=== PATIENT | female | born 1995 | race Caucasian/White ===

== ENCOUNTER 2018-05-22 19:12 | Emergency (ER) | payer BC, SELFPAY ==
--- OUTSIDE RECORDS SUMMARY | 2018-05-22 19:14 | XMS REPORT | Summary of Care ---
:1995 Author Name Helene Sherman Address [facility] Unavailable , Care Team Providers Name Role Phone JEREMIAH N.P., RASHAD Unavailable Unavailable SAMMY LEBLANC M.D. Unavailable Unavailable DEANA YOUNGER [place], SAMMY VEE Unavailable Unavailable Unavailable Unavailable Unavailable Functional Status Name Dates Details Functional status health issues are not documented Status: Name Dates Details Cognitive status health issues are not documented Status: Problems Name Dates Details Displaced supracondylar fracture with intracondylar extension of lower end of left femur, initial encounter for open fracture type IIIA, IIIB, or IIIC (821.33 , S72.462C) Status: Active Foot pain (729.5, M79.673) Status: Active Medications Name Dates Details Acetaminophen-Codeine #3 300-30 MG Oral Tablet TAKE 1 TO 2 TABLETS EVERY 6 HOURS NEEDED FOR PAIN. Quantity: 40 Refills: 0 JEREMIAH N.P., RASHAD Start : 13-Aug-2017 Active Gabapentin 300 MG Oral Capsule TAKE 1 CAPSULE 3 TIMES DAILY. Quantity: 90 Refills: 0 JEREMIAH N.P., RASHAD Start : 13-Aug-2017 Active Ibuprofen 800 MG Oral Tablet TAKE 1 TABLET 3 TIMES DAILY WITH FOOD NEEDED. Quantity: 60 Refills: 0 SAMMY LEBLANC M.D. Start : 15-Oct-2017 Active Allergies and Adverse Reactions Name Dates Details Allergy history not documented Status: Procedures Procedure Dates Details [U] XRAY FEMUR 2 VWS LEFT [id number] Date: 19-Mar-2018 [U] XRAY KNEE 1 OR 2 VWS LEFT [id number] Date: 19-Mar-2018 Immunization Name Dates Details Immunizations not documented Social History Name Dates Details Unknown if ever smoked Vital Signs Date Test Result Details No Known Vitals to report Results Date Description Value Details Results not documented Plan of Care Name Dates Details Planned Observations Planned Goals not documented Planned Encounters Appointment; SAMMY LEBLANC M.D. On: 25-Mar-2018 12:45 Interventions Provided Labs/Procedures/Imaging[U] XRAY FEMUR 2 VWS LEFT [id number]; To Be Done: 25 Mar 2018[ U] XRAY KNEE 1 OR 2 VWS LEFT [id number]; To Be Done: 25 Mar 2018 Instructions Name Dates Details Instructions not documented Encounters Appointment; SAMMY LEBLANC M.D. On: 13-Aug-2017 13:15 Encounter Diagnosis: Problem not documented Appointment; SAMMY LEBLANC M.D. On: 27-Aug-2017 8:00 Encounter Diagnosis: Problem not documented Appointment; SAMMY LEBLANC M.D. On: 17-Sep-2017 8:00 Encounter Diagnosis: Problem not documented Appointment; RASHAD DANIELS NP On: 17-Sep-2017 8:00 Encounter Diagnosis: Problem not documented Appointment; SAMMY LEBLANC M.D. On: 15-Oct-2017 8:00 Encounter Diagnosis: Problem not documented Appointment; SAMMY LEBLANC M.D. On: 27-Oct-2017 7:30 Encounter Diagnosis: Problem not documented Appointment; SAMMY LEBLANC M.D. On: 19-Nov-2017 11:00 Encounter Diagnosis: Problem not documented Appointment; SAMMY LEBLANC M.D. On: 17-Dec-2017 13:15 Encounter Diagnosis: Problem not documented Appointment; SAMMY LEBLANC M.D. On: 25-Mar-2018 12:45 Encounter Diagnosis: Problem not documented
[2018-05-22 20:05] LABS: Urine Blood 1+ (NEG); Urine Glucose NEGATIVE (NEG); Urine Protein NEGATIVE (NEG); Urine Specific Gravity 1.015 (1.005-1.030); Urine pH 6.5 (5.0-7.0)
[2018-05-22 20:25] LABS: Urine RBC <5 /HPF (NONE SEEN)
[2018-05-22 20:25] LABS: Absolute Monocytes 0.6 K/uL (0.1-1.3); Absolute Neutrophil 4.3 K/uL (1.8-8.0); Basophils % 0.5 % (0-1.3); Eosinophils % 2.1 % (0-4.4); Hematocrit 38.7 % (36.0-45.0); Lymphocytes % 28.3 % (15.3-44.8); MPV 8.6 fL (7.6-11.3); Monocytes % 9.1 % (3.3-12.3); RBC Red Blood Cell Count 4.85 M/uL (3.86-4.86)
[2018-05-22 20:26] LABS: Urine Bacteria 20-50 /HPF (<20); Urine Culture Reflex Order REFLEXED
[2018-05-22] MEDS ORDERED: NA CHLORIDE 0.9% 1,000 ML ONE (20:46)
[2018-05-22 20:59] LABS: ALT/SGPT 25 U/L (12-78); AST/SGOT 11 U/L (15-37); Albumin 3.6 g/dL (3.4-5.0); Alkaline Phosphatase 83 U/L (45-117); BUN Blood Urea Nitrogen 11 mg/dL (7-18); Bicarbonate 28 mmol/L (21-32); Bilirubin Direct < 0.1 mg/dL (0-0.2); Bilirubin Total 0.2 mg/dL (0.2-1.0); Glucose Level 86 mg/dL (74-106); Lipase 139 U/L (73-393); Potassium 3.8 mmol/L (3.5-5.1); Protein, Total 8.3 g/dL (6.4-8.2); Sodium Level 141 mmol/L (136-145)
[2018-05-22] MEDS ORDERED: KETOROLAC 30 MG/ML INJ ONE (21:24)
--- NOTE | 2018-05-22 22:07 | RAD REPORT ---
EXAM DESCRIPTION: CT - Abdomen Pelvis W Contrast - 05/22/2018 9:50 pm CLINICAL HISTORY: Abdominal pain/left lower quadrant pain. COMPARISON: none. TECHNIQUE: Computed axial tomography of the abdomen pelvis was obtained. 100 cc Isovue-300 was admin istered intravenously. Oral contrast was not requested which limits evaluation of bowel. All CT scans are performed using dose optimization technique as appropriate and may include automated exposure control or mA/KV adjustment according to patient size. FINDINGS: Fatty liver 1Spleen, pancreas, adrenal and kidneys appear unremarkable. There is no evidence of diverticulitis. The appendix is normal. An adnexal mass is not seen IMPRESSION: No acute abnormality is displayed.
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
== END 2018-05-22 22:31 | disposition home or self-care (01) ==
LOC: ER 19:12
DX: R10.32 Left lower quadrant pain (principal); G40.909 Epilepsy, unspecified, not intractable, without status epilepticus; Z91.040 Latex allergy status; Z91.048 Other nonmedicinal substance allergy status
CPT/HCPCS: 36415; 74177; 80048; 80076; 81003; 81015; 81025; 83690; 85025; 87086; 87088; 96361; 96374; 99284; J7030; Q9967

== ENCOUNTER 2018-08-04 05:50 | Emergency (ER) | payer BC, SELFPAY ==
--- OUTSIDE RECORDS SUMMARY | 2018-08-04 05:56 | XMS REPORT | Continuity of Care Document ---
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 (Same As: Ultram) pregabalin 100 mg, 1 cap, No Longer [place] Route: PO, Drug Active 2017 Medical form: CAP, Q8H, Center Dosing Weight 88.182, kg, Priority: NOW, Start date: 07/28/17 23:48:00 [employer], Duration: 48 hr, Stop date: 07/30/17 16:00:00 CSTNotes: (Same as: Lyrica) celecoxib 200 mg, 1 cap, No Longer [facility] Route: PO, Drug Active 2017 Medical form: CAP, Q12H, Center Dosing Weight 88.182, kg, Priority: NOW, Start date: 07/28/17 23:48:00 [employer], Duration: 48 hr, Stop date: 07/30/17 21:00:00 CSTNotes: NSAID. Please check indication. Not for seizure. (Same As: CeleBREX) Acetaminophen 1,000 mg, 2 tab, No Longer [place] Route: PO, Drug Active 2017 Medical form: TAB, Q6H, Center Dosing Weight 88.182, kg, Priority: NOW, Start date: 07/28/17 23:48:00 [employer], Stop date: 08/27/17 17:00:00 CDTNotes: Max acetaminophen 4000 mg/day (4 gm/day). (Same as: Tylenol Extra Strength) Ancef + sterile 2 gm, Route: No Longer [facility] water 20 mL IVP, Q8H, Dosing Active 2018 Medical Weight 88.182, Center kg, Priority: STAT, Start date: 07/28/17 23:34:00 [employer], Duration: 30 day, Stop date: 08/27/17 16:00:00 CDT, ABX Indication: Bone/Joint Infection Ondansetron 4 mg, Route: Inactive [facility] IVP, Drug form: 2018 Medical INJ, ONCE, Center Dosing Weight 88.182, kg, Priority: STAT, Start date: 07/28/17 23:32:00 [employer], Stop date: 07/28/17 23:32:00 [employer] Morphine 4 mg, Route: Inactive [facility] IVP, ONCE, 2018 Medical Dosing Weight Center 88.182, kg, Priority: STAT, Start date: 07/28/17 23:30:00 [employer], Stop date: 07/28/17 23:30:00 [employer] Dilaudid 1 mg, Route: IV, Inactive [facility] ONCE, Dosing 2018 Medical Weight 88.182, Center kg, Start date: 07/28/17 21:44:00 [employer], Stop date: 07/28/17 21:44:00 [employer] Ketamine 25 mg, Route: Inactive [facility] IV, ONCE, Dosing 2018 Medical Weight 88.182, Center kg, Start date: 07/28/17 21:23:00 [employer], Stop date: 07/28/17 21:23:00 [employer] iodixanol 130 mL, Route: Inactive [facility] IVP, Drug Form: 2018 Medical SOLN, Dosing Center Weight 88.182, kg, ONCALL, STAT, Start date: 07/28/17 21:22:00 [employer], Duration: 1 doses or times, Dose=2.2ml/kg, Max ocis=[id number] -- "To be infused by Radiology Staff ONLY" Isolyte S PH 7.4 1,000 mL, Rate: Inactive [facility] 1,000 mL 125 ml/hr, 2018 Medical Infuse over: 8 Center hr, Route: IV, Dosing Weight 88.182 kg, Total Volume: 1,000, Priority: STAT, Start date: 07/28/17 20:45:00 [employer], Duration: 1 doses or times, Stop date: 07/29/17 4:44:00 [employer], 1.84, [id number]: (Same as: Isolyte S PH 7.4) Cefazolin 2 gm, Route: IV, Inactive 07/29[facility] ONCE, Dosing 2018 Medical Weight 88.182, Center kg, (for patients 50 -120 kg), Priority: STAT, Start date: 07/28/17 20:45:00 [employer], Stop date: 07/28/17 20:45:00 [employer], ABX Indication: Open Wound Prophylaxis Hydromorphone 1 mg, Route: Inactive 07/29[facility] IVP, ONCE, 2018 Medical Dosing Weight Center 88.182, kg, Priority: STAT, Start date: 07/28/17 20:45:00 [employer], Stop date: 07/28/17 20:45:00 [employer] Gentamicin 500 mg, Route: Inactive 07/29[facility] IVPB, ONCE, 2018 Medical Dosing Weight Center 88.182, kg, Time Critical Medication, Priority: STAT, Start date: 07/28/17 20:45:00 [employer], Stop date: 07/28/17 20:45:00 [employer] Saline Flush 0.9% 10 mL, Route: No Longer 07/29/ [facility] MISC, Drug Form: Active 2018 Medical INJ, Dosing Center Weight 88.182, kg, PRN, PRN Line Flush, Start date: 07/28/17 20:45:00 [employer], Duration: 30 day, Stop date: 08/27/17 21:44:00 CDTNotes: (Same as: BD Posiflush) Allergies, Adverse Reactions, Alerts Substance Category Reaction Severity Reaction Status Date Comments Source type Reported Latex Assertion Drug Active [facility] allergy [facility] Center Immunizations Immunization Date Given Site Status Last Comments Source Updated pneumococcal 07/29/2017 Not Given [facility] 23-valent vaccine [facility] diphtheria/pertus 07/29/2017 Left completed [facility] sis, acel/tetanus Deltoid [facility] adult Center Results Order Name Results Value Reference Date Interpretation Comments Source Range Femur Femur series Right femur 2 views: There is no fracture or dislocation. Vague linear lucency over the greater trochanter is consistent with an overlying fat pad. There are no other significant osseous, articular or soft tissue abnormalities. 08/01 - [facility] series DX DX /2019 - [facility] IMPRESSION: Read by: Bean Parmar MD Dictated Date/time: 08/02/18 07:50 Electronically Signed by: Bean Parmar MD 08/02/18 07:51 FINAL REPORT No acute radiographic abnormalities of the right femur. [id number] Hip 2/3 Hip 2/3 Right hip and pelvis 3 views: There is no fracture or dislocation. There are no other significant osseous, articular or soft tissue abnormalities. 08/01 - [facility] views uni w views uni w /2018 - [facility] pelvis DX pelvis DX IMPRESSION: Read by: Bean Parmar MD Dictated Date/time: 08/02/18 07:49 Electronically Signed by: Bean Parmar MD 08/02/18 07:50 FINAL REPORT No acute radiographic abnormality of the right hip. [id number] Brain wo Brain wo Clinical Indication: Seizures - Epilepsy Protocol; - [facility] contrast contrast MRI /2018 - [facility] MRI Comparison: CT head 07/28/2017 Read by: Dillon Garza MD Dictated Date/time: 08/01/18 11:49 TECHNIQUE: Multiplanar pre- and post-gadolinium contrast-enhanced MRI of the brain is performed on a 1.5 Iman magnet. Contrast: None. Electronically Signed by: Dillon Garza MD 08/01/18 11 :55 FINAL REPORT FINDINGS: BRAIN PARENCHYMA: No restricted diffusion demonstrated. Mild motion artifact limits sensitivity of this study. Gradient echo sequence is unremarkable. Global volume is commensurate with age. Midline str uctures are within normal limits. The craniocervical junction is unremarkable. Both medial temporal lobes are symmetric in appearance. CEREBELLOPONTINE REGIONS AND SKULL BASE: The cerebellopontine angles appear unremarkable. The sellar and pineal regions are unremarkable. VENTRICLES: The ventricles are normal in size and configuration. The basilar cisterns are normal. VESSELS: The venous sinuses are grossly unremarkable. The expected intracranial flow voids are present. ORBITS, VISUALIZED PARANASAL SINUSES AND MASTOIDS: Polyp or mucosal retention cyst in the right maxillary sinus. Remaining imaged paranasal sinuses are clear. Mastoid air cells are clear. Orbits appear unremarkable. IMPRESSION: No acute ischemia, midline shift or mass effect. SL: CELEM Ext Lower Ext Lower EXAM: ULTRASOUND LEFT KNEE NONVASCULAR 10/29 - [facility] limited non limited non - Medical vascular US vascular US Center DATE: 10/29/2017 7:21 AM CDT Read by: Dewye Jacobs MD Dictated Date/time: 10/29/17 09:50 Electronically Signed by: Dewey Jacobs MD 10/29/17 09:55 FINAL REPORT INDICATION: Limitation of movement - R/O quad/ patella tend rupture COMPARISON: Left knee radiographs 10/29/2017 TECHNIQUE: Ultrasound exam of the left knee extensor mechanism with multiple images submitted to PACS. DISCUSSION: There is diffuse increased signal and volume loss of the left quadriceps musculature. There is partial tearing of the distal vastus lateralis muscle. The left quadriceps tendon is normal in echogenicity and morphology. There is a 1.3 cm in length displaced bone fragment within the fat deep to the quadriceps tendon. There is mild thinning with irregul arity along the deep surface of the proximal patellar tendon without patellar tendon tear identified. IMPRESSION: 1. Mild thinning of the proximal left patellar tendon without tear identified. The left quadriceps tendon is intact. 2. Atrophy of the distal left quadriceps musculature with partial tearing of the vastus lateralis. Femur Femur series EXAM: XR LEFT FEMUR 2 VIEWS 10/29 - [facility] series DX DX - Medical EXAM: XR LEFT KNEE 3 VIEWS Center Read by: Kenneth Johnson Dictated Date/time: 10/29/17 03:37 DATE: 10/29/2017 2:40 AM CDT Electronically Signed by: Kenneth Johnson 10/29/17 03:42 FINAL REPORT INDICATION: - pain COMPARISON: August 03, 2017 TECHNIQUE: AP and lateral views of the left femur, AP, lateral and oblique views of the left knee. FINDINGS: Unchanged left femur ORIF hardware. No hardware fracture or perihardware lucencies seen. Fracture lines in the distal femur are still visualized with no significant bony bridging. Mild soft tissue swell ing seen in the distal thigh and knee. Heterotopic ossification seen on the superior aspect of the patella. IMPRESSION: Unchanged left femoral ORIF hardware. Comminuted distal left femur fracture without significant bony bridging. Mild soft tissue swelling about the knee and in the distal thigh. Knee series Knee series EXAM: XR LEFT FEMUR 2 VIEWS 10/29 [facility] 3 views DX 3 views DX /2018 - Medical EXAM: XR LEFT KNEE 3 VIEWS Center Read by: Kenneth Johnson Dictated Date/time: 10/29/17 03:37 DATE: 10/29/2017 2:40 AM CDT Electronically Signed by: Kenneth Johnson 10/29/17 03:42 FINAL REPORT INDICATION: - pain COMPARISON: August 03, 2017 TECHNIQUE: AP and lateral views of the left femur, AP, lateral and oblique views of the left knee. FINDINGS: Unchanged left femur ORIF hardware. No hardware fracture or perihardware lucencies seen. Fracture lines in the distal femur are still visualized with no significant bony bridging. Mild soft tissue swell ing seen in the distal thigh and knee. Heterotopic ossification seen on the superior aspect of the patella. IMPRESSION: Unchanged left femoral ORIF hardware. Comminuted distal left femur fracture without significant bony bridging. Mild soft tissue swelling about the knee and in the distal thigh. HEMATOLOGY RDW 16.5 % 11.5 - 06 [place] 14.[address] [facility] HEMATOLOGY Platelet 373 K/CMM 133 - [address] [facility] HEMATOLOGY RBC 4.94 M/CMM 4.20 - 0605 [place] 5.40 /[address] [facility] HEMATOLOGY WBC 9.5 K/CMM 3.7 - 10.4 10/[address] [facility] HEMATOLOGY MCH 24.1 pg 27.0 - 06 [place] 31.0 /[address] [facility] HEMATOLOGY Hgb 11.9 g/dL 12.0 - 06 [place] 16.[address] [facility] HEMATOLOGY MCV 75.0 fL 80.0 - 10/27 [place] 98.[address] [facility] HEMATOLOGY MCHC 32.2 g/dL 32.0 - 06/05 [place] 36.[address] [facility] HEMATOLOGY Hct 37.0 % 36.0 - 06/ [place] 48.[address] [facility] HEMATOLOGY MPV 8.4 fL 7.4 - 10.4 06 /[address] [facility] HEMATOLOGY Segs 57.1 % 45.0 - 06/05 [place] 75.0 /[address] [facility] HEMATOLOGY Lymphocytes 33.5 % 20.0 - 06/05 [place] 40.[address] [facility] HEMATOLOGY Lymphocytes 3.2 K/CMM 1.0 - 5.5 06 [facility] [place] # /[address] [facility] HEMATOLOGY Segs-Bands # 5.4 K/CMM 1.5 - 8.1 10/[address] HEMATOLOGY Monocytes 6.4 % 2.0 - 12.0 10/[address] HEMATOLOGY Basophils 0.7 % 0.0 - 1.0 10/[address] HEMATOLOGY Eosinophils 2.3 % 0.0 - 4.0 10/[address] HEMATOLOGY Eosinophils 0.2 K/CMM 0.0 - 0.5 10/[address] [facility] [facility] HEMATOLOGY Microcyte 1+ None Seen 10/27 [facility] [address] [place] [address] *ABN* Center (10/27/17 6:51 AM) HEMATOLOGY Monocytes # 0.6 K/CMM 0.0 - 0.8 10/[address] HEMATOLOGY Basophils # 0.1 K/CMM 0.0 - 0.2 10/[address] ELECTROLYTE AGAP 15.1 meq/L 10.0 - 08/07 [facility] 20.[address] [facility] ELECTROLYTE eGFR 137 08/07 Result Comment: The eGFR is calculated using the CKD-EPI formula. In most young, healthy individuals the eGFR will be > 90 mL/min/1.73m2. The eGFR declines with age. An eGFR of 60-89 may be normal in [facility] mL/min/1. some populations, particularly the elderly, for whom the CKD-EPI formula has not been extensively validated. Use of the eGFR is not recommended in the following populations: [address] Individuals with unstable creatinine concentrations, including patients and those with serious co-morbid conditions. Patients with extremes in muscle mass or diet. The data above are obtained from the National Kidney Disease Education Program (NKDEP) which additionally recommends that when the eGFR is used in patients with extremes of body mass index for purposes of drug dosing, the eGFR should be multiplied by the estimated BMI. ELECTROLYTE Creatinine 0.53 mg/dL 0.50 - 08/07 [facility] Lvl 1.[address] [facility] ELECTROLYTE CO2 24 meq/L 24 - 32 08/[address] ELECTROLYTE BUN 14 mg/dL 7 - 22 08/[address] ELECTROLYTE Glucose Lvl 97 mg/dL 70 - 99 08/[address] ELECTROLYTE Sodium Lvl 137 meq/L 135 - 145 08/07 [facility] S [facility] ELECTROLYTE Calcium Lvl 8.7 mg/dL 8.5 - 10.5 08/07 [facility] ELECTROLYTE Chloride Lvl 102 meq/L 95 - 109 08/07 [facility] ELECTROLYTE Potassium 4.1 meq/L 3.5 - 5.1 08/07 [facility] Lvl [facility] HEMATOLOGY Eosinophils 3.2 % 0.0 - 4.0 08/07 [facility] HEMATOLOGY Monocytes # 0.9 K/CMM 0.0 - 0.8 08/07 [facility] HEMATOLOGY Lymphocytes 2.8 K/CMM 1.0 - 5.5 08/07 [facility] HEMATOLOGY Eosinophils 0.3 K/CMM 0.0 - 0.5 08/07 [facility] HEMATOLOGY Segs 60.6 % 45.0 - 08/07 [facility] 75.[address] [facility] HEMATOLOGY Lymphocytes 27.2 % 20.0 - 08/07 [facility] 40.[address] [facility] HEMATOLOGY Monocytes 8.7 % 2.0 - 12.0 08/07 [facility] [address] [place] [address] HEMATOLOGY Segs-Bands # 6.2 K/CMM 1.5 - 8.1 08/07 [facility] HEMATOLOGY Basophils 0.3 % 0.0 - 1.0 08/07 [facility] [address] [place] [address] HEMATOLOGY Hct 27.7 % 36.0 - 08/[address] [facility] HEMATOLOGY MCV 82.9 fL 80.0 - 08/[address] [facility] HEMATOLOGY MCH 27.5 pg 27.0 - 08/[address] [facility] HEMATOLOGY MCHC 33.1 g/dL 32.0 - 08/[address] [facility] HEMATOLOGY RDW 15.7 % 11.5 - 08/[address] [facility] HEMATOLOGY Platelet 409 K/CMM 133 - 450 08/07 [facility] HEMATOLOGY RBC 3.34 M/CMM 4.20 - 08/07 [place] 5.40 /[address] [facility] HEMATOLOGY Hgb 9.2 g/dL 12.0 - 08/07 [place] 16.[address] [facility] HEMATOLOGY WBC 9.7 K/CMM 3.7 - 10.4 08/[address] [facility] HEMATOLOGY MPV 8.0 fL 7.4 - 10.4 08/[address] [facility] HEMATOLOGY Segs 61.1 % 45.0 - 08/07 [place] [address] [facility] HEMATOLOGY Lymphocytes 2.7 K/CMM 1.0 - 5.5 08/07 [facility] # /[address] [facility] HEMATOLOGY Monocytes # 0.7 K/CMM 0.0 - 0.8 08/[address] [facility] HEMATOLOGY Eosinophils 0.3 K/CMM 0.0 - 0.5 08/07 [facility] HEMATOLOGY Eosinophils 3.6 % 0.0 - 4.0 08/[address] [facility] HEMATOLOGY Basophils 0.4 % 0.0 - 1.0 08/[address] [facility] HEMATOLOGY Segs-Bands # 6.0 K/CMM 1.5 - 8.1 08/[address] [facility] HEMATOLOGY Lymphocytes 27.3 % 20.0 - 08/07 [place] [address] [facility] HEMATOLOGY Monocytes 7.6 % 2.0 - 12.0 08/[address] [place] [address] HEMATOLOGY RDW 15.9 % 11.5 - 08/[address] [facility] HEMATOLOGY Platelet 406 K/CMM 133 - 450 08/[address] [facility] HEMATOLOGY MPV 8.0 fL 7.4 - 10.4 08/[address] [place] [address] HEMATOLOGY MCV 84.8 fL 80.0 - 08/[address] [facility] HEMATOLOGY MCH 27.8 pg 27.0 - 08/07 [place] 31.[address] [facility] HEMATOLOGY MCHC 32.8 g/dL 32.0 - 16 [place] [address] [facility] HEMATOLOGY Hgb 9.0 g/dL 12.0 - 16 [place] 16.[address] [facility] HEMATOLOGY Hct 27.3 % 36.0 - 16 [place] [address] [facility] HEMATOLOGY RBC 3.22 M/CMM 4.20 - 0316 [place] 5.40 /[address] [facility] HEMATOLOGY WBC 10.1 K/CMM 3.7 - 10.4 08/[address] [facility] BLOOD BANK ABO/Rh A POS 08/06 [facility] RESULTS [facility] BLOOD BANK Antibody Negative 08/06 [facility] RESULTS [facility] (08/06/17 2:43 PM) [place] BLOOD BANK RBC product Product available 08/06 [facility] RESULTS [facility] (08/06/17 12:46 PM) [place] CHEM PANEL eGFR 134 08/06 Result Comment: The eGFR is calculated using the CKD-EPI formula. In most young, healthy individuals the eGFR will be >90 mL/ min/1.73m2. The eGFR declines with age. An eGFR of 60-89 may be normal in [facility] mL/min/1.7 some populations, particularly the elderly, for whom the CKD-EPI formula has not been extensively validated. Use of the eGFR is not recommended in the following populations: [address] Individuals with unstable creatinine concentrations, including patients and those with serious co-morbid conditions. Patients with extremes in muscle mass or diet. The data above are obtained from the National Kidney Disease Education Program (NKDEP) which additionally recommends that when the eGFR is used in patients with extremes of body mass index for purposes of drug dosing, the eGFR should be multiplied by the estimated BMI. CHEM PANEL Creatinine 0.56 mg/dL 0.50 - 08/06 [facility] Lvl 1.[address] [facility] CHEM PANEL BUN 11 mg/dL 7 - 22 08/[address] CHEM PANEL Potassium 3.9 meq/L 3.5 - 5.1 08/06 [facility] Lvl [facility] CHEM PANEL CO2 25 meq/L 24 - 32 08/[address] CHEM PANEL Calcium Lvl 8.3 mg/dL 8.5 - 10.5 08/[address] CHEM PANEL Chloride Lvl 103 meq/L 95 - 109 08/[address] [place] [address] CHEM PANEL Sodium Lvl 138 meq/L 135 - 145 08/[address] CHEM PANEL AGAP 13.9 meq/L 10.0 - 08/06 [facility] 20.[address] [facility] CHEM PANEL Glucose Lvl 128 mg/dL 70 - 99 08/[address] HEMATOLOGY Platelet 373 K/CMM 133 - 450 08/[address] HEMATOLOGY MPV 7.8 fL 7.4 - 10.4 08/[address] HEMATOLOGY WBC 9.0 K/CMM 3.7 - 10.4 08/[address] [facility] HEMATOLOGY RBC 2.64 M/CMM 4.20 - 08/[address] [facility] HEMATOLOGY MCH 27.1 pg 27.0 - 08/[address] [facility] HEMATOLOGY RDW 16.3 % 11.5 - 08/[address] [facility] HEMATOLOGY MCHC 32.2 g/dL 32.0 - 08/[address] [facility] HEMATOLOGY Hgb 7.2 g/dL 12.0 - 08/06 [place] 16.[address] [facility] HEMATOLOGY Hct 22.2 % 36.0 - 08/[address] [facility] HEMATOLOGY MCV 84.0 fL 80.0 - 08/06 [facility] 98.[address] [facility] HEMATOLOGY Monocytes # 0.7 K/CMM 0.0 - 0.8 08/[address] [facility] HEMATOLOGY Eosinophils 0.3 K/CMM 0.0 - 0.5 08/06 [facility] HEMATOLOGY Monocytes 8.1 % 2.0 - 12.0 08/[address] [facility] HEMATOLOGY Eosinophils 3.5 % 0.0 - 4.0 08/[address] [facility] HEMATOLOGY Lymphocytes 2.3 K/CMM 1.0 - 5.5 08/06 [facility] HEMATOLOGY Basophils 0.5 % 0.0 - 1.0 08/[address] [facility] HEMATOLOGY Segs-Bands # 5.6 K/CMM 1.5 - 8.1 08/[address] [facility] HEMATOLOGY Segs 62.6 % 45.0 - 08/06 [facility] [address] [facility] HEMATOLOGY Lymphocytes 25.3 % 20.0 - 08/06 [facility] 40.[address] [facility] CHEM PANEL eGFR 107 08/04 Result Comment: The eGFR is calculated using the CKD-EPI formula. In most young, healthy individuals the eGFR will be >90 mL/ min/1.73m2. The eGFR declines with age. An eGFR of 60-89 may be normal in [facility] mL/min/1. some populations, particularly the elderly, for whom the CKD-EPI formula has not been extensively validated. Use of the eGFR is not recommended in the following populations: [address] Individuals with unstable creatinine concentrations, including patients and those with serious co-morbid conditions. Patients with extremes in muscle mass or diet. The data above are obtained from the National Kidney Disease Education Program (NKDEP) which additionally recommends that when the eGFR is used in patients with extremes of body mass index for purposes of drug dosing, the eGFR should be multiplied by the estimated BMI. CHEM PANEL Potassium 4.0 meq/L 3.5 - 5.1 08/04 [facility] [address] [place] [address] CHEM PANEL Calcium Lvl 8.1 mg/dL 8.5 - 10.5 08/[address] CHEM PANEL CO2 27 meq/L 24 - 32 08/[address] CHEM PANEL AGAP 13.0 meq/L 10.0 - 08/04 [facility] 20.[address] [place] [address] CHEM PANEL Chloride Lvl 102 meq/L 95 - 109 08/[address] CHEM PANEL Sodium Lvl 138 meq/L 135 - 145 08/[address] CHEM PANEL Creatinine 0.80 mg/dL 0.50 - 08/04 [facility] Lvl 1.[address] [facility] CHEM PANEL BUN 14 mg/dL 7 - 22 08/[address] CHEM PANEL Glucose Lvl 125 mg/dL 70 - 99 08/[address] Femur Femur series EXAM: XR LEFT FEMUR 2 VIEWS 08/03 - [facility] series DX DX /2017 [facility] DATE: 08/03/2017 3:53 PM CDT Read by: Alena Will MD Dictated Date/time: 08/04/17 11:40 Electronically Signed by: Alena Will MD 08/04/17 11:41 FINAL REPORT INDICATION: - OR 28 COMPARISON: Radiograph dated July 29, 2017 TECHNIQUE: AP and lateral radiographs of the femur FINDINGS: Status post open reduction internal fixation of the comminuted distal femoral supracondylar and condylar fractures by means of medial and lateral plate and screws. Hardware in good alignment. No convocations. Post surgical soft tissue changes visualized. IMPRESSION: Good alignment of the distal femur and femoral condyles status post ORIF. CHEM PANEL Magnesium 2.4 mg/dL 1.8 - 2.4 08/03 [facility] /[address] [facility] CHEM PANEL Phosphorus 4.6 mg/dL 2.5 - 4.5 08/03 [facility] /[address] [facility] Center HEMATOLOGY PTT 28.0 s 22.9 - 08/03 [place] 35.8 /[address] [facility] HEMATOLOGY PT 13.0 s 12.0 - 08/03 [facility] 14.[address] [facility] HEMATOLOGY INR 0.98 0.85 - 08/03 [place] 1.[address] [facility] HEMATOLOGY Basophils # 0.1 K/CMM 0.0 - 0.2 08/03 [facility] /[address] [facility] PARATHYROID Ca Norm WB 1.12 1.05 - 08/03 [facility] PROFILE mMol/L 1. [facility] PARATHYROID Ca Ion WB 1.15 1.05 - 08/03 [facility] PROFILE mMol/L 1. [facility] BLOOD BANK ABO/Rh A POS 08/02 [facility] RESULTS [facility] BLOOD BANK Antibody Negative 08/02 [facility] RESULTS Scrn [facility] (08/02/17 11:52 AM) [place] BLOOD BANK RBC product Product available 08/02 [facility] RESULTS Medical (08/02/17 10:03 AM) [place] BLOOD BANK RBC product Product available 08/02 [facility] RESULTS [facility] (08/02/17 9:07 AM) [place] CHEM PANEL Magnesium 1.8 mg/dL 1.8 - 2.4 08/02 [facility] Chest 1view Chest 1view EXAM: XR CHEST 1 VIEW 07/30 - [facility] DX DX - [facility] DATE: 07/30/2017 Read by: Maria Esther Dickinson MD Dictated Date/time: 07/30/17 08:59 Electronically Signed by: Maria Esther Dickinson MD 07/30/17 09:02 FINAL REPORT INDICATION: R and L rib fractures - R and L rib fractures . Comparison is made with yesterday Lung volumes are low. This produces spurious widening of the transverse diameter of the heart and mediastinum and crowding of the basal lung markings. This produces platelike atelectasis at both lung ba ses. Underlying consolidation is not excluded. The upper lungs are clear. Costophrenic sulci are sharp. There are fractures of two right lateral ribs which are not well visualized to estimate their age. IMPRESSION: Low lung volumes. Right rib fractures. Knee wo Knee wo EXAM: CT LEFT KNEE WITHOUT CONTRAST 07/29 - [facility] contrast contrast - Medical w/3D CT w/3D CT This report was dictated by a Adjudication Specialist/ Fellow. I have personally reviewed the images as Center well as the Resident's interpretation and agree with the findings. DATE: 07/29/2017 at 7:20 PM [employer] Read by: Jose J Bonilla MD Resident: Jose J Bonilla MD Dictated Date/time: 07/30/17 08:18 Electronically Signed by: Dewey Jacobs MD 07/30/17 17:45 FINAL REPORT INDICATION: - Please include full extent of distal femur fracture COMPARISON: Lower extremity CTA on 07/28/2017. TECHNIQUE: Volumetric acquisition of the knee without contrast. Axial, sagittal and coronal reconstructions. 3-D reconstructions were performed at the workstation. IV contrast: None. DLP: 1298 mGy-cm FINDINGS: Distal femur: Complete distal femur intra-articular fracture with comminution of the metaphysis and, medial, lateral condyles. A fracture line extends approximately 13 cm proximally from the joint line up the diaphys is. The anterior half of the medial femoral condyles is comminuted and mildly displaced with 4 mm of maximum displacement of fracture fragments. The lateral femoral condyle is impacted into the medullar y cavity with a 2 cm depression. The metaphysis is comminuted and there is impaction of a 3 cm segment of the posterior metaphyseal cortex into the medial femoral condyle. Patella: The patella is intact. Proximal tibia: Intact. External fixation hardware courses through the tibia and is intact. Proximal fibula: Intact. Soft tissues: Soft tissue inflammatory changes are present around the distal femur and knee joint. Pneumarthrosis and subcutaneous emphysema are present. No knee joint effusion is present. IMPRESSION: 1. Complete articular distal femur fracture with comminution of the metaphysis and femoral condyles. 2. There is no abnormality of the patella. 3. Persistent soft tissue edema with pneumarthrosis and subcutaneous edema. DRUG SCREEN U Phencyc Negative Negative 07/29 [facility] Scr Medical *NA* Center (07/29/17 6:00 AM) DRUG SCREEN UDS Note See Note 07/29

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
--- OUTSIDE RECORDS SUMMARY | 2018-08-04 05:57 | XMS REPORT | Summary of Care ---
:1995 Author Organization [facility] Address [address], [place] [address]- Encounter HQ [email or web address](FIN) [phone] Date(s): 10/27/17 - 10/27/[address] [address]- [place] Discharge Disposition: Home or Self Care Attending Physician: Robbin Arrieta MD Referring Physician: Robbin Arrieta MD Vital Signs Most recent to oldest 1 2 3 [Reference Range]: Height 162.56 cm 160.02 cm (10/27/17 6:31 AM) (10/23/17 11:12 AM) Blood Pressure [90-140/60-90 117/69 mmHg 136/67 mmHg 137/68 mmHg mmHg] (10/27/17 11:35 AM) (10/27/17 11:15 AM) (10/27/17 11:00 AM) Respiratory Rate [14-20 BRMIN] 16 BRMIN 17 BRMIN 16 BRMIN (10/27/17 11:35 AM) (10/27/17 11:15 AM) (10/27/17 11:00 AM) Peripheral Pulse Rate [60-100 87 bpm bpm] (10/27/17 6:31 AM) Weight 82.273 kg 86.364 kg (10/27/17 6:31 AM) (10/23/17 11:12 AM) Body Mass Index 31.13 m2 33.73 m2 (10/27/17 6:31 AM) (10/23/17 11:12 AM) Problem List Condition Effective Dates Status Health Status Informant Epilepsy(Confirmed) Active Narcolepsy(Confirmed) Active Allergies, Adverse Reactions, Alerts Substance Reaction Severity Status Latex Active Medications ANES acetaminophen 1,000 mg, 100 mL, Route: IVPB, Drug form: INJ, ONCE, Dosing Weight 82.273, kg, Priority: NOW, Start date: 10/27/17 8:48:00 CDT, Stop date: 10/27/17 8:48:00 CDT Notes: Infuse over 15 minutesDo not exceed 4gm/day of acetaminophen MEDICATION WASTE ProductSize: 1000 mgProduct Wasted: ___ mg Start Date: 10/27/17 Stop Date: 10/27/17 Status: OrderedANES flumazenil 0.2 mg, 2 mL, Route: IVP, Drug form: INJ, PRN, Dosing Weight 82.273, kg, PRN Benzodiazepine Reversal, Initial dose, Start date: 10/27/17 8:48:00 CDT, Duration: 30 day, Stop date: 11/26/17 8:47:00 CDT Notes: (Same as: Romazicon) Start Date: 10/27/17 Stop Date: 10/28/17 Status: DiscontinuedANES HYDROmorphone 0.5 mg, Route: IVP, Q5Min, Dosing Weight 82.273, kg, PRN Pain Score 7-10, Start date: 10/27/17 8:48:00 CDT, Duration: 4 doses or times, Stop date: Limited # of times Start Date: 10/27/17 Stop Date: 10/27/17 Status: CompletedANES naloxone 0.4 mg, 1 mL, Route: IVP, Drug form: INJ, Q2MIN, Dosing Weight 82.273, kg, PRN Narcotic Reversal, Start date: 10/27/17 8:48:00 CDT, Duration: 8 doses or times , Stop date: Limited # of times Notes: Same as Narcan Start Date: 10/27/17 Stop Date: 10/28/17 Status: DiscontinuedANES ondansetron 4 mg, 2 mL, Route: IVP, Drug form: INJ, ONCE, Dosing Weight 82.273, kg, PRN Nausea & Vomiting, Start date: 10/27/17 8:48:00 CDT Notes: (Same as: Zofran) MEDICATION WASTE Product Size: 4 mgProduct Wasted: ___ mg Start Date: 10/27/17 Stop Date: 10/28/17 Status: DiscontinuedfentaNYL (ANES) Route: IV, Drug form: INJ, ONCE, Stop date: 10/27/17 8:38:00 CDT Start Date: 10/27/17 Stop Date: 10/27/17 Status: Completedgabapentin 300 mg oral capsule 300 mg=1 cap, PO, TID, 0 Refill(s) Start Date: 10/23/17 Status: OrderedLactated Ringers Injection IV (ANES) 1000 mL Route: IV, Total Volume: 1,000, Start date: 10/27/17 7:01:00 CDT, Stop date: 10/09 8:01:00 CDT Start Date: 10/27/17 Stop Date: 10/27/17 Status: Completedlidocaine (ANES) Route: IV, Drug form: INJ, ONCE, Stop date: 10/27/17 8:38:00 CDT Start Date: 10/27/17 Stop Date: 10/27/17 Status: Completedmidazolam (ANES) Route: IV, Drug form: SOLN, ONCE, Stop date: 10/27/17 8:38:00 CDT Start Date: 10/27/17 Stop Date: 10/27/17 Status: CompletedMotrin 800 mg oral tablet 800 mg=1 tab, PO, 0 Refill(s) Start Date: 10/23/17 Status: Orderedondansetron (ANES) Route: IV, Drug form: INJ, ONCE, Stop date: 10/27/17 8:38:00 CDT Start Date: 10/27/17 Stop Date: 10/27/17 Status: Completedpropofol (ANES) Route: IV, Drug form: INJ, ONCE, Stop date: 10/27/17 8:38:00 CDT Start Date: 10/27/17 Stop Date: 10/27/17 Status: Completedrocuronium (ANES) Route: IV, Drug form: INJ, ONCE, Stop date: 10/27/17 8:38:00 CDT Start Date: 10/27/17 Stop Date: 10/27/17 Status: Completedsugammadex 500 mg, 5 mL, Route: IV, Drug form: SOLN, ONCALL, Start date: 10/27/17 8:30:00 CDT, Duration: 1 doses or times, Stop date: 10/27/17 8:35:00 CDT Notes: (Same as: Bridion) Start Date: 10/27/17 Stop Date: 10/28/17 Status: Discontinuedsugammadex (ANES) Route: IV, Drug form: SOLN, ONCE, Stop date: 10/27/17 8:38:00 CDT Start Date: 10/27/17 Stop Date: 10/27/17 Status: CompletedTylenol with Codeine #3 oral tablet 1 tab, PO, Q6H, PRN Pain Score 1-5, 0 Refill(s) Start Date: 10/23/17 Status: Ordered Results HEMATOLOGY Most recent to oldest [Reference Range]: 1 WBC [3.7-10.4 K/CMM] 9.5 K/CMM (10/27/17 6:51 AM) RBC [4.20-5.40 M/CMM] 4.94 M/CMM (10/27/17 6:51 AM) Hgb [12.0-16.0 g/dL] 11.9 g/dL *LOW* (10/27/17 6:51 AM) Hct [36.0-48.0 %] 37.0 % (10/27/17 6:51 AM) MCV [80.0-98.0 fL] 75.0 fL *LOW* (10/27/17 6:51 AM) MCH [27.0-31.0 pg] 24.1 pg *LOW* (10/27/17 6:51 AM) MCHC [32.0-36.0 g/dL] 32.2 g/dL (10/27/17 6:51 AM) RDW [11.5-14.5 %] 16.5 % *HI* (10/27/17 6:51 AM) MPV [7.4-10.4 fL] 8.4 fL (10/27/17 6:51 AM) Platelet [133-450 K/CMM] 373 K/CMM (10/27/17 6:51 AM) Segs [45.0-75.0 %] 57.1 % (10/27/17 6:51 AM) Lymphocytes [20.0-40.0 %] 33.5 % (10/27/17 6:51 AM) Monocytes [2.0-12.0 %] 6.4 % (10/27/17 6:51 AM) Eosinophils [0.0-4.0 %] 2.3 % (10/27/17 6:51 AM) Basophils [0.0-1.0 %] 0.7 % (10/27/17 6:51 AM) Segs-Bands # [1.5-8.1 K/CMM] 5.4 K/CMM (10/27/17 6:51 AM) Lymphocytes # [1.0-5.5 K/CMM] 3.2 K/CMM (10/27/17 6:51 AM) Monocytes # [0.0-0.8 K/CMM] 0.6 K/CMM (10/27/17 6:51 AM) Eosinophils # [0.0-0.5 K/CMM] 0.2 K/CMM (10/27/17 6:51 AM) Basophils # [0.0-0.2 K/CMM] 0.1 K/CMM (10/27/17 6:51 AM) Microcyte [None Seen] 1+ *ABN* (10/27/17 6:51 AM) Immunizations Given and Recorded Vaccine Date Status Refusal Reason diphtheria/pertussis, acel/tetanus adult 07/28/17 Given Not Given Vaccine Date Status Refusal Reason pneumococcal 23-valent vaccine 07/29/17 Not Given Patient Refuses Procedures Procedure Date Related Diagnosis Body Site Status Procedure1 Completed Procedure2 Completed 1RODS AND SCREWS PLACED TO THE FEMUR AND PATELLA AREA LEFT [id number] LEG MOBILIZER PLACED Social History Social History Type Response Substance Abuse Use: None. Alcohol Current, Frequency: 1-2 times per month. Smoking Status Current some day smoker; Type: Cigarettes; Exposure to Tobacco Smoke None; Cigarette Smoking Last 365 Days Yes; Reg Smoking Cessation Counseling No entered on: 10/29/17 Assessment and Plan No data available for this section
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
--- OUTSIDE RECORDS SUMMARY | 2018-08-04 05:58 | XMS REPORT | Summary of Care ---
:1995 Author Name Maria Luz Rosario Address Unavailable Unavailable , Care Team Providers Name Role Phone JEREMIAH N.P., RASHAD Unavailable Unavailable DEANA Hoffman, SAMMY Unavailable Unavailable Maria Luz Rosario Unavailable Unavailable DEANA YOUNGER [place], SAMMY VEE Unavailable Unavailable Unavailable Unavailable Unavailable [...] not documented Status: Procedures Procedure Dates Details Procedures not documented Immunization Name Dates Details Immunizations not documented Social History Name Dates Details Unknown if ever smoked Vital Signs Date Test Result Details No Known Vitals to report Results Date Description Value Details Results not documented Plan of Care Name Dates Details Planned Observations Planned Goals not documented Planned Encounters Appointment; SAMMY LEBLANC M.D. On: 12-Aug-2018 9:30 Instructions Name Dates Details Instructions not documented Encounters Appointment; SAMMY LEBLANC M.D. On: 13-Aug-2017 13:15 Encounter Diagnosis: Problem not documented Appointment; SAMMY LEBLANC M.D. On: 27-Aug-2017 8:00 Encounter Diagnosis: Problem not documented Appointment; SAMMY LEBLACN M.D. On: 17-Sep-2017 8:00 Encounter Diagnosis: Problem [...]
[2018-08-04] MEDS ORDERED: NA CHLORIDE 0.9% 1,000 ML ONE (07:25)
[2018-08-04] MEDS ORDERED: ONDANSETRON 4 MG/2 ML VIAL ONE (07:25)
[2018-08-04] MEDS ORDERED: ACETAMINOPHEN 325 MG TABLET ONE (07:25)
[2018-08-04 07:26] LABS: Absolute Lymphocytes (CBC) 2.4 K/uL (0.7-4.9); Absolute Monocytes 0.6 K/uL (0.1-1.3); Absolute Neutrophil 5.2 K/uL (1.8-8.0); Basophils % 0.6 % (0-1.3); Eosinophils % 1.9 % (0-4.4); Hematocrit 42.5 % (36.0-45.0); Lymphocytes % 28.3 % (15.3-44.8); MPV 8.7 fL (7.6-11.3); Monocytes % 7.6 % (3.3-12.3); RBC Red Blood Cell Count 5.33 M/uL (3.86-4.86)
[2018-08-04 07:34] LABS: Protime INR 1.03
[2018-08-04 07:45] LABS: ALT/SGPT 26 U/L (12-78); AST/SGOT 11 U/L (15-37); Albumin 3.8 g/dL (3.4-5.0); Alkaline Phosphatase 80 U/L (45-117); BUN Blood Urea Nitrogen 17 mg/dL (7-18); Bicarbonate 29 mmol/L (21-32); Bilirubin Direct < 0.1 mg/dL (0-0.2); Bilirubin Total 0.2 mg/dL (0.2-1.0); Glucose Level 104 mg/dL (74-106); Magnesium 2.4 mg/dL (1.8-2.4); Potassium 3.9 mmol/L (3.5-5.1); Protein, Total 8.5 g/dL (6.4-8.2); Sodium Level 140 mmol/L (136-145)
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
[2018-08-04] MEDS ORDERED: KETOROLAC 30 MG/ML INJ ONE (08:31)
[2018-08-04] MEDS ORDERED: DEXAMETHASONE 4 MG TAB ONE (08:31)
[2018-08-04] MEDS ORDERED: DEXAMETHASONE 4 MG/ML VIAL ONE (08:32)
[2018-08-04] MEDS ORDERED: levETIRAcetam 500 MG TAB ONE (10:03)
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
--- NOTE | 2018-08-05 10:29 | EKG ---
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
== END 2018-08-04 13:11 | disposition home or self-care (01) ==
LOC: ER 05:50
DX: R51 Headache (principal); R53.1 Weakness; G40.909 Epilepsy, unspecified, not intractable, without status epilepticus; W18.30XA Fall on same level, unspecified, initial encounter; Y93.9 Activity, unspecified; Z91.040 Latex allergy status
CPT/HCPCS: 36415; 70450; 80048; 80076; 80320; 80329; 83735; 85025; 85610; 85730; 93005; 96361; 96374; 96375; 99285; J2405; J7030

== ENCOUNTER 2018-10-27 01:26 | Emergency (ER) | payer SELFPAY ==
--- OUTSIDE RECORDS SUMMARY | 2018-10-27 01:35 | XMS REPORT | Continuity of Care Document ---
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 Medical form: TAB, Q4H, Center Dosing Weight 88.182, kg, PRN Pain Score 4-6, Start date: 07/29/17 8:52:00 MANAGER APPLIED, Duration: 1 day, Stop date: 07/30/17 8:51:00 CSTNotes: (Same as: Roxicodone) Flumazenil 0.2 mg, 2 mL, Inactive [facility] Route: IVP, Drug 2018 Medical form: INJ, PRN, Center Dosing Weight 88.182, kg, PRN Benzodiazepine Reversal, Initial dose, Start date: 07/29/17 8:52:00 MANAGER APPLIED, Duration: 1 day, Stop date: 07/30/17 8:51:00 CSTNotes: (Same as: Romazicon) Naloxone 0.4 mg, 1 mL, Inactive [facility] Route: IVP, Drug 2018 Medical form: INJ, Center Q2MIN, Dosing Weight 88.182, kg, PRN Narcotic Reversal, Start date: 07/29/17 8:52:00 MANAGER APPLIED, Duration: 8 doses or times, Stop date: Limited # of timesNotes: (Same as: Narcan) midazolam (ANES) Route: IV, Drug Inactive [facility] form: SOLN, 2018 Medical ONCE, Stop date: [place] 07/29/17 8:48:00 MANAGER APPLIED propofol (ANES) Route: IV, Drug Inactive [facility] form: INJ, ONCE, 2017 Medical Stop date: [place] 07/29/17 8:48:00 MANAGER APPLIED rocuronium (ANES) Route: IV, Drug Inactive 07/29[facility] form: INJ, ONCE, 2017 Medical Stop date: [place] 07/29/17 8:48:00 MANAGER APPLIED phenylephrine Route: IV, Drug Inactive [place] (ANES) form: INJ, ONCE, 2018 Medical Stop date: [place] 07/29/17 8:48:00 MANAGER APPLIED lidocaine (ANES) Route: IV, Drug Inactive [facility] form: INJ, ONCE, 2018 Medical Stop date: [place] 07/29/17 8:48:00 MANAGER APPLIED fentaNYL (ANES) Route: IV, Drug Inactive [facility] form: INJ, ONCE, 2018 Medical Stop date: [place] 07/29/17 8:43:00 MANAGER APPLIED ceFAZolin (ANES) Route: IV, Drug Inactive [facility] form: INJ, ONCE, 2018 Medical Stop date: [place] 07/29/17 8:38:00 MANAGER APPLIED Lactated Ringers Route: IV, Total Inactive [facility] Injection IV Volume: 1,000, 2018 Medical (ANES) 1000 mL Start date: [place] 07/29/17 7:44:00 MANAGER APPLIED, Stop date: 07/29/17 8:44:00 MANAGER APPLIED Isolyte S PH 7.4 1,000 mL, Rate: Inactive [facility] 1,000 mL 100 ml/hr, 2018 Medical Infuse over: 10 Center hr, Route: IV, Dosing Weight 88.182 kg, Total Volume: 1,000, Start date: 07/29/17 6:39:00 MANAGER APPLIED, Duration: 1 doses or times, Stop date: 07/29/17 16:38:00 MANAGER APPLIED, 2.02, [id number]: (Same as: Isolyte S PH 7.4) Propofol 45 mg, 4.5 mL, Inactive [facility] Route: IVP, Drug 2018 Medical form: Emulsion, Center ONCE, Dosing Weight 88.182, kg, Priority: STAT, Start date: 07/29/17 0:19:00 MANAGER APPLIED, Stop date: 07/29/17 0:19:00 CSTNotes: If Diprivan - change bottle & tubing every 12 hr Per state nursing law propofol can only be given by a nurse if patient is intubated or being intubated (unless the nurse is a HYDROELECTRIC STATION CHIEF). Same as: Diprivan Ketamine 90 mg, Route: Inactive [facility] IVP, Drug form: 2018 Medical INJ, ONCE, Center Dosing Weight 88.182, kg, Start date: 07/29/17 0:19:00 MANAGER APPLIED, Stop date: 07/29/17 0:19:00 MANAGER APPLIED Enoxaparin 30 mg, 0.3 mL, Inactive [facility] Route: SUB-Q, 2018 Medical Drug form: INJ, Center [id number], Dosing Weight 88.182, kg, For CrCl >=30 mL/min, Start date: 07/29/17 0:00:00 MANAGER APPLIED, Duration: 30 day, Stop date: 08/27/17 12:00:00 CDTNotes: (Same as: Lovenox) Lidocaine 1 patch, Route: No Longer [place] Hydrochloride TOP, Q24H, Drug Active 2017 Medical 0.05 MG/MG form: FILM, Center Transdermal Patch Start date: [Lidoderm] 07/29/17 0:00:00 MANAGER APPLIED, Duration: 30 day, Stop date: 08/27/17 0:00:00 CDTNotes: Apply only once for up to 12 hours in a 24-hour period (12 hours on and 12 hours off). (Same as: Lidoderm) "Remove old patch before application of new patch" Ondansetron 4 mg, 2 mL, No Longer [place] Route: IVP, Drug Active 2017 Medical form: INJ, Q8H, Center Dosing Weight 88.182, kg, PRN Nausea & Vomiting, Start date: 07/28/17 23:49:00 MANAGER APPLIED, Duration: 30 day, Stop date: 08/27/17 23:48:00 CDTNotes: (Same as: Chance) MEDICATION WASTE Product Size: 4 mg Product Wasted: ___ mg Tramadol 50 mg, 1 tab, No Longer [place] Route: PO, Drug Active 2017 Medical form: TAB, Q6H, Center Dosing Weight 88.182, kg, Priority: NOW, Start date: 07/28/17 23:48:00 MANAGER APPLIED, Duration: 30 day, Stop date: 08/27/17 18:00:00 CDTNotes: Not to exceed 400mg/day. (Same As: Ultram) pregabalin 100 mg, 1 cap, No Longer [place] Route: PO, Drug Active 2017 Medical form: CAP, Q8H, Center Dosing Weight 88.182, kg, Priority: NOW, Start date: 07/28/17 23:48:00 MANAGER APPLIED, Duration: 48 hr, Stop date: 07/30/17 16:00:00 CSTNotes: (Same as: Lyrica) celecoxib 200 mg, 1 cap, No Longer [facility] Route: PO, Drug Active 2018 Medical form: CAP, Q12H, Center Dosing Weight 88.182, kg, Priority: NOW, Start date: 07/28/17 23:48:00 MANAGER APPLIED, Duration: 48 hr, Stop date: 07/30/17 21:00:00 CSTNotes: NSAID. Please check indication. Not for seizure. (Same As: CeleBREX) Acetaminophen 1,000 mg, 2 tab, No Longer [facility] Route: PO, Drug Active 2018 Medical form: TAB, Q6H, Center Dosing Weight 88.182, kg, Priority: NOW, Start date: 07/28/17 23:48:00 MANAGER APPLIED, Stop date: 08/27/17 17:00:00 CDTNotes: Max acetaminophen 4000 mg/day (4 gm/day). (Same as: Tylenol Extra Strength) Ancef + sterile 2 gm, Route: No Longer [facility] water 20 mL IVP, Q8H, Dosing Active 2018 Medical Weight 88.182, Center kg, Priority: STAT, Start date: 07/28/17 23:34:00 MANAGER APPLIED, Duration: 30 day, Stop date: 08/27/17 16:00:00 CDT, ABX Indication: Bone/Joint Infection Ondansetron 4 mg, Route: Inactive [facility] IVP, Drug form: 2018 Medical INJ, ONCE, Center Dosing Weight 88.182, kg, Priority: STAT, Start date: 07/28/17 23:32:00 MANAGER APPLIED, Stop date: 07/28/17 23:32:00 MANAGER APPLIED Morphine 4 mg, Route: Inactive [facility] IVP, ONCE, 2018 Medical Dosing Weight Center 88.182, kg, Priority: STAT, Start date: 07/28/17 23:30:00 MANAGER APPLIED, Stop date: 07/28/17 23:30:00 MANAGER APPLIED Dilaudid 1 mg, Route: IV, Inactive [facility] ONCE, Dosing 2018 Medical Weight 88.182, Center kg, Start date: 07/28/17 21:44:00 MANAGER APPLIED, Stop date: 07/28/17 21:44:00 MANAGER APPLIED Ketamine 25 mg, Route: Inactive [facility] IV, ONCE, Dosing 2018 Medical Weight 88.182, Center kg, Start date: 07/28/17 21:23:00 MANAGER APPLIED, Stop date: 07/28/17 21:23:00 MANAGER APPLIED iodixanol 130 mL, Route: Inactive [facility] IVP, Drug Form: 2018 Medical SOLN, Dosing Center Weight 88.182, kg, ONCALL, STAT, Start date: 07/28/17 21:22:00 MANAGER APPLIED, Duration: 1 doses or times, Dose=2.2ml/kg, Max [id number] -- "To be infused by Radiology Staff ONLY" Isolyte S PH 7.4 1,000 mL, Rate: Inactive [facility] 1,000 mL 125 ml/hr, 2018 Medical Infuse over: 8 Center hr, Route: IV, Dosing Weight 88.182 kg, Total Volume: 1,000, Priority: STAT, Start date: 07/28/17 20:45:00 MANAGER APPLIED, Duration: 1 doses or times, Stop date: 07/29/17 4:44:00 MANAGER APPLIED, 1.84, [id number]: (Same as: Isolyte S PH 7.4) Cefazolin 2 gm, Route: IV, Inactive [facility] ONCE, Dosing 2018 Medical Weight 88.182, Center kg, (for patients 50 -120 kg), Priority: STAT, Start date: 07/28/17 20:45:00 MANAGER APPLIED, Stop date: 07/28/17 20:45:00 MANAGER APPLIED, ABX Indication: Open Wound Prophylaxis Hydromorphone 1 mg, Route: Inactive [facility] IVP, ONCE, 2018 Medical Dosing Weight Center 88.182, kg, Priority: STAT, Start date: 07/28/17 20:45:00 MANAGER APPLIED, Stop date: 07/28/17 20:45:00 MANAGER APPLIED Gentamicin 500 mg, Route: Inactive [facility] IVPB, ONCE, 2018 Medical Dosing Weight Center 88.182, kg, Time Critical Medication, Priority: STAT, Start date: 07/28/17 20:45:00 MANAGER APPLIED, Stop date: 07/28/17 20:45:00 MANAGER APPLIED Saline Flush 0.9% 10 mL, Route: No Longer [facility] MISC, Drug Form: Active 2018 Medical INJ, Dosing Center Weight 88.182, kg, PRN, PRN Line Flush, Start date: 07/28/17 20:45:00 MANAGER APPLIED, Duration: 30 day, Stop date: 08/27/17 21:44:00 CDTNotes: (Same as: BD Posiflush) Allergies, Adverse Reactions, Alerts Substance Category Reaction Severity Reaction Status Date Comments Source type Reported Latex Assertion Drug Active allergy [place] OxyCONTIN Assertion Drug Active allergy [place] Immunizations Immunization Date Site Status Last Comments Source Given Updated pneumococcal Not Given [facility] 23-valent vaccine [address] [place] [address],[facility] diphtheria/pertus Left completed [place] [facility] sis, acel/tetanus [address] [place] [address],[facility] Results Order Name Results Value Reference Date Interpretation Comments Source Range Femur Femur series Right femur 2 views: There is no fracture or dislocation. Vague linear lucency over the greater trochanter is consistent with an overlying fat pad. There are no other significant osseous, articular or soft tissue abnormalities. 08/01 - [facility] series DX DX /2018 - [place] IMPRESSION: Read by: Bean Parmar MD Dictated Date/time: 08/02/18 07:50 Electronically Signed by: Bean Parmar MD 08/02/18 07:51 FINAL REPORT No acute radiographic abnormalities of the right femur. [id number] Hip 2/3 Hip 2/3 Right hip and pelvis 3 views: There is no fracture or dislocation. There are no other significant osseous, articular or soft tissue abnormalities. 08/01 - [facility] views uni w views uni w /2018 - [place] pelvis DX pelvis DX IMPRESSION: Read by: Bean Parmar MD Dictated Date/time: 08/02/18 07:49 Electronically Signed by: Bean Parmar MD 08/02/18 07:50 FINAL REPORT No acute radiographic abnormality of the right hip. [id number] CHEM PANEL eGFR 134 08/01 Result Comment: The eGFR is calculated using the CKD-EPI formula. In most young, healthy individuals the eGFR will be >90 mL/ min/1.73m2. The eGFR declines with age. An eGFR of 60-89 may be normal in mL/min/1. some populations, particularly the elderly, for whom the CKD-EPI formula has not been extensively validated. Use of the eGFR is not recommended in the following populations: [address] Individuals with unstable creatinine concentrations, including patients [...] multiplied by the estimated BMI. CHEM PANEL Bili Total 0.2 mg/dL 0.2 - 1.3 08/01 [place] CHEM PANEL Alk Phos 64 unit/L 39 - 136 08/01 [place] CHEM PANEL A/G Ratio 0.8 0.7 - 1.6 08/01 [place] CHEM PANEL ALT 23 unit/L 0 - 65 08/01 [place] CHEM PANEL Glucose Lvl 106 mg/dL 70 - 99 08/01 [place] CHEM PANEL Potassium 4.1 meq/L 3.5 - 5.1 08/01 [place] CHEM PANEL Sodium Lvl 143 meq/L 135 - 145 08/01 [place] CHEM PANEL AGAP 11.1 meq/L 10.0 - 08/01 MH 20.0 [place] CHEM PANEL Creatinine 0.56 mg/dL 0.50 - 08/01 MH Lvl 1.40 [place] CHEM PANEL BUN 13 mg/dL 7 - 22 08/01 [place] CHEM PANEL Globulin 3.8 g/dL 2.7 - 4.2 08/01 [place] CHEM PANEL CO2 26 meq/L 24 - 32 08/01 [place] CHEM PANEL Chloride Lvl 110 meq/L 95 - 109 08/01 [place] CHEM PANEL Calcium Lvl 8.2 mg/dL 8.5 - 10.5 08/01 [place] CHEM PANEL AST 10 unit/L 0 - 37 08/01 [place] CHEM PANEL Albumin Lvl 3.1 g/dL 3.5 - 5.0 08/01 [place] CHEM PANEL Total 6.9 g/dL 6.4 - 8.4 08/01 [place] CHEM PANEL B/C Ratio 23 6 - 25 08/01 [place] CHEM PANEL Magnesium 2.2 mg/dL 1.8 - 2.4 08/01 [place] HEMATOLOGY MPV 8.2 fL 7.4 - 10.4 08/01 /2018 [place] HEMATOLOGY Platelet 275 K/CMM 133 - 450 08/01 [place] HEMATOLOGY RDW 14.5 % 11.5 - 08/01 MH 14.5 [place] HEMATOLOGY MCHC 33.6 g/dL 32.0 - 08/01 MH 36.0 [place] HEMATOLOGY MCH 26.6 pg 27.0 - 08/01 MH 31.0 [place] HEMATOLOGY Hgb 11.9 g/dL 12.0 - 08/01 MH 16.0 [place] HEMATOLOGY MCV 79.1 fL 80.0 - 08/01 MH 98.0 [place] HEMATOLOGY Hct 35.3 % 36.0 - 08/01 MH 48.0 [place] HEMATOLOGY RBC 4.46 M/CMM 4.20 - 08/01 MH 5.40 [place] HEMATOLOGY WBC 8.0 K/CMM 3.7 - 10.4 08/01 [place] HEMATOLOGY PTT 30.7 s 22.9 - 08/01 MH 35.8 [place] HEMATOLOGY PT 13.7 s 12.0 - 08/01 MH 14.7 [place] HEMATOLOGY INR 1.07 0.85 - 08/01 MH 1.17 [place] HEMATOLOGY Monocytes 7.9 % 2.0 - 12.0 08/01 [place] HEMATOLOGY Eosinophils 0.2 K/CMM 0.0 - 0.5 08/01 MH # /2018 [place] HEMATOLOGY Basophils 0.7 % 0.0 - 1.0 08/01 [place] HEMATOLOGY Neutrophils 5.0 K/CMM 1.5 - 8.1 08/01 MH # [place] HEMATOLOGY Eosinophils 2.0 % 0.0 - 4.0 08/01 [place] HEMATOLOGY Lymphocytes 2.2 K/CMM 1.0 - 5.5 08/01 # [place] HEMATOLOGY Segs 62.1 % 45.0 - 08/01 MH 75.0 2019 [place] HEMATOLOGY Lymphocytes 27.3 % 20.0 - 08/01 MH 40.0 [place] HEMATOLOGY Basophils # 0.1 K/CMM 0.0 - 0.2 08/01 [place] HEMATOLOGY Monocytes # 0.6 K/CMM 0.0 - 0.8 0310 MH /2019 [place] ENDOCRINOLO S Preg Negative Negative 08/01 [place] *NA* (08/01/18 1:30 AM) CHEM PANEL Bili Total 0.2 mg/dL 0.2 - 1.3 08/01 [place] CHEM PANEL eGFR 123 08/01 Result Comment: The eGFR is calculated using the CKD-EPI formula. In most young, healthy individuals the eGFR will be >90 mL/ min/1.73m2. The eGFR declines with age. An eGFR of 60-89 may be normal in mL/min/1. some populations, particularly the elderly, for whom the CKD-EPI formula has not been extensively validated. Use of the eGFR is not recommended in the following populations: [place] [address] Individuals with unstable creatinine concentrations, including patients [...] multiplied by the estimated BMI. CHEM PANEL Albumin Lvl 3.6 g/dL 3.5 - 5.0 08/01 [place] CHEM PANEL Alk Phos 76 unit/L 39 - 136 08/01 [place] CHEM PANEL ALT 37 unit/L 0 - 65 08/01 [place] CHEM PANEL CO2 28 meq/L 24 - 32 08/01 [place] CHEM PANEL Calcium Lvl 8.5 mg/dL 8.5 - 10.5 08/01 [place] CHEM PANEL AST 12 unit/L 0 - 37 08/01 [place] CHEM PANEL Total 8.9 g/dL 6.4 - 8.4 08/01 Protein [place] CHEM PANEL Sodium Lvl 142 meq/L 135 - 145 08/01 [place] CHEM PANEL Potassium 3.5 meq/L 3.5 - 5.1 08/01 Lvl [place] CHEM PANEL Chloride Lvl 107 meq/L 95 - 109 08/01 [place] CHEM PANEL BUN 13 mg/dL 7 - 22 08/01 [place] CHEM PANEL Creatinine 0.71 mg/dL 0.50 - 08/01 Lvl 1.40 /2019 [place] CHEM PANEL Glucose Lvl 106 mg/dL 70 - 99 08/01 [place] CHEM PANEL Globulin 5.3 g/dL 2.7 - 4.2 08/01 [place] CHEM PANEL A/G Ratio 0.7 0.7 - 1.6 08/01 [place] CHEM PANEL AGAP 10.5 meq/L 10.0 - 08/01 20.0 [place] CHEM PANEL B/C Ratio 18 6 - 25 08/01 [place] DRUG SCREEN U Maame Scr Negative Negative 08/01 [place] *NA* (08/01/18 12:28 AM) DRUG SCREEN U Amph Scr Negative Negative 08/01 [place] *NA* (08/01/18 12:28 AM) DRUG SCREEN U Negative Negative 08/01 Phencycl [place] e Scr *NA* (08/01/18 12:28 AM) DRUG SCREEN UDS Note See Note 08/01 [place] *NA* (08/01/18 12:28 AM) DRUG SCREEN U Cocaine Negative Negative 08/01 [place] *NA* (08/01/18 12:28 AM) DRUG SCREEN U Opiate Scr Negative Negative 08/01 [place] *NA* (08/01/18 12:28 AM) DRUG SCREEN U Benzodiaz Negative Negative 08/01 [place] *NA* (08/01/18 12:28 AM) DRUG SCREEN U Cannab Scr Negative Negative 08/01 [place] *NA* (08/01/18 12:28 AM) HEMATOLOGY MCV 79.0 fL 80.0 - 08/01 MH 98.0 [place] HEMATOLOGY Hct 38.8 % 36.0 - 08/01 MH 48.0 [place] HEMATOLOGY MPV 8.6 fL 7.4 - 10.4 08/01 [place] HEMATOLOGY Platelet 321 K/CMM 133 - 450 08/01 [place] HEMATOLOGY Hgb 12.9 g/dL 12.0 - 08/01 MH 16.0 [place] HEMATOLOGY RBC 4.91 M/CMM 4.20 - 03 MH 5.40 [place] HEMATOLOGY WBC 10.0 K/CMM 3.7 - 10.4 08/01 [place] HEMATOLOGY MCHC 33.2 g/dL 32.0 - 08/01 MH 36.0 [place] HEMATOLOGY RDW 15.1 % 11.5 - 08/01 MH 14.5 [place] HEMATOLOGY MCH 26.2 pg 27.0 - 08/01 MH 31.0 [place] HEMATOLOGY Neutrophils 5.8 K/CMM 1.5 - 8.1 08/01 MH # /2018 [place] HEMATOLOGY Lymphocytes 3.0 K/CMM 1.0 - 5.5 08/01 # [place] HEMATOLOGY Eosinophils 0.2 K/CMM 0.0 - 0.5 08/01 [place] HEMATOLOGY Monocytes # 0.9 K/CMM 0.0 - 0.8 08/01 [place] HEMATOLOGY Basophils # 0.1 K/CMM 0.0 - 0.2 08/01 [place] HEMATOLOGY Basophils 0.8 % 0.0 - 1.0 08/01 [place] HEMATOLOGY Eosinophils 2.0 % 0.0 - 4.0 08/01 [place] HEMATOLOGY Segs 58.2 % 45.0 - 08/01 MH 75.0 [place] HEMATOLOGY Lymphocytes 30.3 % 20.0 - 08/01 MH 40.0 [place] HEMATOLOGY Monocytes 8.7 % 2.0 - 12.0 08/01 [place] TOXICOLOGY Phenytoin 0.09 ug/ml 1.00 - 08/01 Free 2. [place] TOXICOLOGY Phenytoin 1.4 ug/ml 10.0 - 08/01 Total 20.0 [place] URINE AND UA RBC 5 /HPF 0 - 2 08/01 [place] URINE AND UA Sq Epi Few /LPF Few /LPF 08/01 STOOL [place] URINE AND UA WBC 1 /HPF 0 - 5 08/01 [place] URINE AND UA Mucus Many /LPF None Seen 08/01 MH STOOL /LPF [place] URINE AND UA Bacteria Occasional None Seen 08/01 STOOL /HPF /HPF /2018 [place] URINE AND UA Turbidity Marked Clear 08/01 [place] *ABN* (08/01/18 12:28 AM) URINE AND UA Color Yellow Yellow 08/01 [place] *NA* (08/01/18 12:28 AM) URINE AND UA Leuk Est Negative Negative 08/01 [place] (08/01/18 12:28 AM) URINE AND UA Nitrite Negative Negative 08/01 [place] (08/01/18 12:28 AM) URINE AND UA Bili Negative Negative 08/01 [place] *NA* (08/01/18 12:28 AM) URINE AND UA Blood Small Negative 08/01 [place] *ABN* (08/01/18 12:28 AM) URINE AND UA <=1.0 0.1 - 1.0 08/01 [facility] Urobilinogen mg/dL [place] URINE AND UA Protein Negative Negative 08/01 [place] (08/01/18 12:28 AM) URINE AND UA Glucose Negative Negative 08/01 [place] *NA* (08/01/18 12:28 AM) URINE AND UA Ketones Negative Negative 08/01 [place] *NA* (08/01/18 12:28 AM) URINE AND UA pH 5.0 5.0 - 8.0 08/01 [place] URINE AND UA Spec Grav 1.029 <=1.030 08/01 [place] Brain wo Brain wo Clinical Indication: Seizures - Epilepsy Protocol; - [facility] contrast contrast MRI - [facility] Comparison: CT head 07/28/2017 Read by: Dillon [...] ischemia, midline shift or mass effect. SL: VKUDITHIPUDI-M Ext Lower Ext Lower EXAM: ULTRASOUND LEFT KNEE NONVASCULAR 10/29 - [facility] limited non limited non /2018 - Medical vascular US vascular US Center DATE: 10/29/2017 7:21 AM CDT Read by: Dewey Jacobs MD Dictated Date/time: 10/29/17 09:50 Electronically [...] EXAM: XR LEFT FEMUR 2 VIEWS 10/29 [facility] [place] series DX DX /2017 - Medical [...] XR LEFT FEMUR 2 VIEWS 10/29 - [facility] 3 views DX 3 views DX - Medical EXAM: XR LEFT KNEE [...] thigh. HEMATOLOGY RDW 16.5 % 11.5 - 10/27 [place] 14.5 /2017 [facility] HEMATOLOGY Platelet 373 K/CMM 133 - 450 10/27 [facility] HEMATOLOGY RBC 4.94 M/CMM 4.20 - 10/27 [place] 5.40 /2017 [facility] HEMATOLOGY WBC 9.5 K/CMM 3.7 - 10.4 10/27 [facility] HEMATOLOGY MCH 24.1 pg 27.0 - 10/27 [place] 31.0 [facility] HEMATOLOGY Hgb 11.9 g/dL 12.0 - 10/27 [place] 16.0 [facility] HEMATOLOGY MCV 75.0 fL 80.0 - 10/27 [place] 98.0 [facility] HEMATOLOGY MCHC 32.2 g/dL 32.0 - 10/27 [place] 36.0 [facility] HEMATOLOGY Hct 37.0 % 36.0 - 06 [place] 48.0 [facility] HEMATOLOGY MPV 8.4 fL 7.4 - 10.4 10/[address] HEMATOLOGY Segs 57.1 % 45.0 - 06 [place] 75.0 [facility] HEMATOLOGY Lymphocytes 33.5 % 20.0 - 06 [place] 40.0 [facility] HEMATOLOGY Lymphocytes 3.2 K/CMM 1.0 - 5.5 10/27 [facility] # /2017 [facility] HEMATOLOGY Segs-Bands # 5.4 K/CMM 1.5 - 8.1 10/27 /[address] [place] [address] HEMATOLOGY Monocytes 6.4 % 2.0 - 12.0 10/[address] HEMATOLOGY Basophils 0.7 % 0.0 - 1.0 10/[address] HEMATOLOGY Eosinophils 2.3 % 0.0 - 4.0 10/[address] HEMATOLOGY Eosinophils 0.2 K/CMM 0.0 - 0.5 10/27 [facility] # /2017 [facility] HEMATOLOGY Microcyte 1+ None [facility] 6[facility]51 AM[facility] HEMATOLOGY Monocytes # 0.6 K/CMM 0.0 - 0.8 10/[address] HEMATOLOGY Basophils # 0.1 K/CMM 0.0 - 0.2 10/[address] ELECTROLYTE AGAP 15.1 meq/L 10.0 - 08/07 [facility] S 20.0 [facility] ELECTROLYTE eGFR 137 08/07 Result Comment: The eGFR is calculated using the CKD-EPI formula. In most young, healthy individuals the eGFR will be > 90 mL/min/1.73m2. The eGFR declines with age. An eGFR of 60-89 may be normal in [facility] mL/min/1. some populations, particularly the elderly, for whom the CKD-EPI formula has not been extensively validated. Use of the eGFR is not recommended in the following populations: [address] Individuals with unstable creatinine concentrations, including [...] ELECTROLYTE Creatinine 0.53 mg/dL 0.50 - 08/07 [facility] Lvl 1.40 [facility] ELECTROLYTE CO2 24 meq/L 24 - 32 08/[address] ELECTROLYTE BUN 14 mg/dL 7 - 22 08/[address] ELECTROLYTE Glucose Lvl 97 mg/dL 70 - 99 08/[address] ELECTROLYTE Sodium Lvl 137 meq/L 135 - 145 08/[address] ELECTROLYTE Calcium Lvl 8.7 mg/dL 8.5 - 10.5 08/[address] ELECTROLYTE Chloride Lvl 102 meq/L 95 - 109 08/[address] ELECTROLYTE Potassium 4.1 meq/L 3.5 - 5.1 08/07 [facility] [address] [place] [address] HEMATOLOGY Eosinophils 3.2 % 0.0 - 4.0 08/[address] HEMATOLOGY Monocytes # 0.9 K/CMM 0.0 - 0.8 08/[address] HEMATOLOGY Lymphocytes 2.8 K/CMM 1.0 - 5.5 08/[address] HEMATOLOGY Eosinophils 0.3 K/CMM 0.0 - 0.5 08/[address] HEMATOLOGY Segs 60.6 % 45.0 - 08/07 [facility] 75.0 [facility] HEMATOLOGY Lymphocytes 27.2 % 20.0 - 08/07 [facility] 40.0 [facility] HEMATOLOGY Monocytes 8.7 % 2.0 - 12.0 08/[address] HEMATOLOGY Segs-Bands # 6.2 K/CMM 1.5 - 8.1 08/[address] HEMATOLOGY Basophils 0.3 % 0.0 - 1.0 08/[address] HEMATOLOGY Hct 27.7 % 36.0 - 08/07 [facility] 48.0 [facility] HEMATOLOGY MCV 82.9 fL 80.0 - 08/07 [facility] 98.0 [facility] HEMATOLOGY MCH 27.5 pg 27.0 - 08/07 [facility] 31.0 [facility] HEMATOLOGY MCHC 33.1 g/dL 32.0 - 0316 [place] 36.0 [facility] HEMATOLOGY RDW 15.7 % 11.5 - 08/07 [facility] HEMATOLOGY Platelet 409 K/CMM 133 - 450 08/07 [facility] HEMATOLOGY RBC 3.34 M/CMM 4.20 - 08/07 5.40 /2017 [facility] HEMATOLOGY Hgb 9.2 g/dL 12.0 - 08/07 [place] 16.0 [facility] HEMATOLOGY WBC 9.7 K/CMM 3.7 - 10.4 08/07 [facility] HEMATOLOGY MPV 8.0 fL 7.4 - 10.4 08/07 [facility] HEMATOLOGY Segs 61.1 % 45.0 - 08/07 [place] 75.0 [facility] HEMATOLOGY Lymphocytes 2.7 K/CMM 1.0 - 5.5 08/07 /2017 [facility] HEMATOLOGY Monocytes # 0.7 K/CMM 0.0 - 0.8 08/07 [facility] HEMATOLOGY Eosinophils 0.3 K/CMM 0.0 - 0.5 08/07 [facility] HEMATOLOGY Eosinophils 3.6 % 0.0 - 4.0 08/07 [facility] HEMATOLOGY Basophils 0.4 % 0.0 - 1.0 08/07 [facility] HEMATOLOGY Segs-Bands # 6.0 K/CMM 1.5 - 8.1 08/07 [facility] HEMATOLOGY Lymphocytes 27.3 % 20.0 - 08/07 40.0 2018 [facility] HEMATOLOGY Monocytes 7.6 % 2.0 - 12.0 08/07 [facility] HEMATOLOGY RDW 15.9 % 11.5 - 16 14.5 2018 [facility] HEMATOLOGY Platelet 406 K/CMM 133 - 450 08/07 [facility] HEMATOLOGY MPV 8.0 fL 7.4 - 10.4 08/07 [facility] HEMATOLOGY MCV 84.8 fL 80.0 - 08/07 [place] 98.0 2018 [facility] HEMATOLOGY MCH 27.8 pg 27.0 - 08/07 [place] 31.0 [facility] HEMATOLOGY MCHC 32.8 g/dL 32.0 - 08/07 [place] 36.0 /2018 [facility] HEMATOLOGY Hgb 9.0 g/dL 12.0 - 08/07 [place] 16.0 [facility] HEMATOLOGY Hct 27.3 % 36.0 - 08/07 [place] 48.0 [facility] HEMATOLOGY RBC 3.22 M/CMM 4.20 - 08/07 [place] 5.40 [facility] HEMATOLOGY WBC 10.1 K/CMM 3.7 - 10.4 08/07 [facility] BLOOD BANK ABO/Rh A POS 08/06 [place] RESULTS [facility] BLOOD BANK Antibody Negative 08/06 [facility] RESULTS Scrn [facility] (08/06/17 2:43 PM) [place] BLOOD BANK RBC product Product available 08/06 [facility] (08/06/17 12:46 PM) [place] CHEM PANEL eGFR 134 08/06 Result Comment: The eGFR is calculated using the CKD-EPI formula. In most young, healthy individuals the eGFR will be >90 mL/ min/1.73m2. The eGFR declines with age. An eGFR of 60-89 may be normal in [facility] mL/min/1. some populations, particularly the elderly, for whom the CKD-EPI formula has not been extensively validated. Use of the eGFR is not recommended in the following populations: [address] Individuals with unstable creatinine concentrations, including [...] PANEL Creatinine 0.56 mg/dL 0.50 - 08/06 [facility] Lvl 1.40 [facility] CHEM PANEL BUN 11 mg/dL 7 - 22 08/06 [facility] CHEM PANEL Potassium 3.9 meq/L 3.5 - 5.1 08/06 [facility] Lvl [facility] CHEM PANEL CO2 25 meq/L 24 - 32 08/06 [facility] CHEM PANEL Calcium Lvl 8.3 mg/dL 8.5 - 10.5 08/06 [facility] CHEM PANEL Chloride Lvl 103 meq/L 95 - 109 08/06 [facility] CHEM PANEL Sodium Lvl 138 meq/L 135 - 145 08/06 [facility] CHEM PANEL AGAP 13.9 meq/L 10.0 - 08/06 20.0 [facility] CHEM PANEL Glucose Lvl 128 mg/dL 70 - 99 08/06 [facility] HEMATOLOGY Platelet 373 K/CMM 133 - 450 08/06 [facility] HEMATOLOGY MPV 7.8 fL 7.4 - 10.4 08/06 [facility] HEMATOLOGY WBC 9.0 K/CMM 3.7 - 10.4 08/06 [facility] HEMATOLOGY RBC 2.64 M/CMM 4.20 - 08/06 [facility] 5.40 [facility] HEMATOLOGY MCH 27.1 pg 27.0 - 08/06 [facility] 31.0 [facility] HEMATOLOGY RDW 16.3 % 11.5 - 08/06 [facility] 14.5 [facility] HEMATOLOGY MCHC 32.2 g/dL 32.0 - 08/06 [facility] 36.0 [facility] HEMATOLOGY Hgb 7.2 g/dL 12.0 - 08/06 [facility] 16.0 [facility] HEMATOLOGY Hct 22.2 % 36.0 - 08/06 [facility] 48.0 [facility] HEMATOLOGY MCV 84.0 fL 80.0 - 08/06 [facility] 98.0 [facility] HEMATOLOGY Monocytes # 0.7 K/CMM 0.0 - 0.8 08/[address] [place] [address] HEMATOLOGY Eosinophils 0.3 K/CMM 0.0 - 0.5 08/06 [facility] HEMATOLOGY Monocytes 8.1 % 2.0 - 12.0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
--- OUTSIDE RECORDS SUMMARY | 2018-10-27 01:38 | XMS REPORT | Summary of Care ---
:1995 Author Organization [facility] Address [address] [place] [address]- Encounter HQ Encntr_alicarmen(FIN) [phone] Date(s): 07/31/18 - 08/02/18 [facility] [id number] [place] [address] [phone] Discharge Disposition: Home or Self Care Attending Physician: Igor Dubon MD Admitting Physician: Igor Dubon MD Vital Signs Most recent to oldest 1 2 3 [Reference Range]: Height 160.02 cm 160.02 cm 157.48 cm (08/01/18 6:37 PM) (08/01/18 1:01 PM) (07/31/18 10:57 PM) Temperature Oral [96.4-99.1 97.7 DegF 98.0 DegF 98.2 DegF DegF] (08/02/18 7:28 AM) (08/02/18 4:19 AM) (08/02/18 12:23 AM) Blood Pressure [90-140/60-90 95/64 mmHg 99/66 mmHg 98/69 mmHg mmHg] (08/02/18 7:28 AM) (08/02/18 4:19 AM) (08/02/18 12:23 AM) Respiratory Rate [14-20 BRMIN] 16 BRMIN 18 BRMIN 16 BRMIN (08/02/18 7:28 AM) (08/02/18 4:19 AM) (08/02/18 12:23 AM) Peripheral Pulse Rate [60-100 93 bpm 77 bpm 73 bpm bpm] (08/02/18 7:28 AM) (08/02/18 4:19 AM) (08/02/18 12:23 AM) Weight 97 kg 97.003 kg 90.03 kg (08/01/18 6:37 PM) (08/01/18 1:01 PM) (07/31/18 10:57 PM) Body Mass Index 37.88 m2 37.88 m2 36.3 m2 (08/01/18 6:37 PM) (08/01/18 1:01 PM) (07/31/18 10:57 PM) Problem List Condition Effective Dates Status Health Status Informant Epilepsy(Confirmed) Active Narcolepsy(Confirmed) Active Allergies, Adverse Reactions, Alerts Substance Reaction Severity Status Latex Active OxyCONTIN Active Medications acetaminophen 650 mg, 2 tab, Route: PO, Drug form: TAB, Q4H, Dosing Weight 90.03, kg, PRN For Temp > 100.4 F, Start date: 08/01/18 3:09:00 CDT, Duration: 30 day, Stop date : 08/31/18 3:08:00 CDT Notes: Do not exceed 4 gm/day. (Same as: Tylenol) Start Date: 08/01/18 Stop Date: 08/02/18 Status: Discontinuedcalcium gluconate + Sodium Chloride 0.9% IV 100 mL 2 gm, 20 mL, Route: IVPB, PRN, Dosing Weight 90.03, kg, PRN Abnormal Lab Result , For NON-ICU Patients Only., Start date: 08/01/18 3:09:00 CDT, Duration: 30 day , Stop date: 08/31/18 3:08:00 CDT Notes: WASTE: F/P - Sink; E - Municipal Trash Bin Start Date: 08/01/18 Stop Date: 08/02/18 Status: Discontinuedcalcium gluconate + Sodium Chloride 0.9% IV 100 mL 3 gm, 30 mL, Route: IVPB, PRN, Dosing Weight 90.03, kg, PRN Abnormal Lab Result , For NON-ICU Patients Only., Start date: 08/01/18 3:09:00 CDT, Duration: 30 day , Stop date: 08/31/18 3:08:00 CDT Notes: WASTE: F/P - Sink; E - Municipal Trash Bin Start Date: 08/01/18 Stop Date: 08/02/18 Status: DiscontinuedDextrose 50% Syringe 25 gm, 50 mL, Route: IVP, Drug Form: INJ, Dosing Weight 90.03, kg, PRN, PRN Blood Glucose Results, Start date: 08/01/18 3:09:00 CDT, Duration: 30 day, Stop date: 08/31/18 3:08:00 CDT Start Date: 08/01/18 Stop Date: 08/02/18 Status: DiscontinuedDextrose 50% Syringe 12.5 gm, 25 mL, Route: IVP, Drug Form: INJ, Dosing Weight 90.03, kg, PRN, PRN Blood Glucose Results,Start date: 08/01/18 3:09:00 CDT, Duration: 30 day, Stop date: 08/31/18 3:08:00 CDT Start Date: 08/01/18 Stop Date: 08/02/18 Status: Discontinuedenoxaparin 40 mg, 0.4 mL, Route: SUB-Q, Drug form: INJ, [id number], Dosing Weight 90.03, kg, Start date: :00:00 CDT, Duration: 30 day, Stop date: 08/30/18 4:00:00 CDT Notes: (Same as: Lovenox) Start Date: 08/01/18 Stop Date: 08/02/18 Status: Discontinuedglucagon 1 mg, Route: IM, Drug form: PDR/INJ, PRN, Dosing Weight 90.03, kg, PRN Blood Glucose Results, Start date: 08/01/18 3:09:00 CDT, Duration: 30 day, Stop date: 08/31/18 3:08:00 CDT Start Date: 08/01/18 Stop Date: 08/02/18 Status: Discontinuedhydromorphone 0.3 mg, 0.3 mL, Route: IVP, Drug form: INJ, Q4H, Dosing Weight 90.03, kg, PRN Pain Score 7-10, Startdate: 08/01/18 3:10:00 CDT, Duration: 30 day, Stop date: 08/31/18 3:09:00 CDT Notes: Same as: Dilaudid Start Date: 08/01/18 Stop Date: 08/02/18 Status: DiscontinuedKeppra + Sodium Chloride 0.9% IV 100 mL 1,500 mg, Route: IV, ONCE, Dosing Weight 90.03, kg, Start date: 08/01/18 1:47: 00 DOOR ASSEMBLER, Stop date: 08/01/18 1:47:00 DOOR ASSEMBLER Notes: Same as KeppraMix with 100 mL NS, LR or D5W MEDICATION WASTE Product Size: 500 mgProduct Wasted: ___ mg Start Date: 08/01/18 Stop Date: 08/01/18 Status: CompletedKeppra 1000 mg oral tablet 1,000 mg=1 tab, PO, Q12H, # 60 tab, 5 Refill(s), Pharmacy: [facility] [id number] Start Date: 08/02/18 Stop Date: 01/29/19 Status: OrderedKeppra 1000 mg oral tablet 1,000 mg, 2 tab, Route: PO, Drug form: TAB, Q12H, Dosing Weight 90.03, kg, Start date: 08/01/18 15:00:00 CDT, Duration: 30 day, Stop date: 08/31/18 11:00: 00 CDT Notes: (Same as:Keppra) Start Date: 08/01/18 Stop Date: 08/02/18 Status: DiscontinuedLORazepam 1 mg, 0.5 mL, Route: IVP, Drug form: INJ, Q15Min, Dosing Weight 90.03, kg, PRN Seizure, Start date: 08/01/18 3:08:00 CDT, Duration: 30 day, Stop date: 3:07:00 CDT Notes: (Same as: Ativan) Start Date: 08/01/18 Stop Date: 08/02/18 Status: DiscontinuedLR IV 1,000 mL 1,000 mL, Rate: 100 ml/hr, Infuse over: 10 hr, Route: IV, Dosing Weight 90.03 kg , Total Volume: 1,000, Start date: 08/01/18 3:11:00 CDT, Duration: 30 day, Stop date: 08/31/18 3:10:00 CDT, 2.02, m2 Start Date: 08/01/18 Stop Date: 08/02/18 Status: Discontinuedmagnesium oxide 800 mg, 2 tab, Route: PO, Drug form: TAB, PRN, Dosing Weight 90.03, kg, PRN Abnormal Lab Result, ForNON-ICU Patients Only., Start date: 08/01/18 3:09:00 CDT , Duration: 30 day, Stop date: 08/31/18 3:08:00 CDT Notes: (Same as: Mag-Ox 400)Magnesium oxide 244qe=425mh elemental magnesiumDose= ____mg magnesium oxide (___mg elemental magnesium) Start Date: 08/01/18 Stop Date: 08/02/18 Status: Discontinuedmagnesium sulfate 2 gm, 50 mL, Route: IVPB, Drug form: INJ, PRN, Dosing Weight 90.03, kg, PRN Abnormal Lab Result, ForNON-ICU Patients Only., Start date: 08/01/18 3:09:00 CDT , Duration: 30 day, Stop date: 08/31/18 3:08:00 CDT Notes: WASTE: F/P - Sink; E - Municipal Trash Bin Start Date: 08/01/18 Stop Date: 08/02/18 Status: Discontinuedmagnesium sulfate 1 gm, 100 mL, Route: IVPB, Drug form: INJ, PRN, Dosing Weight 90.03, kg, PRN Abnormal Lab Result, For NON-ICU Patients Only., Start date: 08/01/18 3:09:00 CDT, Duration: 30 day, Stop date: 08/31/18 3:08:00 CDT Notes: WASTE: F/P - Sink; E - Municipal Trash Bin Start Date: 08/01/18 Stop Date: 08/02/18 Status: Discontinuedmelatonin 3 mg, 1 tab, Route: PO, Drug form: TAB, Bedtime, Dosing Weight 90.03, kg, PRN Insomnia, Start date: 08/01/18 3:09:00 CDT, Duration: 30 day, Stop date: 3:08:00 CDT Notes: (Same as: Melatonin) Start Date: 08/01/18 Stop Date: 08/02/18 Status: Discontinuedondansetron 4 mg, 2 mL, Route: IVP, Drug form: INJ, Q8H, Dosing Weight 90.03, kg, PRN Nausea & Vomiting, Start date: 08/01/18 3:09:00 CDT, Duration: 30 day, Stop date: 08/31/18 3:08:00 CDT Notes: (Same as: Zofran) MEDICATION WASTE Product Size: 4 mgProduct Wasted: ___ mg Start Date: 08/01/18 Stop Date: 08/02/18 Status: Discontinuedpotassium chloride 10 mEq, 100 mL, Route: IVPB, Drug form: INJ, PRN, Dosing Weight 90.03, kg, PRN Abnormal Lab Result, For NON-ICU Patients Only, Start date: 08/01/18 3:09:00 CDT , Duration: 30 day, Stop date: 08/31/18 3:08:00 CDT Notes: Infuse at a rate of 10 mEq/hr.(Same as: KCL) Start Date: 08/01/18 Stop Date: 08/02/18 Status: Discontinuedpotassium chloride 20 mEq, 1 tab, Route: PO, Drug form: ERTAB, PRN, Dosing Weight 90.03, kg, PRN Abnormal Lab Result, For NON-ICU Patients Only, Start date: 08/01/18 3:09:00 CDT , Duration: 30 day, Stop date: 08/31/18 3:08:00 CDT Notes: (Same as: K-Dur 20)"Do Not Crush" Give with food and full glass of waterFor patients unable to swallow tablet, dissolve in one half glass of water. Allow about 2 minutes for the tablets to disintegrate. Stir before giving to prepare slurry and administer.Please exclude Patients with feedingtube less than 14 Yi (Dobhoff, J-tube etc) and pediatric and patients. Start Date: 08/01/18 Stop Date: 08/02/18 Status: Discontinuedpotassium chloride 20 mEq, 15 mL, Route: NJ, Drug form: LIQ, PRN, Dosing Weight 90.03, kg, PRN Abnormal Lab Result, ForNON-ICU Patients Only, Start date: 08/01/18 3:09:00 CDT , Duration: 30 day, Stop date: 08/31/18 3:08:00 CDT Notes: (Same as: Potassium Chloride) Start Date: 08/01/18 Stop Date: 08/02/18 Status: Discontinuedpotassium phosphate + Sodium Chloride 0.9% IV 250 mL 30 mmol, 10 mL, Route: IVPB, PRN, Dosing Weight 90.03, kg, PRN Abnormal Lab Result, For NON-ICU Patients Only., Start date: 08/01/18 3:09:00 CDT, Duration: 30 day, Stop date: 08/31/18 3:08:00 CDT Notes: (Same as: K Phosphate.)Do not infuse phosphorous concurrently in the same line as TPN or IVF that contains calcium. For double lumen central lines, phosphorous may be infused in a separate lumenfrom TPN. 1 mMol phoshate has 1.47 mEq potassium Infuse over 4 hours Start Date: 08/01/18 Stop Date: 08/02/18 Status: Discontinuedpotassium phosphate + Sodium Chloride 0.9% IV 250 mL 15 mmol, 5 mL, Route: IVPB, PRN, Dosing Weight 90.03, kg, PRN Abnormal Lab Result, For NON-ICU Patients Only., Start date: 08/01/18 3:09:00 CDT, Duration: 30 day, Stop date: 08/31/18 3:08:00 CDT Notes: (Same as: K Phosphate.)Do not infuse phosphorous concurrently in the same line as TPN or IVF that contains calcium. For double lumen central lines, phosphorous may be infused in a separate lumenfrom TPN. 1 mMol phoshate has 1.47 mEq potassium Infuse over 4 hours Start Date: 08/01/18 Stop Date: 08/02/18 Status: Discontinuedpotassium phosphate-sodium phosphate 250 mg-280 mg-160 mg oral powder for reconstitution 2 pkt, Route: PO, Drug Form: PDR/REC, Dosing Weight 90.03, kg, PRN, PRN Abnormal Lab Result, For NON-ICU Patients Only, Start date: 08/01/18 3:09:00 CDT , Duration: 30 day, Stop date: 08/31/18 3:08:00 CDT Notes: (Same as: Phos-NaK) Each 1.5 gm pkt has 250mg phosphorous. Mix w/2.5oz water and stir. Start Date: 08/01/18 Stop Date: 08/02/18 Status: DiscontinuedSodium Chloride 0.9% (Bolus) IV 1,000 mL, 1000 ml/hr, Infuse Over: 1 hr, Route: IV, 1,000, Drug form: INJ, ONCE , Priority: STAT, Dosing Weight 82.273 kg, Start date: 07/31/18 22:59:00 DOOR ASSEMBLER, Stop date: 07/31/18 22:59:00 DOOR ASSEMBLER Start Date: 07/31/18 Stop Date: 08/01/18 Status: Completedsodium phosphate + Dextrose 5% in Water IV 250 mL 15 mmol, 5 mL, Route: IVPB, PRN, Dosing Weight 90.03, kg, PRN Abnormal Lab Result, For NON-ICU Patients Only., Start date: 08/01/18 3:09:00 CDT, Duration: 30 day, Stop date: 08/31/18 3:08:00 CDT Notes: Infuse over 4 hour. Do not infuse phosphorous concurrently in the same line as TPN or IVF that contains calcium. For double lumen central lines, phosphorous may be infused in a separate lumen from TPN. Start Date: 08/01/18 Stop Date: 08/02/18 Status: Discontinuedsodium phosphate + Dextrose 5% in Water IV 250 mL 30 mmol, 10 mL, Route: IVPB, PRN, Dosing Weight 90.03, kg, PRN Abnormal Lab Result, For NON-ICU Patients Only., Start date: 08/01/18 3:09:00 CDT, Duration: 30 day, Stop date: 08/31/18 3:08:00 CDT Notes: Infuse over 4 hour. Do not infuse phosphorous concurrently in the same line as TPN or IVF that contains calcium. For double lumen central lines, phosphorous may be infused in a separate lumen from TPN. Start Date: 08/01/18 Stop Date: 08/02/18 Status: Discontinuedtramadol 50 mg, 1 tab, Route: PO, Drug form: TAB, Q6H, Dosing Weight 90.03, kg, PRN Pain Score 4-6, Start date: 08/01/18 3:10:00 CDT, Duration: 30 day, Stop date: 3:09:00 CDT Notes: Not to exceed 400mg/day. (Same As: Ultram) Start Date: 08/01/18 Stop Date: 08/02/18 Status: Discontinued Results ELECTROLYTES Most recent to oldest [Reference Range]: 1 2 Sodium Lvl [135-145 mEq/L] 143 mEq/L 142 mEq/L (08/01/18 7:51 AM) (08/01/18 12:28 AM) Potassium Lvl [3.5-5.1 mEq/L] 4.1 mEq/L 3.5 mEq/L (08/01/18 7:51 AM) (08/01/18 12:28 AM) Chloride Lvl [95-109 mEq/L] 110 mEq/L 107 mEq/L *HI* (08/01/18 12:28 AM) (08/01/18 7:51 AM) CO2 [24-32 mEq/L] 26 mEq/L 28 mEq/L (08/01/18 7:51 AM) (08/01/18 12:28 AM) AGAP [10.0-20.0 mEq/L] 11.1 mEq/L 10.5 mEq/L (08/01/18 7:51 AM) (08/01/18 12:28 AM) CHEM PANEL Most recent to oldest [Reference Range]: 1 2 Creatinine Lvl [0.50-1.40 mg/dL] 0.56 mg/dL 0.71 mg/dL (08/01/18 7:51 AM) (08/01/18 12:28 AM) eGFR 134 mL/min/1.73m2 1 123 mL/min/1.73m2 2 *NA* *NA* (08/01/18 7:51 AM) (08/01/18 12:28 AM) BUN [7-22 mg/dL] 13 mg/dL 13 mg/dL (08/01/18 7:51 AM) (08/01/18 12:28 AM) B/C Ratio [6-25] 23 18 (08/01/18 7:51 AM) (08/01/18 12:28 AM) Glucose Lvl [70-99 mg/dL] 106 mg/dL 106 mg/dL *HI* *HI* (08/01/18 7:51 AM) (08/01/18 12:28 AM) Total Protein [6.4-8.4 g/dL] 6.9 g/dL 8.9 g/dL (08/01/18 7:51 AM) *HI* (08/01/18 12:28 AM) Albumin Lvl [3.5-5.0 g/dL] 3.1 g/dL 3.6 g/dL *LOW* (08/01/18 12:28 AM) (08/01/18 7:51 AM) Globulin [2.7-4.2 g/dL] 3.8 g/dL 5.3 g/dL (08/01/18 7:51 AM) *HI* (08/01/18 12:28 AM) A/G Ratio [0.7-1.6] 0.8 0.7 (08/01/18 7:51 AM) (08/01/18 12:28 AM) Calcium Lvl [8.5-10.5 mg/dL] 8.2 mg/dL 8.5 mg/dL *LOW* (08/01/18 12:28 AM) (08/01/18 7:51 AM) Magnesium Lvl [1.8-2.4 mg/dL] 2.2 mg/dL (08/01/18 7:51 AM) ALT [0-65 unit/L] 23 unit/L 37 unit/L (08/01/18 7:51 AM) (08/01/18 12:28 AM) AST [0-37 unit/L] 10 unit/L 12 unit/L (08/01/18 7:51 AM) (08/01/18 12:28 AM) Alk Phos [39-136 unit/L] 64 unit/L 76 unit/L (08/01/18 7:51 AM) (08/01/18 12:28 AM) Bili Total [0.2-1.3 mg/dL] 0.2 mg/dL 0.2 mg/dL (08/01/18 7:51 AM) (08/01/18 12:28 AM) 1Result Comment: The eGFR is calculated using [...] eGFR should be multiplied by the estimated BMI.DRUG SCREEN Most recent to oldest [Reference Range]: 1 2 U Amph Scr [Negative] Negative *NA* (08/01/18 12:28 AM) U Maame Scr [Negative] Negative *NA* (08/01/18 12:28 AM) U Benzodiaz Scr [Negative] Negative *NA* (08/01/18 12:28 AM) U Cannab Scr [Negative] Negative *NA* (08/01/18 12:28 AM) U Cocaine Scr [Negative] Negative *NA* (08/01/18 12:28 AM) U Opiate Scr [Negative] Negative *NA* (08/01/18 12:28 AM) U Phencyclidine Scr [Negative] Negative *NA* (08/01/18 12:28 AM) UDS Note See Note *NA* (08/01/18 12:28 AM) TOXICOLOGY Most recent to oldest [Reference Range]: 1 2 Phenytoin Total [10.0-20.0 ug/ml] 1.4 ug/ml *LOW* (08/01/18 12:28 AM) Phenytoin Free [1.00-2.00 ug/ml] 0.09 ug/ml *LOW* (08/01/18 12:28 AM) ENDOCRINOLOGY Most recent to oldest [Reference Range]: 1 2 S Preg [Negative] Negative *NA* (08/01/18 1:30 AM) URINE AND STOOL Most recent to oldest [Reference Range]: 1 2 UA Turbidity [Clear] Marked *ABN* (08/01/18 12:28 AM) UA Color [Yellow] Yellow *NA* (08/01/18 12:28 AM) UA pH [5.0-8.0] 5.0 (08/01/18 12:28 AM) UA Spec Grav [<=1.030] 1.029 (08/01/18 12:28 AM) UA Glucose [Negative] Negative *NA* (08/01/18 12:28 AM) UA Blood [Negative] Small *ABN* (08/01/18 12:28 AM) UA Ketones [Negative] Negative *NA* (08/01/18 12:28 AM) UA Protein [Negative] Negative (08/01/18 12: AM) UA Urobilinogen [0.1-1.0 mg/dL] <=1.0 mg/dL *NA* (08/01/18 12:28 AM) UA Bili [Negative] Negative *NA* (08/01/18 12:28 AM) UA Leuk Est [Negative] Negative (08/01/18 12:28 AM) UA Nitrite [Negative] Negative (08/01/18 12:28 AM) UA WBC [0-5 /HPF] 1 /HPF (08/01/18 12:28 AM) UA RBC [0-2 /HPF] 5 /HPF *HI* (08/01/18 12:28 AM) UA Bacteria [None Seen /HPF] Occasional /HPF *NA* (08/01/18 12:28 AM) UA Sq Epi [Few /LPF] Few /LPF *NA* (08/01/18 12:28 AM) UA Mucus [None Seen /LPF] Many /LPF *ABN* (08/01/18 12:28 AM) HEMATOLOGY Most recent to oldest [Reference Range]: 1 2 WBC [3.7-10.4 K/CMM] 8.0 K/CMM 10.0 K/CMM (08/01/18 7:51 AM) (08/01/18 12:28 AM) RBC [4.20-5.40 M/CMM] 4.46 M/CMM 4.91 M/CMM (08/01/18 7:51 AM) (08/01/18 12:28 AM) Hgb [12.0-16.0 g/dL] 11.9 g/dL 12.9 g/dL *LOW* (08/01/18 12:28 AM) (08/01/18 7:51 AM) Hct [36.0-48.0 %] 35.3 % 38.8 % *LOW* (08/01/18 12:28 AM) (08/01/18 7:51 AM) MCV [80.0-98.0 fL] 79.1 fL 79.0 fL *LOW* *LOW* (08/01/18 7:51 AM) (08/01/18 12:28 AM) MCH [27.0-31.0 pg] 26.6 pg 26.2 pg *LOW* *LOW* (08/01/18 7:51 AM) (08/01/18 12:28 AM) MCHC [32.0-36.0 g/dL] 33.6 g/dL 33.2 g/dL (08/01/18 7:51 AM) (08/01/18 12:28 AM) RDW [11.5-14.5 %] 14.5 % 15.1 % (08/01/18 7:51 AM) *HI* (08/01/18 12:28 AM) MPV [7.4-10.4 fL] 8.2 fL 8.6 fL (08/01/18 7:51 AM) (08/01/18 12:28 AM) Platelet [133-450 K/CMM] 275 K/CMM 321 K/CMM (08/01/18 7:51 AM) (08/01/18 12:28 AM) Segs [45.0-75.0 %] 62.1 % 58.2 % (08/01/18 7:51 AM) (08/01/18 12:28 AM) Lymphocytes [20.0-40.0 %] 27.3 % 30.3 % (08/01/18 7:51 AM) (08/01/18 12:28 AM) Monocytes [2.0-12.0 %] 7.9 % 8.7 % (08/01/18 7:51 AM) (08/01/18 12:28 AM) Eosinophils [0.0-4.0 %] 2.0 % 2.0 % (08/01/18 7:51 AM) (08/01/18 12:28 AM) Basophils [0.0-1.0 %] 0.7 % 0.8 % (08/01/18 7:51 AM) (08/01/18 12:28 AM) Neutrophils # [1.5-8.1 K/CMM] 5.0 K/CMM 5.8 K/CMM (08/01/18 7:51 AM) (08/01/18 12:28 AM) Lymphocytes # [1.0-5.5 K/CMM] 2.2 K/CMM 3.0 K/CMM (08/01/18 7:51 AM) (08/01/18 12:28 AM) Monocytes # [0.0-0.8 K/CMM] 0.6 K/CMM 0.9 K/CMM (08/01/18 7:51 AM) *HI* (08/01/18 12:28 AM) Eosinophils # [0.0-0.5 K/CMM] 0.2 K/CMM 0.2 K/CMM (08/01/18 7:51 AM) (08/01/18 12:28 AM) Basophils # [0.0-0.2 K/CMM] 0.1 K/CMM 0.1 K/CMM (08/01/18 7:51 AM) (08/01/18 12:28 AM) PT [12.0-14.7 seconds] 13.7 seconds (08/01/18 7:51 AM) INR [0.85-1.17] 1.07 (08/01/18 7:51 AM) PTT [22.9-35.8 seconds] 30.7 seconds (08/01/18 7:51 AM) Immunizations Given and Recorded Vaccine Date Status Refusal Reason diphtheria/pertussis, acel/tetanus adult 07/28/17 Given Not Given Vaccine Date Status Refusal Reason pneumococcal 23-valent vaccine 07/29/17 Not Given Patient Refuses Procedures Procedure Date Related Diagnosis Body Site Status Procedure1 Completed Procedure2 Completed 1RODS AND SCREWS PLACED TO THE FEMUR AND PATELLA AREA LEFT [id number] LEG MOBILIZER PLACED Social History Social History Type Response Substance Abuse Use: None. Alcohol Current, Frequency: 1-2 times per month. Smoking Status Current some day smoker; Type: Cigarettes; Exposure to Tobacco Smoke None; Cigarette Smoking Last 365 Days Yes; Reg Smoking Cessation Counseling No entered on: 08/01/18 Assessment and Plan Extracted from: Title: TELENEUROLOGY CONSULTATION NOTE Author: Mary Montgomery Date : 08/02/18 MD TELENEUROLOGY CONSULTATION NOTE: CC: seizures HPI: 22 yo with h/o reported seizure disorder since childhood, on antiepileptic medication as a child, medication noncompliance over the past one year ( periodically takes Dilantin), and narcolepsy, presents with the above complaint. She reports having multiple seizures before arrival. She describes abnormal movements of the hands, as well as staring off. She reports a recent sore throat, as well as stress and inconsistent sleep. She says she refuses to follow with a Neurologist because "they tell me what I already know." She also says that she feels like "giving up." She denies suicidal and homicidal ideation. PMH: per HPI MEDS: inconsistent Dilantin EXAM: Vitals Tmp(F) Pulse BP RR SpO2 FIO2 08/02 07:28 97.7 93 95/64 16 98 --- 08/02 04:19 98.0 77 99/66 18 100 --- 08/02 00:23 98.2 73 98/69 16 100 --- 08/01 21:32 98.0 74 102/60 16 100 --- 08/01 18:19 97.6 79 110/79 16 100 --- 24 Hr Tmax: 98.4F (36.89c) at 08/01 16:55 Vital Signs are the last 5 in the past 48 hours. Alert and fully oriented, follows commands, answers questions appropriately, flat affect Language is fluent Speech clear No gaze preference Gait steady with baseline limp DIAGNOSTIC TESTING: Brain wo contrast MRI 08/01/2018 11:49 Impression: No acute ischemia, midline shift or mass effect. UDS: negative phenytoin level: 1.4 IMPRESSION: 22 yo with h/o reported seizure disorder since childhood, on antiepileptic medication as a child, medication noncompliance over the past one year ( periodically takes Dilantin), and narcolepsy, presents with the above complaint. She reports having multiple seizures before arrival. She describes abnormal movements of the hands, as well as staring off. She reports a recent sore throat, as well as stress and inconsistent sleep. She says she refuses to follow with a Neurologist because "they tell me what I already know." She also says that she feels like "giving up." She denies suicidal and homicidal ideation. Breakthrough seizure, cannot rule out diagnosis of non-epileptic events RECOMMENDATIONS: -Agree with Keppra 1g BID - I explained the potential risks and benefits of the medication to the patient and mother by speakerphone. She expressed concern that she already has a bad temper and does not want the Keppra to make it worse. I explained that the risk of irritability is low and resolves with discontinuation of the medication. She agrees to proceed with the plan, but says that she does not p reyna to take the medication consistently, because "I don't take any medicines consistently." -Ok to discharge from Neuro perspective - patient has been seizure-free for > 24 hrs and is back to baseline -Follow up with Dr. Alessandro Humphreys if she changes her mind - initially, the patient says she does not want to see a Neurologist [facility] Neu[facility] [address] [place] [address] [place] [id number] -Evaluate for metabolic derangement, infection, other Will sign off. All questions answered. Mary Montgomery MD (TC) Vascular Neurology Medical Clerk of Neurology Call Center: [phone] Extracted from: Title: Addendum to H&P Author: Steve Sandy DO Date: 08/01/18 Pt s/e. Please refer to H&P for further details. Patient has staring episodes , denies tonic-clonic jerking. Unfortunately patient went up to the floor and went to the bathroom and had a fall onto her right side. X-rays done Extracted from: Title: General Admission H&P * Author: Igor Dubon Date: 08/01/18 Jared YOUNGER Impression and Plan 22-year-old female with history of seizures, presented to emergency room after seizure episodes. 1. Seizures episode. Patient taking Dilantin at home. Low Dilantin level. Neurology was contacted by emergency room, who advised brain MRI, low in Keppra. Seizure precaution. Telemetry. 2. DVT prophylaxis. Lovenox.
--- OUTSIDE RECORDS SUMMARY | 2018-10-27 01:38 | XMS REPORT | Summary of Care ---
:1995 Author Name Maria Luz Rosario Address Unavailable Unavailable , Care Team Providers Name Role Phone JEREMIAH N.P., RASHAD Unavailable Unavailable SAMMY LEBLANC M.D. Unavailable Unavailable DEANA YOUNGER [place], SAMMY VEE Unavailable Unavailable Unavailable Unavailable Unavailable [...] Details [U] XRAY FEMUR 2 VWS LEFT [id number] Date: 01-Oct-2018 [U] XRAY KNEE 1 OR 2 VWS LEFT [id number] Date: 01-Oct-2018 Immunization Name Dates Details Immunizations not documented Social History Name Dates Details Unknown if ever smoked Vital Signs Date Test Result Details No Known Vitals to report Results Date Description Value Details Results not documented Plan of Care Name Dates Details Planned Observations Planned Goals not documented Planned Encounters Appointment; SAMMY LEBLANC M.D. On: 07-Oct-2018 12:15 Interventions Provided Labs/Procedures/Imaging[U] XRAY FEMUR 2 VWS LEFT [id number]; To Be Done: 07 Oct 2018[ U] XRAY KNEE 1 OR 2 VWS LEFT [id number]; To Be Done: 07 Oct 2018 Instructions Name Dates Details Instructions not [...] 25-Mar-2018 12:45 Encounter Diagnosis: Problem not documented Appointment; SAMMY LEBLANC M.D. On: 07-Oct-2018 12:15 Encounter Diagnosis: Problem not documented
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
[2018-10-27] MEDS ORDERED: CEPHALEXIN 250 MG CAP ONE (02:48)
[2018-10-27 02:50] LABS: Urine Bacteria 20-50 /HPF (<20); Urine Culture Reflex Order REFLEXED; Urine Mucus HEAVY /HPF (NONE SEEN); Urine RBC 20-50 /HPF (NONE SEEN)
== END 2018-10-27 02:41 | disposition home or self-care (01) ==
LOC: ER 01:26
DX: N30.90 Cystitis, unspecified without hematuria (principal); G40.909 Epilepsy, unspecified, not intractable, without status epilepticus; Z91.040 Latex allergy status; Z91.048 Other nonmedicinal substance allergy status
CPT/HCPCS: 81015; 87077; 87086; 87088; 87186; 99283

== ENCOUNTER 2018-11-07 23:39 | Emergency (ER) | payer BC, SELFPAY ==
--- OUTSIDE RECORDS SUMMARY | 2018-11-07 23:47 | XMS REPORT | Continuity of Care Document ---
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 [place] 07/29/17 7:44:00 CORPORATE COMPLIANCE DIRECTOR, Stop date: 07/29/17 8:44:00 CORPORATE COMPLIANCE DIRECTOR Isolyte S PH 7.4 1,000 mL, Rate: Inactive [facility] 1,000 mL 100 ml/hr, 2018 Medical Infuse over: 10 Center hr, Route: IV, Dosing Weight 88.182 kg, Total Volume: 1,000, Start date: 07/29/17 6:39:00 CORPORATE COMPLIANCE DIRECTOR, Duration: 1 doses or times, Stop date: 07/29/17 16:38:00 CORPORATE COMPLIANCE DIRECTOR, 2.02, u2Dcalq: (Same as: Isolyte S PH 7.4) Propofol 45 mg, 4.5 mL, Inactive [facility] Route: IVP, Drug 2018 Medical form: Emulsion, Center ONCE, Dosing Weight 88.182, kg, Priority: STAT, Start date: 07/29/17 0:19:00 CORPORATE COMPLIANCE DIRECTOR, Stop date: 07/29/17 0:19:00 CSTNotes: If Diprivan - change bottle & tubing every 12 hr Per state nursing law propofol can only be given by a nurse if patient is intubated or being intubated (unless the nurse is a ELECTROPHYSIOLOGY NURSE PRACTITIONER). Same as: Diprivan Ketamine 90 mg, Route: Inactive [facility] IVP, Drug form: 2018 Medical INJ, ONCE, Center Dosing Weight 88.182, kg, Start date: 07/29/17 0:19:00 CORPORATE COMPLIANCE DIRECTOR, Stop date: 07/29/17 0:19:00 CORPORATE COMPLIANCE DIRECTOR Enoxaparin 30 mg, 0.3 mL, Inactive [facility] Route: SUB-Q, 2018 Medical Drug form: INJ, Center [id number], Dosing Weight 88.182, kg, For CrCl >=30 mL/min, Start date: 07/29/17 0:00:00 CORPORATE COMPLIANCE DIRECTOR, Duration: 30 day, Stop date: 08/27/17 12:00:00 CDTNotes: (Same as: Lovenox) Lidocaine 1 patch, Route: No Longer [place] Hydrochloride TOP, Q24H, Drug Active 2017 Medical 0.05 MG/MG form: FILM, Center Transdermal Patch Start date: [Lidoderm] 07/29/17 0:00:00 CORPORATE COMPLIANCE DIRECTOR, Duration: 30 day, Stop date: 08/27/17 0:00:00 CDTNotes: Apply only once for up to 12 hours in a 24-hour period (12 hours on and 12 hours off). (Same as: Lidoderm) "Remove old patch before application of new patch" Ondansetron 4 mg, 2 mL, No Longer [place] Route: IVP, Drug Active 2017 Medical form: INJ, Q8H, Center Dosing Weight 88.182, kg, PRN Nausea & Vomiting, Start date: 07/28/17 23:49:00 CORPORATE COMPLIANCE DIRECTOR, Duration: 30 day, Stop date: 08/27/17 23:48:00 CDTNotes: (Same as: Chance) MEDICATION WASTE Product Size: 4 mg Product Wasted: ___ mg Tramadol 50 mg, 1 tab, No Longer [place] Route: PO, Drug Active 2017 Medical form: TAB, Q6H, Center Dosing Weight 88.182, kg, Priority: NOW, Start date: 07/28/17 23:48:00 CORPORATE COMPLIANCE DIRECTOR, Duration: 30 day, Stop date: 08/27/17 18:00:00 CDTNotes: Not to exceed 400mg/day. (Same As: Ultram) pregabalin 100 mg, 1 cap, No Longer [place] Route: PO, Drug Active 2017 Medical form: CAP, Q8H, Center Dosing Weight 88.182, kg, Priority: NOW, Start date: 07/28/17 23:48:00 CORPORATE COMPLIANCE DIRECTOR, Duration: 48 hr, Stop date: 07/30/17 16:00:00 CSTNotes: (Same as: Lyrica) celecoxib 200 mg, 1 cap, No Longer [facility] Route: PO, Drug Active 2018 Medical form: CAP, Q12H, Center Dosing Weight 88.182, kg, Priority: NOW, Start date: 07/28/17 23:48:00 CORPORATE COMPLIANCE DIRECTOR, Duration: 48 hr, Stop date: 07/30/17 21:00:00 CSTNotes: NSAID. Please check indication. Not for seizure. (Same As: CeleBREX) Acetaminophen 1,000 mg, 2 tab, No Longer [facility] Route: PO, Drug Active 2018 Medical form: TAB, Q6H, Center Dosing Weight 88.182, kg, Priority: NOW, Start date: 07/28/17 23:48:00 CORPORATE COMPLIANCE DIRECTOR, Stop date: 08/27/17 17:00:00 CDTNotes: Max acetaminophen 4000 mg/day (4 gm/day). (Same as: Tylenol Extra Strength) Ancef + sterile 2 gm, Route: No Longer [facility] water 20 mL IVP, Q8H, Dosing Active 2018 Medical Weight 88.182, Center kg, Priority: STAT, Start date: 07/28/17 23:34:00 CORPORATE COMPLIANCE DIRECTOR, Duration: 30 day, Stop date: 08/27/17 16:00:00 CDT, ABX Indication: Bone/Joint Infection Ondansetron 4 mg, Route: Inactive [facility] IVP, Drug form: 2018 Medical INJ, ONCE, Center Dosing Weight 88.182, kg, Priority: STAT, Start date: 07/28/17 23:32:00 CORPORATE COMPLIANCE DIRECTOR, Stop date: 07/28/17 23:32:00 CORPORATE COMPLIANCE DIRECTOR Morphine 4 mg, Route: Inactive [facility] IVP, ONCE, 2018 Medical Dosing Weight Center 88.182, kg, Priority: STAT, Start date: 07/28/17 23:30:00 CORPORATE COMPLIANCE DIRECTOR, Stop date: 07/28/17 23:30:00 CORPORATE COMPLIANCE DIRECTOR Dilaudid 1 mg, Route: IV, Inactive [facility] ONCE, Dosing 2018 Medical Weight 88.182, Center kg, Start date: 07/28/17 21:44:00 CORPORATE COMPLIANCE DIRECTOR, Stop date: 07/28/17 21:44:00 CORPORATE COMPLIANCE DIRECTOR Ketamine 25 mg, Route: Inactive [facility] IV, ONCE, Dosing 2018 Medical Weight 88.182, Center kg, Start date: 07/28/17 21:23:00 CORPORATE COMPLIANCE DIRECTOR, Stop date: 07/28/17 21:23:00 CORPORATE COMPLIANCE DIRECTOR iodixanol 130 mL, Route: Inactive [facility] IVP, Drug Form: 2018 Medical SOLN, Dosing Center Weight 88.182, kg, ONCALL, STAT, Start date: 07/28/17 21:22:00 CORPORATE COMPLIANCE DIRECTOR, Duration: 1 doses or times, Dose=2.2ml/kg, Max [id number] -- "To be infused by Radiology Staff ONLY" Isolyte S PH 7.4 1,000 mL, Rate: Inactive [facility] 1,000 mL 125 ml/hr, 2018 Medical Infuse over: 8 Center hr, Route: IV, Dosing Weight 88.182 kg, Total Volume: 1,000, Priority: STAT, Start date: 07/28/17 20:45:00 CORPORATE COMPLIANCE DIRECTOR, Duration: 1 doses or times, Stop date: 07/29/17 4:44:00 CORPORATE COMPLIANCE DIRECTOR, 1.84, [id number]: (Same as: Isolyte S PH 7.4) Cefazolin 2 gm, Route: IV, Inactive [facility] ONCE, Dosing 2018 Medical Weight 88.182, Center kg, (for patients 50 -120 kg), Priority: STAT, Start date: 07/28/17 20:45:00 CORPORATE COMPLIANCE DIRECTOR, Stop date: 07/28/17 20:45:00 CORPORATE COMPLIANCE DIRECTOR, ABX Indication: Open Wound Prophylaxis Hydromorphone 1 mg, Route: Inactive [facility] IVP, ONCE, 2018 Medical Dosing Weight Center 88.182, kg, Priority: STAT, Start date: 07/28/17 20:45:00 CORPORATE COMPLIANCE DIRECTOR, Stop date: 07/28/17 20:45:00 CORPORATE COMPLIANCE DIRECTOR Gentamicin 500 mg, Route: Inactive [facility] IVPB, ONCE, 2018 Medical Dosing Weight Center 88.182, kg, Time Critical Medication, Priority: STAT, Start date: 07/28/17 20:45:00 CORPORATE COMPLIANCE DIRECTOR, Stop date: 07/28/17 20:45:00 CORPORATE COMPLIANCE DIRECTOR Saline Flush 0.9% 10 mL, Route: No Longer [facility] MISC, Drug Form: Active 2018 Medical INJ, Dosing Center Weight 88.182, kg, PRN, PRN Line Flush, Start date: 07/28/17 20:45:00 CORPORATE COMPLIANCE DIRECTOR, Duration: 30 day, Stop date: 08/27/17 21:44:00 CDTNotes: (Same as: BD Posiflush) Allergies, Adverse Reactions, Alerts Substance Category Reaction Severity Reaction Status Date Comments Source type Reported Latex Assertion Drug Active allergy [place] OxyCONTIN Assertion Drug Active allergy [place] Immunizations Immunization Date Site Status Last Comments Source Given Updated pneumococcal Not Given [facility] 23-valent vaccine [address] [place] [address],[facility] diphtheria/pertus Left completed [place] [facility] sis, acel/tetanus [address] [place] [address],[facility] Results Order Name Results Value Reference Date Interpretation Comments Source Range Femur Femur series Right femur 2 views: There is no fracture or dislocation. Vague linear lucency over the greater trochanter is consistent with an overlying fat pad. There are no other significant osseous, articular or soft tissue abnormalities. 08/01 - [facility] series DX DX /2018 - [place] IMPRESSION: Read by: Bean Parmar MD Dictated Date/time: 08/02/18 07:50 Electronically Signed by: Bean Parmar MD 08/02/18 07:51 FINAL REPORT No acute radiographic abnormalities of the right femur. [id number] Hip 2/3 Hip 2/3 Right hip and pelvis 3 views: There is no fracture or dislocation. There are no other significant osseous, articular or soft tissue abnormalities. 08/01 - [facility] views uni w views uni w /2018 - [place] pelvis DX pelvis DX IMPRESSION: Read by: Bean Parmar MD Dictated Date/time: 08/02/18 07:49 Electronically Signed by: Bean Parmar MD 08/02/18 07:50 FINAL REPORT No acute radiographic abnormality of the right hip. [id number] CHEM PANEL eGFR 134 08/01 Result Comment: [...] is not recommended in the following populations: [address] Individuals with unstable creatinine concentrations, including [...] Total 0.2 mg/dL 0.2 - 1.3 08/01 [place] CHEM PANEL Alk Phos 64 unit/L 39 - 136 08/01 [place] CHEM PANEL A/G Ratio 0.8 0.7 - 1.6 08/01 [place] CHEM PANEL ALT 23 unit/L 0 - 65 08/01 [place] CHEM PANEL Glucose Lvl 106 mg/dL 70 - 99 08/01 [place] CHEM PANEL Potassium 4.1 meq/L 3.5 - 5.1 08/01 [place] CHEM PANEL Sodium Lvl 143 meq/L 135 - 145 08/01 [place] CHEM PANEL AGAP 11.1 meq/L 10.0 - 08/01 MH 20.0 [place] CHEM PANEL Creatinine 0.56 mg/dL 0.50 - 08/01 MH Lvl 1.40 [place] CHEM PANEL BUN 13 mg/dL 7 - 22 08/01 [place] CHEM PANEL Globulin 3.8 g/dL 2.7 - 4.2 08/01 [place] CHEM PANEL CO2 26 meq/L 24 - 32 08/01 [place] CHEM PANEL Chloride Lvl 110 meq/L 95 - 109 08/01 [place] CHEM PANEL Calcium Lvl 8.2 mg/dL 8.5 - 10.5 08/01 [place] CHEM PANEL AST 10 unit/L 0 - 37 08/01 [place] CHEM PANEL Albumin Lvl 3.1 g/dL 3.5 - 5.0 08/01 [place] CHEM PANEL Total 6.9 g/dL 6.4 - 8.4 08/01 [place] CHEM PANEL B/C Ratio 23 6 - 25 08/01 [place] CHEM PANEL Magnesium 2.2 mg/dL 1.8 - 2.4 08/01 [place] HEMATOLOGY MPV 8.2 fL 7.4 - 10.4 08/01 /2018 [place] HEMATOLOGY Platelet 275 K/CMM 133 - 450 08/01 [place] HEMATOLOGY RDW 14.5 % 11.5 - 08/01 MH 14.5 [place] HEMATOLOGY MCHC 33.6 g/dL 32.0 - 08/01 MH 36.0 [place] HEMATOLOGY MCH 26.6 pg 27.0 - 08/01 MH 31.0 [place] HEMATOLOGY Hgb 11.9 g/dL 12.0 - 08/01 MH 16.0 [place] HEMATOLOGY MCV 79.1 fL 80.0 - 08/01 MH 98.0 [place] HEMATOLOGY Hct 35.3 % 36.0 - 08/01 MH 48.0 [place] HEMATOLOGY RBC 4.46 M/CMM 4.20 - 08/01 MH 5.40 [place] HEMATOLOGY WBC 8.0 K/CMM 3.7 - 10.4 08/01 [place] HEMATOLOGY PTT 30.7 s 22.9 - 08/01 MH 35.8 [place] HEMATOLOGY PT 13.7 s 12.0 - 08/01 MH 14.7 [place] HEMATOLOGY INR 1.07 0.85 - 08/01 MH 1.17 [place] HEMATOLOGY Monocytes 7.9 % 2.0 - 12.0 08/01 [place] HEMATOLOGY Eosinophils 0.2 K/CMM 0.0 - 0.5 08/01 MH # /2018 [place] HEMATOLOGY Basophils 0.7 % 0.0 - 1.0 08/01 [place] HEMATOLOGY Neutrophils 5.0 K/CMM 1.5 - 8.1 08/01 MH # [place] HEMATOLOGY Eosinophils 2.0 % 0.0 - 4.0 08/01 [place] HEMATOLOGY Lymphocytes 2.2 K/CMM 1.0 - 5.5 08/01 # [place] HEMATOLOGY Segs 62.1 % 45.0 - 08/01 MH 75.0 2019 [place] HEMATOLOGY Lymphocytes 27.3 % 20.0 - 08/01 MH 40.0 [place] HEMATOLOGY Basophils # 0.1 K/CMM 0.0 - 0.2 08/01 [place] HEMATOLOGY Monocytes # 0.6 K/CMM 0.0 - 0.8 0310 MH /2019 [place] ENDOCRINOLO S Preg Negative Negative 08/01 [place] *NA* (08/01/18 1:30 AM) CHEM PANEL Bili Total 0.2 mg/dL 0.2 - 1.3 08/01 [place] CHEM PANEL eGFR 123 08/01 Result Comment: [...] is not recommended in the following populations: [place] [address] Individuals with unstable creatinine concentrations, including patients [...] Lvl 3.6 g/dL 3.5 - 5.0 08/01 [place] CHEM PANEL Alk Phos 76 unit/L 39 - 136 08/01 [place] CHEM PANEL ALT 37 unit/L 0 - 65 08/01 [place] CHEM PANEL CO2 28 meq/L 24 - 32 08/01 [place] CHEM PANEL Calcium Lvl 8.5 mg/dL 8.5 - 10.5 08/01 [place] CHEM PANEL AST 12 unit/L 0 - 37 08/01 [place] CHEM PANEL Total 8.9 g/dL 6.4 - 8.4 08/01 Protein [place] CHEM PANEL Sodium Lvl 142 meq/L 135 - 145 08/01 [place] CHEM PANEL Potassium 3.5 meq/L 3.5 - 5.1 08/01 Lvl [place] CHEM PANEL Chloride Lvl 107 meq/L 95 - 109 08/01 [place] CHEM PANEL BUN 13 mg/dL 7 - 22 08/01 [place] CHEM PANEL Creatinine 0.71 mg/dL 0.50 - 08/01 Lvl 1.40 /2019 [place] CHEM PANEL Glucose Lvl 106 mg/dL 70 - 99 08/01 [place] CHEM PANEL Globulin 5.3 g/dL 2.7 - 4.2 08/01 [place] CHEM PANEL A/G Ratio 0.7 0.7 - 1.6 08/01 [place] CHEM PANEL AGAP 10.5 meq/L 10.0 - 08/01 20.0 [place] CHEM PANEL B/C Ratio 18 6 - 25 08/01 [place] DRUG SCREEN U Maame Scr Negative Negative 08/01 [place] *NA* (08/01/18 12:28 AM) DRUG SCREEN U Amph Scr Negative Negative 08/01 [place] *NA* (08/01/18 12:28 AM) DRUG SCREEN U Negative Negative 08/01 Phencycl [place] e Scr *NA* (08/01/18 12:28 AM) DRUG SCREEN UDS Note See Note 08/01 [place] *NA* (08/01/18 12:28 AM) DRUG SCREEN U Cocaine Negative Negative 08/01 [place] *NA* (08/01/18 12:28 AM) DRUG SCREEN U Opiate Scr Negative Negative 08/01 [place] *NA* (08/01/18 12:28 AM) DRUG SCREEN U Benzodiaz Negative Negative 08/01 [place] *NA* (08/01/18 12:28 AM) DRUG SCREEN U Cannab Scr Negative Negative 08/01 [place] *NA* (08/01/18 12:28 AM) HEMATOLOGY MCV 79.0 fL 80.0 - 08/01 MH 98.0 [place] HEMATOLOGY Hct 38.8 % 36.0 - 08/01 MH 48.0 [place] HEMATOLOGY MPV 8.6 fL 7.4 - 10.4 08/01 [place] HEMATOLOGY Platelet 321 K/CMM 133 - 450 08/01 [place] HEMATOLOGY Hgb 12.9 g/dL 12.0 - 08/01 MH 16.0 [place] HEMATOLOGY RBC 4.91 M/CMM 4.20 - 03 MH 5.40 [place] HEMATOLOGY WBC 10.0 K/CMM 3.7 - 10.4 08/01 [place] HEMATOLOGY MCHC 33.2 g/dL 32.0 - 08/01 MH 36.0 [place] HEMATOLOGY RDW 15.1 % 11.5 - 08/01 MH 14.5 [place] HEMATOLOGY MCH 26.2 pg 27.0 - 08/01 MH 31.0 [place] HEMATOLOGY Neutrophils 5.8 K/CMM 1.5 - 8.1 08/01 MH # /2018 [place] HEMATOLOGY Lymphocytes 3.0 K/CMM 1.0 - 5.5 08/01 # [place] HEMATOLOGY Eosinophils 0.2 K/CMM 0.0 - 0.5 08/01 [place] HEMATOLOGY Monocytes # 0.9 K/CMM 0.0 - 0.8 08/01 [place] HEMATOLOGY Basophils # 0.1 K/CMM 0.0 - 0.2 08/01 [place] HEMATOLOGY Basophils 0.8 % 0.0 - 1.0 08/01 [place] HEMATOLOGY Eosinophils 2.0 % 0.0 - 4.0 08/01 [place] HEMATOLOGY Segs 58.2 % 45.0 - 08/01 MH 75.0 [place] HEMATOLOGY Lymphocytes 30.3 % 20.0 - 08/01 MH 40.0 [place] HEMATOLOGY Monocytes 8.7 % 2.0 - 12.0 08/01 [place] TOXICOLOGY Phenytoin 0.09 ug/ml 1.00 - 08/01 Free 2. [place] TOXICOLOGY Phenytoin 1.4 ug/ml 10.0 - 08/01 Total 20.0 [place] URINE AND UA RBC 5 /HPF 0 - 2 08/01 [place] URINE AND UA Sq Epi Few /LPF Few /LPF 08/01 STOOL [place] URINE AND UA WBC 1 /HPF 0 - 5 08/01 [place] URINE AND UA Mucus Many /LPF None Seen 08/01 MH STOOL /LPF [place] URINE AND UA Bacteria Occasional None Seen 08/01 STOOL /HPF /HPF /2018 [place] URINE AND UA Turbidity Marked Clear 08/01 [place] *ABN* (08/01/18 12:28 AM) URINE AND UA Color Yellow Yellow 08/01 [place] *NA* (08/01/18 12:28 AM) URINE AND UA Leuk Est Negative Negative 08/01 [place] (08/01/18 12:28 AM) URINE AND UA Nitrite Negative Negative 08/01 [place] (08/01/18 12:28 AM) URINE AND UA Bili Negative Negative 08/01 [place] *NA* (08/01/18 12:28 AM) URINE AND UA Blood Small Negative 08/01 [place] *ABN* (08/01/18 12:28 AM) URINE AND UA <=1.0 0.1 - 1.0 08/01 [facility] Urobilinogen mg/dL [place] URINE AND UA Protein Negative Negative 08/01 [place] (08/01/18 12:28 AM) URINE AND UA Glucose Negative Negative 08/01 [place] *NA* (08/01/18 12:28 AM) URINE AND UA Ketones Negative Negative 08/01 [place] *NA* (08/01/18 12:28 AM) URINE AND UA pH 5.0 5.0 - 8.0 08/01 [place] URINE AND UA Spec Grav 1.029 <=1.030 08/01 [place] Brain wo Brain wo Clinical Indication: Seizures - Epilepsy Protocol; - [facility] contrast contrast MRI - [facility] Comparison: CT head 07/28/2017 Read by: Dillon [...] EXAM: ULTRASOUND LEFT KNEE NONVASCULAR 10/29 - [facility] limited non limited non /2018 - Medical [...] EXAM: XR LEFT FEMUR 2 VIEWS 10/29 [facility] [place] series DX DX /2017 - Medical [...] XR LEFT FEMUR 2 VIEWS 10/29 - [facility] 3 views DX 3 views DX - [...] % 11.5 - 10/27 [place] 14.5 /2017 [facility] HEMATOLOGY Platelet 373 K/CMM 133 - 450 10/27 [facility] HEMATOLOGY RBC 4.94 M/CMM 4.20 - 10/27 [place] 5.40 /2017 [facility] HEMATOLOGY WBC 9.5 K/CMM 3.7 - 10.4 10/27 [facility] HEMATOLOGY MCH 24.1 pg 27.0 - 10/27 [place] 31.0 [facility] HEMATOLOGY Hgb 11.9 g/dL 12.0 - 10/27 [place] 16.0 [facility] HEMATOLOGY MCV 75.0 fL 80.0 - 10/27 [place] 98.0 [facility] HEMATOLOGY MCHC 32.2 g/dL 32.0 - 10/27 [place] 36.0 [facility] HEMATOLOGY Hct 37.0 % 36.0 - 06 [place] 48.0 [facility] HEMATOLOGY MPV 8.4 fL 7.4 - 10.4 10/[address] HEMATOLOGY Segs 57.1 % 45.0 - 06 [place] 75.0 [facility] HEMATOLOGY Lymphocytes 33.5 % 20.0 - 06 [place] 40.0 [facility] HEMATOLOGY Lymphocytes 3.2 K/CMM 1.0 - 5.5 10/27 [facility] # /2017 [facility] HEMATOLOGY Segs-Bands # 5.4 K/CMM 1.5 - 8.1 10/27 /[address] [place] [address] HEMATOLOGY Monocytes 6.4 % 2.0 - 12.0 10/[address] HEMATOLOGY Basophils 0.7 % 0.0 - 1.0 10/[address] HEMATOLOGY Eosinophils 2.3 % 0.0 - 4.0 10/[address] HEMATOLOGY Eosinophils 0.2 K/CMM 0.0 - 0.5 10/27 [facility] # /2017 [facility] HEMATOLOGY Microcyte 1+ None [facility]en [facility]10[facility]/17 6:51 AM) HEMATOLOGY Monocytes # 0.6 K/CMM 0.0 - 0.8 10/[address] HEMATOLOGY Basophils # 0.1 K/CMM 0.0 - 0.2 10/[address] ELECTROLYTE AGAP 15.1 meq/L 10.0 - 08/07 [facility] S 20.0 [facility] ELECTROLYTE eGFR 137 08/07 Result Comment: The eGFR is calculated using the CKD-EPI formula. In most young, healthy individuals the eGFR will be > 90 mL/min/1.73m2. The eGFR declines with age. An eGFR of 60-89 may be normal in [facility] mL/min/1. some populations, particularly the elderly, for whom the CKD-EPI formula has not been extensively validated. Use of the eGFR is not recommended in the following populations: [address] Individuals with unstable creatinine concentrations, including [...] ELECTROLYTE Creatinine 0.53 mg/dL 0.50 - 08/07 [facility] Lvl 1.40 [facility] ELECTROLYTE CO2 24 meq/L 24 - 32 08/[address] ELECTROLYTE BUN 14 mg/dL 7 - 22 08/[address] ELECTROLYTE Glucose Lvl 97 mg/dL 70 - 99 08/[address] ELECTROLYTE Sodium Lvl 137 meq/L 135 - 145 08/[address] ELECTROLYTE Calcium Lvl 8.7 mg/dL 8.5 - 10.5 08/[address] ELECTROLYTE Chloride Lvl 102 meq/L 95 - 109 08/[address] ELECTROLYTE Potassium 4.1 meq/L 3.5 - 5.1 08/07 [facility] [address] [place] [address] HEMATOLOGY Eosinophils 3.2 % 0.0 - 4.0 08/[address] HEMATOLOGY Monocytes # 0.9 K/CMM 0.0 - 0.8 08/[address] HEMATOLOGY Lymphocytes 2.8 K/CMM 1.0 - 5.5 08/[address] HEMATOLOGY Eosinophils 0.3 K/CMM 0.0 - 0.5 08/[address] HEMATOLOGY Segs 60.6 % 45.0 - 08/07 [facility] 75.0 [facility] HEMATOLOGY Lymphocytes 27.2 % 20.0 - 08/07 [facility] 40.0 [facility] HEMATOLOGY Monocytes 8.7 % 2.0 - 12.0 08/[address] HEMATOLOGY Segs-Bands # 6.2 K/CMM 1.5 - 8.1 08/[address] HEMATOLOGY Basophils 0.3 % 0.0 - 1.0 08/[address] HEMATOLOGY Hct 27.7 % 36.0 - 08/07 [facility] 48.0 [facility] HEMATOLOGY MCV 82.9 fL 80.0 - 08/07 [facility] 98.0 [facility] HEMATOLOGY MCH 27.5 pg 27.0 - 08/07 [facility] 31.0 [facility] HEMATOLOGY MCHC 33.1 g/dL 32.0 - 0316 [place] 36.0 [facility] HEMATOLOGY RDW 15.7 % 11.5 - 08/07 [facility] HEMATOLOGY Platelet 409 K/CMM 133 - 450 08/07 [facility] HEMATOLOGY RBC 3.34 M/CMM 4.20 - 08/07 5.40 /2017 [facility] HEMATOLOGY Hgb 9.2 g/dL 12.0 - 08/07 [place] 16.0 [facility] HEMATOLOGY WBC 9.7 K/CMM 3.7 - 10.4 08/07 [facility] HEMATOLOGY MPV 8.0 fL 7.4 - 10.4 08/07 [facility] HEMATOLOGY Segs 61.1 % 45.0 - 08/07 [place] 75.0 [facility] HEMATOLOGY Lymphocytes 2.7 K/CMM 1.0 - 5.5 08/07 /2017 [facility] HEMATOLOGY Monocytes # 0.7 K/CMM 0.0 - 0.8 08/07 [facility] HEMATOLOGY Eosinophils 0.3 K/CMM 0.0 - 0.5 08/07 [facility] HEMATOLOGY Eosinophils 3.6 % 0.0 - 4.0 08/07 [facility] HEMATOLOGY Basophils 0.4 % 0.0 - 1.0 08/07 [facility] HEMATOLOGY Segs-Bands # 6.0 K/CMM 1.5 - 8.1 08/07 [facility] HEMATOLOGY Lymphocytes 27.3 % 20.0 - 08/07 40.0 2018 [facility] HEMATOLOGY Monocytes 7.6 % 2.0 - 12.0 08/07 [facility] HEMATOLOGY RDW 15.9 % 11.5 - 16 14.5 2018 [facility] HEMATOLOGY Platelet 406 K/CMM 133 - 450 08/07 [facility] HEMATOLOGY MPV 8.0 fL 7.4 - 10.4 08/07 [facility] HEMATOLOGY MCV 84.8 fL 80.0 - 08/07 [place] 98.0 2018 [facility] HEMATOLOGY MCH 27.8 pg 27.0 - 08/07 [place] 31.0 [facility] MCHC 32.8 g/dL 32.0 - 08/07 [place] 36.0 /2018 [facility] HEMATOLOGY Hgb 9.0 g/dL 12.0 - 08/07 [place] 16.0 [facility] HEMATOLOGY Hct 27.3 % 36.0 - 08/07 [place] 48.0 [facility] HEMATOLOGY RBC 3.22 M/CMM 4.20 - 08/07 [place] 5.40 [facility] HEMATOLOGY WBC 10.1 K/CMM 3.7 - 10.4 08/07 [facility] BLOOD BANK ABO/Rh A POS 08/06 [place] RESULTS [facility] BLOOD BANK Antibody Negative 08/06 [facility] RESULTS Scrn [facility] (08/06/17 2:43 PM) [place] BLOOD BANK RBC product Product available 08/06 [facility] (08/06/17 12:46 PM) [place] CHEM PANEL eGFR 134 08/06 Result Comment: The eGFR is calculated using the CKD-EPI formula. In most young, healthy individuals the eGFR will be >90 mL/ min/1.73m2. The eGFR declines with age. An eGFR of 60-89 may be normal in [facility] mL/min/1. some populations, particularly the elderly, for whom the CKD-EPI formula has not been extensively validated. Use of the eGFR is not recommended in the following populations: [address] Individuals with unstable creatinine concentrations, including [...] PANEL Creatinine 0.56 mg/dL 0.50 - 08/06 [facility] Lvl 1.40 [facility] CHEM PANEL BUN 11 mg/dL 7 - 22 08/06 [facility] CHEM PANEL Potassium 3.9 meq/L 3.5 - 5.1 08/06 [facility] Lvl [facility] CHEM PANEL CO2 25 meq/L 24 - 32 08/06 [facility] CHEM PANEL Calcium Lvl 8.3 mg/dL 8.5 - 10.5 08/06 [facility] CHEM PANEL Chloride Lvl 103 meq/L 95 - 109 08/06 [facility] CHEM PANEL Sodium Lvl 138 meq/L 135 - 145 08/06 [facility] CHEM PANEL AGAP 13.9 meq/L 10.0 - 08/06 20.0 [facility] CHEM PANEL Glucose Lvl 128 mg/dL 70 - 99 08/06 [facility] HEMATOLOGY Platelet 373 K/CMM 133 - 450 08/06 [facility] HEMATOLOGY MPV 7.8 fL 7.4 - 10.4 08/06 [facility] HEMATOLOGY WBC 9.0 K/CMM 3.7 - 10.4 08/06 [facility] HEMATOLOGY RBC 2.64 M/CMM 4.20 - 08/06 [facility] 5.40 [facility] HEMATOLOGY MCH 27.1 pg 27.0 - 08/06 [facility] 31.0 [facility] HEMATOLOGY RDW 16.3 % 11.5 - 08/06 [facility] 14.5 [facility] HEMATOLOGY MCHC 32.2 g/dL 32.0 - 08/06 [facility] 36.0 [facility] HEMATOLOGY Hgb 7.2 g/dL 12.0 - 08/06 [facility] 16.0 [facility] HEMATOLOGY Hct 22.2 % 36.0 - 08/06 [facility] 48.0 [facility] HEMATOLOGY MCV 84.0 fL 80.0 - 08/06 [facility] 98.0 [facility] HEMATOLOGY Monocytes # 0.7 K/CMM 0.0 - 0.8 08/[address] [place] [address] HEMATOLOGY Eosinophils 0.3 K/CMM 0.0 - 0.5 08/06 [facility] HEMATOLOGY Monocytes 8.1 % 2.0 - 12.0 08/[address] [place] [address] HEMATOLOGY Eosinophils 3.5 % 0.0 - 4.0 08/06 [facility] HEMATOLOGY Lymphocytes 2.3 K/CMM 1.0 - 5.5 08/06 [facility] HEMATOLOGY Basophils 0.5 % 0.0 - 1.0 08/[address] [place] [address] HEMATOLOGY Segs-Bands # 5.6 K/CMM 1.5 - 8.1 08/[address] HEMATOLOGY Segs 62.6 % 45.0 - 08/06 [place] 75.0 2018 [facility] HEMATOLOGY Lymphocytes 25.3 % 20.0 - 08/06 [facility] 40.0 /2017 [facility] CHEM PANEL eGFR 107 08/04 Result Comment: The eGFR is calculated using the CKD-EPI formula. In most young, healthy individuals the eGFR will be >90 mL/ min/1.73m2. The eGFR declines with age. An eGFR of 60-89 may be normal in [facility] mL/min/1.7 /2017 some populations, particularly the elderly, for whom the CKD-EPI formula has not been extensively validated. Use of the eGFR is not recommended in the following populations: [address] Individuals with unstable creatinine concentrations, including [...] Potassium 4.0 meq/L 3.5 - 5.1 08/04 [facility] [address] [place] [address] CHEM PANEL Calcium Lvl 8.1 mg/dL 8.5 - 10.5 08/[address] CHEM PANEL CO2 27 meq/L 24 - 32 08/[address] CHEM PANEL AGAP 13.0 meq/L 10.0 - 08/04 [facility] 20.0 [facility] CHEM PANEL Chloride Lvl 102 meq/L 95 - 109 08/[address] CHEM PANEL Sodium Lvl 138 meq/L 135 - 145 08/[address] CHEM PANEL Creatinine 0.80 mg/dL 0.50 - 08/04 [facility] Lvl 1.40 [facility] CHEM PANEL BUN 14 mg/dL 7 - 22 08/[address] CHEM PANEL Glucose Lvl 125 mg/dL 70 - 99 08/[address] Femur Femur series EXAM: XR LEFT FEMUR 2 VIEWS 08/03 - [facility] series DX [facility] DATE: 08/03/2017 3:53 PM CDT Read by: [...] Magnesium 2.4 mg/dL 1.8 - 2.4 08/03 [facility] CHEM PANEL Phosphorus 4.6 mg/dL 2.5 - 4.5 08/03 [facility]2017 [facility] HEMATOLOGY PTT 28.0 s 22.9 - 08/03 [facility] 35.8 /2017 [facility] HEMATOLOGY PT 13.0 s 12.0 - 08/03 [facility] 14.7 [facility] HEMATOLOGY INR 0.98 0.85 - 08/03 [facility] 1.17 [facility] HEMATOLOGY Basophils # 0.1 K/CMM 0.0 - 0.2 08/[address] PARATHYROID Ca Norm WB 1.12 1.05 - 08/03 [facility] PROFILE mMol/L 1. [facility] PARATHYROID Ca Ion WB 1.15 1.05 - 08/03 [facility] PROFILE mMol/L 1. [facility] BLOOD BANK ABO/Rh A POS 08/02 [facility] RESULTS /2017 [facility] BLOOD BANK Antibody Negative 08/02 [facility] RESULTS Scrn [facility] (08/02/17 11:52 AM) [place] BLOOD BANK RBC product Product available 08/02 [facility] RESULTS [facility] (08/02/17 10:03 AM) [place]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
[2018-11-08] MEDS ORDERED: HYDROCODONE/APAP 5/325 MG TAB ONE (00:55)
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
--- NOTE | 2018-11-08 08:15 | RAD REPORT ---
EXAM DESCRIPTION: RAD - Knee Right 3 View - 11/08/2018 12:55 am CLINICAL HISTORY: Right knee pain status post injury FINDINGS: No fracture or dislocation is seen.
== END 2018-11-08 02:48 | disposition home or self-care (01) ==
LOC: ER 23:39
DX: S80.01XA Contusion of right knee, initial encounter (principal); S70.311A Abrasion, right thigh, initial encounter; V80.010A Animal-rider injured by fall from or being thrown from horse in noncollision accident, initial encounter; Y93.52 Activity, horseback riding; Z91.040 Latex allergy status
CPT/HCPCS: 99284

== ENCOUNTER 2018-11-17 22:51 | Emergency (ER) | payer BC ==
--- OUTSIDE RECORDS SUMMARY | 2018-11-17 23:01 | XMS REPORT | Continuity of Care Document ---
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 Drug Inactive [facility] form: INJ, ONCE, 2018 Medical Stop date: [place] 07/29/17 8:48:00 COMPENSATION CONSULTANT fentaNYL (ANES) Route: IV, Drug Inactive [facility] form: INJ, ONCE, 2018 Medical Stop date: [place] 07/29/17 8:43:00 COMPENSATION CONSULTANT ceFAZolin (ANES) Route: IV, Drug Inactive 07/29[employer] form: INJ, ONCE, 2018 Medical Stop date: [place] 07/29/17 8:38:00 COMPENSATION CONSULTANT Lactated Ringers Route: IV, Total Inactive [facility] Injection IV Volume: 1,000, 2018 Medical (ANES) 1000 mL Start date: [place] 07/29/17 7:44:00 COMPENSATION CONSULTANT, Stop date: 07/29/17 8:44:00 COMPENSATION CONSULTANT Isolyte S PH 7.4 1,000 mL, Rate: Inactive [facility] 1,000 mL 100 ml/hr, 2018 Medical Infuse over: 10 Center hr, Route: IV, Dosing Weight 88.182 kg, Total Volume: 1,000, Start date: 07/29/17 6:39:00 COMPENSATION CONSULTANT, Duration: 1 doses or times, Stop date: 07/29/17 16:38:00 COMPENSATION CONSULTANT, 2.02, [id number]: (Same as: Isolyte S PH 7.4) Propofol 45 mg, 4.5 mL, Inactive [facility] Route: IVP, Drug 2018 Medical form: Emulsion, Center ONCE, Dosing Weight 88.182, kg, Priority: STAT, Start date: 07/29/17 0:19:00 COMPENSATION CONSULTANT, Stop date: 07/29/17 0:19:00 CSTNotes: If Diprivan - change bottle & tubing every 12 hr Per state nursing law propofol can only be given by a nurse if patient is intubated or being intubated (unless the nurse is a BARREL BUILDER). Same as: Diprivan Ketamine 90 mg, Route: Inactive [facility] IVP, Drug form: 2018 Medical INJ, ONCE, Center Dosing Weight 88.182, kg, Start date: 07/29/17 0:19:00 COMPENSATION CONSULTANT, Stop date: 07/29/17 0:19:00 COMPENSATION CONSULTANT Enoxaparin 30 mg, 0.3 mL, Inactive [facility] Route: SUB-Q, 2018 Medical Drug form: INJ, Center [id number], Dosing Weight 88.182, kg, For CrCl >=30 mL/min, Start date: 07/29/17 0:00:00 COMPENSATION CONSULTANT, Duration: 30 day, Stop date: 08/27/17 12:00:00 CDTNotes: (Same as: Lovenox) Lidocaine 1 patch, Route: No Longer [place] Hydrochloride TOP, Q24H, Drug Active 2017 Medical 0.05 MG/MG form: FILM, Center Transdermal Patch Start date: [Lidoderm] 07/29/17 0:00:00 COMPENSATION CONSULTANT, Duration: 30 day, Stop date: 08/27/17 0:00:00 CDTNotes: Apply only once for up to 12 hours in a 24-hour period (12 hours on and 12 hours off). (Same as: Lidoderm) "Remove old patch before application of new patch" Ondansetron 4 mg, 2 mL, No Longer [place] Route: IVP, Drug Active 2017 Medical form: INJ, Q8H, Center Dosing Weight 88.182, kg, PRN Nausea & Vomiting, Start date: 07/28/17 23:49:00 COMPENSATION CONSULTANT, Duration: 30 day, Stop date: 08/27/17 23:48:00 CDTNotes: (Same as: Darlenefrprimo) MEDICATION WASTE Product Size: 4 mg Product Wasted: ___ mg Tramadol 50 mg, 1 tab, No Longer [place] Route: PO, Drug Active 2017 Medical form: TAB, Q6H, Center Dosing Weight 88.182, kg, Priority: NOW, Start date: 07/28/17 23:48:00 COMPENSATION CONSULTANT, Duration: 30 day, Stop date: 08/27/17 18:00:00 CDTNotes: Not to exceed 400mg/day. (Same As: Ultram) pregabalin 100 mg, 1 cap, No Longer [facility] Route: PO, Drug Active 2017 Medical form: CAP, Q8H, Center Dosing Weight 88.182, kg, Priority: NOW, Start date: 07/28/17 23:48:00 COMPENSATION CONSULTANT, Duration: 48 hr, Stop date: 07/30/17 16:00:00 CSTNotes: (Same as: Lyrica) celecoxib 200 mg, 1 cap, No Longer [facility] Route: PO, Drug Active 2018 Medical form: CAP, Q12H, Center Dosing Weight 88.182, kg, Priority: NOW, Start date: 07/28/17 23:48:00 COMPENSATION CONSULTANT, Duration: 48 hr, Stop date: 07/30/17 21:00:00 CSTNotes: NSAID. Please check indication. Not for seizure. (Same As: CeleBREX) Acetaminophen 1,000 mg, 2 tab, No Longer [facility] Route: PO, Drug Active 2018 Medical form: TAB, Q6H, Center Dosing Weight 88.182, kg, Priority: NOW, Start date: 07/28/17 23:48:00 COMPENSATION CONSULTANT, Stop date: 08/27/17 17:00:00 CDTNotes: Max acetaminophen 4000 mg/day (4 gm/day). (Same as: Tylenol Extra Strength) Ancef + sterile 2 gm, Route: No Longer [facility] water 20 mL IVP, Q8H, Dosing Active 2018 Medical Weight 88.182, Center kg, Priority: STAT, Start date: 07/28/17 23:34:00 COMPENSATION CONSULTANT, Duration: 30 day, Stop date: 08/27/17 16:00:00 CDT, ABX Indication: Bone/Joint Infection Ondansetron 4 mg, Route: Inactive [facility] IVP, Drug form: 2018 Medical INJ, ONCE, Center Dosing Weight 88.182, kg, Priority: STAT, Start date: 07/28/17 23:32:00 COMPENSATION CONSULTANT, Stop date: 07/28/17 23:32:00 COMPENSATION CONSULTANT Morphine 4 mg, Route: Inactive [facility] IVP, ONCE, 2018 Medical Dosing Weight Center 88.182, kg, Priority: STAT, Start date: 07/28/17 23:30:00 COMPENSATION CONSULTANT, Stop date: 07/28/17 23:30:00 COMPENSATION CONSULTANT Dilaudid 1 mg, Route: IV, Inactive 07/29[employer] ONCE, Dosing 2018 Medical Weight 88.182, Center kg, Start date: 07/28/17 21:44:00 COMPENSATION CONSULTANT, Stop date: 07/28/17 21:44:00 COMPENSATION CONSULTANT Ketamine 25 mg, Route: Inactive 03/07[employer] IV, ONCE, Dosing 2018 Medical Weight 88.182, Center kg, Start date: 07/28/17 21:23:00 COMPENSATION CONSULTANT, Stop date: 07/28/17 21:23:00 COMPENSATION CONSULTANT iodixanol 130 mL, Route: Inactive [place] IVP, Drug Form: 2018 Medical SOLN, Dosing Center Weight 88.182, kg, ONCALL, STAT, Start date: 07/28/17 21:22:00 COMPENSATION CONSULTANT, Duration: 1 doses or times, Dose=2.2ml/kg, Max fude=[id number] -- "To be infused by Radiology Staff ONLY" Isolyte S PH 7.4 1,000 mL, Rate: Inactive [place] 1,000 mL 125 ml/hr, 2018 Medical Infuse over: 8 Center hr, Route: IV, Dosing Weight 88.182 kg, Total Volume: 1,000, Priority: STAT, Start date: 07/28/17 20:45:00 COMPENSATION CONSULTANT, Duration: 1 doses or times, Stop date: 07/29/17 4:44:00 COMPENSATION CONSULTANT, 1.84, d4Fomic: (Same as: Isolyte S PH 7.4) Cefazolin 2 gm, Route: IV, Inactive [place] ONCE, Dosing 2018 Medical Weight 88.182, Center kg, (for patients 50 -120 kg), Priority: STAT, Start date: 07/28/17 20:45:00 COMPENSATION CONSULTANT, Stop date: 07/28/17 20:45:00 COMPENSATION CONSULTANT, ABX Indication: Open Wound Prophylaxis Hydromorphone 1 mg, Route: Inactive [place] IVP, ONCE, 2018 Medical Dosing Weight Center 88.182, kg, Priority: STAT, Start date: 07/28/17 20:45:00 COMPENSATION CONSULTANT, Stop date: 07/28/17 20:45:00 COMPENSATION CONSULTANT Gentamicin 500 mg, Route: Inactive [facility] IVPB, ONCE, 2018 Medical Dosing Weight [facility] 88.182, kg, Time Critical Medication, Priority: STAT, Start date: 07/28/17 20:45:00 COMPENSATION CONSULTANT, Stop date: 07/28/17 20:45:00 COMPENSATION CONSULTANT Saline Flush 0.9% 10 mL, Route: No Longer [place] MISC, Drug Form: Active 2018 Medical INJ, Dosing Center Weight 88.182, kg, PRN, PRN Line Flush, Start date: 07/28/17 20:45:00 COMPENSATION CONSULTANT, Duration: 30 day, Stop date: 08/27/17 21:44:00 CDTNotes: (Same as: BD Posiflush) Allergies, Adverse Reactions, Alerts Substance Category Reaction Severity Reaction Status Date Comments Source type Reported Latex Assertion Drug Active allergy [place] OxyCONTIN Assertion Drug Active allergy [facility] Immunizations Immunization Date Site Status Last Comments Source Given Updated pneumococcal Not Given [facility] 23-valent vaccine [address] [place] [address], [facility] diphtheria/pertus Left completed [place] [facility] sis, acel/tetanus [address] [place] [address], [facility] Results Order Name Results Value Reference Date Interpretation Comments Source Range CHEM PANEL eGFR 134 08/01 Result mL/min/1 Comment: The [facility] 3m2 eGFR is calculated using the CKD-EPI formula. In most young, healthy individuals the eGFR will be >90 mL/min/1.73m2 . The eGFR declines with age. An eGFR of 60-89 may be normal in some populations, particularly the elderly, for whom the CKD-EPI formula has not been extensively validated. Use of the eGFR is not recommended in the following populations:I ndividuals with unstable creatinine concentration s, including patients and those with serious co-morbid conditions.Pa tients with extremes in muscle mass or diet. The data above are obtained from the National Kidney Disease Education Program (NKDEP) which additionally recommends that when the eGFR is used in patients with extremes of body mass index for purposes of drug dosing, the eGFR should be multiplied by the estimated BMI. CHEM PANEL Bili Total 0.2 mg/dL 0.2 - 1.3 08/01 [place] CHEM PANEL Alk Phos 64 unit/L 39 - 136 08/01 [facility] CHEM PANEL A/G Ratio 0.8 0.7 - 1.6 08/01 [facility] CHEM PANEL ALT 23 unit/L 0 - 65 08/01 [facility] CHEM PANEL Glucose Lvl 106 mg/dL 70 - 99 08/01 [facility] CHEM PANEL Potassium 4.1 meq/L 3.5 - 5.1 08/01 Lvl [facility] CHEM PANEL Sodium Lvl 143 meq/L 135 - 145 03 [facility] CHEM PANEL AGAP 11.1 meq/L 10.0 - 03 MH 20.0 [place] CHEM PANEL Creatinine 0.56 mg/dL 0.50 - 0310 MH Lvl 1.40 [place] CHEM PANEL BUN 13 mg/dL 7 - 22 03 [facility] CHEM PANEL Globulin 3.8 g/dL 2.7 - 4.2 08/01 [place] CHEM PANEL CO2 26 meq/L 24 - 32 03 [facility] CHEM PANEL Chloride Lvl 110 meq/L 95 - 109 08/01 [facility] CHEM PANEL Calcium Lvl 8.2 mg/dL 8.5 - 10.5 08/01 [place] CHEM PANEL AST 10 unit/L 0 - 37 08/01 [facility] CHEM PANEL Albumin Lvl 3.1 g/dL 3.5 - 5.0 08/01 [place] CHEM PANEL Total 6.9 g/dL 6.4 - 8.4 08/01 [place] CHEM PANEL B/C Ratio 23 6 - 25 08/01 [place] CHEM PANEL Magnesium 2.2 mg/dL 1.8 - 2.4 08/01 Lv [facility] HEMATOLOGY MPV 8.2 fL 7.4 - 10.4 08/01 [facility] HEMATOLOGY Platelet 275 K/CMM 133 - 450 08/01 [facility] HEMATOLOGY RDW 14.5 % 11.5 - 08/01 MH 14.5 [facility] HEMATOLOGY MCHC 33.6 g/dL 32.0 - 08/01 MH 36.0 [place] HEMATOLOGY MCH 26.6 pg 27.0 - 08/01 MH 31.0 [place] HEMATOLOGY Hgb 11.9 g/dL 12.0 - 03 MH 16.0 [place] HEMATOLOGY MCV 79.1 fL 80.0 - 08/01 MH 98.0 [place] HEMATOLOGY Hct 35.3 % 36.0 - 08/01 MH 48.0 [place] HEMATOLOGY RBC 4.46 M/CMM 4.20 - 0310 MH 5.40 [place] HEMATOLOGY WBC 8.0 K/CMM 3.7 - 10.4 [id number] [facility] HEMATOLOGY PTT 30.7 s 22.9 - 08/01 MH 35.8 /2018 [facility] HEMATOLOGY PT 13.7 s 12.0 - 08/01 MH 14.7 [facility] HEMATOLOGY INR 1.07 0.85 - 08/01 MH 1.17 [place] HEMATOLOGY Monocytes 7.9 % 2.0 - 12.0 08/01 [place] HEMATOLOGY Eosinophils 0.2 K/CMM 0.0 - 0.5 08/01 [place] HEMATOLOGY Basophils 0.7 % 0.0 - 1.0 08/01 [facility] HEMATOLOGY Neutrophils 5.0 K/CMM 1.5 - 8.1 08/01 [place] HEMATOLOGY Eosinophils 2.0 % 0.0 - 4.0 08/01 [facility] HEMATOLOGY Lymphocytes 2.2 K/CMM 1.0 - 5.5 08/01 [place] HEMATOLOGY Segs 62.1 % 45.0 - 08/01 75.0 [facility] HEMATOLOGY Lymphocytes 27.3 % 20.0 - 08/01 MH 40.0 [place] HEMATOLOGY Basophils # 0.1 K/CMM 0.0 - 0.2 08/01 [facility] HEMATOLOGY Monocytes # 0.6 K/CMM 0.0 - 0.8 08/01 [facility] ENDOCRINOLO S Preg Negative Negative 08/01 [facility] *NA* (08/01/18 1:30 AM) CHEM PANEL Bili Total 0.2 mg/dL 0.2 - 1.3 08/01 [place] CHEM PANEL eGFR 123 08/01 Result MH mL/min/1.7 Comment: The [facility] 3m2 eGFR is calculated using the CKD-EPI formula. In most young, healthy individuals the eGFR will be >90 mL/min/1.73m2 . The eGFR declines with age. An eGFR of 60-89 may be normal in some populations, particularly the elderly, for whom the CKD-EPI formula has not been extensively validated. Use of the eGFR is not recommended in the following populations:I ndividuals with unstable creatinine concentration s, including patients and those with serious co-morbid conditions.Pa tients with extremes in muscle mass or diet. The data above are obtained from the National Kidney Disease Education Program (NKDEP) which additionally recommends that when the eGFR is used in patients with extremes of body mass index for purposes of drug dosing, the eGFR should be multiplied by the estimated BMI. CHEM PANEL Albumin Lvl 3.6 g/dL 3.5 - 5.0 08/01 [place] CHEM PANEL Alk Phos 76 unit/L 39 - 136 08/01 [facility] CHEM PANEL ALT 37 unit/L 0 - 65 08/01 [facility] CHEM PANEL CO2 28 meq/L 24 - 32 08/01 [facility] CHEM PANEL Calcium Lvl 8.5 mg/dL 8.5 - 10.5 08/01 [place] CHEM PANEL AST 12 unit/L 0 - 37 08/01 [facility] CHEM PANEL Total 8.9 g/dL 6.4 - 8.4 08/01 [facility] CHEM PANEL Sodium Lvl 142 meq/L 135 - 145 08/01 [facility] CHEM PANEL Potassium 3.5 meq/L 3.5 - 5.1 08/01 MH Lvl [place] CHEM PANEL Chloride Lvl 107 meq/L 95 - 109 08/01 [facility] CHEM PANEL BUN 13 mg/dL 7 - 22 08/01 [facility] CHEM PANEL Creatinine 0.71 mg/dL 0.50 - 08/01 MH Lvl 1.40 [place] CHEM PANEL Glucose Lvl 106 mg/dL 70 - 99 08/01 [place] CHEM PANEL Globulin 5.3 g/dL 2.7 - 4.2 08/01 [place] CHEM PANEL A/G Ratio 0.7 0.7 - 1.6 08/01 [facility] CHEM PANEL AGAP 10.5 meq/L 10.0 - 08/01 MH 20.0 [facility] CHEM PANEL B/C Ratio 18 6 - 25 08/01 [facility] DRUG SCREEN U Maame Scr Negative Negative 08/01 [facility] *NA* (08/01/18 12:28 AM) DRUG SCREEN U Amph Scr Negative Negative 08/01 [place] *NA* (08/01/18 12:28 AM) DRUG SCREEN U Negative Negative 08/01 Phencycl [facility] e Scr *NA* (08/01/18 12:28 AM) DRUG SCREEN UDS Note See Note 08/01 [facility] *NA* (08/01/18 12:28 AM) DRUG SCREEN U Cocaine Negative Negative 08/01 [place] *NA* (08/01/18 12:28 AM) DRUG SCREEN U Opiate Scr Negative Negative 08/01 [place] *NA* (08/01/18 12:28 AM) DRUG SCREEN U Benzodiaz Negative Negative 08/01 [facility] *NA* (08/01/18 12:28 AM) DRUG SCREEN U Cannab Scr Negative Negative 08/01 [facility] *NA* (08/01/18 12:28 AM) HEMATOLOGY MCV 79.0 fL 80.0 - 08/01 MH 98.0 [facility] HEMATOLOGY Hct 38.8 % 36.0 - 08/01 MH 48.0 [facility] HEMATOLOGY MPV 8.6 fL 7.4 - 10.4 08/01 [facility] HEMATOLOGY Platelet 321 K/CMM 133 - 450 08/01 [facility] HEMATOLOGY Hgb 12.9 g/dL 12.0 - 08/01 MH 16.0 [facility] HEMATOLOGY RBC 4.91 M/CMM 4.20 - 08/01 MH 5.40 /2018 [facility] HEMATOLOGY WBC 10.0 K/CMM 3.7 - 10.4 08/01 [facility] HEMATOLOGY MCHC 33.2 g/dL 32.0 - 08/01 MH 36.0 [facility] HEMATOLOGY RDW 15.1 % 11.5 - 08/01 MH 14. [facility] HEMATOLOGY MCH 26.2 pg 27.0 - 08/01 MH 31.0 [place] HEMATOLOGY Neutrophils 5.8 K/CMM 1.5 - 8.1 08/01 # [facility] HEMATOLOGY Lymphocytes 3.0 K/CMM 1.0 - 5.5 08/01 [place] HEMATOLOGY Eosinophils 0.2 K/CMM 0.0 - 0.5 08/01 # [facility] HEMATOLOGY Monocytes # 0.9 K/CMM 0.0 - 0.8 08/01 [facility] HEMATOLOGY Basophils # 0.1 K/CMM 0.0 - 0.2 08/01 [place] HEMATOLOGY Basophils 0.8 % 0.0 - 1.0 08/01 [place] HEMATOLOGY Eosinophils 2.0 % 0.0 - 4.0 08/01 [place] HEMATOLOGY Segs 58.2 % 45.0 - 08/01 MH 75.0 /2018 [place] HEMATOLOGY Lymphocytes 30.3 % 20.0 - 08/01 MH 40.0 /2018 [facility] HEMATOLOGY Monocytes 8.7 % 2.0 - 12.0 08/01 [facility] TOXICOLOGY Phenytoin 0.09 ug/ml 1.00 - 08/01 MH Free 2.00 [facility] TOXICOLOGY Phenytoin 1.4 ug/ml 10.0 - 08/01 MH Total 20.0 [facility] URINE AND UA RBC 5 /HPF 0 - 2 08/01 [place] URINE AND UA Sq Epi Few /LPF Few /LPF 08/01 [facility] URINE AND UA WBC 1 /HPF 0 - 5 08/01 [facility] URINE AND UA Mucus Many /LPF None Seen 08/01 STOOL /LPF [facility] URINE AND UA Bacteria Occasional None Seen 08/01 STOOL /HPF /HPF [facility] URINE AND UA Turbidity Marked Clear 08/01 [facility] *ABN* (08/01/18 12:28 AM) URINE AND UA Color Yellow Yellow 08/01 [place] *NA* (08/01/18 12:28 AM) URINE AND UA Leuk Est Negative Negative 08/01 [facility] (08/01/18 12:28 AM) URINE AND UA Nitrite Negative Negative 08/01 [place] (08/01/18 12:28 AM) URINE AND UA Bili Negative Negative 08/01 [place] *NA* (08/01/18 12:28 AM) URINE AND UA Blood Small Negative 08/01 [facility] *ABN* (08/01/18 12:28 AM) URINE AND UA <=1.0 0.1 - 1.0 08/01 STOOL Urobilinogen mg/dL [facility] URINE AND UA Protein Negative Negative 08/01 [facility] (08/01/18 12:28 AM) URINE AND UA Glucose Negative Negative 08/01 [facility] *NA* (08/01/18 12:28 AM) URINE AND UA Ketones Negative Negative 08/01 STOOL [place] *NA* (08/01/18 12:28 AM) URINE AND UA pH 5.0 5.0 - 8.0 08/01 [facility] URINE AND UA Spec Grav 1.029 <=1.030 08/01 STOOL [facility] HEMATOLOGY RDW 16.5 % 11.5 - 0605 [place] 14.5 [facility] HEMATOLOGY Platelet 373 K/CMM 133 - 450 06 [facility] HEMATOLOGY RBC 4.94 M/CMM 4.20 - 06/05 [place] 5.40 /2017 [facility] HEMATOLOGY WBC 9.5 K/CMM 3.7 - 10.4 10/27 [facility] HEMATOLOGY MCH 24.1 pg 27.0 - 05 31.0 /2017 [facility] HEMATOLOGY Hgb 11.9 g/dL 12.0 - 06/05 [place] 16.0 [facility] HEMATOLOGY MCV 75.0 fL 80.0 - 06/05 [place] 98.0 /2018 [facility] HEMATOLOGY MCHC 32.2 g/dL 32.0 - 06/05 [place] 36.0 2018 [facility] HEMATOLOGY Hct 37.0 % 36.0 - 06/05 [place] 48.0 /2018 [facility] HEMATOLOGY MPV 8.4 fL 7.4 - 10.4 10/27 [facility] HEMATOLOGY Segs 57.1 % 45.0 - 06/05 75.0 /2018 [facility] HEMATOLOGY Lymphocytes 33.5 % 20.0 - 06/05 [place] 40.0 2018 [facility] HEMATOLOGY Lymphocytes 3.2 K/CMM 1.0 - 5.5 06/05 [place] # /2018 [facility] HEMATOLOGY Segs-Bands # 5.4 K/CMM 1.5 - 8.1 06 [facility] HEMATOLOGY Monocytes 6.4 % 2.0 - 12.0 06/ [place] 2018 [facility] HEMATOLOGY Basophils 0.7 % 0.0 - 1.0 10/27 [place] [facility] HEMATOLOGY Eosinophils 2.3 % 0.0 - 4.0 06/ [place] [facility] HEMATOLOGY Eosinophils 0.2 K/CMM 0.0 - 0.5 06/ [facility] /2017 [facility] HEMATOLOGY Microcyte 1+ None Seen 10/27 [facility] *ABN* Center (10/27/17 6:51 AM) HEMATOLOGY Monocytes # 0.6 K/CMM 0.0 - 0.8 10/27 [facility] /[address] [place] [address] HEMATOLOGY Basophils # 0.1 K/CMM 0.0 - 0.2 10/[address] ELECTROLYTE AGAP 15.1 meq/L 10.0 - 08/07 [facility] S 20.0 [facility] ELECTROLYTE eGFR 137 08/07 Result [facility] mL/min/1.7 Comment: The [address] eGFR is Center calculated using the CKD-EPI formula. In most young, healthy individuals the eGFR will be >90 mL/min/1.73m2 . The eGFR declines with age. An eGFR of 60-89 may be normal in some populations, particularly the elderly, for whom the CKD-EPI formula has not been extensively validated. Use of the eGFR is not recommended in the following populations:I ndividuals with unstable creatinine concentration s, including patients and those with serious co-morbid conditions.Pa tients with extremes in muscle mass or diet. The data above are obtained from the National Kidney Disease Education Program (NKDEP) which additionally recommends that when the eGFR is used in patients with extremes of body mass index for purposes of drug dosing, the eGFR should be multiplied by the estimated BMI. ELECTROLYTE Creatinine 0.53 mg/dL 0.50 - 08/07 [facility] Lvl 1.40 [facility] ELECTROLYTE CO2 24 meq/L 24 - 32 08/07 [facility] [address] [place] [address] ELECTROLYTE BUN 14 mg/dL 7 - 22 08/07 [facility] [address] [place] [address] ELECTROLYTE Glucose Lvl 97 mg/dL 70 - 99 08/07 [facility] [address] [place] [address] ELECTROLYTE Sodium Lvl 137 meq/L 135 - 145 08/[address] ELECTROLYTE Calcium Lvl 8.7 mg/dL 8.5 - 10.5 08/[address] ELECTROLYTE Chloride Lvl 102 meq/L 95 - 109 08/[address] ELECTROLYTE Potassium 4.1 meq/L 3.5 - 5.1 08/07 [facility] /2017 [facility] HEMATOLOGY Eosinophils 3.2 % 0.0 - 4.0 08/07 [facility] HEMATOLOGY Monocytes # 0.9 K/CMM 0.0 - 0.8 08/07 [facility] Center HEMATOLOGY Lymphocytes 2.8 K/CMM 1.0 - 5.5 03 [place] # /2017 [facility] Center HEMATOLOGY Eosinophils 0.3 K/CMM 0.0 - 0.5 08/07 [place] # /2017 [facility] HEMATOLOGY Segs 60.6 % 45.0 - 0316 [place] 75.0 2018 [facility] Center HEMATOLOGY Lymphocytes 27.2 % 20.0 - 0316 [place] 40.0 /2018 [facility] Center HEMATOLOGY Monocytes 8.7 % 2.0 - 12.0 08/07 [facility] HEMATOLOGY Segs-Bands # 6.2 K/CMM 1.5 - 8.1 08/07 [facility] HEMATOLOGY Basophils 0.3 % 0.0 - 1.0 08/07 [facility] HEMATOLOGY Hct 27.7 % 36.0 - 16 48.0 [facility] HEMATOLOGY MCV 82.9 fL 80.0 - 08/07 [place] 98.0 2018 [facility] HEMATOLOGY MCH 27.5 pg 27.0 - 16 [place] 31.0 2018 [facility] HEMATOLOGY MCHC 33.1 g/dL 32.0 - 16 [place] 36.0 2018 [facility] HEMATOLOGY RDW 15.7 % 11.5 - 16 [place] 14.5 2018 [facility] HEMATOLOGY Platelet 409 K/CMM 133 - 450 08/07 [facility] HEMATOLOGY RBC 3.34 M/CMM 4.20 - 16 [place] 5.40 2018 [facility] HEMATOLOGY Hgb 9.2 g/dL 12.0 - 0316 [place] 16.0 /2018 [facility] HEMATOLOGY WBC 9.7 K/CMM 3.7 - 10.4 08/07 [facility] HEMATOLOGY MPV 8.0 fL 7.4 - 10.4 08/07 /2018 [facility] HEMATOLOGY Segs 61.1 % 45.0 - 0316 [place] 75.0 /2018 [facility] HEMATOLOGY Lymphocytes 2.7 K/CMM 1.0 - 5.5 0316 [place] # /2018 [facility] HEMATOLOGY Monocytes # 0.7 K/CMM 0.0 - 0.8 08/07 /2017 [facility] HEMATOLOGY Eosinophils 0.3 K/CMM 0.0 - 0.5 08/07 [place] # /2017 [facility] HEMATOLOGY Eosinophils 3.6 % 0.0 - 4.0 08/07 /2017 [facility] HEMATOLOGY Basophils 0.4 % 0.0 - 1.0 08/07 /2017 [facility] HEMATOLOGY Segs-Bands # 6.0 K/CMM 1.5 - 8.1 08/07 /2017 [facility] HEMATOLOGY Lymphocytes 27.3 % 20.0 - 08/07 [place] 40.0 /2017 [facility] HEMATOLOGY Monocytes 7.6 % 2.0 - 12.0 08/07 /2017 [facility] HEMATOLOGY RDW 15.9 % 11.5 - 08/07 [place] 14.5 [facility] HEMATOLOGY Platelet 406 K/CMM 133 - 450 08/07 /2017 [facility] HEMATOLOGY MPV 8.0 fL 7.4 - 10.4 08/07 /2017 [facility] HEMATOLOGY MCV 84.8 fL 80.0 - 08/07 [place] 98.0 [facility] HEMATOLOGY MCH 27.8 pg 27.0 - 08/07 [place] 31.0 [facility] HEMATOLOGY MCHC 32.8 g/dL 32.0 - 08/07 [place] 36.0 /2017 [facility] HEMATOLOGY Hgb 9.0 g/dL 12.0 - 08/07 [place] 16.0 /2017 [facility] HEMATOLOGY Hct 27.3 % 36.0 - 08/07 [place] 48.0 2018 [facility] HEMATOLOGY RBC 3.22 M/CMM 4.20 - 08/07 [place] 5.40 [facility] HEMATOLOGY WBC 10.1 K/CMM 3.7 - 10.4 08/07 /2017 [facility] BLOOD BANK ABO/Rh A POS 08/06 [facility] RESULTS /2017 [facility] BLOOD BANK Antibody Negative 08/06 [facility] RESULTS Scrn [facility] (08/06/17 2:43 PM) Center BLOOD BANK RBC product Product available 08/06 [facility] RESULTS [facility] (08/06/17 12:46 PM) Center CHEM PANEL eGFR 134 08/06 Result [facility] mL/min/1.7 /2018 Comment: The [facility] 3m2 eGFR is Center calculated using the CKD-EPI formula. In most young, healthy individuals the eGFR will be >90 mL/min/1.73m2 . The eGFR declines with age. An eGFR of 60-89 may be normal in some populations, particularly the elderly, for whom the CKD-EPI formula has not been extensively validated. Use of the eGFR is not recommended in the following populations:I ndividuals with unstable creatinine concentration s, including patients and those with serious co-morbid conditions.Pa tients with extremes in muscle mass or diet. The data above are obtained from the National Kidney Disease Education Program (NKDEP) which additionally recommends that when the eGFR is used in patients with extremes of body mass index for purposes of drug dosing, the eGFR should be multiplied by the estimated BMI. CHEM PANEL Creatinine 0.56 mg/dL 0.50 - 08/06 [facility] 1.40 [facility] CHEM PANEL BUN 11 mg/dL 7 - 22 08/[address] CHEM PANEL Potassium 3.9 meq/L 3.5 - 5.1 08/06 [facility] CHEM PANEL CO2 25 meq/L 24 - 32 08/[address] CHEM PANEL Calcium Lvl 8.3 mg/dL 8.5 - 10.5 08/[address] CHEM PANEL Chloride Lvl 103 meq/L 95 - 109 08/[address] CHEM PANEL Sodium Lvl 138 meq/L 135 - 145 08/[address] CHEM PANEL AGAP 13.9 meq/L 10.0 - 08/06 [facility] 20.0 [facility] CHEM PANEL Glucose Lvl 128 mg/dL 70 - 99 08/[address] HEMATOLOGY Platelet 373 K/CMM 133 - 450 08/[address] HEMATOLOGY MPV 7.8 fL 7.4 - 10.4 08/[address] HEMATOLOGY WBC 9.0 K/CMM 3.7 - 10.4 08/[address] HEMATOLOGY RBC 2.64 M/CMM 4.20 - 08/06 [facility] 5.40 [facility] HEMATOLOGY MCH 27.1 pg 27.0 - 08/06 [place] 31.0 [facility] HEMATOLOGY RDW 16.3 % 11.5 - 08/06 [place] 14.5 [facility] HEMATOLOGY MCHC 32.2 g/dL 32.0 - 08/06 [place] 36.0 [facility] HEMATOLOGY Hgb 7.2 g/dL 12.0 - 08/06 [facility] 16.0 [facility] HEMATOLOGY Hct 22.2 % 36.0 - 08/06 [place] 48.0 [facility] HEMATOLOGY MCV 84.0 fL 80.0 - 08/06 [place] 98.0 [facility] HEMATOLOGY Monocytes # 0.7 K/CMM 0.0 - 0.8 08/06 [facility] HEMATOLOGY Eosinophils 0.3 K/CMM 0.0 - 0.5 08/06 [facility] HEMATOLOGY Monocytes 8.1 % 2.0 - 12.0 08/06 [facility] HEMATOLOGY Eosinophils 3.5 % 0.0 - 4.0 08/06 [facility]2017 [facility] HEMATOLOGY Lymphocytes 2.3 K/CMM 1.0 - 5.5 08/06 [facility] HEMATOLOGY Basophils 0.5 % 0.0 - 1.0 08/06 [facility] HEMATOLOGY Segs-Bands # 5.6 K/CMM 1.5 - 8.1 08/06 [facility] HEMATOLOGY Segs 62.6 % 45.0 - 08/06 [facility] 75.0 [facility] HEMATOLOGY Lymphocytes 25.3 % 20.0 - 08/06 [facility] 40.0 [facility] CHEM PANEL eGFR 107 08/04 [facility] mL/min/1.7 Comment: The [address] eGFR is Center calculated using the CKD-EPI formula. In most young, healthy individuals the eGFR will be >90 mL/min/1.73m2 . The eGFR declines with age. An eGFR of 60-89 may be normal in some populations, particularly the elderly, for whom the CKD-EPI formula has not been extensively validated. Use of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
[2018-11-18] MEDS ORDERED: NA CHLORIDE 0.9% 1,000 ML ONE ×2 (00:20→01:47)
[2018-11-18 00:29] LABS: Absolute Lymphocytes (CBC) 2.6 K/uL (0.7-4.9); Basophils % 0.8 % (0-1.3); Eosinophils % 1.8 % (0-4.4); Hematocrit 39.1 % (36.0-45.0); Lymphocytes % 30.5 % (15.3-44.8); MPV 9.3 fL (7.6-11.3); Monocytes % 7.8 % (3.3-12.3)
[2018-11-18 00:30] LABS: Urine Blood TRACE (NEG); Urine Glucose NEGATIVE (NEG); Urine Protein NEGATIVE (NEG); Urine Specific Gravity >1.030 (1.005-1.030)
[2018-11-18 00:41] LABS: Urine Bacteria <20 /HPF (<20); Urine Culture Reflex Order NOT NEEDED; Urine RBC NONE SEEN /HPF (NONE SEEN)
[2018-11-18 00:44] LABS: Potassium 4.5 mmol/L (3.5-5.1)
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
== END 2018-11-18 03:19 | disposition home or self-care (01) ==
LOC: ER 22:51
DX: E86.9 Volume depletion, unspecified (principal); R51 Headache; Z91.040 Latex allergy status
CPT/HCPCS: 36415; 80048; 81003; 81015; 81025; 85025; 87086; 87088; 96360; 96361; 99284; J7030

== ENCOUNTER 2018-12-28 22:19 | Emergency (ER) | payer BC ==
--- OUTSIDE RECORDS SUMMARY | 2018-12-28 22:24 | XMS REPORT | Continuity of Care Document ---
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 Drug Inactive 07/29[facility] Garima (ANES) form: INJ, ONCE, 2018 Medical Stop date: [place] 07/29/17 8:48:00 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 lidocaine (ANES) Route: IV, Drug Inactive [facility] form: INJ, ONCE, 2018 Medical Stop date: [place] 07/29/17 8:48:00 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 fentaNYL (ANES) Route: IV, Drug Inactive [facility] form: INJ, ONCE, 2018 Medical Stop date: [place] 07/29/17 8:43:00 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 ceFAZolin (ANES) Route: IV, Drug Inactive 07/29[facility] form: INJ, ONCE, 2018 Medical Stop date: [place] 07/29/17 8:38:00 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 Lactated Ringers Route: IV, Total Inactive [facility] Injection IV Volume: 1,000, 2018 Medical (ANES) 1000 mL Start date: [place] 07/29/17 7:44:00 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, Stop date: 07/29/17 8:44:00 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 Isolyte S PH 7.4 1,000 mL, Rate: Inactive [facility] 1,000 mL 100 ml/hr, 2018 Medical Infuse over: 10 Center hr, Route: IV, Dosing Weight 88.182 kg, Total Volume: 1,000, Start date: 07/29/17 6:39:00 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, Duration: 1 doses or times, Stop date: 07/29/17 16:38:00 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, 2.02, [id number]: (Same as: Isolyte S PH 7.4) Propofol 45 mg, 4.5 mL, Inactive [facility] Route: IVP, Drug 2018 Medical form: Emulsion, Center ONCE, Dosing Weight 88.182, kg, Priority: STAT, Start date: 07/29/17 0:19:00 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, Stop date: 07/29/17 0:19:00 CSTNotes: If Diprivan - change bottle & tubing every 12 hr Per state nursing law propofol can only be given by a nurse if patient is intubated or being intubated (unless the nurse is a RETAIL MANAGER). Same as: Diprivan Ketamine 90 mg, Route: Inactive [facility] IVP, Drug form: 2018 Medical INJ, ONCE, Center Dosing Weight 88.182, kg, Start date: 07/29/17 0:19:00 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, Stop date: 07/29/17 0:19:00 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 Enoxaparin 30 mg, 0.3 mL, Inactive [place] Route: SUB-Q, 2017 Medical Drug form: INJ, Center [id number], Dosing Weight 88.182, kg, For CrCl >=30 mL/min, Start date: 07/29/17 0:00:00 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, Duration: 30 day, Stop date: 08/27/17 12:00:00 CDTNotes: (Same as: Lovenox) Lidocaine 1 patch, Route: No Longer [place] Hydrochloride TOP, Q24H, Drug Active 2017 Medical 0.05 MG/MG form: FILM, Center Transdermal Patch Start date: [Lidoderm] 07/29/17 0:00:00 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, Duration: 30 day, Stop date: 08/27/17 0:00:00 CDTNotes: Apply only once for up to 12 hours in a 24-hour period (12 hours on and 12 hours off). (Same as: Lidoderm) "Remove old patch before application of new patch" Ondansetron 4 mg, 2 mL, No Longer [place] Route: IVP, Drug Active 2017 Medical form: INJ, Q8H, Center Dosing Weight 88.182, kg, PRN Nausea & Vomiting, Start date: 07/28/17 23:49:00 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, Duration: 30 day, Stop date: 08/27/17 23:48:00 CDTNotes: (Same as: Chance) MEDICATION WASTE Product Size: 4 mg Product Wasted: ___ mg Tramadol 50 mg, 1 tab, No Longer [place] Route: PO, Drug Active 2017 Medical form: TAB, Q6H, Center Dosing Weight 88.182, kg, Priority: NOW, Start date: 07/28/17 23:48:00 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, Duration: 30 day, Stop date: 08/27/17 18:00:00 CDTNotes: Not to exceed 400mg/day. (Same As: Ultram) pregabalin 100 mg, 1 cap, No Longer [place] Route: PO, Drug Active 2017 Medical form: CAP, Q8H, Center Dosing Weight 88.182, kg, Priority: NOW, Start date: 07/28/17 23:48:00 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, Duration: 48 hr, Stop date: 07/30/17 16:00:00 CSTNotes: (Same as: Lyrica) celecoxib 200 mg, 1 cap, No Longer [facility] Route: PO, Drug Active 2018 Medical form: CAP, Q12H, Center Dosing Weight 88.182, kg, Priority: NOW, Start date: 07/28/17 23:48:00 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, Duration: 48 hr, Stop date: 07/30/17 21:00:00 CSTNotes: NSAID. Please check indication. Not for seizure. (Same As: CeleBREX) Acetaminophen 1,000 mg, 2 tab, No Longer [facility] Route: PO, Drug Active 2018 Medical form: TAB, Q6H, Center Dosing Weight 88.182, kg, Priority: NOW, Start date: 07/28/17 23:48:00 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, Stop date: 08/27/17 17:00:00 CDTNotes: Max acetaminophen 4000 mg/day (4 gm/day). (Same as: Tylenol Extra Strength) Ancef + sterile 2 gm, Route: No Longer [facility] water 20 mL IVP, Q8H, Dosing Active 2018 Medical Weight 88.182, Center kg, Priority: STAT, Start date: 07/28/17 23:34:00 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, Duration: 30 day, Stop date: 08/27/17 16:00:00 CDT, ABX Indication: Bone/Joint Infection Ondansetron 4 mg, Route: Inactive [facility] IVP, Drug form: 2018 Medical INJ, ONCE, Center Dosing Weight 88.182, kg, Priority: STAT, Start date: 07/28/17 23:32:00 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, Stop date: 07/28/17 23:32:00 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 Morphine 4 mg, Route: Inactive [facility] IVP, ONCE, 2018 Medical Dosing Weight Center 88.182, kg, Priority: STAT, Start date: 07/28/17 23:30:00 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, Stop date: 07/28/17 23:30:00 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 Dilaudid 1 mg, Route: IV, Inactive [facility] ONCE, Dosing 2018 Medical Weight 88.182, Center kg, Start date: 07/28/17 21:44:00 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, Stop date: 07/28/17 21:44:00 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 Ketamine 25 mg, Route: Inactive [facility] IV, ONCE, Dosing 2018 Medical Weight 88.182, Center kg, Start date: 07/28/17 21:23:00 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, Stop date: 07/28/17 21:23:00 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 iodixanol 130 mL, Route: Inactive [facility] IVP, Drug Form: 2018 Medical SOLN, Dosing Center Weight 88.182, kg, ONCALL, STAT, Start date: 07/28/17 21:22:00 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, Duration: 1 doses or times, Dose=2.2ml/kg, Max [id number]=[id number] -- "To be infused by Radiology Staff ONLY" Isolyte S PH 7.4 1,000 mL, Rate: Inactive [place] 1,000 mL 125 ml/hr, 2018 Medical Infuse over: 8 Center hr, Route: IV, Dosing Weight 88.182 kg, Total Volume: 1,000, Priority: STAT, Start date: 07/28/17 20:45:00 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, Duration: 1 doses or times, Stop date: 07/29/17 4:44:00 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, 1.84, k1Mefut: (Same as: Isolyte S PH 7.4) Cefazolin 2 gm, Route: IV, Inactive [place] ONCE, Dosing 2018 Medical Weight 88.182, Center kg, (for patients 50 -120 kg), Priority: STAT, Start date: 07/28/17 20:45:00 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, Stop date: 07/28/17 20:45:00 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, ABX Indication: Open Wound Prophylaxis Hydromorphone 1 mg, Route: Inactive [facility] IVP, ONCE, 2018 Medical Dosing Weight Center 88.182, kg, Priority: STAT, Start date: 07/28/17 20:45:00 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, Stop date: 07/28/17 20:45:00 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 Gentamicin 500 mg, Route: Inactive [facility] IVPB, ONCE, 2018 Medical Dosing Weight Center 88.182, kg, Time Critical Medication, Priority: STAT, Start date: 07/28/17 20:45:00 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, Stop date: 07/28/17 20:45:00 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 Saline Flush 0.9% 10 mL, Route: No Longer [facility] MISC, Drug Form: Active 2018 Medical INJ, Dosing Center Weight 88.182, kg, PRN, PRN Line Flush, Start date: 07/28/17 20:45:00 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, Duration: 30 day, Stop date: 08/27/17 21:44:00 CDTNotes: (Same as: BD Posiflush) Allergies, Adverse Reactions, Alerts Substance Category Reaction Severity Reaction Status Date Comments Source type Reported Latex Assertion Drug Active allergy [place] OxyCONTIN Assertion Drug Active allergy [place] Immunizations Immunization Date Site Status Last Comments Source Given Updated pneumococcal Not Given [facility] 23-valent vaccine [address] [place] [address],[facility] diphtheria/pertus Left completed [place] [facility] sis, acel/tetanus [address] [place] [address],[facility] Results Order Name Results Value Reference Date Interpretation Comments Source Range CHEM PANEL eGFR 134 08/01 Result Comment: The [place] eGFR is calculated using the CKD-EPI formula. In most young, healthy individuals the eGFR will be >90 mL/min/1.73m2 . The eGFR declines with age. An eGFR of 60-89 may be normal in some populations, particularly the elderly, for whom the CKD-EPI formula has not been extensively validated. Use of the eGFR is not recommended in the following populations:< br/>
Stephanie viduals with unstable creatinine concentration s, including patients and those with serious co-morbid conditions.<b r/>
Patie nts with extremes in muscle mass or diet.

The data above are obtained from the National Kidney Disease Education Program (NKDEP) which additionally recommends that when the eGFR is used in patients with extremes of body mass index for purposes of drug dosing, the eGFR should be multiplied by the estimated BMI. CHEM PANEL Bili Total 0.2 0.2 - 1.3 08/01 [place] CHEM PANEL Alk Phos 64 39 - 136 08/01 [facility] CHEM PANEL A/G Ratio 0.8 0.7 - 1.6 08/01 [facility] CHEM PANEL ALT 23 0 - 65 08/01 [facility] CHEM PANEL Glucose Lvl 106 70 - 99 08/01 [facility] CHEM PANEL Potassium 4.1 3.5 - 5.1 08/01 Lv [facility] CHEM PANEL Sodium Lvl 143 135 - 145 03/10 [place] CHEM PANEL AGAP 11.1 10.0 - 03/10 MH 20.0 /2018 [place] CHEM PANEL Creatinine 0.56 0.50 - 03/10 MH Lvl 1.40 /2018 [place] CHEM PANEL BUN 13 7 - 22 03/10 [place] CHEM PANEL Globulin 3.8 2.7 - 4.2 03/ [place] CHEM PANEL CO2 26 24 - 32 03/10 [facility] CHEM PANEL Chloride Lvl 110 95 - 109 03/10 [place] CHEM PANEL Calcium Lvl 8.2 8.5 - 10.5 03/ [place] CHEM PANEL AST 10 0 - 37 03/10 [facility] CHEM PANEL Albumin Lvl 3.1 3.5 - 5.0 03/10 [facility] CHEM PANEL Total 6.9 6.4 - 8.4 /10 MH [place] CHEM PANEL B/C Ratio 23 6 - 25 /10 [facility] CHEM PANEL Magnesium 2.2 1.8 - 2.4 03/10 MH Lvl /2018 [facility] HEMATOLOGY MPV 8.2 7.4 - 10.4 03/ [facility] HEMATOLOGY Platelet 275 133 - 450 08/01 [facility] HEMATOLOGY RDW 14.5 11.5 - 03 MH 14.5 [facility] HEMATOLOGY MCHC 33.6 32.0 - 0310 MH 36.0 [place] HEMATOLOGY MCH 26.6 27.0 - 0310 MH 31.0 [place] HEMATOLOGY Hgb 11.9 12.0 - 0310 MH 16.0 [place] HEMATOLOGY MCV 79.1 80.0 - 0310 MH 98.0 /2019 [facility] HEMATOLOGY Hct 35.3 36.0 - 0310 MH 48.0 2019 [place] HEMATOLOGY RBC 4.46 4.20 - 03/10 MH 5.40 [place] HEMATOLOGY WBC 8.0 3.7 - 10.4 03/ [place] HEMATOLOGY PTT 30.7 22.9 - 03/10 MH 35.8 [place] HEMATOLOGY PT 13.7 12.0 - 0310 MH 14.7 [place] HEMATOLOGY INR 1.07 0.85 - 0310 MH 1. [place] HEMATOLOGY Monocytes 7.9 2.0 - 12.0 08/01 [place] HEMATOLOGY Eosinophils 0.2 0.0 - 0.5 08/01 [place] HEMATOLOGY Basophils 0.7 0.0 - 1.0 08/01 [place] HEMATOLOGY Neutrophils 5.0 1.5 - 8.1 08/01 MH # [place] HEMATOLOGY Eosinophils 2.0 0.0 - 4.0 08/01 [place] HEMATOLOGY Lymphocytes 2.2 1.0 - 5.5 08/01 [place] HEMATOLOGY Segs 62.1 45.0 - 08/01 MH 75.0 [place] HEMATOLOGY Lymphocytes 27.3 20.0 - 08/01 MH 40.0 [place] HEMATOLOGY Basophils # 0.1 0.0 - 0.2 08/01 [facility] HEMATOLOGY Monocytes # 0.6 0.0 - 0.8 08/01 [place] ENDOCRINOLO S Preg Negative Negative 08/01 GY *NA* /2018 [facility] (08/01/18 1:30 AM) CHEM PANEL Bili Total 0.2 0.2 - 1.3 08/01 [place] CHEM PANEL eGFR 123 08/01 Comment: The [facility] eGFR is calculated using the CKD-EPI formula. In most young, healthy individuals the eGFR will be >90 mL/min/1.73m2 . The eGFR declines with age. An eGFR of 60-89 may be normal in some populations, particularly the elderly, for whom the CKD-EPI formula has not been extensively validated. Use of the eGFR is not recommended in the following populations:< br/>
Stephanie viduals with unstable creatinine concentration s, including patients and those with serious co-morbid conditions.<b r/>
Patie nts with extremes in muscle mass or diet.

The data above are obtained from the National Kidney Disease Education Program (NKDEP) which additionally recommends that when the eGFR is used in patients with extremes of body mass index for purposes of drug dosing, the eGFR should be multiplied by the estimated BMI. CHEM PANEL Albumin Lvl 3.6 3.5 - 5.0 08/01 [place] CHEM PANEL Alk Phos 76 39 - 136 08/01 [facility] CHEM PANEL ALT 37 0 - 65 08/01 [facility] CHEM PANEL CO2 28 24 - 32 08/01 [facility] CHEM PANEL Calcium Lvl 8.5 8.5 - 10.5 08/01 [place] CHEM PANEL AST 12 0 - 37 08/01 [place] CHEM PANEL Total 8.9 6.4 - 8.4 08/01 MH [place] CHEM PANEL Sodium Lvl 142 135 - 145 08/01 [place] CHEM PANEL Potassium 3.5 3.5 - 5.1 08/01 MH Lvl /2018 [place] CHEM PANEL Chloride Lvl 107 95 - 109 08/01 [facility] CHEM PANEL BUN 13 7 - 22 08/01 [facility] CHEM PANEL Creatinine 0.71 0.50 - 08/01 MH Lvl 1.40 [place] CHEM PANEL Glucose Lvl 106 70 - 99 08/01 [place] CHEM PANEL Globulin 5.3 2.7 - 4.2 08/01 [facility] CHEM PANEL A/G Ratio 0.7 0.7 - 1.6 08/01 [place] CHEM PANEL AGAP 10.5 10.0 - 08/01 MH 20.0 [place] CHEM PANEL B/C Ratio 18 6 - 25 08/01 [facility] DRUG SCREEN U Maame Scr Negative Negative 08/01 MH *NA* [facility] (08/01/18 12:28 AM) DRUG SCREEN U Amph Scr Negative Negative 08/01 MH *NA* [facility] (08/01/18 12:28 AM) DRUG SCREEN U Negative Negative 08/01 MH Phencyclidin * [facility] e Scr (08/01/18 12:28 AM) DRUG SCREEN UDS Note See Note 08/01 MH *NA* [facility] (08/01/18 12:28 AM) DRUG SCREEN U Cocaine Negative Negative 08/01 MH Scr *NA* [place] (08/01/18 12:28 AM) DRUG SCREEN U Opiate Scr Negative Negative 08/01 MH *NA* [facility] (08/01/18 12:28 AM) DRUG SCREEN U Benzodiaz Negative Negative 08/01 MH Scr *NA* [facility] (08/01/18 12:28 AM) DRUG SCREEN U Cannab Scr Negative Negative 08/01 [facility] *NA* /2018 [facility] (08/01/18 12:28 AM) HEMATOLOGY MCV 79.0 80.0 - 08/01 MH 98.0 /2018 [facility] HEMATOLOGY Hct 38.8 36.0 - 03 MH 48.0 [facility] HEMATOLOGY MPV 8.6 7.4 - 10.4 03 [facility] HEMATOLOGY Platelet 321 133 - 450 03 [facility] HEMATOLOGY Hgb 12.9 12.0 - 03 MH 16.0 [place] HEMATOLOGY RBC 4.91 4.20 - 03 MH 5.40 /2018 [facility] HEMATOLOGY WBC 10.0 3.7 - 10.4 08/01 [facility] HEMATOLOGY MCHC 33.2 32.0 - 03 MH 36.0 [place] HEMATOLOGY RDW 15.1 11.5 - 08/01 MH 14.5 [place] HEMATOLOGY MCH 26.2 27.0 - 08/01 MH 31.0 [place] HEMATOLOGY Neutrophils 5.8 1.5 - 8.1 / MH # /2018 [facility] HEMATOLOGY Lymphocytes 3.0 1.0 - 5.5 03/10 MH # /2018 [facility] HEMATOLOGY Eosinophils 0.2 0.0 - 0.5 /10 MH # /2018 [facility] HEMATOLOGY Monocytes # 0.9 0.0 - 0.8 08/01 [place] HEMATOLOGY Basophils # 0.1 0.0 - 0.2 08/01 [place] HEMATOLOGY Basophils 0.8 0.0 - 1.0 08/01 [place] HEMATOLOGY Eosinophils 2.0 0.0 - 4.0 08/01 [place] HEMATOLOGY Segs 58.2 45.0 - 0310 MH 75.0 2019 [place] HEMATOLOGY Lymphocytes 30.3 20.0 - 0310 MH 40.0 [place] HEMATOLOGY Monocytes 8.7 2.0 - 12.0 08/01 [facility] TOXICOLOGY Phenytoin 0.09 1.00 - 08/01 MH Free 2.00 [facility] TOXICOLOGY Phenytoin 1.4 10.0 - 08/01 MH Total 20.0 [place] URINE AND UA RBC 5 0 - 2 03/10 MH STOOL /2018 [place] URINE AND UA Sq Epi Few /LPF Few /LPF 08/01 STOOL [place] URINE AND UA WBC 1 0 - 5 08/01 STOOL [place] URINE AND UA Mucus Many /LPF None Seen 08/01 STOOL /LPF [place] URINE AND UA Bacteria Occasional None Seen 08/01 STOOL /HPF /HPF [facility] URINE AND UA Turbidity Marked Clear 08/01 STOOL *ABN* [facility] (08/01/18 12:28 AM) URINE AND UA Color Yellow Yellow 08/01 STOOL *NA* [place] (08/01/18 12:28 AM) URINE AND UA Leuk Est Negative Negative 08/01 [facility] (08/01/18 12:28 AM) [facility] URINE AND UA Nitrite Negative Negative 08/01 [facility] (08/01/18 12:28 AM) [facility] URINE AND UA Bili Negative Negative 08/01 STOOL *NA [place] (08/01/18 12:28 AM) URINE AND UA Blood Small Negative 08/01 STOOL *ABN* [place] (08/01/18 12:28 AM) URINE AND UA <=1.0 0.1 - 1.0 08/01 STOOL Urobilinogen mg/dL [facility] URINE AND UA Protein Negative Negative 08/01 [facility] (08/01/18 12:28 AM) [facility] URINE AND UA Glucose Negative Negative 08/01 STOOL *NA [facility] (08/01/18 12:28 AM) URINE AND UA Ketones Negative Negative 08/01 STOOL *NA* [place] (08/01/18 12:28 AM) URINE AND UA pH 5.0 5.0 - 8.0 08/01 STOOL [facility] URINE AND UA Spec Grav 1.029 <=1.030 08/01 STOOL [facility] HEMATOLOGY RDW 16.5 11.5 - 0605 [place] 14.5 /2018 [facility] HEMATOLOGY Platelet 373 133 - 450 06 [facility] [address] [place] [address] HEMATOLOGY RBC 4.94 4.20 - 06/05 [place] 5.40 /2018 [facility] HEMATOLOGY WBC 9.5 3.7 - 10.4 06 [facility] [address] [place] [address] HEMATOLOGY MCH 24.1 27.0 - 06/05 [place] 31.0 /2017 [facility] HEMATOLOGY Hgb 11.9 12.0 - 06/05 [place] 16.0 [facility] HEMATOLOGY MCV 75.0 80.0 - 06/05 [place] 98.0 /2017 [facility] HEMATOLOGY MCHC 32.2 32.0 - 06/05 [place] 36.0 /2017 [facility] HEMATOLOGY Hct 37.0 36.0 - 06/05 [place] 48.0 [facility] HEMATOLOGY MPV 8.4 7.4 - 10.4 0605 /2017 [facility] HEMATOLOGY Segs 57.1 45.0 - 06/05 [place] 75.0 /2018 [facility] HEMATOLOGY Lymphocytes 33.5 20.0 - 06/05 [place] 40.0 /2017 [facility] HEMATOLOGY Lymphocytes 3.2 1.0 - 5.5 06 [place] # /2017 [facility] HEMATOLOGY Segs-Bands # 5.4 1.5 - 8.1 10/27 2017 [facility] HEMATOLOGY Monocytes 6.4 2.0 - 12.0 10/27 [facility] HEMATOLOGY Basophils 0.7 0.0 - 1.0 / [facility] HEMATOLOGY Eosinophils 2.3 0.0 - 4.0 10/27 [facility] HEMATOLOGY Eosinophils 0.2 0.0 - 0.5 10/27 [place] # [facility] HEMATOLOGY Microcyte 1+ None Seen 10/27 [place] *ABN* /2017 [facility] (10/27/17 6:51 AM) [place] HEMATOLOGY Monocytes # 0.6 0.0 - 0.8 10/27 [facility] HEMATOLOGY Basophils # 0.1 0.0 - 0.2 10/27 [facility] ELECTROLYTE AGAP 15.1 10.0 - 08/07 [place] S 20.0 2018 [facility] ELECTROLYTE eGFR 137 08/07 [facility] S 2018 Comment: The Medical eGFR is Center calculated using the CKD-EPI formula. In most young, healthy individuals the eGFR will be >90 mL/min/1.73m2 . The eGFR declines with age. An eGFR of 60-89 may be normal in some populations, particularly the elderly, for whom the CKD-EPI formula has not been extensively validated. Use of the eGFR is not recommended in the following populations:< br/>
Stephanie viduals with unstable creatinine concentration s, including patients and those with serious co-morbid conditions.<b r/>
Patie nts with extremes in muscle mass or diet.

The data above are obtained from the National Kidney Disease Education Program (NKDEP) which additionally recommends that when the eGFR is used in patients with extremes of body mass index for purposes of drug dosing, the eGFR should be multiplied by the estimated BMI. ELECTROLYTE Creatinine 0.53 0.50 - 08/07 [facility] S Lvl 1.40 [facility] ELECTROLYTE CO2 24 24 - 32 08/[address] ELECTROLYTE BUN 14 7 - 22 08/[address] ELECTROLYTE Glucose Lvl 97 70 - 99 08/[address] ELECTROLYTE Sodium Lvl 137 135 - 145 08/[address] ELECTROLYTE Calcium Lvl 8.7 8.5 - 10.5 08/[address] ELECTROLYTE Chloride Lvl 102 95 - 109 08/[address] ELECTROLYTE Potassium 4.1 3.5 - 5.1 08/07 [facility] [place] [facility] [address] [place] [address] HEMATOLOGY Eosinophils 3.2 0.0 - 4.0 08/[address] HEMATOLOGY Monocytes # 0.9 0.0 - 0.8 08/[address] HEMATOLOGY Lymphocytes 2.8 1.0 - 5.5 08/07 [facility] # /2017 [facility] HEMATOLOGY Eosinophils 0.3 0.0 - 0.5 08/07 [facility] # /2017 [facility] HEMATOLOGY Segs 60.6 45.0 - 08/07 [place] 75.0 [facility] HEMATOLOGY Lymphocytes 27.2 20.0 - 08/07 [place] 40.0 [facility] HEMATOLOGY Monocytes 8.7 2.0 - 12.0 08/[address] HEMATOLOGY Segs-Bands # 6.2 1.5 - 8.1 08/[address] HEMATOLOGY Basophils 0.3 0.0 - 1.0 08/[address] HEMATOLOGY Hct 27.7 36.0 - 08/07 [place] 48.0 [facility] HEMATOLOGY MCV 82.9 80.0 - 08/07 [place] 98.0 [facility] HEMATOLOGY MCH 27.5 27.0 - 08/07 [place] 31.0 [facility] HEMATOLOGY MCHC 33.1 32.0 - 08/07 [place] 36.0 [facility] HEMATOLOGY RDW 15.7 11.5 - 16 [place] 14.5 2018 [facility] HEMATOLOGY Platelet 409 133 - 450 08/07 [facility] HEMATOLOGY RBC 3.34 4.20 - 08/07 [place] 5.40 /2017 [facility] HEMATOLOGY Hgb 9.2 12.0 - 08/07 [place] 16.0 2018 [facility] HEMATOLOGY WBC 9.7 3.7 - 10.4 08/07 /2017 [facility] HEMATOLOGY MPV 8.0 7.4 - 10.4 08/07 [facility] HEMATOLOGY Segs 61.1 45.0 - 08/07 [place] 75.0 [facility] HEMATOLOGY Lymphocytes 2.7 1.0 - 5.5 08/07 # /2017 [facility] HEMATOLOGY Monocytes # 0.7 0.0 - 0.8 08/07 [facility] HEMATOLOGY Eosinophils 0.3 0.0 - 0.5 08/07 [place] # /2017 [facility] HEMATOLOGY Eosinophils 3.6 0.0 - 4.0 08/07 /2017 [facility] HEMATOLOGY Basophils 0.4 0.0 - 1.0 08/07 [facility] HEMATOLOGY Segs-Bands # 6.0 1.5 - 8.1 08/07 [facility] HEMATOLOGY Lymphocytes 27.3 20.0 - 16 [place] 40.0 /2018 [facility] HEMATOLOGY Monocytes 7.6 2.0 - 12.0 08/07 [facility] HEMATOLOGY RDW 15.9 11.5 - 16 [place] 14.5 2018 [facility] HEMATOLOGY Platelet 406 133 - 450 08/07 /2017 [facility] HEMATOLOGY MPV 8.0 7.4 - 10.4 08/07 /2017 [facility] HEMATOLOGY MCV 84.8 80.0 - 08/07 [place] 98.0 /2018 [facility] HEMATOLOGY MCH 27.8 27.0 - 16 [place] 31.0 /2018 [facility] HEMATOLOGY MCHC 32.8 32.0 - 16 [place] 36.0 /2018 [facility] HEMATOLOGY Hgb 9.0 12.0 - 03 MH [place] 16.0 /2018 [facility] HEMATOLOGY Hct 27.3 36.0 - 08/07 [place] 48.0 /2017 [facility] HEMATOLOGY RBC 3.22 4.20 - 08/07 [place] 5.40 /2017 [facility] HEMATOLOGY WBC 10.1 3.7 - 10.4 08/07 [facility] BLOOD BANK ABO/Rh A POS 08/06 [facility] RESULTS [facility] BLOOD BANK Antibody Negative 08/06 [facility] RESULTS Scrn (08/06/17 2:43 PM) [facility] BLOOD BANK RBC product Product available 08/06 [facility] RESULTS (08/06/17 12:46 PM) [facility] CHEM PANEL eGFR 134 08/06 Result Comment: The [facility] eGFR is Center calculated using the CKD-EPI formula. In most young, healthy individuals the eGFR will be >90 mL/min/1.73m2 . The eGFR declines with age. An eGFR of 60-89 may be normal in some populations, particularly the elderly, for whom the CKD-EPI formula has not been extensively validated. Use of the eGFR is not recommended in the following populations:< br/>
Stephanie viduals with unstable creatinine concentration s, including patients and those with serious co-morbid conditions.<b r/>
Patie nts with extremes in muscle mass or diet.

The data above are obtained from the National Kid[employer] Education Program (NKDEP) which additionally recommends that when the eGFR is used in patients with extremes of body mass index for purposes of drug dosing, the eGFR should be multiplied by the estimated BMI. CHEM PANEL Creatinine 0.56 0.50 - 08/06 [facility] Lvl 1.40 [facility] CHEM PANEL BUN 11 7 - 22 08/06 [facility] CHEM PANEL Potassium 3.9 3.5 - 5.1 08/06 [facility] CHEM PANEL CO2 25 24 - 32 08/06 [facility] CHEM PANEL Calcium Lvl 8.3 8.5 - 10.5 08/06 [facility] CHEM PANEL Chloride Lvl 103 95 - 109 08/06 [facility] CHEM PANEL Sodium Lvl 138 135 - 145 08/06 [facility] CHEM PANEL AGAP 13.9 10.0 - 08/06 [facility] [place] 20.0 [facility] CHEM PANEL Glucose Lvl 128 70 - 99 08/06 2017 [facility] HEMATOLOGY Platelet 373 133 - 450 08/06 [facility] HEMATOLOGY MPV 7.8 7.4 - 10.4 08/06 [facility] HEMATOLOGY WBC 9.0 3.7 - 10.4 08/06 2017 [facility] HEMATOLOGY RBC 2.64 4.20 - 08/06 [place] 5.40 [facility] HEMATOLOGY MCH 27.1 27.0 - 08/06 [place] 31.0 [facility] HEMATOLOGY RDW 16.3 11.5 - 08/06 [place] 14.5 [facility] HEMATOLOGY MCHC 32.2 32.0 - 08/06 [place] 36.0 [facility] HEMATOLOGY Hgb 7.2 12.0 - 08/06 [place] 16.0 [facility] HEMATOLOGY Hct 22.2 36.0 - 08/06 [place] 48.0 [facility] HEMATOLOGY MCV 84.0 80.0 - 08/06 [place] 98.0 [facility] HEMATOLOGY Monocytes # 0.7 0.0 - 0.8 08/06 [facility] HEMATOLOGY Eosinophils 0.3 0.0 - 0.5 08/06 [facility] HEMATOLOGY Monocytes 8.1 2.0 - 12.0 08/06 [facility] HEMATOLOGY Eosinophils 3.5 0.0 - 4.0 08/06 [facility] HEMATOLOGY Lymphocytes 2.3 1.0 - 5.5 08/06 [facility] HEMATOLOGY Basophils 0.5 0.0 - 1.0 08/06 2017 [facility] HEMATOLOGY Segs-Bands # 5.6 1.5 - 8.1 08/06 [facility] HEMATOLOGY Segs 62.6 45.0 - 08/06 [place] 75.0 [facility] HEMATOLOGY Lymphocytes 25.3 20.0 - 08/06 [place] 40.0 [facility] CHEM PANEL eGFR 107 08/04 [facility] Comment: The Medical eGFR is Center calculated using the CKD-EPI formula. In most young, healthy individuals the eGFR will be >90 mL/min/1.73m2 . The eGFR declines with age. An eGFR of 60-89 may be normal in some populations, particularly the elderly, for whom the CKD-EPI formula has not been extensively validated. Use of the eGFR is not recommended in the following populations:< br/>
Stephanie viduals with unstable creatinine concentration s, including patients and those with serious co-morbid conditions.<b r/>
Patie nts with extremes in muscle mass or diet.

The data above are obtained from the National Kidney Disease Education Program (NKDEP) which additionally recommends that when the eGFR is used in patients with extremes of body mass index for purposes of drug dosing, the eGFR should be multiplied by the estimated BMI. CHEM PANEL Potassium 4.0 3.5 - 5.1 08/04 [facility] /2017 [facility] CHEM PANEL Calcium Lvl 8.1 8.5 - 10.5 08/[address] CHEM PANEL CO2 27 24 - 32 08/[address] CHEM PANEL AGAP 13.0 10.0 - 08/04 [facility] 20.0 [facility] CHEM PANEL Chloride Lvl 102 95 - 109

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
--- NOTE | 2018-12-29 11:09 | RAD REPORT ---
EXAM DESCRIPTION: CT - Head Brain Wo Cont - 12/29/2018 1:49 am CLINICAL HISTORY: 23 years Female TRAUMA COMPARISON: None TECHNIQUE: Contiguous axial images of the brain were obtained without the administration of intraven ous contrast.This exam was performed according to our departmental dose-optimization program which in cludes use of Automated Exposure Control, adjustment of the mA and/or kV according to patient size an d/or use of iterative reconstruction technique. FINDINGS: Brain: No acute intracranial hemorrhage. No acute territorial infarct. No extra-axial dillan ection. No mass effect or herniation. Ventricles: Within normal limits in size. Globes and orbits: No acute abnormality. Bones: No acute osseous finding. Paranasal sinuses: Paranasal sinuses are clear. Mastoid air cells: Well pneumatized.. Soft tissues: Within normal limits IMPRESSION: No acute intracranial abnormality. Electronically signed by: Stas Pina DO 12/29/2018 12:27 AM CDT Due to temporary technical issues with the PACS/Fluency reporting system, reports are being signed by the in house radiologist as a courtesy to ensure prompt reporting. The interpreting radiologist is f ully responsible for the content of the report.
== END 2018-12-29 01:08 | disposition home or self-care (01) ==
LOC: ER 22:19
DX: S00.90XA Unspecified superficial injury of unspecified part of head, initial encounter (principal); G40.802 Other epilepsy, not intractable, without status epilepticus; W22.03XA Walked into furniture, initial encounter; Y93.89 Activity, other specified; Y92.009 Unspecified place in unspecified non-institutional (private) residence as the place of occurrence of the external cause; Z88.5 Allergy status to narcotic agent; Z91.040 Latex allergy status; Z91.048 Other nonmedicinal substance allergy status
CPT/HCPCS: 70450; 99283

== ENCOUNTER 2019-01-30 00:04 | Emergency (ER) | payer BC, OTHER ==
--- OUTSIDE RECORDS SUMMARY | 2019-01-30 00:11 | XMS REPORT | Continuity of Care Document ---
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 INJ, ONCE, 2018 Medical Stop date: [place] 07/29/17 8:48:00 ACCOUNT REVIEW SPECIALIST fentaNYL (ANES) Route: IV, Drug Inactive [facility] form: INJ, ONCE, 2018 Medical Stop date: [place] 07/29/17 8:43:00 ACCOUNT REVIEW SPECIALIST ceFAZolin (ANES) Route: IV, Drug Inactive 07/29[facility] form: INJ, ONCE, 2018 Medical Stop date: [place] 07/29/17 8:38:00 ACCOUNT REVIEW SPECIALIST Lactated Ringers Route: IV, Total Inactive [facility] Injection IV Volume: 1,000, 2018 Medical (ANES) 1000 mL Start date: [place] 07/29/17 7:44:00 ACCOUNT REVIEW SPECIALIST, Stop date: 07/29/17 8:44:00 ACCOUNT REVIEW SPECIALIST Isolyte S PH 7.4 1,000 mL, Rate: Inactive [facility] 1,000 mL 100 ml/hr, 2018 Medical Infuse over: 10 Center hr, Route: IV, Dosing Weight 88.182 kg, Total Volume: 1,000, Start date: 07/29/17 6:39:00 ACCOUNT REVIEW SPECIALIST, Duration: 1 doses or times, Stop date: 07/29/17 16:38:00 ACCOUNT REVIEW SPECIALIST, 2.02, [id number]: (Same as: Isolyte S PH 7.4) Propofol 45 mg, 4.5 mL, Inactive [facility] Route: IVP, Drug 2018 Medical form: Emulsion, Center ONCE, Dosing Weight 88.182, kg, Priority: STAT, Start date: 07/29/17 0:19:00 ACCOUNT REVIEW SPECIALIST, Stop date: 07/29/17 0:19:00 CSTNotes: If Diprivan - change bottle & tubing every 12 hr Per state nursing law propofol can only be given by a nurse if patient is intubated or being intubated (unless the nurse is a BEAD STRINGER). Same as: Diprivan Ketamine 90 mg, Route: Inactive [facility] IVP, Drug form: 2018 Medical INJ, ONCE, Center Dosing Weight 88.182, kg, Start date: 07/29/17 0:19:00 ACCOUNT REVIEW SPECIALIST, Stop date: 07/29/17 0:19:00 ACCOUNT REVIEW SPECIALIST Enoxaparin 30 mg, 0.3 mL, Inactive [place] Route: SUB-Q, 2017 Medical Drug form: INJ, Center [id number], Dosing Weight 88.182, kg, For CrCl >=30 mL/min, Start date: 07/29/17 0:00:00 ACCOUNT REVIEW SPECIALIST, Duration: 30 day, Stop date: 08/27/17 12:00:00 CDTNotes: (Same as: Lovenox) Lidocaine 1 patch, Route: No Longer [place] Hydrochloride TOP, Q24H, Drug Active 2017 Medical 0.05 MG/MG form: FILM, Center Transdermal Patch Start date: [Lidoderm] 07/29/17 0:00:00 ACCOUNT REVIEW SPECIALIST, Duration: 30 day, Stop date: 08/27/17 0:00:00 CDTNotes: Apply only once for up to 12 hours in a 24-hour period (12 hours on and 12 hours off). (Same as: Lidoderm) "Remove old patch before application of new patch" Ondansetron 4 mg, 2 mL, No Longer [place] Route: IVP, Drug Active 2017 Medical form: INJ, Q8H, Center Dosing Weight 88.182, kg, PRN Nausea & Vomiting, Start date: 07/28/17 23:49:00 ACCOUNT REVIEW SPECIALIST, Duration: 30 day, Stop date: 08/27/17 23:48:00 CDTNotes: (Same as: Chance) MEDICATION WASTE Product Size: 4 mg Product Wasted: ___ mg Tramadol 50 mg, 1 tab, No Longer [place] Route: PO, Drug Active 2017 Medical form: TAB, Q6H, Center Dosing Weight 88.182, kg, Priority: NOW, Start date: 07/28/17 23:48:00 ACCOUNT REVIEW SPECIALIST, Duration: 30 day, Stop date: 08/27/17 18:00:00 CDTNotes: Not to exceed 400mg/day. (Same As: Ultram) pregabalin 100 mg, 1 cap, No Longer [place] Route: PO, Drug Active 2017 Medical form: CAP, Q8H, Center Dosing Weight 88.182, kg, Priority: NOW, Start date: 07/28/17 23:48:00 ACCOUNT REVIEW SPECIALIST, Duration: 48 hr, Stop date: 07/30/17 16:00:00 CSTNotes: (Same as: Lyrica) celecoxib 200 mg, 1 cap, No Longer [facility] Route: PO, Drug Active 2018 Medical form: CAP, Q12H, Center Dosing Weight 88.182, kg, Priority: NOW, Start date: 07/28/17 23:48:00 ACCOUNT REVIEW SPECIALIST, Duration: 48 hr, Stop date: 07/30/17 21:00:00 CSTNotes: NSAID. Please check indication. Not for seizure. (Same As: CeleBREX) Acetaminophen 1,000 mg, 2 tab, No Longer [facility] Route: PO, Drug Active 2018 Medical form: TAB, Q6H, Center Dosing Weight 88.182, kg, Priority: NOW, Start date: 07/28/17 23:48:00 ACCOUNT REVIEW SPECIALIST, Stop date: 08/27/17 17:00:00 CDTNotes: Max acetaminophen 4000 mg/day (4 gm/day). (Same as: Tylenol Extra Strength) Ancef + sterile 2 gm, Route: No Longer [facility] water 20 mL IVP, Q8H, Dosing Active 2018 Medical Weight 88.182, Center kg, Priority: STAT, Start date: 07/28/17 23:34:00 ACCOUNT REVIEW SPECIALIST, Duration: 30 day, Stop date: 08/27/17 16:00:00 CDT, ABX Indication: Bone/Joint Infection Ondansetron 4 mg, Route: Inactive [facility] IVP, Drug form: 2018 Medical INJ, ONCE, Center Dosing Weight 88.182, kg, Priority: STAT, Start date: 07/28/17 23:32:00 ACCOUNT REVIEW SPECIALIST, Stop date: 07/28/17 23:32:00 ACCOUNT REVIEW SPECIALIST Morphine 4 mg, Route: Inactive [facility] IVP, ONCE, 2018 Medical Dosing Weight Center 88.182, kg, Priority: STAT, Start date: 07/28/17 23:30:00 ACCOUNT REVIEW SPECIALIST, Stop date: 07/28/17 23:30:00 ACCOUNT REVIEW SPECIALIST Dilaudid 1 mg, Route: IV, Inactive [facility] ONCE, Dosing 2018 Medical Weight 88.182, Center kg, Start date: 07/28/17 21:44:00 ACCOUNT REVIEW SPECIALIST, Stop date: 07/28/17 21:44:00 ACCOUNT REVIEW SPECIALIST Ketamine 25 mg, Route: Inactive [facility] IV, ONCE, Dosing 2018 Medical Weight 88.182, Center kg, Start date: 07/28/17 21:23:00 ACCOUNT REVIEW SPECIALIST, Stop date: 07/28/17 21:23:00 ACCOUNT REVIEW SPECIALIST iodixanol 130 mL, Route: Inactive [facility] IVP, Drug Form: 2018 Medical SOLN, Dosing Center Weight 88.182, kg, ONCALL, STAT, Start date: 07/28/17 21:22:00 ACCOUNT REVIEW SPECIALIST, Duration: 1 doses or times, Dose=2.2ml/kg, Max owxq=[id number] -- "To be infused by Radiology Staff ONLY" Isolyte S PH 7.4 1,000 mL, Rate: Inactive [facility] 1,000 mL 125 ml/hr, 2018 Medical Infuse over: 8 Center hr, Route: IV, Dosing Weight 88.182 kg, Total Volume: 1,000, Priority: STAT, Start date: 07/28/17 20:45:00 ACCOUNT REVIEW SPECIALIST, Duration: 1 doses or times, Stop date: 07/29/17 4:44:00 ACCOUNT REVIEW SPECIALIST, 1.84, [id number]: (Same as: Isolyte S PH 7.4) Cefazolin 2 gm, Route: IV, Inactive [facility] ONCE, Dosing 2018 Medical Weight 88.182, Center kg, (for patients 50 -120 kg), Priority: STAT, Start date: 07/28/17 20:45:00 ACCOUNT REVIEW SPECIALIST, Stop date: 07/28/17 20:45:00 ACCOUNT REVIEW SPECIALIST, ABX Indication: Open Wound Prophylaxis Hydromorphone 1 mg, Route: Inactive [facility] IVP, ONCE, 2018 Medical Dosing Weight Center 88.182, kg, Priority: STAT, Start date: 07/28/17 20:45:00 ACCOUNT REVIEW SPECIALIST, Stop date: 07/28/17 20:45:00 ACCOUNT REVIEW SPECIALIST Gentamicin 500 mg, Route: Inactive [facility] IVPB, ONCE, 2018 Medical Dosing Weight Center 88.182, kg, Time Critical Medication, Priority: STAT, Start date: 07/28/17 20:45:00 ACCOUNT REVIEW SPECIALIST, Stop date: 07/28/17 20:45:00 ACCOUNT REVIEW SPECIALIST Saline Flush 0.9% 10 mL, Route: No Longer [facility] MISC, Drug Form: Active 2018 Medical INJ, Dosing Center Weight 88.182, kg, PRN, PRN Line Flush, Start date: 07/28/17 20:45:00 ACCOUNT REVIEW SPECIALIST, Duration: 30 day, Stop date: 08/27/17 21:44:00 CDTNotes: (Same as: BD Posiflush) Allergies, Adverse Reactions, Alerts Substance Category Reaction Severity Reaction Status Date Comments Source type Reported Latex Assertion Drug Active allergy [facility] OxyCONTIN Assertion Drug Active allergy [facility] Immunizations Immunization Date Site Status Last Comments Source Given Updated pneumococcal Not Given [facility] 23-valent vaccine [address] [place] [address],[facility] diphtheria/pertus Left completed [place] [facility] sis, acel/tetanus [address] [place] [address],[facility] Results Order Name Results Value Reference Date Interpretation Comments Source Range CHEM PANEL eGFR 134 08/01 Result Comment: The [facility] eGFR is calculated using the CKD-EPI formula. [...] Bili Total 0.2 0.2 - 1.3 08/01 [facility] CHEM PANEL Alk Phos 64 39 - 136 08/01 [facility] CHEM PANEL A/G Ratio 0.8 0.7 - 1.6 08/01 [facility] CHEM PANEL ALT 23 0 - 65 08/01 [facility] CHEM PANEL Glucose Lvl 106 70 - 99 08/01 [facility] CHEM PANEL Potassium 4.1 3.5 - 5.1 08/01 Lv [facility] CHEM PANEL Sodium Lvl 143 135 - 145 03/10 [facility] CHEM PANEL AGAP 11.1 10.0 - 03/10 MH 20.0 /2018 [facility] CHEM PANEL Creatinine 0.56 0.50 - 03/10 MH Lvl 1.40 /2018 [facility] CHEM PANEL BUN 13 7 - 22 03/10 [place] CHEM PANEL Globulin 3.8 2.7 - 4.2 03/ [facility] CHEM PANEL CO2 26 24 - 32 03/10 [facility] CHEM PANEL Chloride Lvl 110 95 - 109 03/10 [facility] CHEM PANEL Calcium Lvl 8.2 8.5 - 10.5 03/ [facility] CHEM PANEL AST 10 0 - 37 03/10 [facility] CHEM PANEL Albumin Lvl 3.1 3.5 - 5.0 03/10 [facility] CHEM PANEL Total 6.9 6.4 - 8.4 /10 MH [facility] CHEM PANEL B/C Ratio 23 6 - 25 /10 [facility] CHEM PANEL Magnesium 2.2 1.8 - 2.4 03/10 MH Lvl /2018 [place] HEMATOLOGY MPV 8.2 7.4 - 10.4 03/ [facility] HEMATOLOGY Platelet 275 133 - 450 08/01 [facility] HEMATOLOGY RDW 14.5 11.5 - 03 MH 14.5 [facility] HEMATOLOGY MCHC 33.6 32.0 - 0310 MH 36.0 [facility] HEMATOLOGY MCH 26.6 27.0 - 0310 MH 31.0 [facility] HEMATOLOGY Hgb 11.9 12.0 - 0310 MH 16.0 [facility] HEMATOLOGY MCV 79.1 80.0 - 0310 MH 98.0 /2019 [facility] HEMATOLOGY Hct 35.3 36.0 - 0310 MH 48.0 2019 [facility] HEMATOLOGY RBC 4.46 4.20 - 03/10 MH 5.40 [facility] HEMATOLOGY WBC 8.0 3.7 - 10.4 03/ [facility] HEMATOLOGY PTT 30.7 22.9 - 03/10 MH 35.8 [facility] HEMATOLOGY PT 13.7 12.0 - 0310 MH 14.7 [facility] HEMATOLOGY INR 1.07 0.85 - 0310 MH 1. [facility] HEMATOLOGY Monocytes 7.9 2.0 - 12.0 08/01 [facility] HEMATOLOGY Eosinophils 0.2 0.0 - 0.5 08/01 [facility] HEMATOLOGY Basophils 0.7 0.0 - 1.0 08/01 [facility] HEMATOLOGY Neutrophils 5.0 1.5 - 8.1 08/01 MH # [place] HEMATOLOGY Eosinophils 2.0 0.0 - 4.0 08/01 [facility] HEMATOLOGY Lymphocytes 2.2 1.0 - 5.5 08/01 [facility] HEMATOLOGY Segs 62.1 45.0 - 08/01 MH 75.0 [facility] HEMATOLOGY Lymphocytes 27.3 20.0 - 08/01 MH 40.0 [facility] HEMATOLOGY Basophils # 0.1 0.0 - 0.2 08/01 [facility] HEMATOLOGY Monocytes # 0.6 0.0 - 0.8 08/01 [facility] ENDOCRINOLO S Preg Negative Negative 08/01 GY *NA* /2018 [facility] (08/01/18 1:30 AM) CHEM PANEL Bili Total 0.2 0.2 - 1.3 08/01 [facility] CHEM PANEL eGFR 123 08/01 Comment: The [facility] eGFR is calculated using the CKD-EPI formula. [...] Albumin Lvl 3.6 3.5 - 5.0 08/01 [facility] CHEM PANEL Alk Phos 76 39 - 136 08/01 [facility] CHEM PANEL ALT 37 0 - 65 08/01 [facility] CHEM PANEL CO2 28 24 - 32 08/01 [facility] CHEM PANEL Calcium Lvl 8.5 8.5 - 10.5 08/01 [facility] CHEM PANEL AST 12 0 - 37 08/01 [facility] CHEM PANEL Total 8.9 6.4 - 8.4 08/01 MH [facility] CHEM PANEL Sodium Lvl 142 135 - 145 08/01 [facility] CHEM PANEL Potassium 3.5 3.5 - 5.1 08/01 MH Lvl /2018 [facility] CHEM PANEL Chloride Lvl 107 95 - 109 08/01 [facility] CHEM PANEL BUN 13 7 - 22 08/01 [facility] CHEM PANEL Creatinine 0.71 0.50 - 08/01 MH Lvl 1.40 [facility] CHEM PANEL Glucose Lvl 106 70 - 99 08/01 [facility] CHEM PANEL Globulin 5.3 2.7 - 4.2 08/01 [facility] CHEM PANEL A/G Ratio 0.7 0.7 - 1.6 08/01 [facility] CHEM PANEL AGAP 10.5 10.0 - 08/01 MH 20.0 [facility] CHEM PANEL B/C Ratio 18 6 - 25 08/01 [facility] DRUG SCREEN U Maame Scr Negative Negative 08/01 MH *NA* [facility] (08/01/18 12:28 AM) DRUG SCREEN U Amph Scr Negative Negative 08/01 MH *NA* [facility] (08/01/18 12:28 AM) DRUG SCREEN U Negative Negative 08/01 MH Phencyclidin * [facility] e Scr (08/01/18 12:28 AM) DRUG SCREEN UDS Note See Note 08/01 MH *NA* [facility] (08/01/18 12:28 AM) DRUG SCREEN U Cocaine Negative Negative 08/01 MH Scr *NA* [facility] (08/01/18 12:28 AM) DRUG SCREEN U Opiate Scr Negative Negative 08/01 MH *NA* [facility] (08/01/18 12:28 AM) DRUG SCREEN U Benzodiaz Negative Negative 08/01 MH Scr *NA* [facility] (08/01/18 12:28 AM) DRUG SCREEN U Cannab Scr Negative Negative 08/01 MH *NA* /2018 [facility] (08/01/18 12:28 AM) HEMATOLOGY MCV 79.0 80.0 - 08/01 MH 98.0 /2018 [facility] HEMATOLOGY Hct 38.8 36.0 - 03 MH 48.0 [facility] HEMATOLOGY MPV 8.6 7.4 - 10.4 03 [facility] HEMATOLOGY Platelet 321 133 - 450 03 [facility] HEMATOLOGY Hgb 12.9 12.0 - 03 MH 16.0 [facility] HEMATOLOGY RBC 4.91 4.20 - 03 MH 5.40 /2018 [facility] HEMATOLOGY WBC 10.0 3.7 - 10.4 08/01 [facility] HEMATOLOGY MCHC 33.2 32.0 - 03 MH 36.0 [facility] HEMATOLOGY RDW 15.1 11.5 - 08/01 MH 14.5 [facility] HEMATOLOGY MCH 26.2 27.0 - 08/01 MH 31.0 [facility] HEMATOLOGY Neutrophils 5.8 1.5 - 8.1 / MH # /2018 [facility] HEMATOLOGY Lymphocytes 3.0 1.0 - 5.5 03/10 MH # /2018 [facility] HEMATOLOGY Eosinophils 0.2 0.0 - 0.5 /10 MH # /2018 [facility] HEMATOLOGY Monocytes # 0.9 0.0 - 0.8 08/01 [facility] HEMATOLOGY Basophils # 0.1 0.0 - 0.2 08/01 [facility] HEMATOLOGY Basophils 0.8 0.0 - 1.0 08/01 [facility] HEMATOLOGY Eosinophils 2.0 0.0 - 4.0 08/01 [facility] HEMATOLOGY Segs 58.2 45.0 - 0310 MH 75.0 2019 [facility] HEMATOLOGY Lymphocytes 30.3 20.0 - 0310 MH 40.0 [facility] HEMATOLOGY Monocytes 8.7 2.0 - 12.0 08/01 [facility] TOXICOLOGY Phenytoin 0.09 1.00 - 08/01 MH Free 2.00 [facility] TOXICOLOGY Phenytoin 1.4 10.0 - 08/01 MH Total 20.0 [facility] URINE AND UA RBC 5 0 - 2 03/10 MH STOOL /2018 [facility] URINE AND UA Sq Epi Few /LPF Few /LPF 08/01 STOOL [facility] URINE AND UA WBC 1 0 - 5 08/01 STOOL [facility] URINE AND UA Mucus Many /LPF None Seen 08/01 STOOL /LPF [facility] URINE AND UA Bacteria Occasional None Seen 08/01 STOOL /HPF /HPF [facility] URINE AND UA Turbidity Marked Clear 08/01 STOOL *ABN* [facility] (08/01/18 12:28 AM) URINE AND UA Color Yellow Yellow 08/01 STOOL *NA* [facility] (08/01/18 12:28 AM) URINE AND UA Leuk Est Negative Negative 08/01 [facility] (08/01/18 12:28 AM) [facility] URINE AND UA Nitrite Negative Negative 08/01 [facility] (08/01/18 12:28 AM) [facility] URINE AND UA Bili Negative Negative 08/01 STOOL *NA [place] (08/01/18 12:28 AM) URINE AND UA Blood Small Negative 08/01 STOOL *ABN* [place] (08/01/18 12:28 AM) URINE AND UA <=1.0 0.1 - 1.0 08/01 STOOL Urobilinogen mg/dL [facility] URINE AND UA Protein Negative Negative 08/01 [facility] (08/01/18 12:28 AM) [facility] URINE AND UA Glucose Negative Negative 08/01 STOOL *NA [place] (08/01/18 12:28 AM) URINE AND UA Ketones Negative Negative 08/01 STOOL *NA* [facility] (08/01/18 12:28 AM) URINE AND UA pH 5.0 5.0 - 8.0 08/01 STOOL [facility] URINE AND UA Spec Grav 1.029 <=1.030 08/01 STOOL [facility] HEMATOLOGY RDW 16.5 11.5 - 0605 [place] 14.5 /2018 [facility] HEMATOLOGY Platelet 373 133 - 450 06 [facility] [address] [place] [address] HEMATOLOGY RBC 4.94 4.20 - 06/05 [place] 5.40 /2018 [facility] HEMATOLOGY WBC 9.5 3.7 - 10.4 06 [facility] [address] [place] [address] HEMATOLOGY MCH 24.1 27.0 - 06/05 [place] 31.0 /2017 [facility] HEMATOLOGY Hgb 11.9 12.0 - 06/05 [place] 16.0 [facility] HEMATOLOGY MCV 75.0 80.0 - 06/05 [place] 98.0 /2017 [facility] HEMATOLOGY MCHC 32.2 32.0 - 06/05 [place] 36.0 /2017 [facility] HEMATOLOGY Hct 37.0 36.0 - 06/05 [place] 48.0 [facility] HEMATOLOGY MPV 8.4 7.4 - 10.4 0605 /2017 [facility] HEMATOLOGY Segs 57.1 45.0 - 06/05 [place] 75.0 /2018 [facility] HEMATOLOGY Lymphocytes 33.5 20.0 - 06/05 [place] 40.0 /2017 [facility] HEMATOLOGY Lymphocytes 3.2 1.0 - 5.5 06 [place] # /2017 [facility] HEMATOLOGY Segs-Bands # 5.4 1.5 - 8.1 10/27 2017 [facility] HEMATOLOGY Monocytes 6.4 2.0 - 12.0 10/27 [facility] HEMATOLOGY Basophils 0.7 0.0 - 1.0 / [facility] HEMATOLOGY Eosinophils 2.3 0.0 - 4.0 10/27 [facility] HEMATOLOGY Eosinophils 0.2 0.0 - 0.5 10/27 [place] # [facility] HEMATOLOGY Microcyte 1+ None Seen 10/27 [place] *ABN* /2017 [facility] (10/27/17 6:51 AM) [place] HEMATOLOGY Monocytes # 0.6 0.0 - 0.8 10/27 [facility] HEMATOLOGY Basophils # 0.1 0.0 - 0.2 10/27 [facility] ELECTROLYTE AGAP 15.1 10.0 - 08/07 [place] S 20.0 2018 [facility] ELECTROLYTE eGFR 137 08/07 [facility] S 2018 Comment: The Medical eGFR is [...] BMI. ELECTROLYTE Creatinine 0.53 0.50 - 08/07 [facility] S Lvl 1.40 [facility] ELECTROLYTE CO2 24 24 - 32 08/[address] ELECTROLYTE BUN 14 7 - 22 08/[address] ELECTROLYTE Glucose Lvl 97 70 - 99 08/[address] ELECTROLYTE Sodium Lvl 137 135 - 145 08/[address] ELECTROLYTE Calcium Lvl 8.7 8.5 - 10.5 08/[address] ELECTROLYTE Chloride Lvl 102 95 - 109 08/[address] ELECTROLYTE Potassium 4.1 3.5 - 5.1 08/07 [facility] [address] [place] [address] HEMATOLOGY Eosinophils 3.2 0.0 - 4.0 08/[address] HEMATOLOGY Monocytes # 0.9 0.0 - 0.8 08/[address] HEMATOLOGY Lymphocytes 2.8 1.0 - 5.5 08/07 [facility] # /2017 [facility] HEMATOLOGY Eosinophils 0.3 0.0 - 0.5 08/07 [facility] # /2017 [facility] HEMATOLOGY Segs 60.6 45.0 - 08/07 [place] 75.0 [facility] HEMATOLOGY Lymphocytes 27.2 20.0 - 08/07 [place] 40.0 [facility] HEMATOLOGY Monocytes 8.7 2.0 - 12.0 08/[address] HEMATOLOGY Segs-Bands # 6.2 1.5 - 8.1 08/[address] HEMATOLOGY Basophils 0.3 0.0 - 1.0 08/[address] HEMATOLOGY Hct 27.7 36.0 - 08/07 [place] 48.0 [facility] HEMATOLOGY MCV 82.9 80.0 - 08/07 [place] 98.0 [facility] HEMATOLOGY MCH 27.5 27.0 - 08/07 [place] 31.0 [facility] HEMATOLOGY MCHC 33.1 32.0 - 08/07 [place] 36.0 [facility] HEMATOLOGY RDW 15.7 11.5 - 16 [place] 14.5 2018 [facility] HEMATOLOGY Platelet 409 133 - 450 08/07 [facility] Center HEMATOLOGY RBC 3.34 4.20 - 08/07 [place] 5.40 /2017 [facility] HEMATOLOGY Hgb 9.2 12.0 - 08/07 [place] 16.0 2018 [facility] HEMATOLOGY WBC 9.7 3.7 - 10.4 08/07 /2017 [facility] HEMATOLOGY MPV 8.0 7.4 - 10.4 08/07 [facility] HEMATOLOGY Segs 61.1 45.0 - 08/07 [place] 75.0 [facility] Center HEMATOLOGY Lymphocytes 2.7 1.0 - 5.5 08/07 # /2017 [facility] HEMATOLOGY Monocytes # 0.7 0.0 - 0.8 08/07 [facility] HEMATOLOGY Eosinophils 0.3 0.0 - 0.5 08/07 [place] # /2017 [facility] HEMATOLOGY Eosinophils 3.6 0.0 - 4.0 08/07 /2017 [facility] HEMATOLOGY Basophils 0.4 0.0 - 1.0 08/07 [facility] HEMATOLOGY Segs-Bands # 6.0 1.5 - 8.1 08/07 [facility] HEMATOLOGY Lymphocytes 27.3 20.0 - 16 [place] 40.0 /2018 [facility] Center HEMATOLOGY Monocytes 7.6 2.0 - 12.0 08/07 [facility] Center HEMATOLOGY RDW 15.9 11.5 - 16 [place] 14.5 2018 [facility] HEMATOLOGY Platelet 406 133 - 450 08/07 /2017 [facility] HEMATOLOGY MPV 8.0 7.4 - 10.4 08/07 /2017 [facility] HEMATOLOGY MCV 84.8 80.0 - 08/07 [place] 98.0 /2018 [facility] HEMATOLOGY MCH 27.8 27.0 - 16 [place] 31.0 /2018 [facility] HEMATOLOGY MCHC 32.8 32.0 - 16 [place] 36.0 /2018 [facility] HEMATOLOGY Hgb 9.0 12.0 - 03 MH [place] 16.0 /2018 [facility] HEMATOLOGY Hct 27.3 36.0 - 08/07 [place] 48.0 /2017 [facility] HEMATOLOGY RBC 3.22 4.20 - 08/07 [place] 5.40 /2017 [facility] HEMATOLOGY WBC 10.1 3.7 - 10.4 08/07 [facility] BLOOD BANK ABO/Rh A POS 08/06 [facility] RESULTS [facility] BLOOD BANK Antibody Negative 08/06 [facility] RESULTS Scrn (08/06/17 2:43 PM) [facility] BLOOD BANK RBC product Product available 08/06 [facility] RESULTS (08/06/17 12:46 PM) [facility] CHEM PANEL eGFR 134 08/06 Result Comment: The [facility] eGFR is Center calculated using the CKD-EPI [...] CHEM PANEL Creatinine 0.56 0.50 - 08/06 [facility] Lvl 1.40 [facility] CHEM PANEL BUN 11 7 - 22 08/06 [facility] CHEM PANEL Potassium 3.9 3.5 - 5.1 08/06 [facility] CHEM PANEL CO2 25 24 - 32 08/06 [facility] CHEM PANEL Calcium Lvl 8.3 8.5 - 10.5 08/06 [facility] CHEM PANEL Chloride Lvl 103 95 - 109 08/06 [facility] CHEM PANEL Sodium Lvl 138 135 - 145 08/06 [facility] CHEM PANEL AGAP 13.9 10.0 - 08/06 MH [place] 20.0 [facility] CHEM PANEL Glucose Lvl 128 70 - 99 08/06 2017 [facility] HEMATOLOGY Platelet 373 133 - 450 08/06 [facility] HEMATOLOGY MPV 7.8 7.4 - 10.4 08/06 [facility] HEMATOLOGY WBC 9.0 3.7 - 10.4 08/06 2017 [facility] HEMATOLOGY RBC 2.64 4.20 - 08/06 [place] 5.40 [facility] HEMATOLOGY MCH 27.1 27.0 - 08/06 [place] 31.0 [facility] HEMATOLOGY RDW 16.3 11.5 - 08/06 [place] 14.5 [facility] HEMATOLOGY MCHC 32.2 32.0 - 08/06 [place] 36.0 [facility] HEMATOLOGY Hgb 7.2 12.0 - 08/06 [place] 16.0 [facility] HEMATOLOGY Hct 22.2 36.0 - 08/06 [place] 48.0 [facility] HEMATOLOGY MCV 84.0 80.0 - 08/06 [place] 98.0 [facility] HEMATOLOGY Monocytes # 0.7 0.0 - 0.8 08/06 [facility] HEMATOLOGY Eosinophils 0.3 0.0 - 0.5 08/06 [facility] HEMATOLOGY Monocytes 8.1 2.0 - 12.0 08/06 [facility] HEMATOLOGY Eosinophils 3.5 0.0 - 4.0 08/06 [facility] HEMATOLOGY Lymphocytes 2.3 1.0 - 5.5 08/06 [facility] HEMATOLOGY Basophils 0.5 0.0 - 1.0 08/06 2017 [facility] HEMATOLOGY Segs-Bands # 5.6 1.5 - 8.1 08/06 [facility] HEMATOLOGY Segs 62.6 45.0 - 08/06 [place] 75.0 [facility] HEMATOLOGY Lymphocytes 25.3 20.0 - 08/06 [place] 40.0 [facility] CHEM PANEL eGFR 107 08/04 [facility] Comment: The Medical eGFR is Center calculated [...] PANEL Potassium 4.0 3.5 - 5.1 08/04 [facility] /2017 [facility] CHEM PANEL Calcium Lvl 8.1 8.5 - 10.5 08/[address] CHEM PANEL CO2 27 24 - 32 08/[address] CHEM PANEL AGAP 13.0 10.0 - 08/04 [facility] 20.0 [facility] CHEM PANEL Chloride Lvl 102 95 - 109 08/[address] CHEM PANEL Sodium Lvl 138 135 - 145 08/[address] CHEM PANEL Creatinine 0.80 0.50 - 08/04 [facility] 1.40 [facility] CHEM PANEL BUN 14 7 - 22 08/[address] CHEM PANEL Glucose Lvl 125 70 - 99 08/[address] CHEM PANEL Magnesium 2.4 1.8 - 2.4 08/[address] CHEM PANEL Phosphorus 4.6 2.5 - 4.5 08/[address] HEMATOLOGY PTT 28.0 22.9 - 03 [place] 35.8 [facility] HEMATOLOGY PT 13.0 12.0 - 03 [place] 14.7 [facility] HEMATOLOGY INR 0.98 0.85 - 08/03 [facility] 1.17 [facility] HEMATOLOGY Basophils # 0.1 0.0 - 0.2 08/[address] PARATHYROID Ca Norm WB 1.12 1.05 - 08/03 [place] PROFILE 1. [facility] PARATHYROID Ca Ion WB 1.15 1.05 - 08/03 [place] [facility]FILE [facility] BLOOD BANK ABO/Rh A POS 08/02 [facility] RESULTS /2017 [facility] BLOOD BANK Antibody Negative 08/02 [facility] RESULTS Scrn (08/02/17 11:52 AM) /2017 [facility] BLOOD BANK RBC product Product available 08/02 [facility] RESULTS (08/02/17 10:03 AM) /2017 [facility] BLOOD BANK RBC product Product available 08/02 [facility] RESULTS (08/02/17 9:07 AM) /2017 [facility] CHEM PANEL Magnesium 1.8 1.8 - 2.4 08/02 [facility] Lvl /2017 [facility] DRUG SCREEN U Phencyc Negative Negative 07/29 [place] [facility] *NA* /2017 [facility] (07/29/17 6:00 AM) Center DRUG SCREEN UDS Note See Note 07/29 [facility] (07/29/17 6:00 AM) /2017 [facility] DRUG SCREEN U Opiate Scr Positive Negative 07/29 [facility] *ABN* /2017 [facility] (07/29/17 6:00 AM) Center DRUG SCREEN U Cannab Scr Negative Negative 07/29 [facility] *NA* /2017 [facility] (07/29/17 6:00 AM) Center DRUG SCREEN U Cocaine Negative Negative 07/29 [place] [facility] *NA* /2017 [facility] (07/29/17 6:00 AM) Center DRUG SCREEN U Benzodia Negative Negative 07/29 [facility] Scr *NA* /2017 [facility] (07/29/17 6:00 AM) Center DRUG SCREEN U Maame Scr Negative Negative 07/29 [place] *NA* /2017 [facility] (07/29/17 6:00 AM) Center DRUG SCREEN U Amph Scr Negative Negative 07/29 [facility] *NA* /2017 [facility] (07/29/17 6:00 AM) [place] URINE AND UA <=1.0 0.1 - 1.0 07/29 [facility] STOOL Urobilinogen mg/dL /2017 [facility] URINE AND UA Spec Grav >=1.050 <=1.030 07/29 [facility] STOOL *ABN* /2017 Medical (07/29/17 6:00 AM) Center URINE AND UA Mucus Many /LPF None Seen 07/29 [facility] STOOL /LPF /2017 [facility] URINE AND UA Nitrite Negative Negative 07/29 [facility] STOOL (07/29/17 6:00 AM) /2017 [facility] URINE AND UA RBC 11 0 - 2 07/29 [facility] STOOL /2018 [facility] URINE AND UA Glucose Negative Negative 07/29 [facility] STOOL mg/dL mg/dL /2017 [facility] URINE AND UA Blood Moderate Negative 07/29 [facility] STOOL *ABN* /2017 [facility] (07/29/17 6:00 AM) Center URINE AND UA Leuk Est Negative Negative 07/29 [facility] STOOL (07/29/17 6:00 AM) [facility] URINE AND UA Sq Epi Occasional Few /LPF 07/29 [facility] STOOL /LPF /2017 [facility] URINE AND UA Protein 200 mg/dL Negative 07/29 [facility] STOOL mg/dL /2017 [facility] URINE AND UA Ketones 10 mg/dL Negative 07/29 [facility] STOOL mg/dL [facility] URINE AND UA Bili Negative Negative 07/29 [facility] STOOL *NA* /2017 [facility] (07/29/17 6:00 AM) [place] URINE AND UA pH 6.5 5.0 - 8.0 07/29 [facility] STOOL [facility] URINE AND UA Color Yellow Yellow 07/29 [facility] STOOL *NA* [facility] (07/29/17 6:00 AM) [place] URINE AND UA Turbidity Clear Clear 07/29 [facility] STOOL (07/29/17 6:00 AM) [facility] IMMUNOLOGY CDC HIV 4th Negative Negative 07/29 [facility] GEN *NA* /2017 [facility] (07/28/17 11:40 PM) [place] BLOOD BANK Antibody Negative 07/29 [facility] RESULTS Scrn (07/28/17 8:57 PM) [facility] BLOOD BANK ABO/Rh A POS 07/29 [facility] RESULTS /2017 [facility] CHEM PANEL Lactic Acid 2.0 0.5 - 2.2 07/29 [facility] Lvl /2017 [facility] ENDOCRINOLO S Preg Negative Negative 07/29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
--- OUTSIDE RECORDS SUMMARY | 2019-01-30 00:13 | XMS REPORT ---
:1995 [facility] [address] [place] [address] Dr. Parish [address] [place] [id number] Care Team Providers Name Role Phone Unavailable Unavailable Unavailable Problems This patient has no known problems. Allergies, Adverse Reactions, Alerts This patient has no known allergies or adverse reactions. Medications This patient has no known medications. Encounters Start End Encounter Admission Attending Care Care Encounter Date/Time Date/Time Type Type Clinicians Facility Department ID 2017-07-28 2017-07-28 Outpatient [facility] MARY KAY [id number] 21:02:00 21:02:00
[2019-01-30] MEDS ORDERED: CODEINE 30MG/APAP 300MG TAB ONE (00:22)
--- NOTE | 2019-01-30 01:22 | ER ---
Nurse's Notes [facility] Name: Temo Harris Age: 23 yrs Sex: Female : 1995 Arrival Date: 01/30/2019 Time: 00:07 Bed 7 Private MD: Diagnosis: Sprain of unspecified site of knee Presentation: 01/30 00:14 Presenting complaint: Patient states: "I was getting into my boyfriend's truck and I lp1 lost my footing and landing right on my leg and it twisted wrong and now I can't put any weight on it"; Patient states pain to left knee, upper leg; Hx of femur surgery to left leg with plates and screws. Transition of care: patient was not received from another setting of care. Onset of symptoms was January 29, 2019 at 23:45. Risk Assessment: Do you want to hurt yourself or someone else? Patient reports no desire to harm self or others. Initial Sepsis Screen: Does the patient meet any 2 criteria? No. Patient's initial sepsis screen is negative. Does the patient have a suspected source of infection? No. Patient's initial sepsis screen is negative. Care prior to arrival: None. 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 - Social history:: Smoking status: Patient/guardian denies using tobacco, . - Ebola Screening: : No symptoms or risks identified at this time. Screenin:18 Abuse screen: Denies threats or abuse. Denies injuries from another. Nutritional lp1 screening: No deficits noted. Tuberculosis screening: No symptoms or risk factors identified. 00:47 Fall Risk None identified. ak1 Assessment: 00:16 General: Appears in no apparent distress. Behavior is calm, cooperative. Pain: ak1 Complains of pain in right leg. Neuro: No deficits noted. Cardiovascular: No deficits noted. Respiratory: No deficits noted. GI: No signs and/or symptoms were reported involving the gastrointestinal system. : No signs and/or symptoms were reported regarding the genitourinary system. EENT: No signs and/or symptoms were reported regarding the EENT system. Derm: No signs and/or symptoms reported regarding the dermatologic system. Musculoskeletal: Range of motion: limited in right knee pt c/o pain with ambulation to right knee, right upper leg after getting in and out of a truck. Vital Signs: 00:16 BP 121 / 80; Pulse 91; Resp 18; Pulse Ox 99% on R/A; Weight 90.72 kg; Height 5 ft. 3 lp1 in. (160.02 cm); Pain 5/10; 01:57 BP 115 / 70; Resp 17; Temp 98.2; Pulse Ox 100% ; Pain 3/10; tl1 00:16 Body Mass Index 35.43 (90.72 kg, 160.02 cm) lp1 ED Course: 00:07 Patient arrived in ED. mr 00:08 Morenita Jade FNP is PHCP. nh 00:08 Tomer Shipley MD is Attending Physician. nh 00:13 Sade Corral, ANABEL is Primary Nurse. ak1 00:16 Triage completed. lp1 00:16 Arm band placed on. lp1 00:18 Patient has correct armband on for positive identification. lp1 00:41 Knee Left 3 View XRAY In Process Unspecified. EDMS 00:47 Pulse ox on. NIBP on. ak1 01:58 No provider procedures requiring assistance completed. Patient did not have IV access tl1 during this emergency room visit. 01:58 Knee immobilizer applied on left knee. tl1 Administered Medications: 00:23 Drug: Tylenol #3 (300 mg-30 mg) 1 tablet Route: PO; tl1 01:45 Follow up: Response: No adverse reaction; Pain is decreased; RASS: Alert and Calm (0) ak1 Outcome: 01:22 Discharge ordered by . nh 01:59 Discharged to home via wheelchair. tl1 01:59 Condition: good 01:59 Discharge instructions given to patient, Instructed on discharge instructions, follow up and referral plans. medication usage, Demonstrated understanding of instructions, follow-up care, medications, Prescriptions given X 1. 01:59 Patient left the ED. tl1 Signatures: Dispatcher [employer] EDMS Morenita Jade, SHO rendon LaceyCarole mr HannaOksana, RN RN lp1 Marychuy Wynne, RN RN tl1 Sade Corral RN RN ak1
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
[2019-01-30 07:41] VITALS: BP 115/70; TEMP 98.2; O2SAT 100
--- NOTE | 2019-01-30 12:43 | RAD REPORT ---
EXAM DESCRIPTION: RAD - Knee Left 3 View - 01/30/2019 12:38 am CLINICAL HISTORY: PAIN COMPARISON: No comparisons FINDINGS: Extensive orthopedic hardware is seen about the femur. Hardware loosening is not identifie d. No acute fracture demonstrated.
== END 2019-01-30 01:59 | disposition home or self-care (01) ==
LOC: ER 00:04
DX: S83.91XA Sprain of unspecified site of right knee, initial encounter (principal); X58.XXXA Exposure to other specified factors, initial encounter; Y93.9 Activity, unspecified; Y92.481 Parking lot as the place of occurrence of the external cause; G40.909 Epilepsy, unspecified, not intractable, without status epilepticus; Z88.5 Allergy status to narcotic agent; Z91.040 Latex allergy status; Z91.048 Other nonmedicinal substance allergy status
CPT/HCPCS: 99284

== ENCOUNTER 2019-08-01 19:42 | Emergency (ER) | payer BC, OTHER, SELFPAY ==
--- OUTSIDE RECORDS SUMMARY | 2019-08-01 19:45 | XMS REPORT | Summary of Care ---
:1995 Author Organization [facility] Address [address] [place] [id number] Care Team Providers Name Role Phone Myra Rick Medicaid Hmo [facility] Primary [facility] Provider Christy Donaldson Insurance Hmo Reason for Visit Reason Comments REGULATORY COMPLIANCE DIRECTOR problem Amenorreha Encounter Details Date Type Department Care Team Description 06/08/2019 Office Visit [facility]- Nadine Mandujano Absence of Juan David Avilez JAVY menstruation (Primary [address] Dx) [facility] A [address] [place], [place] [address] Allergies Active Allergy Reactions Severity Noted Date Comments Latex Other - See comments 08/31/2014 Rai skin with results of redness and pain. documented as of this encounter (statuses as of 06/09/2019) Medications Medication Sig Dispensed Refills Start Date End Date Status levETIRAcetam (KEPPRA) Take 1,000 mg by 0 Active 1,000 mg tablet mouth 2 (two) times daily. documented as of this encounter (statuses as of 06/09/2019) Active Problems Problem Noted Date Well woman exam 03/07/2019 Other general counseling and advice for contraceptive management 03/07/2019 History of seizure 03/07/2019 Overview: On rebekara, reports last appointment was 10/2018 Obesity (BMI 30-39.9) 03/07/2019 Right hip pain 09/03/2014 Convulsions 02/15/2014 Overview: Last one unknown. 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 documented as of this encounter Last Filed Vital Signs Vital Sign Reading Time Taken Comments Blood Pressure 115/71 06/08/2019 1:35 PM PILLOWCASE CUTTER Pulse 75 06/08/2019 1:35 PM PILLOWCASE CUTTER Temperature 36.2 C (97.1 F) 06/08/2019 1:35 PM PILLOWCASE CUTTER Respiratory Rate 16 06/08/2019 1:35 PM PILLOWCASE CUTTER Oxygen Saturation - - Inhaled Oxygen Concentration - - Weight 91.8 kg (202 lb 5 oz) 06/08/2019 1:35 PM PILLOWCASE CUTTER Height 160 cm (5' 3") 06/08/2019 1:35 PM PILLOWCASE CUTTER Body Mass Index 35.84 06/08/2019 1:35 PM PILLOWCASE CUTTER documented in this encounter Progress Notes Nadine Mandujano, WHCNP - 06/08/2019 11:00 AM CST Chief complaint: Chief Complaint Patient presents with REGULATORY COMPLIANCE DIRECTOR problem Amenorreha HPI: the patient is here today with complaints of lack of menstration. She reports that she was seenin 02/2019 for the same issue. She reports she was started on the provera challenge at the time and she reports that she did start her menses in 03/2019. She reports that she did not start ocp at that time. She reports that after the menses she has in 03/2019 she has not had another cycle since then. She reports she still desires , and states she is willing to start ocp. Histories OB History Para Term AB Living 1 1 1 0 0 1 SAB TAB Ectopic Multiple Live Births 0 0 0 0 1 # Outcome Date GA Lbr Preston/2nd Weight Sex Delivery Anes PTL Lv 1 Term 02/01/16 40w0d 5 lb 6 oz (2.438 kg) F N SILVER Past Medical History: Diagnosis Date Anemia 2015 during -resolved Anxiety 07/2017 not currently under medical supervision- managing on her own Menstrual disorder Seizures 04/2016 Under medical [facility]rolog[facility] [place] Problem Relation Age of Onset Diabetes Father Diabetes Paternal Grandfather Diabetes Paternal Uncle Asthma Mother Asthma Maternal Grandmother Asthma Sister Asthma Maternal Aunt Arthritis Father Stroke Maternal Grandmother Stroke Paternal Grandfather Stroke Maternal Aunt Stroke Maternal Uncle Thyroid Paternal Aunt Family Status Relation Name Status Fa Alive PGFa PUnc Alive Mo Alive MGMo Alive Sis Alive MAunt Alive Fa (Not Specified) MGMo (Not Specified) PGFa (Not Specified) MAunt (Not Specified) MUnc (Not Specified) PAunt (Not Specified) Past Surgical History: Procedure Laterality Date FEMUR/KNEE SURG UNLISTED 2017 3 femur surgeries in the last year- pt unsure of specifics Social History Socioeconomic History Marital status: Single Spouse name: Not on file Number of children: Not on file Years of education: Not on file Highest education level: Not on file Occupational History Not on file Social Needs Financial resource strain: Not on file Food insecurity: Worry: Not on file Inability: Not on file Transportation needs: Medical: Not on file Non-medical: Not on file Tobacco Use Smoking status: Never Smoker Smokeless tobacco: Never Used Substance and Sexual Activity Alcohol use: No Drug use: No Sexual activity: Yes Partners: Male control/protection: Condom Comment: last sexual intercourse 03/06/2019 Lifestyle Physical activity: Days per week: Not on file Minutes per session: Not on file Stress: Not on file Relationships Social connections: Talks on phone: Not on file Gets together: Not on file Attends judaism service: Not on file Active member of club or organization: Not on file Attends meetings of clubs or organizations: Not on file Relationship status: Not on file Intimate partner violence: Fear of current or ex partner: Not on file Emotionally abused: Not on file Physically abused: Not on file Forced sexual activity: Not on file Other Topics Concern Service Not Asked Blood Transfusions No Caffeine Concern Not Asked Occupational Exposure Not Asked Hobby Hazards Not Asked Sleep Concern Not Asked Stress Concern Not Asked Weight Concern Not Asked Special Diet Not Asked Back Care Not Asked Exercise Not Asked Bike Helmet Not Asked Seat Belt Yes Self-Exams Not Asked Social History Narrative Pt denies history of abuse. Social History Substance and Sexual Activity Sexual Activity Yes Partners: Male control/protection: Condom Comment: last sexual intercourse 03/06/2019 Labs Labs are pending. Radiology No new radiology. Allergies Temo is allergic to latex. Medications Temo has a current medication list which includes the following prescription( s): levetiracetam. Review of Systems Constitutional: Negative. HENT: Negative. Eyes: Negative. Respiratory: Negative. Breasts: Negative. Cardiovascular: Negative. Gastrointestinal: Negative. Genitourinary: Negative. Musculoskeletal: Negative. Skin: Negative. Neurological: Negative. Psychiatric/Behavioral: Negative. Endocrine: Endocrine negative BP 115/71 (BP Location: Right arm, Patient Position: Sitting, BP CUFF SIZE: Adult Medium) | Pulse 75 | Temp 36.2 C (97.1 F) (Oral) | Resp 16 | Ht 5 ' 3" (1.6 m) | Wt 202 lb 5 oz (91.8 kg) | LMP 04/04/2019 (Approximate) | BMI 35.84 kg/m Pregravid BMI: Could not be calculated Physical Exam Vitals reviewed. Constitutional: She is oriented to person, place, and time. She appears well- developed and well-nourished. Her body habitus is normal. Cardiovascular: Regular rate and rhythm. No peripheral edema present. Pulmonary/Chest: Normal inspiratory effort. Neuro/Psychiatric: She has a normal mood and affect. She is oriented to person, place, and time. Skin: Skin normal. No lesion, no rash and no ulceration present. Assessment/Plan Return to clinic in 9 months for WWE or sooner as needed Absence of menstruation (primary encounter diagnosis) Comment: reports Plan: POCT TEST, PROLACTIN, TSH RECEPTOR ANTIBODY (TRAB) This visit did not involve counseling and coordination that comprised more than 50% of the visit time. BRENTON Chapa 06/08/2019 2:06 PM documented in this encounter Plan of Treatment Name Type Priority Associated Diagnoses Date/Time TSH RECEPTOR ANTIBODY LAB Routine Absence of menstruation 06/08/2019 2:12 PM PILLOWCASE CUTTER (TRAB) Name Type Priority Associated Diagnoses Order Schedule THYROID STIMULATING HORMONE LAB Add-on Absence of menstruation Ordered: Health Maintenance Due Date Last Done Comments CHLAMYDIA SCREENING 03/07/2020 03/07/2019, 03/07/2019, 02/15/2014, Additional history exists DTaP,Tdap,and Td Vaccines 03/07/2020 10/04/2003 Postponed from (2 - Tdap) 10/04/2007 (Refused) INFLUENZA VACCINE (#1) 2020 Postponed from 01/23/2019 (Refused) MENINGOCOCCAL B VACCINES (1 03/07/2020 Postponed from of 2 - Risk Bexsero 2-dose 2006 (Insurance / series) Financial) VARICELLA VACCINES (1 of 2 03/07/2020 Postponed from - 2-dose childhood series) 1997 (Insurance / Financial) HPV VACCINES (1 - Female 03/23/2020 Postponed from 2-dose series) 10/04/2007 (Alternative Guidelines) PAP SMEAR 03/07/2022 03/07/2019 MENINGOCOCCAL VACCINE Aged Out No longer eligible based on patient's age to complete this topic PNEUMOCOCCAL 0-64 YEARS Aged Out No longer eligible COMBINED SERIES based on patient's age to complete this topic documented as of this encounter Procedures Procedure Name Priority Date/Time Associated Diagnosis Comments PROLACTIN Routine 06/08/2019 2:12 Absence of Results for this PM PILLOWCASE CUTTER menstruation procedure are in the results section. POCT TEST Routine 06/08/2019 1:43 Absence of Results for this PM PILLOWCASE CUTTER menstruation procedure are in the results section. documented in this encounter Results PROLACTIN (06/08/2019 2:12 PM PILLOWCASE CUTTER) PROLACTIN 6.2 3.3 - 26.7 ng/mL [facility] Specimen Blood Performing Organization Address City/State/Zipcode Phone Number [facility] CLIA: [id number], [address] [place] [id number] [facility] POCT TEST (06/08/2019 1:43 PM PILLOWCASE CUTTER) POCT PREG Negative On board controls acceptable Yes with C Line POCT PREG LOT # POCT PREG TEST DATE Specimen Urine - URINE, CLEAN CATCH documented in this encounter Visit Diagnoses Diagnosis Absence of menstruation - Primary documented in this encounter Insurance Payer Benefit Plan / Subscriber ID Effective Phone Address Type Group Dates [facility] [id number] 2018-Pres [phone] PPO/POS ent [id number] [place] [address] [facility] xxxxxxxxx 2019-Pres [address] Medicaid HEALTH CHOICE HEALTH CHOICE ent [id number] - MANAGED MEDICAID [place], [place] [phone] documented as of this encounter Advance Directives Type Date Recorded Patient Curtain Fitter Explanation Advance Directives and Living Will Power of Newspaper Peddler
--- OUTSIDE RECORDS SUMMARY | 2019-08-01 19:45 | XMS REPORT | Summary of Care ---
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 Dysmenorrhea 02/15/2014 Menorrhagia 02/15/2014 documented as [...] Comments Blood Pressure 115/71 06/08/2019 1:35 PM FOUNDATION RELATIONS DIRECTOR Pulse 75 06/08/2019 1:35 PM FOUNDATION RELATIONS DIRECTOR Temperature 36.2 C (97.1 F) 06/08/2019 1:35 PM FOUNDATION RELATIONS DIRECTOR Respiratory Rate 16 06/08/2019 1:35 PM FOUNDATION RELATIONS DIRECTOR Oxygen Saturation - - Inhaled Oxygen Concentration - - Weight 91.8 kg (202 lb 5 oz) 06/08/2019 1:35 PM FOUNDATION RELATIONS DIRECTOR Height 160 cm (5' 3") 06/08/2019 1:35 PM FOUNDATION RELATIONS DIRECTOR Body Mass Index 35.84 06/08/2019 1:35 PM FOUNDATION RELATIONS DIRECTOR documented in this encounter Progress Notes Nadine Mandujano, WHCNP - 06/08/2019 11:00 AM CST Chief complaint: Chief Complaint Patient presents with WEIGHMASTER LEAD problem Amenorreha HPI: the patient is here [...] 04/2016 Under [facility] [place] Problem Relation Age of [...] file Gets together: Not on file Attends jehovah's witness service: Not on file Active member of [...] Routine Absence of menstruation 06/08/2019 2:12 PM FOUNDATION RELATIONS DIRECTOR (TRAB) Health Maintenance Due Date Last Done Comments [...] 2:12 Absence of Results for this PM FOUNDATION RELATIONS DIRECTOR menstruation procedure are in the results section. POCT TEST Routine 06/08/2019 1:43 Absence of Results for this PM FOUNDATION RELATIONS DIRECTOR menstruation procedure are in the results section. documented in this encounter Results PROLACTIN (06/08/2019 2:12 PM FOUNDATION RELATIONS DIRECTOR) PROLACTIN 6.2 3.3 - 26.7 ng/mL [facility] Specimen Blood Performing Organization Address City/State/Zipcode Phone Number [facility] CLIA: [id number], [address] [place] [address] [facility] POCT TEST (06/08/2019 1:43 PM FOUNDATION RELATIONS DIRECTOR) POCT PREG Negative On board controls acceptable Yes with C Line POCT PREG LOT # POCT PREG TEST DATE Specimen Urine - URINE, CLEAN CATCH documented in this encounter Visit Diagnoses Diagnosis Absence of menstruation - Primary documented in this encounter Insurance Payer Benefit Plan / Subscriber ID Effective Phone Address Type Group Dates [id number] 2018-Pres [phone] PPO/POS ent [id number] [place] [address] [facility] xxxxxxxxx 2019-Pres [address] Medicaid HEALTH CHOICE HEALTH CHOICE ent [id number] - MANAGED MEDICAID [place], [place] [phone] (Home) [address] [place] [address] documented as of this encounter Advance Directives Type Date Recorded Patient On Call Pharmacy Technician Explanation Advance Directives and Living Will Power of Assembly Manager
--- OUTSIDE RECORDS SUMMARY | 2019-08-01 19:45 | XMS REPORT | Summary of Care ---
:1995 Author Organization [facility] Address [address] [place] [address] Care Team Providers Name Role Phone Myra Rick Medicaid Hmo [facility]ine [facility] Primary Care Provider Christy Donaldson Insurance Hmo Reason for Visit Reason Comments LEASING SPECIALIST problem Amenorreha Encounter Details Date Type Department Care Team Description 06/08/2019 Office Visit [facility]- Nadine Mandujano Absence of Juan David Avilez JAVY menstruation (Primary [address] Dx) [facility] A [address] [place], [place] [id number] Allergies Active Allergy Reactions Severity Noted Date [...] unknown. 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 Dysmenorrhea 02/15/2014 Menorrhagia 02/15/2014 documented as [...] Comments Blood Pressure 115/71 06/08/2019 1:35 PM ENVIRONMENTAL AID Pulse 75 06/08/2019 1:35 PM ENVIRONMENTAL AID Temperature 36.2 C (97.1 F) 06/08/2019 1:35 PM ENVIRONMENTAL AID Respiratory Rate 16 06/08/2019 1:35 PM ENVIRONMENTAL AID Oxygen Saturation - - Inhaled Oxygen Concentration - - Weight 91.8 kg (202 lb 5 oz) 06/08/2019 1:35 PM ENVIRONMENTAL AID Height 160 cm (5' 3") 06/08/2019 1:35 PM ENVIRONMENTAL AID Body Mass Index 35.84 06/08/2019 1:35 PM ENVIRONMENTAL AID documented in this encounter Progress Notes Nadine Mandujano, WHCNP - 06/08/2019 11:00 AM CST Chief complaint: Chief Complaint Patient presents with LEASING SPECIALIST problem Amenorreha HPI: the patient is here [...] 04/2016 Under medical supervision-Neurologist Dr. Medley [facility] [place] History Problem Relation Age of [...] file Gets together: Not on file Attends sabianism service: Not on file Active member of [...] Routine Absence of menstruation 06/08/2019 2:12 PM ENVIRONMENTAL AID (TRAB) Health Maintenance Due Date Last Done [...] 2:12 Absence of Results for this PM ENVIRONMENTAL AID menstruation procedure are in the results section. POCT TEST Routine 06/08/2019 1:43 Absence of Results for this PM ENVIRONMENTAL AID menstruation procedure are in the results section. documented in this encounter Results PROLACTIN (06/08/2019 2:12 PM ENVIRONMENTAL AID) PROLACTIN 6.2 3.3 - 26.7 ng/mL [facility] Specimen Blood Performing Organization Address City/State/Zipcode Phone Number [facility] CLIA: [id number], [address] [place] [address] [facility] POCT TEST (06/08/2019 1:43 PM ENVIRONMENTAL AID) POCT PREG Negative On board controls acceptable Yes with C Line POCT PREG LOT # POCT PREG TEST DATE Specimen Urine - URINE, CLEAN CATCH documented in this encounter Visit Diagnoses Diagnosis Absence of menstruation - Primary documented in this encounter Insurance Payer Benefit Plan / Subscriber ID Effective Phone Address Type Group Dates [id number]-Pres [phone] [address] PPO/POS ent [id number] [place] [address] [facility] xxxxxxxxx 2019-Pres [address] Medicaid HEALTH CHOICE HEALTH CHOICE ent [id number] - MANAGED MEDICAID [place], [place] [id number] (Home) [address] [place] [address] documented as of this encounter Advance Directives Type Date Recorded Patient Match Marker Explanation Advance Directives and Living Will Power of Transmission Tester
--- OUTSIDE RECORDS SUMMARY | 2019-08-01 19:45 | XMS REPORT | Summary of Care ---
:1996 Author Name Helene Sherman Address [facility] Unavailable , Care Team Providers Name Role Phone Helene Sherman Unavailable Unavailable JEREMIAH N.P., RASHAD Unavailable Unavailable SAMMY LEBLANC M.D. Unavailable Unavailable DEANA YOUNGER [place], SAMMY VEE Unavailable Unavailable Unavailable Unavailable Unavailable [...] Details Planned Observations Planned Goals not documented Instructions Name Dates Details Instructions not documented [...]
--- OUTSIDE RECORDS SUMMARY | 2019-08-01 19:45 | XMS REPORT | Summary of Care ---
:1996 Author Organization [facility] Address [address] [place] [address] Care Team Providers Name Role Phone Myra Rick Medicaid Hmo Nadine Mandujano [facility] Primary Care Provider Christy Donaldson Insurance Hmo Reason for Visit Reason Comments LAB Encounter Details Date Type Department Care Team Description 06/10/2019 Telephone [facility] [place] Nadine Mandujano, LAB [address] [place] [address] [address] [facility] [phone] [place] [address] Allergies Active Allergy Reactions Severity Noted Date Comments Latex Other - See comments 08/31/2014 Rai skin with results of redness and pain. documented as of this encounter (statuses as of 06/10/2019) Medications Medication Sig Dispensed Refills Start Date End Date Status levETIRAcetam (KEPPRA) Take 1,000 mg 0 Active 1,000 mg tablet by mouth 2 (two) times daily. medroxyPROGESTERone Take 1 tablet 10 tablet 0 06/10/2019 06/20/2019 Active (PROVERA) 10 mg by mouth tabletIndications: Absence daily for 10 of menstruation days. documented as of this encounter (statuses as of 06/10/2019) Active Problems Problem Noted Date Well woman exam 03/07/2019 Other general counseling and advice for contraceptive management 03/07/2019 History of seizure 03/07/2019 Overview: On keppra, reports last appointment was 10/2018 Obesity (BMI 30-39.9) 03/07/2019 Right hip pain 09/03/2014 Convulsions 02/15/2014 Overview: Last one unknown. 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 Dysmenorrhea 02/15/2014 Menorrhagia 02/15/2014 documented as of this encounter (statuses as of 06/10/2019) Immunizations Name Administration Dates Next Due Tdap [...] of this encounter Last Filed Vital Signs Not on filedocumented in this encounter Plan of Treatment Health Maintenance Due Date Last Done Comments [...] this topic documented as of this encounter Results Not on filedocumented in this encounter Visit Diagnoses Diagnosis Absence of menstruation - Primary documented in this encounter Insurance Payer Benefit Plan / Subscriber ID Effective Phone Address Type Group Dates [facility] [id number] 2018-Pres [phone] [address] PPO/POS ent [id number] [place] [address] [facility] xxxxxxxxx 2019-Pres 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
--- OUTSIDE RECORDS SUMMARY | 2019-08-01 19:45 | XMS REPORT | Summary of Care ---
:1996 Author Organization [facility] Address [address] [place] [address] Care Team Providers Name Role Phone Myra Rick Medicaid Hmo Nadine Mandujano [facility] Primary Care Provider Christy Donaldson Insurance Hmo Reason for Visit Reason Comments LAB Encounter Details Date Type Department Care Team Description 06/10/2019 Telephone [facility] [place] Nadine Mandujano, LAB [address] [place] [address] 110[address] [facility] [phone] [place] [address] Allergies Active Allergy Reactions Severity [...] unknown. 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 Medicaid HEALTH [employer] HEALTH CHOICE ent [id number] - MANAGED MEDICAID [place] [phone] documented as of this encounter Advance Directives Type Date Recorded Patient Parts Room Assistant Explanation Advance Directives and Living Will Power of Medical Director Occupational Health
--- OUTSIDE RECORDS SUMMARY | 2019-08-01 19:45 | XMS REPORT | Summary of Care ---
:1996 Author Organization [facility] Address [address] [place] [address] Care Team Providers Name Role Phone Myra Rick Medicaid Hmo Nadine Mandujano [facility] Primary Care Provider Christy Donaldson Insurance Hmo Reason for Visit Reason Comments LAB Encounter Details Date Type Department Care Team Description 06/10/2019 Telephone [facility] Nadine Mandujano, LAB [address] [place] [address] [address] [facility] [phone] [place] [address] Allergies Active Allergy Reactions Severity Noted Date Comments Latex Other - See comments 08/31/2014 Rai skin with results of redness and pain. documented as of this encounter (statuses as of 06/14/2019) Medications Medication Sig Dispensed Refills Start Date End Date Status levETIRAcetam (KEPPRA) Take 1,000 mg 0 Active 1,000 mg tablet by mouth 2 (two) times daily. medroxyPROGESTERone Take 1 tablet 10 tablet 0 06/10/2019 06/20/2019 Active (PROVERA) 10 mg by mouth tabletIndications: Absence daily for 10 of menstruation days. documented as of this encounter (statuses as of 06/14/2019) Active Problems Problem Noted Date Well woman exam 03/07/2019 Other general counseling and advice for contraceptive management 03/07/2019 History of seizure 03/07/2019 Overview: On keppra, reports last appointment was 10/2018 Obesity (BMI 30-39.9) 03/07/2019 Right hip pain 09/03/2014 Convulsions 02/15/2014 Overview: Last one unknown. 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
--- OUTSIDE RECORDS SUMMARY | 2019-08-01 19:45 | XMS REPORT ---
:1996 [facility] Address [address] [place] [address] Dr. Parish [address] [place] [address] Care Team Providers Name Role Phone Unavailable Unavailable Unavailable Problems This patient has no known problems. Allergies, Adverse Reactions, Alerts This patient has no known allergies or adverse reactions. Medications This patient has no known medications. Encounters Start End Encounter Admission Attending Care Care Encounter Date/Time Date/Time Type Type Clinicians Facility Department ID 2019-04-16 2019-04-16 [place] [facility] [place] [id number] 21:12:00 21:12:00 2017-07-28 2017-07-[address] [facility] MARY KAY [id number] 21:02:00 21:02:00
--- OUTSIDE RECORDS SUMMARY | 2019-08-01 19:46 | XMS REPORT | Summary of Care ---
:1996 Author Organization [facility] Address [address] [place] [address] Care Team Providers Name Role Phone Myra Rick Medicaid Hmo Nadine Mandujano [facility] Primary Care Provider Christy Donaldson Insurance Hmo Reason for Visit Reason Comments Results Encounter Details Date Type Department Care Team Description 06/14/2019 Telephone [facility] Nadine Mandujano, Results [address] [place] [address] [address] [facility] [phone] [place] [address] Allergies Active Allergy Reactions Severity [...] unknown. 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 Community Health Nurse Staff Utility Dysmenorrhea 02/15/2014 Menorrhagia 02/15/2014 documented as [...] Results Not on filedocumented in this encounter Insurance Payer Benefit Plan / Subscriber ID Effective Phone Address Type Group Dates [facility] [id number] 2018-Pres [phone] [address] PPO/POS ent [id number] [place] [address] [facility] xxxxxxxxx 2019- P.OParisa DELGADO Medicaid HEALTH CHOICE HEALTH CHOICE ent [id number] - MANAGED MEDICAID [place] [phone] documented as of this encounter Advance Directives Type Date Recorded 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
--- OUTSIDE RECORDS SUMMARY | 2019-08-01 19:46 | XMS REPORT | Summary of Care ---
:1996 Author Organization [facility] Address [address] [place] [address] Care Team Providers Name Role Phone Myra Rick Medicaid Hmo Nadine Mandujano [facility] Primary Care Provider Christy Donaldson Insurance Hmo Reason for Visit Reason Comments Results returning nurses call Encounter Details Date Type Department Care Team Description 06/14/2019 Telephone [facility]- Nadine Mandujano Results ( returning [facility] nurses call) [address] [facility] [address] [facility] [address] [place] [address] [phone] Allergies Active Allergy Reactions Severity Noted Date [...] unknown. 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
--- OUTSIDE RECORDS SUMMARY | 2019-08-01 19:46 | XMS REPORT | Summary of Care ---
:1996 Author Organization [facility] Address [address] [place] [address] Care Team Providers Name Role Phone Myra Rick Medicaid Hmo Nadine Mandujano [facility] Primary Care Provider Christy Donaldson Insurance Hmo Reason for Visit Reason Comments Rx Concern/Question Encounter Details Date Type Department Care Team Description 07/14/2019 Telephone [facility]- Nadine Mandujano, Rx Concern/ Question [facility] [address] [facility] [address] [place] [address] [facility] [phone] [place] [address] Allergies Active Allergy Reactions Severity Noted Date Comments Latex Other - See comments 08/31/2014 Rai skin with results of redness and pain. documented as of this encounter (statuses as of 07/14/2019) Medications Medication Sig Dispensed Refills Start Date End Date Status levETIRAcetam (KEPPRA) Take 1,000 mg by 0 Active 1,000 mg tablet mouth 2 (two) times daily. documented as of this encounter (statuses as of 07/14/2019) Active Problems Problem Noted Date Well woman exam 03/07/2019 Other general counseling and advice for contraceptive management 03/07/2019 History of seizure 03/07/2019 Overview: On keppra, reports last appointment was 10/2018 Obesity (BMI 30-39.9) 03/07/2019 Right hip pain 09/03/2014 Convulsions 02/15/2014 Overview: Last one unknown. 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
--- OUTSIDE RECORDS SUMMARY | 2019-08-01 19:46 | XMS REPORT | Summary of Care ---
:1996 Author Organization [facility] Address [address] [place] [address] Care Team Providers Name Role Phone Myra Rick Medicaid Hmo Nadine Mandujano [facility] Primary Care Provider Christy Donaldson Insurance Hmo Reason for Visit Reason Comments LAB Encounter Details Date Type Department Care Team Description 06/10/2019 Telephone [facility] [place] Nadine Mandujano, LAB [address] [place] [address] 1107 [facility] [phone] [place] [address] Allergies Active Allergy Reactions Severity [...] unknown. 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 Medicaid HEALTH [employer] HEALTH CHOICE ent [id number] - MANAGED MEDICAID [place] [phone] documented as of this encounter Advance Directives Type Date Recorded Patient Director Mobile Explanation Advance Directives and Living Will Power of Car Greaser
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
[2019-08-01] MEDS ORDERED: AZITHROMYCIN 250 MG TAB ONE (21:45)
[2019-08-01] MEDS ORDERED: HYDROCOD 2.5mg-ACETAMIN 108mg/5mL Soln ONE (21:45)
[2019-08-01] MEDS ORDERED: dexAMETHasone 10 MG/ML VIAL ONE (21:45)
[2019-08-01] MEDS ORDERED: DIPHENHYDRAMINE 50 MG/ML VIAL ONE (21:45)
[2019-08-01 21:48] LABS: Urine Bacteria <20 /HPF (<20); Urine Culture Reflex Order NOT NEEDED; Urine Mucus 1+ /HPF (NONE SEEN)
[2019-08-01 21:49] LABS: Urine Blood TRACE (NEG); Urine Glucose NEGATIVE (NEG); Urine Protein NEGATIVE (NEG); Urine Specific Gravity 1.025 (1.005-1.030)
[2019-08-01] MEDS ORDERED: NA CHLORIDE 0.9% 250 ML ONE (21:51)
[2019-08-01] MEDS ORDERED: AZITHROMYCIN 500 MG INJ IVPB ONE (21:51)
[2019-08-01] MEDS ORDERED: NA CHLORIDE 0.9% 1,000 ML ONE (21:51)
[2019-08-01 23:45] VITALS: TEMP 98.8; O2SAT 100
[2019-08-01 23:46] VITALS: BP 97/67
== END 2019-08-01 23:33 | disposition home or self-care (01) ==
LOC: ER 19:42
DX: J02.0 Streptococcal pharyngitis (principal); Z88.0 Allergy status to penicillin; Z88.6 Allergy status to analgesic agent; Z91.040 Latex allergy status
CPT/HCPCS: 81003; 81015; 81025; 87077; 87081; 87086; 87088; 87186; 87804; 96365; 96375; 99283; J0456; J1100; J1200; J7030

== ENCOUNTER 2019-08-29 22:12 | Emergency (ER) | payer OTHER, SELFPAY ==
--- OUTSIDE RECORDS SUMMARY | 2019-08-29 22:14 | XMS REPORT ---
:1995 [facility] [place] [address] [place] [id number] Care Team Providers Name Role Phone Unavailable [...] [place] [id number] 21:12:00 21:12:00 2017-07-28 2017-07-28 Outpatient [facility] MARY [facility] 9370 21:02:00 21:02:00
[2019-08-29 22:48] LABS: Absolute Lymphocytes (CBC) 3.3 K/uL (0.7-4.9); Basophils % 0.6 % (0-1.3); Hematocrit 42.1 % (36.0-45.0); RBC Red Blood Cell Count 5.15 M/uL (3.86-4.86)
[2019-08-29] MEDS ORDERED: LEVETIRACETAM 500 MG/5 ML VIAL IV ONE (23:03)
[2019-08-29 23:04] LABS: Urine Blood TRACE (NEG); Urine Glucose NEGATIVE (NEG); Urine Protein NEGATIVE (NEG); Urine Specific Gravity >1.030 (1.005-1.030); Urine pH 6.5 (5.0-7.0)
[2019-08-29] MEDS ORDERED: NA CHLORIDE 0.9% 100 ML IV ONE (23:04)
[2019-08-29 23:38] LABS: ALT/SGPT 57 U/L (12-78); AST/SGOT 20 U/L (15-37); Albumin 3.9 g/dL (3.4-5.0); Alkaline Phosphatase 64 U/L (45-117); BUN Blood Urea Nitrogen 11 mg/dL (7-18); Bicarbonate 28 mmol/L (21-32); Bilirubin Direct < 0.1 mg/dL (0-0.2); Bilirubin Total 0.2 mg/dL (0.2-1.0); Glucose Level 103 mg/dL (74-106); Lipase 142 U/L (73-393); Protein, Total 8.6 g/dL (6.4-8.2); Sodium Level 141 mmol/L (136-145)
[2019-08-30] MEDS ORDERED: KETOROLAC 30 MG/ML INJ ONE (00:19)
[2019-08-30] MEDS ORDERED: NA CHLORIDE 0.9% 1,000 ML ONE (00:20)
[2019-08-30] MEDS ORDERED: ONDANSETRON 4 MG/2 ML VIAL ONE (00:20)
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
[2019-08-30 01:41] VITALS: O2SAT 99
[2019-08-30 01:45] VITALS: BP 100/62; TEMP 97.9
--- NOTE | 2019-08-30 10:49 | RAD REPORT ---
EXAM DESCRIPTION: CT - Abdomen Pelvis W Contrast - 08/30/2019 7:51 am COMPARISON: None CLINICAL HISTORY: Abdominal pain TECHNIQUE: Multiple helical axial images were obtained through the abdomen and pelvis using intraven ous contrast. Coronal and sagittal reformatted images were obtained. All CT scans at this facility use dose modulation, iterative reconstruction, and/or weight-based dosi ng when appropriate to reduce radiation dose to as low as reasonably achievable. FINDINGS: Lung bases: Appear unremarkable. Liver: Low attenuation is present suggestive of fatty changes. Gallbladder/biliary: Appears unremarkable Pancreas: Unremarkable. No evidence of ductal enlargement. Spleen: Appears unremarkable. No splenomegaly. Adrenals: Unremarkable. Kidneys and ureters: No evidence of hydronephrosis. Normal enhancement. There is a 1 cm cyst at the lower pole of the left kidney. Bladder: Unremarkable. Pelvic organs: Unremarkable. Bowel: No evidence of bowel obstruction. No bowel wall thickening. Appendix appears unremarkable. Vasculature: Unremarkable. Peritoneum: No free air. No significant free fluid. Lymph nodes: Unremarkable. Soft tissues: Unremarkable. Bones: Mild chronic appearing deformity of a few right ribs is demonstrated. IMPRESSION: 1. No evidence for an acute process within the abdomen or pelvis. 2. Hepatic steatosis. Electronically signed by: Jean Warren MD 08/30/2019 12:37 AM CDT Due to temporary technical issues with the PACS/Fluency reporting system, reports are being signed by the in house radiologist as a courtesy to ensure prompt reporting. The interpreting radiologist is f ully responsible for the content of the report.
== END 2019-08-30 01:21 | disposition home or self-care (01) ==
LOC: ER 22:12
DX: G40.802 Other epilepsy, not intractable, without status epilepticus (principal); Z88.0 Allergy status to penicillin; Z88.5 Allergy status to narcotic agent; Z91.040 Latex allergy status; Z91.048 Other nonmedicinal substance allergy status
CPT/HCPCS: 85025; 80048; 36415; 81025; 80076; 81003; 83690; 74177; Q9967; J1953; J7030; J2405; 96361; 96374; 96375; 99284

== ENCOUNTER 2019-11-07 23:29 | Emergency (ER) | payer OTHER ==
--- OUTSIDE RECORDS SUMMARY | 2019-11-07 23:35 | XMS REPORT | Continuity of Care Document ---
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 CHEM PANEL AGAP 11.1 10.0 - 0310 MH 20.0 /2018 [facility] CHEM PANEL Creatinine 0.56 0.50 - 03/10 MH Lvl 1.40 /2018 [facility] CHEM PANEL BUN 13 7 - 22 / [facility] CHEM PANEL Globulin 3.8 2.7 - 4.2 08/01 [facility] CHEM PANEL CO2 26 24 - 32 08/01 [facility] CHEM PANEL Chloride Lvl 110 95 - 109 08/01 [facility] CHEM PANEL Calcium Lvl 8.2 8.5 - 10.5 / [facility] CHEM PANEL AST 10 0 - 37 / [facility] CHEM PANEL Albumin Lvl 3.1 3.5 - 5.0 08/01 [facility] CHEM PANEL Total 6.9 6.4 - 8.4 /10 MH [facility] CHEM PANEL B/C Ratio 23 6 - 25 / [facility] CHEM PANEL Magnesium 2.2 1.8 - 2.4 /10 MH Lvl [facility] HEMATOLOGY MPV 8.2 7.4 - 10.4 03 /2018 [facility] HEMATOLOGY Platelet 275 133 - 450 03 [facility] HEMATOLOGY RDW 14.5 11.5 - 08/01 MH 14.5 [facility] HEMATOLOGY MCHC 33.6 32.0 - 08/01 MH 36.0 /2018 [place] HEMATOLOGY MCH 26.6 27.0 - 08/01 MH 31.0 [facility] HEMATOLOGY Hgb 11.9 12.0 - 08/01 MH 16.0 [facility] HEMATOLOGY MCV 79.1 80.0 - 08/01 MH 98.0 /2019 [facility] HEMATOLOGY Hct 35.3 36.0 - 08/01 MH 48.0 2019 [facility] HEMATOLOGY RBC 4.46 4.20 - 08/01 MH 5.40 [facility] HEMATOLOGY WBC 8.0 3.7 - 10.4 08/01 [facility] HEMATOLOGY PTT 30.7 22.9 - 08/01 MH 35.8 [facility] HEMATOLOGY PT 13.7 12.0 - 08/01 MH 14.7 [facility] HEMATOLOGY INR 1.07 0.85 - 08/01 MH 1.17 [facility] HEMATOLOGY Monocytes 7.9 2.0 - 12.0 08/01 [facility] HEMATOLOGY Eosinophils 0.2 0.0 - 0.5 08/01 MH # /2018 [facility] HEMATOLOGY Basophils 0.7 0.0 - 1.0 08/01 [facility] HEMATOLOGY Neutrophils 5.0 1.5 - 8.1 08/01 MH # [facility] HEMATOLOGY Eosinophils 2.0 0.0 - 4.0 08/01 [facility] HEMATOLOGY Lymphocytes 2.2 1.0 - 5.5 08/01 MH # /2018 [facility] HEMATOLOGY Segs 62.1 45.0 - 08/01 MH 75.0 2019 [facility] HEMATOLOGY Lymphocytes 27.3 20.0 - 08/01 MH 40.0 [facility] HEMATOLOGY Basophils # 0.1 0.0 - 0.2 08/01 [facility] HEMATOLOGY Monocytes # 0.6 0.0 - 0.8 08/01 [facility] ENDOCRINOL S Preg Negative Negative 08/01 OGY *NA* /2018 [facility] (08/01/18 1:30 AM) CHEM PANEL Bili Total 0.2 0.2 - 1.3 08/01 [facility] CHEM PANEL eGFR 123 08/01 [facility] Comment: The [facility] eGFR is calculated using the CKD-EPI formula. [...] Albumin Lvl 3.6 3.5 - 5.0 08/01 [facility] CHEM PANEL Alk Phos 76 39 - 136 08/01 [facility] CHEM PANEL ALT 37 0 - 65 08/01 [facility] CHEM PANEL CO2 28 24 - 32 08/01 [facility] CHEM PANEL Calcium Lvl 8.5 8.5 - 10.5 08/01 [facility] CHEM PANEL AST 12 0 - 37 08/01 [facility] CHEM PANEL Total 8.9 6.4 - 8.4 08/01 MH [facility] CHEM PANEL Sodium Lvl 142 135 - 145 08/01 [facility] CHEM PANEL Potassium 3.5 3.5 - 5.1 08/01 MH Lvl [place] CHEM PANEL Chloride Lvl 107 95 - 109 08/01 [facility] CHEM PANEL BUN 13 7 - 22 08/01 [facility] CHEM PANEL Creatinine 0.71 0.50 - 03/10 MH Lvl 1.40 [facility] CHEM PANEL Glucose Lvl 106 70 - 99 08/01 [facility] CHEM PANEL Globulin 5.3 2.7 - 4.2 08/01 [facility] CHEM PANEL A/G Ratio 0.7 0.7 - 1.6 08/01 [facility] CHEM PANEL AGAP 10.5 10.0 - 08/01 MH 20.0 [facility] CHEM PANEL B/C Ratio 18 6 - 25 08/01 [facility] DRUG U Maame Scr Negative Negative 08/01 MH SCREEN *NA* /2018 [facility] (08/01/18 12:28 AM) DRUG U Amph Scr Negative Negative 08/01 MH SCREEN *NA* [facility] (08/01/18 12:28 AM) DRUG U Negative Negative 08/01 MH SCREEN Phencyclidin *NA [facility] e Scr (08/01/18 12:28 AM) DRUG UDS Note See Note 08/01 MH SCREEN *NA* [facility] (08/01/18 12:28 AM) DRUG U Cocaine Negative Negative 08/01 MH SCREEN Scr *NA [facility] (08/01/18 12:28 AM) DRUG U Opiate Scr Negative Negative 08/01 MH SCREEN *NA [facility] (08/01/18 12:28 AM) DRUG U Benzodiaz Negative Negative 08/01 MH SCREEN Scr *NA* [facility] (08/01/18 12:28 AM) DRUG U Cannab Scr Negative Negative 08/01 MH SCREEN *NA* [facility] (08/01/18 12:28 AM) HEMATOLOGY MCV 79.0 80.0 - 08/01 MH 98.0 [facility] HEMATOLOGY Hct 38.8 36.0 - 08/01 MH 48.0 [facility] HEMATOLOGY MPV 8.6 7.4 - 10.4 08/01 [facility] HEMATOLOGY Platelet 321 133 - 450 08/01 [facility] HEMATOLOGY Hgb 12.9 12.0 - 08/01 MH 16.0 [facility] HEMATOLOGY RBC 4.91 4.20 - 08/01 MH 5.40 /2019 [facility] HEMATOLOGY WBC 10.0 3.7 - 10.4 08/01 [facility] HEMATOLOGY MCHC 33.2 32.0 - 08/01 MH 36.0 [facility] HEMATOLOGY RDW 15.1 11.5 - 08/01 MH 14.5 [facility] HEMATOLOGY MCH 26.2 27.0 - 08/01 MH 31.0 [facility] HEMATOLOGY Neutrophils 5.8 1.5 - 8.1 08/01 MH # /2018 [facility] HEMATOLOGY Lymphocytes 3.0 1.0 - 5.5 08/01 MH # /2018 [facility] HEMATOLOGY Eosinophils 0.2 0.0 - 0.5 08/01 MH # /2018 [facility] HEMATOLOGY Monocytes # 0.9 0.0 - 0.8 08/01 [facility] HEMATOLOGY Basophils # 0.1 0.0 - 0.2 08/01 [facility] HEMATOLOGY Basophils 0.8 0.0 - 1.0 08/01 [facility] HEMATOLOGY Eosinophils 2.0 0.0 - 4.0 08/01 [facility] HEMATOLOGY Segs 58.2 45.0 - 08/01 MH 75.0 /2018 [facility] HEMATOLOGY Lymphocytes 30.3 20.0 - 08/01 MH 40.0 [facility] HEMATOLOGY Monocytes 8.7 2.0 - 12.0 08/01 [facility] TOXICOLOGY Phenytoin 0.09 1.00 - 08/01 Free 2.00 [facility] TOXICOLOGY Phenytoin 1.4 10.0 - 08/01 Total 20.0 [facility] URINE AND UA RBC 5 0 - 2 08/01 STOOL [facility] URINE AND UA Sq Epi Few /LPF Few /LPF 08/01 STOOL [facility] URINE AND UA WBC 1 0 - 5 08/01 STOOL [facility] URINE AND UA Mucus Many /LPF None Seen 08/01 STOOL /LPF [facility] URINE AND UA Bacteria Occasional None Seen 08/01 STOOL /HPF /HPF [facility] URINE AND UA Turbidity Marked Clear 08/01 STOOL *ABN* [facility] (08/01/18 12:28 AM) URINE AND UA Color Yellow Yellow 08/01 STOOL *NA* [facility] (08/01/18 12:28 AM) URINE AND UA Leuk Est Negative Negative 08/01 [facility] (08/01/18 12:28 AM) [place] and URINE AND UA Nitrite Negative Negative 08/01 [facility] (08/01/18 12:28 AM) [place] and URINE AND UA Bili Negative Negative 08/01 STOOL *NA* [facility] (08/01/18 12:28 AM) URINE AND UA Blood Small Negative 08/01 STOOL *ABN* [facility] (08/01/18 12:28 AM) URINE AND UA <=1.0 0.1 - 1.0 08/01 STOOL Urobilinogen mg/dL /2018 [facility] URINE AND UA Protein Negative Negative 08/01 [facility] (08/01/18 12:28 AM) [place] and URINE AND UA Glucose Negative Negative 08/01 STOOL *NA* /2018 [facility] (08/01/18 12:28 AM) URINE AND UA Ketones Negative Negative 08/01 STOOL *NA* [facility] (08/01/18 12:28 AM) URINE AND UA pH 5.0 5.0 - 8.0 08/01 STOOL /2018 [facility] URINE AND UA Spec Grav 1.029 <=1.030 08/01 STOOL [facility] HEMATOLOGY RDW 16.5 11.5 - 0605 [place] 14.5 /2017 [facility] HEMATOLOGY Platelet 373 133 - 450 10/27 [facility] HEMATOLOGY RBC 4.94 4.20 - 0605 [place] 5.40 /2017 [facility] HEMATOLOGY WBC 9.5 3.7 - 10.4 06 [facility] HEMATOLOGY MCH 24.1 27.0 - 06/05 [place] 31.0 [facility] HEMATOLOGY Hgb 11.9 12.0 - 06/05 [place] 16.0 [facility] HEMATOLOGY MCV 75.0 80.0 - 06/05 [place] 98.0 /2018 [facility] HEMATOLOGY MCHC 32.2 32.0 - 06/05 [place] 36.0 [facility] HEMATOLOGY Hct 37.0 36.0 - 06/05 [place] 48.0 [facility] HEMATOLOGY MPV 8.4 7.4 - 10.4 06 [facility] HEMATOLOGY Segs 57.1 45.0 - 06/05 [place] 75.0 /2018 [facility] HEMATOLOGY Lymphocytes 33.5 20.0 - 06/05 [place] 40.0 2018 [facility] HEMATOLOGY Lymphocytes 3.2 1.0 - 5.5 06 [place] # /2017 [facility] HEMATOLOGY Segs-Bands # 5.4 1.5 - 8.1 06 [place] /2017 [facility] HEMATOLOGY Monocytes 6.4 2.0 - 12.0 06 [facility] HEMATOLOGY Basophils 0.7 0.0 - 1.0 10/27 MH [facility] HEMATOLOGY Eosinophils 2.3 0.0 - 4.0 10/27 a s [facility] HEMATOLOGY Eosinophils 0.2 0.0 - 0.5 10/27 a s # [facility] HEMATOLOGY Microcyte 1+ None Seen 10/27 [facility] *ABN* /2017 Medical (10/27/17 6:51 AM) [place] HEMATOLOGY Monocytes # 0.6 0.0 - 0.8 10/27 s [facility] HEMATOLOGY Basophils # 0.1 0.0 - 0.2 10/27 [facility] ELECTROLYT AGAP 15.1 10.0 - 08/07 [facility] ES 20.0 [facility] ELECTROLYT eGFR 137 08/07 Result [facility] Comment: The Medical eGFR is Center calculated [...] should be multiplied by the estimated BMI. ELECTROLYT Creatinine 0.53 0.50 - 08/07 [facility] Lvl 1.40 [facility] ELECTROLYT CO2 24 24 - 32 08/07 [facility] ELECTROLYT BUN 14 7 - 22 08/07 [facility] ELECTROLYT Glucose Lvl 97 70 - 99 08/07 [facility] ELECTROLYT Sodium Lvl 137 135 - 145 08/07 [facility]2017 [facility] ELECTROLYT Calcium Lvl 8.7 8.5 - 10.5 08/07 [facility] as [facility] ELECTROLYT Chloride Lvl 102 95 - 109 08/07 [place] /2017 [facility] ELECTROLYT Potassium 4.1 3.5 - 5.1 08/07 [place] ES Lvl /2017 [facility] HEMATOLOGY Eosinophils 3.2 0.0 - 4.0 08/07 [place] [facility] HEMATOLOGY Monocytes # 0.9 0.0 - 0.8 08/07 [place] [facility] HEMATOLOGY Lymphocytes 2.8 1.0 - 5.5 08/07 [place] # /2018 [facility] HEMATOLOGY Eosinophils 0.3 0.0 - 0.5 08/07 [place] # /2018 [facility] HEMATOLOGY Segs 60.6 45.0 - 08/07 [place] 75.0 2018 [facility] HEMATOLOGY Lymphocytes 27.2 20.0 - 08/07 [place] 40.0 2018 [facility] HEMATOLOGY Monocytes 8.7 2.0 - 12.0 08/07 [place] [facility] HEMATOLOGY Segs-Bands # 6.2 1.5 - 8.1 08/07 as [facility] HEMATOLOGY Basophils 0.3 0.0 - 1.0 08/07 [facility] HEMATOLOGY Hct 27.7 36.0 - 08/07 [place] 48.0 [facility] HEMATOLOGY MCV 82.9 80.0 - 16 [place] 98.0 2018 [facility] Center HEMATOLOGY MCH 27.5 27.0 - 08/07 [place] 31.0 2018 [facility] HEMATOLOGY MCHC 33.1 32.0 - 16 [place] 36.0 2018 [facility] Center HEMATOLOGY RDW 15.7 11.5 - 16 [place] 14.5 2018 [facility] Center HEMATOLOGY Platelet 409 133 - 450 08/07 [facility] HEMATOLOGY RBC 3.34 4.20 - 16 [place] 5.40 /2018 [facility] HEMATOLOGY Hgb 9.2 12.0 - 16 [place] 16.0 /2018 [facility] HEMATOLOGY WBC 9.7 3.7 - 10.4 08/07 2018 [facility] HEMATOLOGY MPV 8.0 7.4 - 10.4 08/07 [place] 2018 [facility] Center HEMATOLOGY Segs 61.1 45.0 - 16 [place] 75.0 /2018 [facility] HEMATOLOGY Lymphocytes 2.7 1.0 - 5.5 08/07 [place] # /2018 [facility] HEMATOLOGY Monocytes # 0.7 0.0 - 0.8 08/07 s [facility] HEMATOLOGY Eosinophils 0.3 0.0 - 0.5 08/07 [place] # /2017 [facility] HEMATOLOGY Eosinophils 3.6 0.0 - 4.0 08/07 a s [facility] HEMATOLOGY Basophils 0.4 0.0 - 1.0 08/07 [facility] HEMATOLOGY Segs-Bands # 6.0 1.5 - 8.1 08/07 as [facility] HEMATOLOGY Lymphocytes 27.3 20.0 - 08/07 [place] 40.0 [facility] HEMATOLOGY Monocytes 7.6 2.0 - 12.0 08/07 [facility] HEMATOLOGY RDW 15.9 11.5 - 08/07 [place] 14.5 [facility] HEMATOLOGY Platelet 406 133 - 450 08/07 [facility] HEMATOLOGY MPV 8.0 7.4 - 10.4 08/07 [facility] HEMATOLOGY MCV 84.8 80.0 - 08/07 [place] 98.0 [facility] HEMATOLOGY MCH 27.8 27.0 - 08/07 [place] 31.0 [facility] HEMATOLOGY MCHC 32.8 32.0 - 08/07 [place] 36.0 [facility] HEMATOLOGY Hgb 9.0 12.0 - 08/07 [place] 16.0 [facility] HEMATOLOGY Hct 27.3 36.0 - 08/07 [place] 48.0 [facility] HEMATOLOGY RBC 3.22 4.20 - 08/07 [place] 5.40 /2017 [facility] HEMATOLOGY WBC 10.1 3.7 - 10.4 08/07 [facility] BLOOD BANK ABO/Rh A POS 08/06 [facility] RESULTS [facility] BLOOD BANK Antibody Negative 08/06 [facility] RESULTS Scrn (08/06/17 2:43 PM) [facility] BLOOD BANK RBC product Product available 08/06 [facility] RESULTS (08/06/17 12:46 PM) [facility] CHEM PANEL eGFR 134 08/06 Result Comment: The Medical eGFR is Center calculated [...] CHEM PANEL Creatinine 0.56 0.50 - 08/06 [facility] Lvl 1.40 [facility] CHEM PANEL BUN 11 7 - 22 08/[address] CHEM PANEL Potassium 3.9 3.5 - 5.1 08/06 [facility] CHEM PANEL CO2 25 24 - 32 08/[address] CHEM PANEL Calcium Lvl 8.3 8.5 - 10.5 08/06 [place] /2017 [facility] CHEM PANEL Chloride Lvl 103 95 - 109 08/06 [place] [facility] CHEM PANEL Sodium Lvl 138 135 - 145 08/[address] CHEM PANEL AGAP 13.9 10.0 - 08/06 [place] 20.0 [facility] CHEM PANEL Glucose Lvl 128 70 - 99 08/[address] HEMATOLOGY Platelet 373 133 - 450 08/[address] HEMATOLOGY MPV 7.8 7.4 - 10.4 08/06 2017 [facility] HEMATOLOGY WBC 9.0 3.7 - 10.4 08/[address] HEMATOLOGY RBC 2.64 4.20 - 08/06 [place] 5.40 [facility] HEMATOLOGY MCH 27.1 27.0 - 08/06 [place] 31.0 [facility] HEMATOLOGY RDW 16.3 11.5 - 08/06 [place] 14.5 [facility] HEMATOLOGY MCHC 32.2 32.0 - 08/06 [place] 36.0 [facility] HEMATOLOGY Hgb 7.2 12.0 - 08/06 [place] 16.0 [facility] HEMATOLOGY Hct 22.2 36.0 - 08/06 [place] 48.0 /2018 [facility] HEMATOLOGY MCV 84.0 80.0 - 08/06 98.0 [facility] HEMATOLOGY Monocytes # 0.7 0.0 - 0.8 08/06 [facility] HEMATOLOGY Eosinophils 0.3 0.0 - 0.5 08/06 [place] [facility] HEMATOLOGY Monocytes 8.1 2.0 - 12.0 08/06 [facility] HEMATOLOGY Eosinophils 3.5 0.0 - 4.0 08/06 s [facility] HEMATOLOGY Lymphocytes 2.3 1.0 - 5.5 08/06 [facility] s # [facility] HEMATOLOGY Basophils 0.5 0.0 - 1.0 08/06 [facility] HEMATOLOGY Segs-Bands # 5.6 1.5 - 8.1 08/06 [facility] HEMATOLOGY Segs 62.6 45.0 - 08/06 [place] 75.0 [facility] HEMATOLOGY Lymphocytes 25.3 20.0 - 08/06 [place] 40.0 [facility] CHEM PANEL eGFR 107 08/04 [facility] Comment: The Medical eGFR is Center calculated [...] PANEL Potassium 4.0 3.5 - 5.1 08/04 [facility] Lvl [facility] CHEM PANEL Calcium Lvl 8.1 8.5 - 10.5 08/04 [facility] CHEM PANEL CO2 27 24 - 32 08/04 MH [facility] CHEM PANEL AGAP 13.0 10.0 - 08/04 [place] 20.0 /2017 [facility] CHEM PANEL Chloride Lvl 102 95 - 109 08/04 [facility] s [facility] CHEM PANEL Sodium Lvl 138 135 - 145 08/04 [facility] /[address] [place] [address] CHEM PANEL Creatinine 0.80 0.50 - 08/04 [place] Lvl 1.40 /2017 [facility] CHEM PANEL BUN 14 7 - 22 08/04 [facility] /2017 [facility] CHEM PANEL Glucose Lvl 125 70 - 99 08/04 [facility] /2017 [facility] CHEM PANEL Magnesium 2.4 1.8 - 2.4 08/03 [facility] /2017 [facility] CHEM PANEL Phosphorus 4.6 2.5 - 4.5 08/03 [facility] /2017 [facility] HEMATOLOGY PTT 28.0 22.9 - 08/03 [facility] 35.8 /2017 [facility] HEMATOLOGY PT 13.0 12.0 - 08/03 [place] 14.7 [facility] HEMATOLOGY INR 0.98 0.85 - 08/03 [place] 1.17 [facility] HEMATOLOGY Basophils # 0.1 0.0 - 0.2 08/03 [facility] s [facility] PARATHYROI Ca Norm WB 1.12 1.05 - 08/03 [facility] D PROFILE 1.25 [facility] PARATHYROI Ca Ion WB 1.15 1.05 - 08/03 [facility] D PROFILE 1.25 [facility] BLOOD BANK ABO/Rh A POS 08/02 [place] RESULTS /2017 [facility] BLOOD BANK Antibody Negative 08/02 [facility] RESULTS Scrn (08/02/17 11:52 AM) /2017 [facility] BLOOD BANK RBC product Product available 08/02 [place] RESULTS (08/02/17 10:03 AM) /2017 [facility] BLOOD BANK RBC product Product available 08/02 [place] RESULTS (08/02/17 9:07 AM) /2017 [facility] CHEM PANEL Magnesium 1.8 1.8 - 2.4 08/02 [place] l /2017 [facility] DRUG U Phencyc Negative Negative 07/29 [facility] SCREEN Scr *NA* /2017 [facility] (07/29/17 6:00 AM) [place] DRUG UDS Note See Note 07/29 [place] SCREEN (07/29/17 6:00 AM) /2017 [facility] DRUG U Opiate Scr Positive Negative 07/29 [place] SCREEN *ABN* /2017 Medical (07/29/17 6:00 AM) Center DRUG U Cannab Scr Negative Negative 07/29 [place] SCREEN *NA* Medical (07/29/17 6:00 AM) Center DRUG U Cocaine Negative Negative 07/29 [facility] SCREEN Scr *NA* Medical (07/29/17 6:00 AM) Center DRUG U Benzodia Negative Negative 07/29 [place] SCREEN Scr *NA* Medical (07/29/17 6:00 AM) Center DRUG U Maame Scr Negative Negative 07/29 [place] SCREEN *NA* Medical (07/29/17 6:00 AM) Center DRUG U Amph Scr Negative Negative 07/29 [facility] SCREEN *NA* [facility] (07/29/17 6:00 AM) [place] URINE AND UA <=1.0 0.1 - 1.0 07/29 [facility] Urobilinogen mg/dL /2017 [facility] URINE AND UA Spec Grav >=1.050 <=1.030 07/29 [facility] STOOL *ABN* /2017 [facility] (07/29/17 6:00 AM) [place] URINE AND UA Mucus Many /LPF None Seen 07/29 [facility] STOOL /LPF /2017 [facility] URINE AND UA Nitrite Negative Negative 07/29 [facility] (07/29/17 6:00 AM) /2017 [facility] URINE AND UA RBC 11 0 - 2 07/29 [facility] /[address] [place] [address] URINE AND UA Glucose Negative Negative 07/29 [facility] mg/dL mg/dL /[address] [place] [address] URINE AND UA Blood Moderate Negative 07/29 [facility] STOOL *ABN* /2017 [facility] (07/29/17 6:00 AM) [place] URINE AND UA Leuk Est Negative Negative 07/29 [facility] (07/29/17 6:00 AM) /[address] [place] [address] URINE AND UA Sq Epi Occasional Few /LPF 07/29 [facility] STOOL /LPF /2017 [facility] URINE AND UA Protein 200 mg/dL Negative 07/29 [facility] STOOL mg/dL /[address] [place] [address] URINE AND UA Ketones 10 mg/dL Negative 07/29 [facility] STOOL mg/dL /[address] [place] [address] URINE AND UA Bili Negative Negative 07/29 [facility] STOOL *NA* /2017 [facility] (07/29/17 6:00 AM) Center URINE AND UA pH 6.5 5.0 - 8.0 07/29 [facility] STOOL [facility] URINE AND UA Color Yellow Yellow 07/29 [facility] STOOL *NA* [facility] (07/29/17 6:00 AM) [place] URINE AND UA Turbidity Clear Clear 07/29 [facility] STOOL (07/29/17 6:00 AM) [facility] IMMUNOLOGY CDC HIV 4th Negative Negative 07/29 [facility] [facility] GEN *NA* Medical (07/28/17 11:40 PM) [place] BLOOD BANK Antibody Negative 07/29 [facility] RESULTS Scrn (07/28/17 8:57 PM) [facility] BLOOD BANK ABO/Rh A POS 07/29 [facility] RESULTS [facility] CHEM PANEL Lactic Acid 2.0 0.5 - 2.2 07/29 [facility] [facility] Lvl [facility] ENDOCRINOL S Preg Negative Negative 07/29 [facility] OGY *NA* [facility] (07/28/17 8:30 PM) [place] HEMATOLOGY K-time Rapid 0.8 0.6 - 2.3 07/29 [facility] HEMATOLOGY Angle Rapid 79 64 - 80 07/29 [facility]2017 [facility] HEMATOLOGY R-time Rapid 0.5 0.4 - 0.7 07/29 [facility] HEMATOLOGY [place] 0.4 07/29 [facility]2017 [facility] HEMATOLOGY G-value 15.0 5.0 - 11.6 07/[address] HEMATOLOGY Max 75 52 - 71 07/29 [facility] Amplitude [facility] HEMATOLOGY ACT (TEG) 97 86 - 118 07/[address] HEMATOLOGY Estimated % 2.2 0.0 - 7.5 07/29 [facility] [facility] Lysis [facility] HEMATOLOGY Basophils # 0.1 0.0 - 0.2 07/29 [facility] s [facility] TOXICOLOGY Ethanol Lvl <3 07/[address] TOXICOLOGY Etoh (%) <0.003 07/29 [facility]2017 [facility] Pathology Reports No Data Provided for This Section Diagnostic Reports Report Value Date Source Spine lumbar 2 or 3 PROCEDURE INFORMATION: 04/16/2019 [place] views DX Exam: XR Lumbosacral Spine, 2 or 3 Views Exam date and time: 04/16/2019 11:32 PM Age: 23 years old Clinical history: Low back pain; Additional info : /back pain - no trauma TECHNIQUE: Imaging protocol: XR of the lumbosacral spine, 2 or 3 views. Views: AP Lateral and [place] down lateral COMPARISON: No relevant prior studies available. FINDINGS: Vertebrae: There are 5 nonrib-bearing lumbar-typ e vertebrae. No radiographically evident fracture or subluxation . The posterior elements, spinous processes and transv erse processes are intact. Disk Spacing maintained. Soft tissues: Paraspinal soft tissues are unrema rkable. Notes: If there is further concern or neurologic al abnormalities on clinical exam, CT or MRI of the lumbar spine may be perfo rmed for complete assessment. IMPRESSION: No acute radiographic abnormality April Byrd MD On 04/16/2019 23:43:28; [id number] [id number] Femur series DX Right femur 2 views: There i s no fracture or dislocation. Vague linear lucency over the greater trochanter is consistent with an overlying fat pad. There are no other significant osseous, articular or soft tissue abnormalities. 08/01/2018 [facility] IMPRESSION: No acute radiographic abnormalities of the right femur. [id number] Hip 2/3 views uni w Right hip and pelvis 3 views : There is no fracture or dislocation. There are no other significant osseous, articular or soft tissue abnormalities. 08/01/2018 [facility] pelvis DX IMPRESSION: No acute radiographic abnormality of the right h ip. [id number] Brain wo contrast MRI Clinical Indication: Seizures - Epilep sy Protocol; 08/01/2018 [facility] Comparison: CT head 07/28/2017 TECHNIQUE: Multiplanar pre- and post-gadolinium contrast-enhanced MRI of the brain is performed on a 1.5 Iman magnet. Contrast: None. FINDINGS: BRAIN PARENCHYMA: No restric avelino diffusion demonstrated. Mild motion artifact limits sensitivity of this study. Gradient echo sequence is unremarkable. Global volume is commensurate with age. Midline str uctures are within normal li mits. The craniocervical junction is unremarkable. Both medial temporal lobes are symmetric in appearance. CEREBELLOPONTINE REGIONS AND SKULL BASE: The cerebellopontine angles appear unremarkable. The sellar and pineal regions are unremarkable. VENTRICLES: The ventricles a re normal in size and configuration. The basilar [...] limited non EXAM: ULTRASOUND LEFT KNEE NONVASCULAR 11/2017 [facility] vascular US DATE: 10/29/2017 7:21 AM CDT Cente r INDICATION: Limitation of movement - R/O quad/ p atella tend rupture COMPARISON: Left knee radiographs 10/29/2017 TECHNIQUE: Ultrasound exam o f the left knee extensor mechanism with multiple images submitted to PACS. DISCUSSION: There is diffuse increased s ignal and volume loss of the left quadriceps musculature. There is partial tearing of the distal vastus lateralis muscle. The left quadriceps tendon i s normal in echogenicity and morphology. There is a 1.3 cm in length displaced bone fragment within the fat deep to the quadriceps tendon. There is mild thinning with irregul arity along the deep surface of the proximal patellar tendon without patellar tendon tear identified. IMPRESSION: 1. Mild thinning of the prox imal left patellar tendon without tear identified. The left quadriceps tendon is intact. 2. Atrophy of the distal lef t quadriceps musculature with partial tearing of the vastus lateralis. Femur series DX EXAM: XR LEFT FEMUR 2 VIEWS 10/29/2017 [facility] EXAM: XR LEFT KNEE 3 VIEWS Cente r DATE: 10/29/2017 2:40 AM CDT INDICATION: - pain COMPARISON: August 03, 2017 TECHNIQUE: AP and lateral vi ews of the left femur, AP, lateral and oblique views of the left knee. FINDINGS: Unchanged left femur ORIF monterroso rdware. No hardware fracture or perihardware lucencies seen. Fracture lines in the distal femur are still visualized with no significant bony bridging. Mild soft tissue swell ing seen in the distal thigh and knee. Heterotopic ossification seen on the superior aspect of the patella. IMPRESSION: Unchanged left f emoral ORIF hardware. Comminuted distal left femur fracture without significant bony bridging. Mild soft tissue swelling about the knee and in the distal thigh. Knee series 3 views EXAM: XR LEFT FEMUR 2 VIEWS 10/29/2017 [facility] DX EXAM: XR LEFT KNEE 3 VIEWS Cente r DATE: 10/29/2017 2:40 AM CDT INDICATION: - pain COMPARISON: August 03, 2017 TECHNIQUE: AP and lateral vi ews of the left femur, AP, lateral and oblique views of the left knee. FINDINGS: Unchanged left femur ORIF monterroso rdware. No hardware fracture or perihardware lucencies seen. Fracture lines in the distal femur are still visualized with no significant bony bridging. Mild soft tissue swell ing seen in the distal thigh and knee. Heterotopic ossification seen on the superior aspect of the patella. IMPRESSION: Unchanged left f emoral ORIF hardware. Comminuted distal left femur fracture without significant bony bridging. Mild soft tissue swelling about the knee and in the distal thigh. Femur series DX EXAM: XR LEFT FEMUR 2 VIEWS 08/03/2017 [facility] DATE: 08/03/2017 3:53 PM CDT Cent er INDICATION: - OR 28 COMPARISON: Radiograph dated July 29, 2017 TECHNIQUE: AP and lateral radiographs of the fe mur FINDINGS: Status post open reduction internal fixation of the comminuted distal femoral supracondylar and condylar fractures by means of medial and lateral plate and screws. Hardware in good alignment. No convocations. Post surgical soft tissue austin ges visualized. IMPRESSION: Good alignment of the distal femur and femoral condyles status post ORIF. Chest 1view DX EXAM: XR CHEST 1 VIEW 07/30/2017 [facility] edical DATE: 07/30/2017 Center INDICATION: R and L rib fra ctures - R and L rib fractures . Comparison is made with yesterday Lung volumes are low. This p roduces spurious widening of the transverse diameter of the heart and mediastinum and crowding of the basal lung markings. This produces platelike atelectasis at both lung ba ses. Underlying consolidation is not excluded. T he upper lungs are clear. Costophrenic sulci are sharp. There are fractures of two r ight lateral ribs which are not well visualized to estimate their age. IMPRESSION: Low lung volumes. Right rib fracture s. Knee wo contrast w/3D EXAM: CT LEFT KNEE WITHOUT CONTRAST 2017 [facility] CT DATE: 07/29/2017 at 7:20 PM [facility] Ce nter INDICATION: - Please include full extent of dis leland femur fracture COMPARISON: Lower extremity CTA on 07/28/2017. TECHNIQUE: Volumetric acquis ition of the knee without contrast. Axial, sagittal and coronal reconstructions. 3-D reconstructions were performed at the workstation. IV contrast: None. DLP: 1298 mGy-cm FINDINGS: Distal femur: Complete distal femur intra- articular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
--- OUTSIDE RECORDS SUMMARY | 2019-11-07 23:40 | XMS REPORT | Continuity of Care Document ---
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 88.182, kg, Priority: STAT, Start date: 07/28/17 23:34:00 [employer], Duration: 30 day, Stop date: 08/27/17 16:00:00 CDT, ABX Indication : Bone/Joint Infection Ondansetron No 4 mg, [facility] 07-29 Route: l 05:32: IVP, Drug form: INJ, ONCE, Dosing Weight 88.182, kg, Priority: STAT, Start date: 07/28/17 23:32:00 [employer], Stop date: 07/28/17 23:32:00 [employer] Morphine No 4 mg, [facility] 07-29 Route: l 05:30: IVP, ONCE, Dosing Weight 88.182, kg, Priority: STAT, Start date: 07/28/17 23:30:00 [employer], Stop date: 07/28/17 23:30:00 [employer] Dilaudid 2018-0 No 1 mg, [facility] 07-29 Route: IV, l 03:44: ONCE, Dosing Weight 88.182, kg, Start date: 07/28/17 21:44:00 [employer], Stop date: 07/28/17 21:44:00 [employer] Ketamine 2018-0 No 25 mg, [facility] 07-29 Route: IV, l 03:23: ONCE, Dosing Weight 88.182, kg, Start date: 07/28/17 21:23:00 [employer], Stop date: 07/28/17 21:23:00 [employer] iodixanol 2018-0 No 130 mL, [facility] 07-29 Route: l 03:22: IVP, Drug Form: SOLN, Dosing Weight 88.182, kg, ONCALL, STAT, Start date: 07/28/17 21:22:00 [employer]IC, Duration: 1 doses or times, Dose = 2.2ml/kg, Max dose = 150ml -- "To be infused by Radiology Staff ONLY" Isolyte S 2018-0 No Notes: Memori a PH 7.4 07-29 (Same as: l 1,000 mL 02:45: Isolyte S PH 7.4) Cefazolin 2018-0 No 2 gm, [facility] 07-29 Route: IV, l 02:45: ONCE, Dosing Weight 88.182, kg, (for patients 50 -120 kg), Priority: STAT, Start date: 07/28/17 20:45:00 [employer], Stop date: 07/28/17 20:45:00 [employer]IC, ABX Indication : Open Wound Prophylaxi s Hydromorpho 2018-0 No 1 mg, [facility] ne 07-29 Route: l 02:45: IVP, ONCE, Dosing Weight 88.182, kg, Priority: STAT, Start date: 07/28/17 20:45:00 [employer], Stop date: 07/28/17 20:45:00 [employer] ME[employer] Gentamicin 2017-0 No 500 mg, Greg vamsi 07-29 Route: l 02:45: IVPB, [place] 00 ONCE, Dosing Weight 88.182, kg, Time Critical Medication , Priority: STAT, Start date: 07/28/17 20:45:00 [employer] ME[employer]IC, Stop date: 07/28/17 20:45:00 [employer] ME[employer] Saline 2018-0 No Notes: [facility] Flush 0.9% 3-07 (Same as: l 02:45: BD [place] 00 Posiflush) Vital Signs Vital Name Observation Time Observation Value Comments Source Temperature Oral (F) 2019-04-17 06:38:00 98 F [facility] [place] Heart Rate 2019-04-17 06:38:00 [facility] [place] Respitory Rate 2019-04-17 06:38:00 [facility] [place] Systolic (mm Hg) 2019-04-17 06:38:00 Greg rial [place] Diastolic (mm Hg) 2019-04-17 06:38:00 Mem o[facility] [place] Systolic (mm Hg) 2019-04-17 03:23:00 Greg rial [place] Diastolic (mm Hg) 2019-04-17 03:23:00 Mem o[facility] [place] Heart Rate 2019-04-17 03:23:00 [facility] [place] Respitory Rate 2019-04-17 03:23:00 [facility] [place] Temperature Oral (F) 2019-04-17 03:23:00 97.9 F [facility] [place] Height 2019-04-17 03:23:00 160.02 cm [facility] [place] BMI Calculated 2019-04-17 03:23:00 [facility] [place] Weight 2019-04-17 03:23:00 [facility] [place] Systolic (mm Hg) 2018-08-02 12:28:00 Greg rial [place] Diastolic (mm Hg) 2018-08-02 12:28:00 Mem orial [place] Respitory Rate 2018-08-02 12:28:00 [facility] [place] Temperature Oral (F) 2018-08-02 12:28:00 97.7 F [facility] [place] Heart Rate 2018-08-02 12:28:00 [facility] [place] Heart Rate 2018-08-02 09:19:00 [facility] [place] Temperature Oral (F) 2018-08-02 09:19:00 98.0 F [facility] [place] Systolic (mm Hg) 2018-08-02 09:19:00 Greg rial [place] Diastolic (mm Hg) 2018-08-02 09:19:00 Mem [facility] [place] Respitory Rate 2018-08-02 09:19:00 [facility] [place] Temperature Oral (F) 2018-08-02 05:23:00 98.2 F [facility] [place] Respitory Rate 2018-08-02 05:23:00 [facility] [place] Systolic (mm Hg) 2018-08-02 05:23:00 Greg rial [place] Diastolic (mm Hg) 2018-08-02 05:23:00 Mem o[facility] [place] Heart Rate 2018-08-02 05:23:00 [facility] [place] Height 2018-08-01 23:37:00 160.02 cm [facility] [place] BMI Calculated 2018-08-01 23:37:00 [facility] [place] Weight 2018-08-01 23:37:00 [facility] [place] Weight 2018-08-01 18:01:00 [facility] [place] Height 2018-08-01 18:01:00 160.02 cm [facility] [place] BMI Calculated 2018-08-01 18:01:00 [facility] [place] BMI Calculated 2018-08-01 04:57:00 [facility] [place] Height 2018-08-01 04:57:00 157.48 cm [facility] [place] Weight 2018-08-01 04:57:00 [facility] [place] Systolic (mm Hg) 2017-10-29 19:23:00 Greg rial [place] Diastolic (mm Hg) 2017-10-29 19:23:00 Mem o[facility] [place] Respitory Rate 2017-10-29 19:23:00 [facility] [place] Heart Rate 2017-10-29 19:23:00 [facility] [place] Temperature Oral (F) 2017-10-29 19:23:00 98.2 F [facility] [place] Respitory Rate 2017-10-29 16:39:00 [facility] [place] Temperature Oral (F) 2017-10-29 16:39:00 98.0 F [facility] [place] Heart Rate 2017-10-29 16:39:00 [facility] [place] Systolic (mm Hg) 2017-10-29 16:39:00 Greg rial [place] Diastolic (mm Hg) 2017-10-29 16:39:00 Mem o[facility] [place] Respitory Rate 2017-10-29 11:30:00 [facility] [place] Systolic (mm Hg) 2017-10-29 11:30:00 Greg rial [place] Diastolic (mm Hg) 2017-10-29 11:30:00 Mem o[facility] [place] Heart Rate 2017-10-29 11:30:00 [facility] [place] Temperature Oral (F) 2017-10-29 11:30:00 98.9 F [facility] [place] Systolic (mm Hg) 2017-10-27 16:35:00 Greg rial [place] Diastolic (mm Hg) 2017-10-27 16:35:00 Mem o[facility] [place] Respitory Rate 2017-10-27 16:35:00 [facility] [place] Respitory Rate 2017-10-27 16:15:00 [facility] [place] Systolic (mm Hg) 2017-10-27 16:15:00 Greg rial [place] Diastolic (mm Hg) 2017-10-27 16:15:00 Mem o[facility] [place] Respitory Rate 2017-10-27 16:00:00 [facility] [place] Systolic (mm Hg) 2017-10-27 16:00:00 Greg rial [place] Diastolic (mm Hg) 2017-10-27 16:00:00 Mem o[facility] [place] Heart Rate 2017-10-27 11:31:00 [facility] [place] BMI Calculated 2017-10-27 11:31:00 [facility] [place] Weight 2017-10-27 11:31:00 [facility] [place] Height 2017-10-27 11:31:00 162.56 cm [facility] [place] Height 2017-10-23 16:12:00 160.02 cm [facility] [place] BMI Calculated 2017-10-23 16:12:00 [facility] [place] Weight 2017-10-23 16:12:00 [facility] [place] Systolic (mm Hg) 2017-08-07 13:00:00 Greg rial [place] Diastolic (mm Hg) 2017-08-07 13:00:00 Mem o[facility] [place] Respitory Rate 2017-08-07 13:00:00 [facility] [place] Heart Rate 2017-08-07 13:00:00 [facility] [place] Temperature Oral (F) 2017-08-07 13:00:00 98.8 F [facility] [place] Systolic (mm Hg) 2017-08-07 08:46:00 Greg rial [place] Diastolic (mm Hg) 2017-08-07 08:46:00 Mem orial [place] Respitory Rate 2017-08-07 08:46:00 [facility] [place] Heart Rate 2017-08-07 08:46:00 [facility] [place] Temperature Oral (F) 2017-08-07 08:46:00 99 F [facility] [place] Temperature Oral (F) 2017-08-07 05:24:00 99 F [facility] [place] Respitory Rate 2017-08-07 05:24:00 Edelmira al [place] Heart Rate 2017-08-07 05:24:00 [facility] [place] Systolic (mm Hg) 2017-08-07 05:24:00 Greg vamsil [place] Diastolic (mm Hg) 2017-08-07 05:24:00 Mem orial [place] Height 2017-07-29 10:32:00 162.56 cm [facility] [place] BMI Calculated 2017-07-29 10:32:00 Edelmira al [place] Weight 2017-07-29 10:32:00 [facility] [place] BMI Calculated 2017-07-29 02:33:00 Edelmira al [place] Weight 2017-07-29 02:33:00 [facility] [place] Height 2017-07-29 02:33:00 129.54 cm [facility] [place] Procedures Procedure Date / Time Performed Performing Clinician Sour e [U] XRAY KNEE 1 OR 2 2019-05-09 00:00:00 [facility] [place] [facility] LEFT [id number] Physicians [U] XRAY FEMUR 2 S 2019-05-09 00:00:00 [facility] [place] LEFT 25620 Physicians [U] XRAY FEMUR 2 S 2018-10-01 00:00:00 [facility] [place] LEFT 41087 Physicians [U] XRAY KNEE 1 OR 2 2018-10-01 00:00:00 [facility] [place] [facility] LEFT 07963 Physicians [U] XRAY FEMUR 2 S 2018-07-08 00:00:00 [facility] [place] LEFT 99404 Physicians [U] XRAY KNEE 1 OR 2 2018-07-08 00:00:00 [facility] [place] [facility] LEFT 16230 Physicians [U] XRAY FEMUR 2 S 2018-06-17 00:00:00 [facility] [place] LEFT 06595 Physicians [U] XRAY KNEE 1 OR 2 2018-06-17 00:00:00 [facility] [place] [facility] LEFT 12371 Physicians [U] XRAY FEMUR 2 S 2018-03-19 00:00:00 [facility] [place] LEFT 68173 Physicians [U] XRAY KNEE 1 OR 2 2018-03-19 00:00:00 [facility] [place] [facility] LEFT 48437 Physicians [U] XRAY FEMUR 2 S 2018-02-04 00:00:00 [facility] [place] LEFT 56434 Physicians [U] XRAY KNEE 1 OR 2 2018-02-04 00:00:00 [facility] [place] [facility] LEFT 04565 Physicians [U] XRAY FEMUR 2 [facility] 2018-01-18 00:00:00 [facility] [place] LEFT 97487 Physicians [U] XRAY KNEE 1 OR 2 2018-01-18 00:00:00 [facility] [place] [facility] LEFT 74385 Physicians [U] XRAY FEMUR 2 [facility] 2017-12-17 00:00:00 [facility] [place] LEFT 36170 Physicians [U] XRAY KNEE 1 OR 2 2017-12-17 00:00:00 [facility] [place] [facility] LEFT 28672 Physicians [U] XRAY FEMUR 2 [facility] 2017-11-17 00:00:00 [facility] [place] LEFT 74509 Physicians [U] XRAY KNEE 1 OR 2 2017-11-17 00:00:00 [facility] [place] [facility] LEFT 09234 Physicians [U] XRAY FEMUR 2 [facility] 2017-11-02 00:00:00 [facility] [place] LEFT 95093 Physicians [U] XRAY KNEE 1 OR 2 2017-11-02 00:00:00 [facility] [place] [facility] LEFT 36187 Physicians [U] XRAY FEMUR 2 [facility] 2017-10-13 00:00:00 [facility] [place] LEFT 13204 Physicians [U] XRAY KNEE 1 OR 2 2017-10-13 00:00:00 [facility] [place] [facility] LEFT 81057 Physicians [U] XRAY KNEE 1 OR 2 2017-09-10 00:00:00 [facility] [place] [facility] LEFT 43080 Physicians [U] XRAY FEMUR 2 S 2017-09-10 00:00:00 [facility] [place] LEFT 00562 Physicians Procedure<sup>1</sup> [facility] ermann Encounters Start End Encounter Admission Attending Care Care Encounter Source Date/Time Date/Time Type Type Clinicians Facility Department ID 2019-07-14 2019-07-14 Telephone Akinsipe, [facility] [id number] 00:00:00 00:00:00 Nadine C HEALTH UNIT COORDINATOR [id number] REGIONAL [id number] MATERNAL [id number] & CHILD 107 [facility] 2019-06-14 2019-06-14 Telephone [facility], [facility], [facility] [id number] 00:00:00 00:00:00 Nadine C HEALTH UNIT COORDINATOR [id number] REGIONAL [id number] MATERNAL [id number] & CHILD 107 [facility] 2019-06-10 2019-06-10 Telephone [facility], [facility] [id number] 00:00:00 00:00:00 Nadine C HEALTH UNIT COORDINATOR [id number] REGIONAL [id number] MATERNAL [id number] & CHILD 107 [facility] 2019-05-12 2019-05-12 Appointmen KYLIE LEBLANC Orthopedics [id number] Univers 09:30:00 09:30:00 t; ROBBIN LEBLANC Trauma it y of [place], M.D. [facility] Garima Hoffman [facility] [place] 2019-04-16 2019-04-17 Outpatient Rex Angulo MHSE MHSE [id number] 21:12:55 00:15:00 2019-04-16 2019-04-16 Emergency E MHSE MHSE [id number] 21:12:00 21:12:[facility] 2018-10-07 2018-10-07 Appointmen KYLIE LEBLANC Orthopedics [id number] Univers 12:15:00 12:15:00 t; ROBBIN LEBLANC it y [place], M.D. [place] M.D. [facility] 2018-07-31 2018-08-02 Outpatient Rodriguez MHPL MHPL [id number] 22:33:00 17:55:00 Alena Royal 2018-07-15 2018-07-15 Appointmen KYLIE LEBLANC Orthopedics [id number] Univers 13:45:00 13:45:00 t; LEBLANC, Bret CHRISTIANSON M.D. [place] M.D. [facility] 2018-06-24 2018-06-24 Appointmen [facility] Orthopedics [id number] Univers 12:45:00 12:45:00 t; ROBBIN LEBLANC it y of [place], M.D. [place] M.D. Physici ans 2018-03-25 2018-03-25 Appointmen [facility] Orthopedics [id number] Univers 12:45:00 12:45:00 t; ROBBIN LEBLANC it y of [place], M.D. [place] M.D. Physici ans 2018-02-11 2018-02-11 Appointmen [facility] Orthopedics [id number] Univers 12:45:00 12:45:00 t; ROBBIN LEBLANC it y of [place], M.D. [place] M.D. Physici ans 2018-01-28 2018-01-28 Appointmen [facility] Orthopedics [id number] Univers 09:15:00 09:15:00 t; ROBBIN LEBLANC it y of [place], M.D. [place] M.D. Physici ans 2017-12-17 2017-12-17 Appointmen [facility] Orthopedics [id number] Univers 13:15:00 13:15:00 t; ROBBIN LEBLANC it y of [place], M.D. [place] M.D. Physici ans 2017-11-19 2017-11-19 Appointmen [facility] Orthopedics [id number] Univers 11:00:00 11:00:00 t; ROBBIN LEBLANC it y [place], M.D. [place] M.D. Physici ans 2017-11-05 2017-[facility] Orthopedics [id number] Univers 13:30:00 13:30:00 t; ROBBIN LEBLANC it y of [place], M.D. [place] M.D. Physici ans 2017-10-28 2017-10-29 Outpatient Reji Patel [facility] [id number] 21:16:00 14:27:00 2017-10-27 2017-10-27 Outpatient Deana [facility] [id number] 05:29:00 23:59:00 Robbin 00 2017-10-27 2017-10-27 [facility] [id number] Univers 07:30:00 07:30:00 t; ROBBIN LEBLANC it y of [place], M.D. [place] M.D. Physici ans 2017-10-15 2017-10-15 [facility] [id number] Univers 08:00:00 08:00:00 t; ROBBIN LEBLANC it y of [place], M.D. [place] M.D. Physici ans 2017-09-17 2017-09-17 [facility] [id number] Univers 08:00:00 08:00:00 t; ROBBIN LEBLANC it y [place], M.D. [place] M.D. Physici ans 2017-09-17 2017-09-17 [id number] Univers 08:00:00 08:00:00 t; [facility] [place] [facility] Phys[facility] ans 2017-08-27 2017-08-27 [facility] [id number] Univers 08:00:00 08:00:00 t; ROBBIN LEBLANC it y of [place], M.D. [place] M.D. Physici ans 2017-08-13 2017-08-13 [facility] [id number] Univers 13:15:00 13:15:00 t; ROBBIN LEBLANC it y of [place], M.D. [place] Yasmin Physici ans 2017-07-28 2017-08-07 Outpatient Odalys, [facility] [id number] 20:32:00 15:00:00 Dipak 67 2017-07-28 2017-07-28 Outpatient [facility] MARY KAY 9370 [facility] 21:02:00 21:02:00 Results Test Description Test Time Test Comments Results Result [facility] e Comments ENDOCRINOLOGY 2019-04-17 Negative [facility] 04:19:00 *NA*(04/16/19 [place] 10:19 PM) CHEM PANEL 2018-08-01 134 [facility] 12:51:00 [place] CHEM PANEL 2018-08-01 0.2 [facility] 12:51:00 [place] CHEM PANEL 2018-08-01 64 [facility] 12:51:00 [place] CHEM PANEL 2018-08-01 12:51:00 Test Item Value Reference Range Interpretation Comme nts A/G Ratio (test code = A/G Ratio) 0.8 1 0.7-1.6 [facility] HermannCHEM [id number] 12:51:0023[facility] HermannCHEM PANEL 2018-08-01 12:51:21249Gogtntkg HermannCHEM KREUQ1185-57-54 12:51:004.1[facility] HermannCHEM DKPNX8262-30-49 12:51:26274Pxfgqygz HermannCHEM MECAA7358-43-71 12:51:0011.1[facility] HermannCHEM CMYWU8450-72-56 12:51:000.56[facility] [place] CHEM HDCQK9700-51-47 12:51:0013[facility] HermannCHEM DBBQK9025-80-97 12:51:003.8 [facility] HermannCHEM IMDEN1794-57-97 12:51:0026[facility] HermannCHEM PANEL 2018-08-01 12:51:46253Wtvluhkj HermannCHEM BUJTU0026-75-47 12:51:008.2[facility] HermannCHEM GEZCP4270-61-43 12:51:0010[facility] HermannCHEM YGAKB4468-27-32 12:51:003.1[facility] HermannCHEM TNXNZ0791-82-85 12:51:006.9[facility] HermannCHEM OZTHG3523-49-00 12:51:00 Test Item Value Reference Range Interpretation Comments B/C Ratio (test code = B/C Ratio) 23 1 6-25 [facility] HermannCHEM DTVRK7837-12-04 12:51:002.2[facility] HermannHEMATOLOGY 2018-08-01 12:51:008.2[facility] CenpulyTITYWERBOG7460-78-75 12:51:35096Qjteylyo YwowjmfAPAKDTICMG3332-64-12 12:51:0014.5[facility] BvjdcwkYXSGEWVESB8045-62-12 12:51:0033.6[facility] SkmhtnfJOZVSIBSUN8432-49-18 12:51:00 Test Item Value Reference Range Interpretation Comments MCH (test code = MCH) 26.6 pg 27.0-31.0 [facility] SzjpwdoHLPADHQQEG9114-50-94 12:51:0011.9[facility] HermannHEMATOLOGY 2018-08-01 12:51:0079.1[facility] VlqjnclHVHAOVRWBU3743-86-50 12:51:0035.3[facility] KnrcpbaMZPOJCBVWI0639-76-33 12:51:004.46[facility] AnyuceqYVSWWBZRVX3886-61-82 12:51:008.0[facility] FzhqaskYVXOHWODGA0240-46-52 12:51:00 Test Item Value Reference Range Interpretation Comments PTT (test code = PTT) 30.7 s 22.9-35.8 [facility] AphirmvFYCEQJWIXZ9332-09-79 12:51:00 Test Item Value Reference Range Interpretation Comments PT (test code = PT) 13.7 s 12.0-14.7 [facility] SuabhteNNPZAGILLT8081-48-47 12:51:00 Test Item Value Reference Range Interpretation Comments INR (test code = INR) 1.07 1 0.85-1.17 [facility] FrvztqxBHTPZCVWOC6374-88-60 12:51:007.9[facility] HermannHEMATOLOGY 2018-08-01 12:51:000.2[facility] OhjcetqRUQCIOERVK6483-39-05 12:51:000.7[facility] IquqnzzAWIDBPQRPJ4622-61-58 12:51:005.0[facility] KkttvypLLFLPICWDK3362-86-66 12:51:002.0[facility] KutpenpNARHSXTNVW6391-82-78 12:51:002.2[facility] [place] NMWVQKFWUT0789-23-25 12:51:0062.1[facility] MtanqhcAQBUCCEUQS7972-79-82 12:51:00 27.3[facility] BikysohLEQVUYJYRZ7650-60-17 12:51:000.1[facility] HermannHEMATOLOGY 2018-08-01 12:51:000.6[facility] JiahqpmPSCVYDNWZIGRQ2747-17-02 07:30:00Negative *NA*(08/01/18 1:30 AM)[facility] HermannCHEM PYCUK6999-74-60 06:28:000.2[facility] HermannCHEM JFCFZ8093-24-17 06:28:27968Exfoduen HermannCHEM XTFIW2500-37-04 06:28:003.6[facility] HermannCHEM ANQOU4714-48-92 06:28:0076[facility] HermannCHEM XMTKG1278-41-54 06:28:0037[facility] HermannCHEM WZWXU4836-38-60 06:28:0028 [facility] HermannCHEM IEXOU1471-65-19 06:28:008.5[facility] HermannCHEM PANEL 2018-08-01 06:28:0012[facility] HermannCHEM ZWDQO6740-78-95 06:28:008.9[facility] HermannCHEM DYKRH7576-37-74 06:28:89666Onescupn HermannCHEM HLDCR9300-65-16 06:28:003.5[facility] HermannCHEM KTNDZ1429-21-60 06:28:96858Pchnjdqz HermannCHEM VYQHM3066-35-07 06:28:0013[facility] HermannCHEM AKVHC6871-18-97 06:28:000.71 [facility] HermannCHEM QOFTK4113-54-85 06:28:49945Ckxlybod HermannCHEM PANEL 2018-08-01 06:28:005.3[facility] HermannCHEM TNLKT2455-99-18 06:28:00 Test Item Value Reference Range Interpretation Comments A/G Ratio (test code = A/G Ratio) 0.7 1 0.7-1.6 [facility] HermannCHEM FLDZO9320-79-54 06:28:0010.5[facility] HermannCHEM PANEL 2018-08-01 06:28:00 Test Item Value Reference Range Interpretation Comments B/C Ratio (test code = B/C Ratio) 18 1 6-25 [facility]annDRUG [id number] 06:28:00Negative *NA*(08/01/18 12:28 AM) [facility]annDR[facility] TXPNBV7227-36-99 06:28:00Negative *NA*(08/01/18 12:28 AM) [facility] MHFKQG0386-27-78 06:28:00Negative *NA*(08/01/18 12:28 AM) [facility] KFESRM6222-49-21 06:28:00See Note *NA*(08/01/18 12:28 AM) [facility] [id number] 06:28:00Negative *NA*(08/01/18 12:28 AM) [facility] GKZEWJ3862-34-05 06:28:00Negative *NA*(08/01/18 12:28 AM) [facility] NRCACH2581-18-19 06:28:00Negative *NA*(08/01/18 12:28 AM) [facility] CINGQI0420-67-80 06:28:00Negative *NA*(08/01/18 12:28 AM) [facility] NvlyfcqSJQNWOLWQP7929-09-23 06:28:0079.0[facility] HermannHEMATOLOGY 2018-08-01 06:28:0038.8[facility] KkltvniECKGFSQJRN5909-77-01 06:28:008.6[facility] OdcetlqLJMTPKRIKO1898-54-52 06:28:24291Qcrlnaax WjsgzyyNUZDZIWLZO1376-35-61 06:28:0012.9[facility] TqcqcswGKSTBBUMOH0749-66-86 06:28:004.91[facility] [place] XOAJHPIXXH7535-04-77 06:28:0010.0[facility] CegzowaGYVUJUWJVU9242-38-62 06:28:00 33.2[facility] FepxqraCUZJLGYCHO6727-04-23 06:28:0015.1[facility] HermannHEMATOLOGY 2018-08-01 06:28:00 Test Item Value Reference Range Interpretation Comments MCH (test code = MCH) 26.2 pg 27.0-31.0 [facility] VamdzgzABYJIVVWXB1460-72-24 06:28:005.8[facility] HermannHEMATOLOGY 2018-08-01 06:28:003.0[facility] NcgavgtSGTCWJUMBS6906-18-19 06:28:000.2[facility] HoeqrtmQIBNEAFTKM2798-67-35 06:28:000.9[facility] WwrroavZXUNPLNVEQ3038-33-95 06:28:000.1[facility] SslcpwgQXEAWZWDTZ5734-34-81 06:28:000.8[facility] EHJOVRNPNU6991-18-90 06:28:002.0[facility] HtptllgMORXJVZZGS4987-12-47 06:28:00 58.2[facility] GzkceihWJVSGOBVRV1787-44-15 06:28:0030.3[facility] 2018-08-01 06:28:008.7[facility] TpiceipKKDFIYPIXO6264-80-20 06:28:000.09[facility] NnqqkrpUJSLILXTEC7896-84-79 06:28:001.4[facility] JKUJE2132-64-58 06:28:005[facility] NFWCZ5691-82-44 06:28:001[facility] AND ROGJG5953-00-61 06:28:00Marked *ABN*(08/01/18 12:28 AM)[facility] UORSO8741-11-23 06:28:00Yellow *NA*(08/01/18 12:28 AM)[facility] SCSWC3929-66-33 06:28:00Negative (08/01/18 12:28 AM)[facility] AND TIHUD4724-13-92 06:28:00Negative (08/01/18 12:28 AM)[facility] AND FQBKB7795-45-10 06:28:00Negative *NA*(08/01/18 12:28 AM)[facility] FMNNH4954-62-58 06:28:00Small *ABN*(08/01/18 12:28 AM)[facility] HDPAP0761-82-50 06:28:00Negative (08/01/18 12:28 AM)[facility] OPHSX4849-65-84 06:28:00Negative *NA*(08/01/18 12:28 AM)[facility] DTSBR2955-54-94 06:28:00Negative *NA*(08/01/18 12:28 AM) [facility] GEYNO4928-08-03 06:28:00 Test Item Value Reference Range Interpretation Comments UA pH (test code = UA pH) 5.0 1 5.0-8.0 [facility] OSNNI7307-05-21 06:28:00 Test Item Value Reference Range Interpretation Comments UA Spec Grav (test code = UA Spec 1.029 1 Grav) [facility] [place][U] XRAY FEMUR 2 VWS LEFT [id number] 12:59:00Images acquired, not reported on this accession number.[facility] [U] XRAY KNEE 1 OR 2 VWS LEFT [id number] 12:59:00Images acquired, not reported on this accession number.[facility][U] XRAY KNEE 1 OR 2 VWS LEFT [id number] 11:16:00Images acquired, not reported on this accession number.[facility][U] XRAY FEMUR 2 VWS LEFT [id number] 2017-11-19 11:16:00Images acquired, not reported on this accession number. [facility] HzsnxoofmoLIMSPRXQGT4861-62-40 11:51:0016.5[facility] [place] OHTSSZVMBJ8074-44-94 11:51:76843Wfrpilpa NnninnaAKHKZHYWWR2048-73-99 11:51:00 4.94[facility] JryfqkbPODVLDWJNA7674-98-80 11:51:009.5[facility] 2017-10-27 11:51:00 Test Item Value Reference Range Interpretation Comments MCH (test code = MCH) 24.1 pg 27.0-31.0 [facility] HpchzloCRKIUDPYJC6163-20-81 11:51:0011.9[facility] 2017-10-27 11:51:0075.0[facility] LugsarqCBOPDXJGWN8738-91-15 11:51:0032.2[facility] BatskksMBYUPRSCUF6924-73-17 11:51:0037.0[facility] UxfcezqQDTGDGTMMH0074-92-18 11:51:008.4[facility] DvhjvubWCFMDZMGNQ4163-99-68 11:51:0057.1[facility] [place] THHZKIESGS9668-80-94 11:51:0033.5[facility] UtkdqmkCFJWKDRDDE8755-87-80 11:51:00 3.2[facility] CdlzqivCYIDDPOYGK0047-59-74 11:51:005.4[facility] 2017-10-27 11:51:006.4[facility] RoxsllpPZFKECRHUC7476-48-48 11:51:000.7[facility] ScalrtlDXSRKOCQGS3898-71-25 11:51:002.3[facility] JeachpaADZBUTIPGH7624-73-73 11:51:000.2[facility] KlmskrwABJVTPZBFG8440-60-44 11:51:001+ *ABN*(10/27/17 6:51 AM) [facility] BhoegvkSORAYHIVWB0127-04-00 11:51:000.6[facility]ann[facility]Y 2017-10-27 11:51:000.1[facility][U] XRAY FEMUR 2 VWS LEFT [id number] 07:47:00Images acquired, not reported on this accession number.[facility][U] XRAY KNEE 1 OR 2 VWS LEFT [id number] 07:47:00Images acquired, not reported on this accession number.[facility] [U] XRAY FEMUR 2 VWS LEFT [id number] 07:53:00Images acquired, not reported on this accession number.[facility][U] XRAY KNEE 1 OR 2 VWS LEFT [id number] 07:53:00Images acquired, not reported on this accession number.[facility][U] XRAY FEMUR 2 VWS LEFT [id number] 13:33:00Images acquired, not reported on this accession number.[facility][U] XRAY KNEE 1 OR 2 VWS LEFT [id number] 13:33:00Images acquired, not reported on this accession number.[facility] IDAKXKNXBUQM0492-05-19 10:13:0015.1[facility] LsjmqahILMEGPMYAMAP0582-33-81 10:13:40539Qpckkijr IkijhtjWIJLQSPAZZWL5300-84-12 10:13:000.53[facility] SMUUHQYEXXCF6794-09-70 10:13:0024[facility] KixvhstYWLWHBVSVROT2045-31-14 10:13:00 14[facility] YlezoncOLKBJTVGQJKU8464-75-54 10:13:0097[facility]annELECTROLYTES 2017-08-07 10:13:35254Ffaisvoe PdgtnhcDBSDFDQRMYIU8899-09-15 10:13:008.7[facility] NwlfghyORTOABJIBEAL5267-13-44 10:13:37073Yminongm ZsngqrdZTIXUYEIAHII4477-53-89 10:13:004.1[facility] YqtjxgkQNPWOAKVHY3093-05-23 10:13:003.2[facility] VMIAYUEKHR8338-91-25 10:13:000.9[facility] FzzjkczPAVVFJLCSP0039-12-23 10:13:002.8 [facility] OhzqdwdBUBABLUQQI6483-04-79 10:13:000.3[facility]annHEMATOLOGY 2017-08-07 10:13:0060.6[facility] IaogrhpZBDRRRULUU4193-80-07 10:13:0027.2[facility] VfswzjuPQGXXEIMKM1236-76-48 10:13:008.7[facility] LxxtfapQMRFHJXQJV6135-68-01 10:13:006.2[facility] TpnclgdOWYUCBKDQZ1771-88-42 10:13:000.3[facility] ECIRNPNXGX3282-60-92 10:13:0027.7[facility] DcvzjuhAYMBCMSMJI1466-67-49 10:13:00 82.9[facility] JyffvaeHHUPOTRHQZ2749-52-96 10:13:00 Test Item Value Reference Range Interpretation Comments MCH (test code = MCH) 27.5 pg 27.0-31.0 [facility] IwxonzoYPQYSFPLQE4989-38-63 10:13:0033.1[facility]annHEMATOLOGY 2017-08-07 10:13:0015.7[facility] YhldnfcXNADAXCARH0294-16-75 10:13:87202Itexbwnp VkerhtlBIOAIPYDFP4661-49-91 10:13:003.34[facility] AwatjhbLCBAEVUVJR4200-00-43 10:13:009.2[facility] ComarjyWXGKLXTPJK6634-88-31 10:13:009.7[facility] DXCSZLHPKT4376-38-47 10:13:008.0[facility] NzmshmhWYGCZAHDCZ0918-59-66 10:13:00 61.1[facility] YczzbksBUHRBQDAGR8359-50-52 10:13:002.7[facility]annHEMATOLOGY 2017-08-07 10:13:000.7[facility] KaoihtpFLGKXLBXYA4728-08-42 10:13:000.3[facility] ZqgcbsaAKUZMXHICI1388-60-92 10:13:003.6[facility] CzumgzkHOEFKCJONX6208-07-23 10:13:000.4[facility] XrzvmjmPQTEAIVWNL7793-12-98 10:13:006.0[facility] PRKRRHJPXU6407-77-90 10:13:0027.3[facility] QgvmtkdRHDOIYJTGB3819-42-01 10:13:00 7.6[facility] NjfcdiaMTLKWKYAON9309-08-32 10:13:0015.9[facility]annHEMATOLOGY 2017-08-07 10:13:71739Nhofqdut EitutnjGIZWCGHQVA8479-94-81 10:13:008.0[facility] IebxrvbYSKKJHBECK3257-84-45 10:13:0084.8[facility] ZcoxmxjYHXCTMEEPF5184-84-83 10:13:00 Test Item Value Reference Range Interpretation Comments MCH (test code = MCH) 27.8 pg 27.0-31.0 [facility] VqwueepHSWKRKSANZ7388-25-78 10:13:0032.8[facility]annHEMATOLOGY 2017-08-07 10:13:009.0[facility] TafglwaMTGIDJTWXW2092-44-81 10:13:0027.3[facility] RhcthaaUPEJAFLYFG1965-98-09 10:13:003.22[facility] CljyvjvTFVYOMNNMP1351-16-17 10:13:0010.1[facility] QGGWAWW9518-37-10 19:43:00Negative (08/06/17 2:43 PM)[facility] RBQWSQC7743-50-67 17:46:00Product available (08/06/17 12:46 PM)[facility]annCHEM MCVTK6145-54-35 14:55:78468 [facility]annCHEM EPCOR1867-46-54 14:55:000.56[facility]annCHEM PANEL 2017-08-06 14:55:0011[facility]annCHEM DPTMQ7812-95-79 14:55:003.9[facility]annCHEM TWXXW1078-57-03 14:55:0025[facility]annCHEM UMCNT2749-44-69 14:55:008.3[facility] HermannCHEM UURFC7226-11-44 14:55:31421Xtkppxus HermannCHEM FYORF6689-83-14 14:55:36276Bdrymykv HermannCHEM FNOLN1176-25-03 14:55:0013.9 [facility]annCHE[facility] KFJHT9769-52-08 14:55:87247Aomgibcn HermannHEMATOLOGY 2017-08-06 14:55:55660Xwmjajfp CodgzvmOTKCTGPPLD5998-29-19 14:55:007.8[facility] AwhbmpgXBGNLGEMDZ4900-11-14 14:55:009.0[facility] FhwjxogZERXJLWNEJ2032-44-65 14:55:002.64[facility] DpynvvlJVOGITAGSY0910-36-53 14:55:00 Test Item Value Reference Range Interpretation Comments MCH (test code = MCH) 27.1 pg 27.0-31.0 [facility] CfuyqilKUZDPUJUEE9923-64-43 14:55:0016.3[facility]annHEMATOLOGY 2017-08-06 14:55:0032.2[facility] XqclchiPVFHAFGLLR3506-03-56 14:55:007.2[facility] TazlgjzLRJDNVENMI3103-35-98 14:55:0022.2[facility] HxaemhgHLVZYWPNHR9188-13-69 14:55:0084.0[facility] TmtmrpkZNGHERSYJD8765-69-96 14:55:000.7[facility] LFKVFZKHQG7958-70-93 14:55:000.3[facility] CddiegdCKOFAKFIPD1705-95-22 14:55:008.1 [facility] JrbbrliQVAFXCVAXC5161-89-14 14:55:003.5[facility]annHEMATOLOGY 2017-08-06 14:55:002.3[facility] VnskhmpXUVWVHWRVH1115-06-68 14:55:000.5[facility] DajgtptWZRUPDYEPN8895-72-31 14:55:005.6[facility] PsirixqBFTVSFDJWK0671-59-92 14:55:0062.6[facility] NomghtrYJGDJEJVDL5339-24-54 14:55:0025.3[facility] CHEM PTGJX1049-69-01 20:11:50944Loebciwm HermannCHEM CEUUP2197-15-91 20:11:004.0 [facility]annCHEM FCDIR3020-12-83 20:11:008.1[facility] HermannCHEM PANEL 2017-08-04 20:11:0027[facility] HermannCHEM DKXQQ1446-19-85 20:11:0013.0[facility] HermannCHEM GXGSN8743-54-39 20:11:79300Wghogdnw HermannCHEM QWHKM1676-06-34 20:11:65560Fixbrbee HermannCHEM LEVOL6904-01-58 20:11:000.80[facility]annCHEM QHKKF9162-95-92 20:11:0014[facility] HermannCHEM RKFJR2587-11-65 20:11:97103 [facility]annCHEM YMLMC6563-16-22 10:24:002.4[facility] HermannCHEM PANEL 2017-08-03 10:24:004.6[facility] UnkmgbsWBHMRDQAXK1664-27-03 10:24:00 Test Item Value Reference Range Interpretation Comments PTT (test code = PTT) 28.0 s 22.9-35.8 [facility]rdheepMXPHKPZNZK7740-12-09 10:24:00 Test Item Value Reference Range Interpretation Comments PT (test code = PT) 13.0 s 12.0-14.7 [facility] HospitalSzjkntiRSUUSAJXPZ1610-52-57 10:24:00 Test Item Value Reference Range Interpretation Comments INR (test code = INR) 0.98 1 0.85-1.17 [facility] HospitalTlxnjqiFWBRCAUEBV8293-35-60 10:24:000.1[facility] HermannPARATHYROID KTYREKM7087-51-12 10:24:001.12[facility] HermannPARATHYROID WTVFILG0107-27-45 10:24:001.15[facility]annBL[facility] BBQRFBL8606-36-62 16:52:00Negative (08/02/17 11:52 AM)[facility] LXUXOVR3005-15-48 15:03:00Product available (08/02/17 10:03 AM)[facility] ANGNTGQ8054-54-37 14:07:00Product available (08/02/17 9:07 AM)[facility]annCHEM PMGXK6081-26-19 06:25:001.8[facility] HermannDRUG KVNNMT3940-94-44 12:00:00Negative *NA*(07/29/17 6:00 AM)[facility]annDR[facility] ADKGKR2335-50-93 12:00:00See Note (07/29/17 6:00 AM) [facility] BOGQMM1334-87-49 12:00:00Positive *ABN*(07/29/17 6:00 AM) [facility] PBJVRZ4489-47-78 12:00:00Negative *NA*(07/29/17 6:00 AM) [facility] EZFEPQ0617-38-19 12:00:00Negative *NA*(07/29/17 6:00 AM) [facility] XVGYCG6670-18-07 12:00:00Negative *NA*(07/29/17 6:00 AM) [facility] MVCSIV0826-14-22 12:00:00Negative *NA*(07/29/17 6:00 AM) [facility] YKJUFU4438-59-32 12:00:00Negative *NA*(07/29/17 6:00 AM) [facility] ASXDI0373-37-12 12:00:00>=1.050 *ABN*(07/29/17 6:00 AM)[facility] VVJTL1519-17-52 12:00:00Negative (07/29/17 6:00 AM) [facility] UMAVV7409-98-92 12:00:0011[facility] XDMEH6310-33-74 12:00:00Moderate *ABN*(07/29/17 6:00 AM)[facility] NSUTQ8985-28-02 12:00:00Negative (07/29/17 6:00 AM)[facility] STOOL 2017-07-29 12:00:00Negative *NA*(07/29/17 6:00 AM)[facility] STOOL 2017-07-29 12:00:00 Test Item Value Reference Range Interpretation Comments UA pH (test code = UA pH) 6.5 1 5.0-8.0 [facility] OITUA9317-55-28 12:00:00Yellow *NA*(07/29/17 6:00 AM) [facility] KUIUE0259-70-65 12:00:00Clear (07/29/17 6:00 AM)[facility] SbpttvkUUMXOPYXQT7896-93-39 05:40:00Negative *NA*(07/28/17 11:40 PM)[facility] AOZVPZF6794-35-58 02:57:00Negative (07/28/17 8:57 PM)[facility]annCHE[facility] JBXQA1669-00-57 02:30:002.0[facility] Cam[facility]illoPervtjtNVXFCMMIMHWVG3863-59-91 02:30:00Negative *NA*(07/28/17 8:30 PM)[facility] LuawhakTXKPBZBSMK4492-61-08 02:30:00 Test Item Value Reference Range Interpretation Comments K-time Rapid (test code = K-time 0.8 min 0.6-2.3 Rapid) [facility] FmmuowbSRSEYWLIIO3848-96-36 02:30:00 Test Item Value Reference Range Interpretation Comments Angle Rapid (test code = Angle 79 degrees 64-80 Rapid) [facility] TbuhspnXOWQWLAOKV4584-44-20 02:30:00 Test Item Value Reference Range Interpretation Comments R-time Rapid (test code = R-time 0.5 min 0.4-0.7 Rapid) [facility] UizwnosNEPJNAXRIM4381-80-27 02:30:00 Test Item Value Reference Range Interpretation Comments Split Point Rapid (test code = Split 0.4 min Point Rapid) [facility] KnkmmisNEPWYQDKFR1709-06-04 02:30:0015.0[facility]annHEMATOLOGY 2017-07-29 02:30:00 Test Item Value Reference Range Interpretation Comments Max Amplitude Rapid (test code = Max 75 mm 52-71 Amplitude Rapid) [facility] MnxgfeqXUXYITCVCH0210-09-42 02:30:00 Test Item Value Reference Range Interpretation Comments ACT (TEG) Rapid (test code = ACT (TEG) 97 s 86-118 Rapid) [facility] LyeausrSKVPNRZPRG8284-79-98 02:30:002.2[facility]annHEMATOLOGY 2017-07-29 02:30:000.1[facility] NmohzfmPINYTQDKVC9330-52-37 02:30:00<3[facility] JlmqbudSIXYRABGRY6853-30-78 02:30:00<0.003[facility]
[2019-11-08 00:24] LABS: Basophils % 0.6 % (0-1.3); Hematocrit 40.5 % (36.0-45.0); Lymphocytes % 29.8 % (15.3-44.8); MPV 9.2 fL (7.6-11.3); RBC Red Blood Cell Count 4.91 M/uL (3.86-4.86)
[2019-11-08 00:26] LABS: BUN Blood Urea Nitrogen 9 mg/dL (7-18); Bicarbonate 29 mmol/L (21-32); Glucose Level 92 mg/dL (74-106); Potassium 3.6 mmol/L (3.5-5.1); Sodium Level 141 mmol/L (136-145)
[2019-11-08 00:27] LABS: Urine Blood 2+ (NEG); Urine Glucose NEGATIVE (NEG); Urine Protein NEGATIVE (NEG); Urine Specific Gravity >1.030 (1.005-1.030); Urine pH 5.5 (5.0-7.0)
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
[2019-11-08 01:50] VITALS: BP 123/83; TEMP 98.5; O2SAT 95
--- NOTE | 2019-11-08 07:54 | RAD REPORT ---
EXAM DESCRIPTION: US - Transvaginal OB - 11/08/2019 6:41 am CLINICAL HISTORY: BLEEDING, COMPARISON: No comparisons FINDINGS: Normal shaped gestational sac identified. Yolk sac and pole are seen. Heart rate is 121 BPM. [place]-rump length corresponds to a 6 week 2 day IUP. Calculated ISAAK is 07/01/2020. Minimal i ntrauterine hemorrhage not considered clinically significant. Both ovaries are identified and normal. No adnexal abnormality. No blood or fluid in the cul de sac. IMPRESSION: Single 6 week 2 day IUP with heart rate 121 BPM.
== END 2019-11-08 01:44 | disposition home or self-care (01) ==
LOC: ER 23:29
DX: O20.0 Threatened abortion (principal); Z3A.01 Less than 8 weeks gestation of pregnancy; Z88.0 Allergy status to penicillin; Z88.5 Allergy status to narcotic agent; Z91.040 Latex allergy status
CPT/HCPCS: 36415; 76817; 80048; 81003; 81025; 85025; 86900; 86901; 99284

== ENCOUNTER 2020-05-14 23:18 | Emergency (ER) | payer OTHER ==
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
--- OUTSIDE RECORDS SUMMARY | 2020-05-14 23:24 | XMS REPORT | Summary of Care ---
:1995 Author Organization [facility] Address [address] [place] [address] Care Team Providers Name Role Phone Mariannealbert Myra R Medicaid Hmo Raghav Mandujano [facility] Primary Care Provider Roz Donaldson Insurance Hmo Reason for Visit Reason Comments CONTROL Encounter Details Date Type Department Care Team Description 03/22/2020 Office Visit [facility]- Debbie Coley Enc ounter for initial prescription of contraceptive pills (Primary Dx); [facility] Irregular menstrual cycle; [address] Screen for STD (sexually transmitted dis ease) [place], [place] [phone] Allergies Active Allergy Reactions Severity Noted Date Comments Latex Other - See comments 08/31/2014 Rai s kin with results of redness and nilesh n. documented as of this encounter (statuses as of 03/22/2020) Medications Medication Sig Dispensed Refills Start Date End Date Status levETIRAcetam (KEPPRA) Take 1,000 mg 0 Active 1,000 mg tablet by mouth 2 (two) times daily. medroxyPROGESTERone Take 1 tablet 10 tablet 0 03/22/202004/01 Active (PROVERA) 10 mg by mouth daily tabletIndications: for 10 days. Irregular menstrual cycle norethindrone-e.estradioL Starting on 2 Package 0 03/22/2020 Active -iron (MICROGESTIN FE) first day of 1.5 mg-30 mcg (21)/75 mg next menses, (7) per take 1 tablet tabletIndications: by mouth daily Encounter for initial prescription of contraceptive pills documented as of this encounter (statuses as of 03/22/2020) Active Problems Problem Noted Date Well woman exam 03/07/2019 Other general counseling and advice for contraceptive management 03/07/2019 History of seizure 03/07/2019 Overview: On kera, bianca last appointment was 10/2018 BMI 37.0-37.9, adult 03/07/2019 Right hip pain 09/03/2014 Convulsions 02/15/2014 Overview: Last one unknown. 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 documented as of this encounter Last Filed Vital Signs Vital Sign Reading Time Taken Comments Blood Pressure 126/74 03/22/2020 1:46 PM CDT Pulse 82 03/22/2020 1:46 PM CDT Temperature 37.1 C (98.7 F) 03/22/2020 1:46 PM CDT Respiratory Rate 16 03/22/2020 1:46 PM CDT Oxygen Saturation - - Inhaled Oxygen Concentration - - Weight 97.9 kg (215 lb 14.4 oz) 03/22/2020 1:46 PM CDT Height 160 cm (5' 3") 03/22/2020 1:46 PM CDT Body Mass Index 38.24 03/22/2020 1:46 PM CDT documented in this encounter Progress Notes Debbie Coley FNP - 03/22/2020 1:30 PM CDT Chief complaint: Chief Complaint Patient presents with CONTROL HPI Temo Harris is a 24 year old here for initiation of OCPs for menses regulation. Plan provera challenge and start OCPs with 1st day of withdrawal bleed. Pt denies sexual activity in the last2 weeks. LMP in December 2019. UPT negative today. Histories OB History Para Term AB Living [...] 04/2016 Under medical supervision-Neurologist Dr. Medley in [facility] Family History Problem Relation Age of [...] file Gets together: Not on file Attends confucianism service: Not on file Active member of [...] Condom Comment: last sexual intercourse 03/06/2019 Labs I have reviewed the patient's labs. and Labs are pending. Radiology No new radiology. Allergies Temo is allergic to latex. Medications Temo has a current medication list which includes the following prescription(s): medroxyprogesterone, norethindrone-e.estradiol-iron, and levetiracetam. Review of Systems Constitutional: Negative. Respiratory: Negative. Breasts: Negative. Cardiovascular: Negative. Gastrointestinal: Negative. Genitourinary: Negative. Musculoskeletal: Negative. Skin: Negative. Neurological: Negative. Psychiatric/Behavioral: Negative. BP 126/74 (BP Location: Right arm, Patient Position: Sitting, BP CUFF SIZE: Adult Medium) | Pulse 82 | Temp 37.1 C (98.7 F) (Oral) | Resp 16 | Ht 5' 3" (1.6 m) | Wt 215 lb 14.4 oz (97.9 kg) |LMP 12/24/2019 (Approximate) | BMI 38.24 kg/m Pregravid BMI: Could not be calculated Physical Exam Vitals reviewed. Constitutional: She is oriented to person, place, and time. She appears well- developed and well-nourished. Her body habitus is obese. Cardiovascular: Regular rate and rhythm. No murmur auscultated. Pulmonary/Chest: Breath sounds clear to auscultation. Normal inspiratory effort. Neuro/Psychiatric: She has a normal mood and affect. She is oriented to person, place, and time. Assessment/Plan 1. Encounter for initial prescription of contraceptive pills Preg test neg today. Will start OCPs with menses following provera. Pt denies smoking, personal or family history of blood clotting. Condoms x2 weeks. R/B/A discussed. - POCT TEST - norethindrone-e.estradioL-iron (MICROGESTIN FE) 1.5 mg-30 mcg (21)/75 mg (7) per tablet; Starting on first day of next menses, take 1 tablet by mouth daily Dispense: 2 Package; Refill: 0 2. Irregular menstrual cycle - medroxyPROGESTERone (PROVERA) 10 mg tablet; Take 1 tablet by mouth daily for 10 days. Dispense: 10 tablet; Refill: 0 3. Screen for STD (sexually transmitted disease) Reviewed safe sex practices - HIV 1/2 AG-AB WITH REFLEX - GALV ONLY - SYPHILIS IGG/IGM Return to clinic in 12 weeks. Discussed treatment options. Medications as ordered. Reviewed patient instructions and provided printed copy. This visit did not involve counseling and coordination that comprised more than 50% of the visit time. documented in this encounter Plan of Treatment Date Type Specialty Care Team Description 06/07/2020 Office Visit [facility] Debbie Coley FNP [address] [address] Name Type Priority Associated Diagnoses Order S chedule HIV 1/2 AG-AB WITH LAB Routine Screen for STD (sexual ly Ordered: 03/22/2020 REFLEX transmitted disease) GALV ONLY - SYPHILIS LAB Routine Screen for STD (sexu ally Ordered: 03/22/2020 IGG/IGM transmitted disease) Health Maintenance Due Date Last Done Comments HPV VACCINES (1 - 2-dose 03/23/2020 Postpon ed from series) 10/04/2007 (Alternative Guidelines) CHLAMYDIA SCREENING 03/08/2021 03/08/2020, 03/08/2020, 03/07/2019, Additional history exists DTaP,Tdap,and Td Vaccines [...] Name Priority Date/Time Associated Diagnosis Comme nts POCT Routine 03/22/2020 1:51 Encounter for initial Results for this TEST PM CDT prescription of procedure ar e in contraceptive pills the resu lts section. documented in this encounter Results POCT TEST (03/22/2020 1:51 PM CDT) Pathologist Sig nature POCT PREG Negative [facility] On board controls acceptable Yes [facility] [place] ON with C Line POCT PREG LOT # [id number] POCT PREG TEST DATE [facility] Specimen Urine - URINE, CLEAN CATCH Performing Organization Address City/State/Zipcode Phone Number TERRANCECHMadhavi FORBES CLIA: [id number] [place] [address] [id number] [facility] documented in this encounter Visit Diagnoses Diagnosis Encounter for initial prescription of co ntraceptive pills - Primary General counseling for prescription of o ral contraceptives Irregular menstrual cycle Screen for STD (sexually transmitted dis ease) Screening examination for venereal disea se documented in this encounter Insurance Payer Benefit Plan / Subscriber ID Effective Phone Address [facility] [id number] 2020-Pres [address] Medic aid HEALTH CHOICE - HEALTH CHOICE ent [id number] MANAGED MEDICAID [place], [place] MEDICAID [phone] documented as of this encounter Advance Directives Type Date Recorded Patient Communication Clerk Explanati on Advance Directives and Living Will Power of Health Information Management Director
--- OUTSIDE RECORDS SUMMARY | 2020-05-14 23:24 | XMS REPORT | Summary of Care ---
:1996 Author Organization [facility] Address [address] [place] [address] Care Team Providers Name Role Phone Mariannealbert Myra R Medicaid Hmo Raghav Mandujano [facility] Primary Care Provider Roz Donaldson Insurance Hmo Reason for Visit Reason Comments CONTROL Well Woman Exam Encounter Details Date Type Department Care Team Description 03/08/[address] [facility] l woman exam (Primary Dx); [facility] Screen for STD (sexually transmitted dis ease); [address] Encounter for other general counseling o r advice on contraception; Gordon Aguilar BMI 37.0-37.9, adult; [place], [place] [address] Need for influenza vaccination; [id number] Irregular menstrual cycle [phone] Allergies Active Allergy Reactions Severity Noted Date [...] 03/07/2019 History of seizure 03/07/2019 [facility] last appointment was 10/2018 BMI 37.0-37.9, adult 03/07/2019 Right hip pain 09/03/2014 Convulsions 02/15/2014 Overview: Last one unknown. 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 Pt reports an OB at [facility] recommend she get on OCPs for 2 [...] 04/2016 Under medical supervision-Neurologist Dr. Medley in [facility] Family History Problem Relation Age of [...] file Gets together: Not on file Attends scientology service: Not on file Active member of [...] and mental health on future pregnancies and/or keno terminal operator health. 2. Screen for STD (sexually transmitted [...] vaccination Administered today. VSS provided. - FLU VACC([id number]), 6+ MONTHS, IM, QUAD (FLUZONE/FLULAVAL/FLUARIX) 6. Irregular [...] BCM: OCPs 3) LMP: 01/02/2020 4) Last [place]: 03/07/2020 5) Last Pap:03/07/2019 Results:negative 6) Tdap in last 10 years?10/04/2003 HPV?unknown 7) C/O none 8) Patient denies history of physical, emotional, or sexual abuse. Patient states she currently feels safe at home. documented in this encounter Plan of Treatment Date Type Specialty Care Team Description 03/22/2020 Office Visit [facility] Debbie Coley FNP [address] [address] [phone] Name Type Priority Associated Diagnoses Date/Ti me [...] VACC Routine 03/08/2020 4:31 Need for influenza ([id number]), 6+ PM CDT vaccination MONTHS, IM, QUAD [...] Plan / Subscriber ID Effective Phone Address [facility] [id number] 2020-Pres [address] Medic aid HEALTH CHOICE - HEALTH CHOICE ent [id number] MANAGED MEDICAID [place], [place]ID [phone] documented as of this encounter Advance Directives Type Date Recorded Patient Soda Drier Feeder Explanati on Advance Directives and Living Will Power of Software Writer
--- OUTSIDE RECORDS SUMMARY | 2020-05-14 23:24 | XMS REPORT | Summary of Care ---
:1995 Author Organization [facility] - Health Address [address] [place] [address] Care Team Providers Name Role Phone MarianneosLaurendharmesh Solorzano Medicaid Hmo Raghav Mandujano [facility] Primary Care Provider Roz Donaldson Insurance Hmo Encounter Details Date Type Department Care Team Description 03/08/2020 Orders Only [facility] Doctor Unassigned, No [address] [facility] [place] [address] [place] [id number] Allergies Active Allergy Reactions Severity Noted Date [...] unknown. 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 Dynamics Ax Consultant Utility Dysmenorrhea 02/15/2014 Menorrhagia 02/15/2014 documented as of this encounter (statuses as of 03/08/2020) Immunizations Name Administration Dates Next Due TDAP 10/04/2003 documented as of this encounter Social History Tobacco Use Types Packs/Day Years Used Date Never Smoker Smokeless Tobacco: Never Used Alcohol Use Drinks/Week oz/Week Comments No Sex Assigned at Date Recorded Not on file documented as of this encounter Last Filed Vital Signs Not on filedocumented in this encounter Plan of Treatment Health Maintenance Due Date Last Done Comments VARICELLA VACCINES (1 of 2 1997 - 2-dose childhood series) MENINGOCOCCAL B VACCINES (1 2006 of 2 - Risk Bexsero 2-dose series) DTaP,Tdap,and Td Vaccines 10/04/2007 10/04/2003 (2 - Tdap) Depression Screening 2008 INFLUENZA VACCINE (#1) 2020 CHLAMYDIA SCREENING 03/07/2020 03/07/2019, 03/07/2019, 02/15/2014, Additional history exists HPV VACCINES (1 - 2-dose 03/23/2020 Postpon ed from series) 10/04/2007 ([place] Guidelines) PAP SMEAR 03/07/2022 03/07/2019 PNEUMOCOCCAL 0-64 YEARS Aged Out No longe r eligible COMBINED SERIES based on patient 's age to complete this topic documented as of this encounter Procedures Procedure Name Priority Date/Time Associated Diagnosis Comme nts ASSIGNMENT OF BENEFITS Routine 03/08/2020 4:09 PM CDT documented in this encounter Results Not on filedocumented in this encounter Insurance Payer Benefit Plan / Subscriber ID Effective Phone Address T e Group Dates [facility] [id number] 2020-Pres [address] BOX Medic aid HEALTH CHOICE - HEALTH CHOICE ent [id number] 1 MANAGED MEDICAID [place], [place] [phone] documented as of this encounter Advance Directives Type Date Recorded Patient Commissary Manager Explanati on Advance Directives and Living Will Power of Teacher Music
--- OUTSIDE RECORDS SUMMARY | 2020-05-14 23:24 | XMS REPORT | Summary of Care ---
:1995 Author Name Brittany, Nahomi Address Unavailable Unavailable , Care Team Providers Name Role Phone RASHAD DANIELS APRN Unavailable Unavailable SUNI Hoffman, ANGELES Unavailable Unavailable DEANA Hoffman, SAMMY Unavailable Unavailable Nahomi Soto Unavailable Unavailable DEANA YOUNGER [place], SAMMY VEE Unavailable Unavailable SUNI YOUNGER [place], ANGELES Espino Unavailable Unavailable Unavailable Unavailable Unavailable Functional Status Name Dates Details Functional status health issues are not documented Status: Name Dates Details Cognitive status health issues are not documented Status: Problems Name Dates Details Displaced supracondylar fracture with in tracondylar extension of lower end of left femur, initial encounter for open fracture type IIIA, IIIB, or IIIC (821.33, S72.462C) Status: Active Foot pain (729.5, M79.673) Status: Activ e Loose body of left knee (717.6, M23.42) Status: Active Medications Name Dates Details Acetaminophen-Codeine #3 300-30 MG Oral Tablet TAKE 1 TO 2 TABLETS EVERY 6 HOURS NEE DED FOR PAIN. Quantity: 40 Refills: 0 RASHAD DANILES APRN Start : 13-Aug-2017 Active Gabapentin 300 MG Oral Capsule TAKE 1 CAPSULE 3 TIMES DAILY. Quantity: 90 Refills: 0 RASHAD DANIELS APRN Start : 13-Aug-2017 Active Ibuprofen 800 MG Oral Tablet TAKE 1 TABLET 3 TIMES DAILY WITH FOOD NEEDED. Quantity: 60 Refills: 0 SAMMY LEBLANC M.D. Start : 15-Oct-2017 Active Meloxicam 7.5 MG Oral Tablet TAKE 1 TABLET BY MOUTH EVERY DAY Quantity: 30 Refills: 3 ANGELES CULP M.D. Start : 29-Feb-2020 Active Voltaren 1 % Transdermal Gel APPLY TO UPPER EXTREMITIES, 2 GM OF GEL TO AFFECTED AREA 4 TIMES DAILY. DO NOT APPLY MORE THAN 8 GMDAILY TO ANY ONE AFFECTED JOINT. Quantity: 1 Refills: 3 ANGELES CULP M.D. Start : 29-Feb-2020 Active 50 GM Tube Allergies and Adverse Reactions Name Dates Details Allergy history not documented Status: Procedures Procedure Dates Details [U] XRAY FEMUR 2 VWS LEFT [id number] Date: 28-Feb-2020 [U] XRAY KNEE 4 OR MORE VWS LEFT [id number] Date: 29-Feb-2020 CT Knee without contrast [id number] Date: 29-Feb-2020 Immunization Name Dates Details Immunizations not documented Social History Name Dates Details Tobacco smoking consumption unknown (finding) Vital Signs Date Test Result Details No Known Vitals to report Results Date Description Value Details Results not documented Plan of Care Name Dates Details Planned Observations Planned Goals not documented Interventions Provided Labs/Procedures/ImagingCT Knee without contrast [id number]; To Be Done: 29 Feb 2020 Instructions Name Dates Details Instructions not documented Encounters Appointment; SAMMY LEBLANC M.D. On: 25-Mar-2018 12:4 5 Encounter Diagnosis: Problem not documented Appointment; SAMMY LEBLANC M.D. On: 07-Oct-2018 12: 15 Encounter Diagnosis: Problem not documented Appointment; SAMMY LEBLANC M.D. On: 12-May-2019 9:3 0 Encounter Diagnosis: Problem not documented Appointment; ANGELES CULP M.D. On: 29-Feb-2020 9:30 Encounter Diagnosis: Problem not documented
--- OUTSIDE RECORDS SUMMARY | 2020-05-14 23:24 | XMS REPORT | Summary of Care ---
:1996 Author Organization [facility] - [facility] Address [address] [place] [address] Care Team Providers Name Role Phone Mariannealbert Myra R Medicaid Hmo Raghav Mandujano [facility] Primary Care Provider Roz Donaldson Insurance Hmo Reason for Referral MRI/CAT Scan (STAT) Status Reason Specialty Diagnoses / Referred By Referred To Procedures Contact Contact New Request Diagnostic Diagnoses Severe low back pain [place], Radiology Procedures CT LUMBAR SPINE WO CONTRAST Folusho F, CARDIOTHORACIC ANESTHESIA TECHNICIAN [address] [facility] [address] [place] [phone] Reason for Visit Reason Comments LOW BACK PAIN Auth/Cert Status Reason Specialty Diagnoses / Referred By Referred To Procedures Contact Contact Emergency Medicine [facility] Em ergency Dept [address] [place] [address] Fax: Encounter Details Date Type Department Care Team Description 04/08/2020 Emergency ADC-Emergency IbkarenunKang sandhuo Severe lo w back pain Department F, CARDIOTHORACIC ANESTHESIA TECHNICIAN (Primary Dx) [address] [place] [address] [address] [place] [address] [phone] Allergies Active Allergy Reactions Severity Noted Date Comments Latex Other - See comments 08/31/2014 Rai s kin with results of redness and nilesh n. documented as of this encounter (statuses as of 04/08/2020) Medications Medication Sig Dispensed Refills Start Date End Date Status levETIRAcetam (KEPPRA) Take 1,000 mg by 0 Active 1,000 mg tablet mouth 2 (two) times daily. norethindrone-e.estradio START ON FIRST 84 tablet 0 03/22/2020 Active L-iron (MICROGESTIN FE) DAY OF NEXT 1.5 mg-30 mcg (21)/75 mg MENSES, TAKE 1 (7) per TABLET BY MOUTH tabletIndications: DAILY. Encounter for initial prescription of contraceptive pills methocarbamoL 500 mg Take 2 tablets 32 tablet 0 04/07/2020 Active tabletIndications: by mouth 4 0 Sacroiliitis (four) times daily for 4 days. naproxen 375 mg Take 1 tablet by 12 tablet 0 04/07/2020 Active tabletIndications: mouth 3 (three) 0 Sacroiliitis times daily with meals for 4 days. methylPREDNISolone 4 mg Take by mouth 21 Each 0 04/07/2020 Active tabletsIndications: SEE-INSTRUCTIONS Sacroiliitis . follow package directions pregabalin (LYRICA) 25 Take 1 capsule 8 capsule 0 04/07/2020 Active mg capsuleIndications: by mouth 2 (two) Sacroiliitis times daily as needed for Pain (scale 7-10). documented as of this encounter (statuses as of 04/08/2020) Active Problems Problem Noted Date Well woman exam 03/07/2019 Other general counseling and advice for contraceptive management 03/07/2019 History of seizure 03/07/2019 Overview: On keppra, reports last appointment was 10/2018 BMI 37.0-37.9, adult 03/07/2019 Right hip pain 09/03/2014 Convulsions 02/15/2014 Overview: Last one unknown. 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 documented as of this encounter Last Filed Vital Signs Vital Sign Reading Time Taken Comments Blood Pressure 115/75 04/08/2020 6:55 PM TELEGRAPH REPEATER INSTALLER Pulse 70 04/08/2020 6:55 PM TELEGRAPH REPEATER INSTALLER Temperature 36.5 C (97.7 F) 04/08/2020 3:58 PM TELEGRAPH REPEATER INSTALLER Respiratory Rate 20 04/08/2020 6:00 PM TELEGRAPH REPEATER INSTALLER Oxygen Saturation 98% 04/08/2020 6:55 PM TELEGRAPH REPEATER INSTALLER Inhaled Oxygen Concentration - - Weight 95.3 kg (210 lb) 04/08/2020 3:58 PM TELEGRAPH REPEATER INSTALLER Height - - Body Mass Index 37.2 03/22/2020 1:46 PM CDT documented in this encounter Discharge Instructions Gracie Jason FNP - 04/08/2020 You were seen today for Chief Complaint Patient presents with LOW BACK PAIN Your ER diagnosis was ICD-10-CM ICD-9-CM 1. Severe low back pain M54.5 724.2 NO LIFE-THREATENING FINDINGS ON TODAY'S EXAM. YOUR PRESCRIPTIONS : Medication List ASK your doctor about these medications Keppra 1,000 mg tablet Generic drug: levETIRAcetam methocarbamoL 500 mg tablet Commonly known as: ROBAXIN Take 2 tablets by mouth 4 (four) times daily for 4 days. methylPREDNISolone 4 mg tablets Commonly known as: MEDROL DOSE-MICHAEL Take by mouth SEE-INSTRUCTIONS. follow package directions naproxen 375 mg tablet Commonly known as: NAPROSYN Take 1 tablet by mouth 3 (three) times daily with meals for 4 days. norethindrone-e.estradioL-iron 1.5 mg-30 mcg (21)/75 mg (7) per tablet Commonly known as: Microgestin Fe START ON FIRST DAY OF NEXT MENSES, TAKE 1 TABLET BY MOUTH DAILY. pregabalin 25 mg capsule Commonly known as: Lyrica Take 1 capsule by mouth 2 (two) times daily as needed for Pain (scale 7-10). ER precautions and follow up : 1. Return to ER if your symptoms should worsen or fail to improve within 72 hours. 2. The care provided in the emergency room was for acute problems only. 3. You should follow up with your primary care provider within 72 hours. 4. Fill and take all your medications as prescribed. 5. Make sure you are staying adequately hydrated. Busque attencion immediatamente si usted tiene los sitomas sigue, vuelve peor o si hay sitomas nuevas o para cualquiera preoccupacion incluyendo dolor del pecho, falta aire, se siente debile, mas fievre, mas dolor, nausea, vomitando, sangrando que no es normal, confusion, baja or pierdas conciencia. FOLLOW-UP RECOMMENDATIONS: RECOMMEND FOLLOW-UP WITH A PRIMARY CARE PROVIDER OR SPECIALIST IN 2-5 DAYS, ESPECIALLY IF NO IMPROVEMENT IN SYMPTOMS. MAY FOLLOW-UP WITH A PROVIDER OF YOUR CHOICE, SUCH : 1. A PHYSICIAN OF YOUR CHOICE 2. [facility], . LOCATIONS IN [facility] 3. [facility], [address] [place] [address]; [phone] OR, IF YOU WISH TO FOLLOW-UP WITHIN THE [facility], MAY TRY THESE OPTIONS (CLINIC APPOINTMENTS AVAILABLE ON HQII-MV-CDMG BASIS): 1. SCHEDULE AN APPOINTMENT ONLINE AT WWW.[facility] 2. OR CALL THE [facility] ACCESS CENTER AT OR 3. OR CALL YOUR [facility] PHYSICIAN'S OFFICE DIRECTLY IF YOU ARE ALREADY AN ESTABLISHED [facility] PATIENT. documented in this encounter ED Notes Tea Vicente RN - 04/08/2020 3:57 PM CSTPt reports that she has lower back pain for one week. Pt was seen on Thursday. Pt reports that she wassent home with medication steroids, methylprednisolone, naproxen with no relief. GRAPH REPEATER INSTALLER documented in this encounter Miscellaneous Notes ED Nurse Note - Zunilda Londono RN - 04/08/2020 6:56 PM CSTPt given printed and verbal discharge instructions regarding low back pain, encouraged hydration, Discussed ibuprofen and to take with food to avoid GI distress, alternate with Tylenol to help with pain and/or fever Pt verbalized understanding of instructions,pt encouraged to follow up with pcp Advised to seek medical attention for new/prolonged/worsening of symptoms, No adverse reaction to meds given in ER noted upon discharge Awake, alert oriented, resp reg unlabored, skin w/d, pt leaving in no apparent distress, GRAPH REPEATER INSTALLER documented in this encounter Plan of Treatment Date Type Specialty Care Team Description 06/07/2020 Office Visit OB Satellites Debbie Coley, CARDIOTHORACIC ANESTHESIA TECHNICIAN [address] [place], [place] [address] [phone] Name Type Priority Associated Diagnoses Date/Ti me CT LUMBAR SPINE WO IMAGING STAT Severe low back pain 1 06/08/2019 4:35 PM TELEGRAPH REPEATER INSTALLER CONTRAST URINE CULTURE LAB STAT Severe low back pain 2019 4:24 PM TELEGRAPH REPEATER INSTALLER Name Type Priority Associated Diagnoses Order S chedule URINE CULTURE LAB Routine Severe low back pain ONCE f or 1 Occurrences starting 04/08/2020 unti l 04/08/2020 Health Maintenance Due Date Last Done Comments PNEUMOCOCCAL 0-64 YEARS 2002 COMBINED SERIES (1 of 3 - PCV13) HPV VACCINES (1 - 2-dose 10/04/2007 series) CHLAMYDIA SCREENING 03/08/2021 03/08/2020, 03/08/2020, 03/07/2019, Additional history exists DTaP,Tdap,and Td Vaccines 03/08/2021 10/04/2003 Postpo jayro from (2 - Tdap) 10/04/2015 (Alternative Guidelines) Depression Screening 03/08/2021 03/08/2020 MENINGOCOCCAL B VACCINES (1 03/08/2021 Post poned from of 2 - Risk Bexsero 2-dose 10/03 series) (Alternative Guidelines) PAP SMEAR 03/07/2022 03/07/2019 INFLUENZA VACCINE Completed 03/08/2020 VARICELLA VACCINES Discontinued documented as of this encounter Procedures Procedure Name Priority Date/Time Associated Diagnosis Comme nts CT LUMBAR SPINE WO STAT 04/08/2020 4:35 PM TELEGRAPH REPEATER INSTALLER Severe low back pain CONTRAST Procedure Note - [facility], Radia nt Results Inft User - 04/08/2020 6:08 [address] REPEATER INSTALLER CT LUMBAR SPINE WO CONTRAST HISTORY: L/S-spine stenosis Back pain, < 6wks, no red flags, no prior management COMPARISON: Lumbar spine rad iograph.. TECHNIQUE: Contiguous axial imaging of the lumbar spine was obtained. Coronal and sagittal reforma ts were obtained. FINDINGS: There are 5 lumbar type nonr ib-bearing vertebrae. The lumbar curvature is normal. The vertebral bodies are normal in height and in normal alignment. No facet fracture or subluxa tion is present. The visualized sacrum and pe lvic bones are unremarkable. IMPRESSION Unremarkable CT lumbar spine . Consider workup with MRI L-s pine without contrast to evaluate for stenosis on an outpatient basis. Preliminary Report Dictated by Resident: Son Cummings URINALYSIS STAT 04/08/2020 4:24 PM Severe low back Resul ts for this TELEGRAPH REPEATER INSTALLER pain procedure are i n the results section. NOTICE OF PRIVACY Routine 04/08/2020 3:46 PM PRACTICES TELEGRAPH REPEATER INSTALLER documented in this encounter Results URINALYSIS (04/08/2020 4:24 PM TELEGRAPH REPEATER INSTALLER) APPEARANCE Hazy (A) Clear [facility] COLOR Yellow Yellow [facility] PH 6.0 4.8 - 8.0 [facility] SP GRAVITY 1.024 1.003 - 1.030 [facility] GLU U QUAL Normal Normal [facility] BLOOD NegativeComment: Negative [facility] INTERFERENCE FROM HOSPITAL LABORATORY ASCORBIC ACID MAY CAUSE FALSE NEGATIVE RESULT KETONES Negative Negative [facility] PROTEIN Negative Negative [facility] UROBILIN 2.0 mg/dL (A) Normal [facility] BILIRUBIN Negative Negative [facility] NITRITE Negative Negative [facility] LEUK ALEXIA 25/uL (A) Negative [facility] RBC/HPF 3 0 - 3 HPF [facility] WBC/HPF 3 0 - 5 HPF [facility] BACTERIA Negative Negative [facility] MUCOUS Slight (A) Negative LPF [facility] SQ EPITH 2 HPF [facility] Specimen Urine - URINE, CLEAN CATCH Performing Organization Address City/State/Zipcode Phone Number [facility] CLIA: [id number] [place] [address] documented in this encounter Visit Diagnoses Diagnosis Severe low back pain - Primary Lumbago documented in this encounter Administered Medications Medication Order MAR Action Action Date Dose Rate Site HYDROcodone-acetaminophen Given 04/08/2020 4:21 PM TELEGRAPH REPEATER INSTALLER 1 tablet (NORCO) 10-325 mg tablet 1 tablet 1 tablet, Oral, ONCE, 1 dose, 04/08/20 at 1715, Routine ketorolac (TORADOL) injection Given 04/08/2020 4:20 PM TELEGRAPH REPEATER INSTALLER 60 m g Right Deltoid-IM 60 mg 60 mg, Intramuscular, ONCE, 1 dose, 04/08/20 at 1715, RALPH, light air defense artillery crewmember approving Restricted medication: GRACIE CHAKRABORTY documented in this encounter Insurance Payer Benefit Plan / Subscriber ID Effective Phone Address T [facility] Group Dates [facility] [id number] 2020-Pres [address] Medic aid HEALTH CHOICE - HEALTH CHOICE ent [id number] MANAGED MEDICAID [place], [place] [phone] documented as of this encounter Advance Directives Type Date Recorded Patient Communicable Disease Specialist Explanati on Advance Directives and Living Will Power of Network Mgr
--- OUTSIDE RECORDS SUMMARY | 2020-05-14 23:24 | XMS REPORT | Summary of Care ---
:1996 Author Organization [facility] Address [address] [place] [address] Care Team Providers Name Role Phone Mariannealbert Myra R Medicaid Hmo Raghav Mandujano [facility] Primary Care Provider Roz Donaldson Insurance Hmo Reason for Visit Reason Comments CONTROL Encounter Details Date Type Department Care Team Description 03/22/2020 Office Visit [facility] RMP- Debbie Coley Enc ounter for initial prescription of contraceptive pills (Primary Dx); [facility] Irregular menstrual cycle; [address] Screen for STD (sexually transmitted dis ease) [place], [place] [phone] Allergies Active Allergy Reactions Severity Noted Date [...] unknown. 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 Medley in [facility] Family History Problem Relation Age of Onset [...] file Gets together: Not on file Attends mandaen service: Not on file Active member of [...] Office Visit OB Satellites Debbie Coley FNP [address] [phone] 15 Name Type Priority Associated Diagnoses Order [...] Pathologist Sig nature POCT PREG Negative [facility] [place] On board controls acceptable Yes [facility] [place] ON with C Line POCT PREG LOT # [id number] [place] [facility] Specimen Urine - URINE, CLEAN CATCH Performing Organization Address City/State/Zipcode Phone Number [facility] CLIA: [id number] [place] [address] [address] [facility] documented in this encounter Visit Diagnoses Diagnosis Encounter for initial prescription of co ntraceptive pills - Primary General counseling for prescription of o ral contraceptives Irregular menstrual cycle Screen for STD (sexually transmitted dis ease) Screening examination for venereal disea se documented in this encounter Insurance Payer Benefit Plan / Subscriber ID Effective Phone Address T [facility] [id number] 2020-Pres [address]OX Medic aid HEALTH CHOICE - HEALTH CHOICE ent [id number] 1 MANAGED MEDICAID [place] [phone] documented as of this encounter Advance Directives Type Date Recorded Patient Emulsion Coater Explanati on Advance Directives and Living Will Power of Field Hand
--- OUTSIDE RECORDS SUMMARY | 2020-05-14 23:24 | XMS REPORT | Summary of Care ---
:1995 Author Name Hector Miranda Address Unavailable Unavailable , Care Team Providers Name Role Phone RASHAD DANIELS APRN Unavailable Unavailable Hector Miranda Unavailable Unavailable DEANA Hoffman, SAMMY Unavailable Unavailable DEANA YOUNGER [place], SAMMY VEE Unavailable Unavailable SUNI YOUNGER [place], ANGELES Espino Unavailable Unavailable Unavailable Unavailable Unavailable [...] Foot pain (729.5, M79.673) Status: Activ e Medications Name Dates Details Acetaminophen-Codeine #3 300-30 MG Oral Tablet TAKE 1 TO 2 TABLETS EVERY 6 HOURS NEE DED FOR PAIN. Quantity: 40 Refills: 0 RASHAD DANIELS APRN Start : 13-Aug-2017 Active Gabapentin 300 MG Oral Capsule TAKE 1 CAPSULE 3 TIMES DAILY. Quantity: 90 Refills: 0 JEREMIAH JOSHUAN, RASHAD Start : 13-Aug-2017 Active Ibuprofen 800 MG Oral Tablet TAKE 1 TABLET 3 TIMES DAILY WITH FOOD NEEDED. Quantity: 60 Refills: 0 SAMMY LEBLANC M.D. Start : 15-Oct-2017 Active Allergies and Adverse Reactions Name Dates Details Allergy history not documented Status: Procedures Procedure Dates Details [U] XRAY FEMUR 2 VWS LEFT [id number] Date: 28-Feb-2020 Immunization Name Dates Details Immunizations not documented Social History Name Dates Details Tobacco smoking consumption unknown (finding) Vital Signs Date Test Result Details No Known Vitals to report Results Date Description Value Details Results not documented Plan of Care Name Dates Details Planned Observations [U] XRAY FEMUR 2 VWS LEFT [id number] On: 29-Feb-2020 Intent Planned Goals not documented Planned Encounters Appointment; ANGELES CULP M.D. On: 29-Feb-2020 9:30 Instructions Name Dates Details Instructions not documented Encounters Appointment; SAMMY LEBLANC M.D. On: 25-Mar-2018 12:4 5 Encounter Diagnosis: Problem not documented Appointment; SAMMY LEBLANC M.D. On: 07-Oct-2018 12: 15 Encounter Diagnosis: Problem not documented Appointment; SAMMY LEBLANC M.D. On: 12-May-2019 9:3 0 Encounter Diagnosis: Problem not documented
--- OUTSIDE RECORDS SUMMARY | 2020-05-14 23:24 | XMS REPORT | Continuity of Care Document ---
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 Respitory Rate 2018-08-02 12:28:00 [facility] [place] Temperature Oral (F) 2018-08-02 12:28:00 97.7 F [facility] Heart Rate 2018-08-02 12:28:00 [facility] Heart Rate 2018-08-02 09:19:00 [facility] Temperature Oral (F) 2018-08-02 09:19:00 98.0 F [facility] Systolic (mm Hg) 2018-08-02 09:19:00 Greg rial [place] Diastolic (mm Hg) 2018-08-02 09:19:00 [facility] [place] Respitory Rate 2018-08-02 09:19:00 [facility] [place] Temperature Oral (F) 2018-08-02 05:23:00 98.2 F [facility] Respitory Rate 2018-08-02 05:23:00 [facility] [place] Systolic (mm Hg) 2018-08-02 05:23:00 Greg rial [place] Diastolic (mm Hg) 2018-08-02 05:23:00 Mem o[facility] [place] Heart Rate 2018-08-02 05:23:00 [facility] Height 2018-08-01 23:37:00 160.02 cm [facility] BMI Calculated 2018-08-01 23:37:00 [facility] [place] Weight 2018-08-01 23:37:00 [facility] Weight 2018-08-01 18:01:00 [facility] Height 2018-08-01 18:01:00 160.02 cm [facility] BMI Calculated 2018-08-01 18:01:00 [facility] [place] BMI Calculated 2018-08-01 04:57:00 [facility] [place] Height 2018-08-01 04:57:00 157.48 cm [facility] Weight 2018-08-01 04:57:00 [facility] [place] Systolic (mm Hg) 2017-10-29 19:23:00 Greg rial [place] Diastolic (mm Hg) 2017-10-29 19:23:00 Mem [facility] [place] Respitory Rate 2017-10-29 19:23:00 [facility] [place] Heart Rate 2017-10-29 19:23:00 [facility] Temperature Oral (F) 2017-10-29 19:23:00 98.2 F [facility] Respitory Rate 2017-10-29 16:39:00 [facility] [place] Temperature Oral (F) 2017-10-29 16:39:00 98.0 F [facility] Heart Rate 2017-10-29 16:39:00 [facility] Systolic (mm Hg) 2017-10-29 16:39:00 Greg rial [place] Diastolic (mm Hg) 2017-10-29 16:39:00 Mem [facility] [place] Respitory Rate 2017-10-29 11:30:00 [facility] [place] Systolic (mm Hg) 2017-10-29 11:30:00 Greg rial [place] Diastolic (mm Hg) 2017-10-29 11:30:00 Mem orial [place] Heart Rate 2017-10-29 11:30:00 [facility] Temperature Oral (F) 2017-10-29 11:30:00 98.9 F [facility] Systolic (mm Hg) 2017-10-27 16:35:00 Greg rial [place] Diastolic (mm Hg) 2017-10-27 16:35:00 Mem orial [place] Respitory Rate 2017-10-27 16:35:00 [facility] [place] Respitory Rate 2017-10-27 16:15:00 [facility]ori al [place] Systolic (mm Hg) 2017-10-27 16:15:00 Greg rial [place] Diastolic (mm Hg) 2017-10-27 16:15:00 [facility] [place] Respitory Rate 2017-10-27 16:00:00 [facility] [place] Systolic (mm Hg) 2017-10-27 16:00:00 Greg rial [place] Diastolic (mm Hg) 2017-10-27 16:00:00 Mem o[facility] [place] Heart Rate 2017-10-27 11:31:00 [facility] BMI Calculated 2017-10-27 11:31:00 [facility] [place] Weight 2017-10-27 11:31:00 [facility] Height 2017-10-27 11:31:00 162.56 cm [facility] Height 2017-10-23 16:12:00 160.02 cm [facility] BMI Calculated 2017-10-23 16:12:00 [facility] al [place] Weight 2017-10-23 16:12:00 [facility] [place] Systolic (mm Hg) 2017-08-07 13:00:00 Greg rial [place] Diastolic (mm Hg) 2017-08-07 13:00:00 Mem orial [place] Respitory Rate 2017-08-07 13:00:00 [facility]ori al [place] Heart Rate 2017-08-07 13:00:00 [facility] [place] Temperature Oral (F) 2017-08-07 13:00:00 98.8 F [facility] Systolic (mm Hg) 2017-08-07 08:46:00 Greg rial [place] Diastolic (mm Hg) 2017-08-07 08:46:00 Mem [facility] [place] Respitory Rate 2017-08-07 08:46:00 [facility] [place] Heart Rate 2017-08-07 08:46:00 [facility] [place] Temperature Oral (F) 2017-08-07 08:46:00 99 F [facility] Temperature Oral (F) 2017-08-07 05:24:00 99 F [facility] Respitory Rate 2017-08-07 05:24:00 [facility]ori al [place] Heart Rate 2017-08-07 05:24:00 [facility] [place] Systolic (mm Hg) 2017-08-07 05:24:00 Greg rial [place] Diastolic (mm Hg) 2017-08-07 05:24:00 Mem o[facility] [place] Height 2017-07-29 10:32:00 162.56 cm [facility] BMI Calculated 2017-07-29 10:32:00 [facility] [place] Weight 2017-07-29 10:32:00 [facility] [place] BMI Calculated 2017-07-29 02:33:00 [facility] [place] Weight 2017-07-29 02:33:00 [facility] Height 2017-07-29 02:33:00 129.54 cm [facility] Procedures Procedure Date / Time Performed Performing Clinician Sour e [U] XRAY KNEE 4 OR 2020-02-29 00:00:00 [facility] VWS LEFT [id number] Knee without 2020-02-29 00:00:00 [facility] [place] contrast 61413 Physicians [U] XRAY FEMUR 2 VWS 2020-02-28 00:00:00 [facility] [place] LEFT 85356 Physicians [U] XRAY KNEE 1 OR 2 2019-05-09 00:00:00 [facility] [place] S LEFT 05363 Physicians [U] XRAY FEMUR 2 S 2019-05-09 00:00:00 [facility] [place] LEFT 56417 Physicians [U] XRAY FEMUR 2 S 2018-10-01 00:00:00 [facility] [place] LEFT 59549 Physicians [U] XRAY KNEE 1 OR 2 2018-10-01 00:00:00 [facility] [place] [facility] LEFT 81228 Physicians [U] XRAY FEMUR 2 S 2018-07-08 00:00:00 [facility] [place] LEFT 81989 Physicians [U] XRAY KNEE 1 OR 2 2018-07-08 00:00:00 [facility] [place] [facility] LEFT 88121 Physicians [U] XRAY FEMUR 2 S 2018-06-17 00:00:00 [facility] [place] LEFT 38908 Physicians [U] XRAY KNEE 1 OR 2 2018-06-17 00:00:00 [facility] [place] [facility] LEFT 70487 Physicians [U] XRAY FEMUR 2 S 2018-03-19 00:00:00 [facility] [place] LEFT 55181 Physicians [U] XRAY KNEE 1 OR 2 2018-03-19 00:00:00 [facility] [place] [facility] LEFT 69305 Physicians [U] XRAY FEMUR 2 S 2018-02-04 00:00:00 [facility] [place] LEFT 22960 Physicians [U] XRAY KNEE 1 OR 2 2018-02-04 00:00:00 [facility] [place] [facility] LEFT 50216 Physicians [U] XRAY FEMUR 2 S 2018-01-18 00:00:00 [facility] [place] LEFT 18989 Physicians [U] XRAY KNEE 1 OR 2 2018-01-18 00:00:00 [facility] [place] [facility] LEFT 38932 Physicians [U] XRAY FEMUR 2 S 2017-12-17 00:00:00 [facility] [place] LEFT 86247 Physicians [U] XRAY KNEE 1 OR 2 2017-12-17 00:00:00 [facility] [place] [facility] LEFT 55602 Physicians [U] XRAY FEMUR 2 S 2017-11-17 00:00:00 [facility] [place] LEFT 75782 Physicians [U] XRAY KNEE 1 OR 2 2017-11-17 00:00:00 [facility] [place] [facility] LEFT 29546 Physicians [U] XRAY FEMUR 2 S 2017-11-02 00:00:00 [facility] [place] LEFT 72205 Physicians [U] XRAY KNEE 1 OR 2 2017-11-02 00:00:00 [facility] [place] [facility] LEFT 51481 Physicians [U] XRAY FEMUR 2 S 2017-10-13 00:00:00 [facility] [place] LEFT 91869 Physicians [U] XRAY KNEE 1 OR 2 2017-10-13 00:00:00 [facility] [place] [facility] LEFT 99543 Physicians [U] XRAY KNEE 1 OR 2 2017-09-10 00:00:00 [facility] [place] [facility] LEFT 24832 Physicians [U] XRAY FEMUR 2 S 2017-09-10 00:00:00 [facility] [place] LEFT 35182 Physicians Procedure<sup>1</sup> [facility] Plan of Care Planned Activity Planned Date Details Comments Source Future Scheduled Test 2020-02-29 [U] XRAY FEMUR 2 [facility] [place] [facility] LEFT 01230 Physicians [code = 21123] Diagnostic Test 2020-02-29 CT Knee without [facility] [place] Pending 00:00:00 contrast 06009 Physicians [code = 23664] Encounters Start End Encounter Admission Attending Care Care Encounter Source Date/Time Date/Time Type Type Clinicians Facility Department ID 2020-05-04 2020-05-04 Telephone [facility] [id number] 00:00:00 00:00:00 Nadine C CAPTAIN'S ASSISTANT [id number] REGIONAL [id number] MATERNAL [id number] & CHILD [address] [facility] 2020-04-26 2020-04-26 Office [facility] [id number] 09:33:02 10:49:10 Visit Nadine C CAPTAIN'S ASSISTANT [id number] REGIONAL [id number] MATERNAL [id number] & [facility] 2020-02-29 2020-02-29 AppointKYLIE [facility] [id number] Univers 09:30:00 09:30:00 t; ANGELES CULP M.D. [facility] Garima REYNOSO M.D. Physici ans 2019-05-12 2019-05-12 AppointKYLIE [facility]ley [facility] [id number] Univers 09:30:00 09:30:00 t; ROBBIN LEBLANC [facility] [place], M.D. [facility] Garima Hoffmna [facility] 2019-04-16 2019-04-17 Outpatient Rex Angulo MHSE MHSE [id number] 21:12:55 00:15:00 Rafat 03 2019-04-16 2019-04-16 Emergency E MHSE MHSE [id number] MH 21:12:00 21:12:00 [facility] 2018-10-07 2018-10-07 [facility] [id number] Univers 12:15:00 12:15:00 t; ROBBIN LEBLANC [facility] [place] [facility] 2018-07-31 2018-08-02 Outpatient Rodriguez MHPL MHPL [id number] 22:33:00 17:55:00 Alena Royal Igor Jared 2018-07-15 2018-07-15 [facility] [id number] Univers 13:45:00 13:45:00 t; ROBBIN LEBLANC it y [place], M.D. [place] M[facility]. Physic ans 2018-06-24 2018-06-24 [facility] [id number] Univers 12:45:00 12:45:00 t; ROBBIN LEBLANC it y [place], M.D. [place] M[facility] Physic ans 2018-03-25 2018-03-25 [facility] [id number] Univers 12:45:00 12:45:00 t; ROBBIN LEBLANC [facility] [place] [place] [facility] 2018-02-11 2018-02-11 [facility] [id number] Univers 12:45:00 12:45:00 t; ROBBNI LEBLANC it y [place], M.D. [place] M[facility] Physici ans 2018-01-28 2018-01-28 Appointmen KYLIE LEBLANC [facility] [id number] Univers 09:15:00 09:15:00 t; ROBBIN LEBLANC it [facility] [place], M.D. [place] [facility] Physici ans 2017-12-17 2017-12-17 Appointmen KYLIE [facility]BL[facility] [id number] Univers 13:15:00 13:15:00 t; ROBBIN LEBLANC it [facility] [place], M.D. [place] M[facility] Physici ans 2017-11-19 2017-[facility] [id number] Univers 11:00:00 11:00:00 t; ROBBIN LEBLANC it [facility] [place], M.D. [place] M[facility]. Physici ans 2017-11-05 2017-11-05 [facility] [id number] Univers 13:30:00 13:30:00 t; ROBBIN LEBLANC it [facility] [place], M.D. [place] M[facility] Physici ans 2017-10-28 2017-10-29 Outpatient PatelReji barroso [facility] [id number] 21:16:00 14:27:00 Eb 2017-10-27 2017-10-27 Outpatient Deana [facility] [id number] 05:29:00 23:59:00 Robbin 2017-10-27 2017-10-27 [facility]BLANC [facility] [id number] Univers 07:30:00 07:30:00 t; ROBBIN LEBLANC it [facility] [place], M[place]D. [place] M[facility]. Physici ans 2017-10-15 2017-10-15 [facility] KYLIE LEBLANC Orthoped[facility] [id number] Univers 08:00:00 08:00:00 t; ROBBIN LEBLANC it [facility] [place], M.D. [place] M[facility] Physici ans 2017-09-17 2017-09-17 [facility] [id number] Univers 08:00:00 08:00:00 t; ROBBIN LEBLANC [facility] [place] 2017-09-17 2017-09-17 [id number] Univers 08:00:00 08:00:00 t; [facility] [place] [place] [facility] Physici ans 2017-08-27 2017-08-27 Appointmen KYLIE LEBLANC [facility] [id number] Univers 08:00:00 08:00:00 t; ROBBIN LEBLANC [facility] [place] 2017-08-13 2017-08-13 Appointmen KYLIE LEBLANC UTP [id number] Univers 13:15:00 13:15:00 t; ROBBIN LEBLANC [facility] [place] 2017-07-28 2017-08-07 Outpatient Odalys [facility] [id number] 20:32:00 15:00:00 Dipak 67 2017-07-28 2017-07-28 Outpatient [facility] MARY KAY 9370 [facility] 21:02:00 21:02:00 Results Test Description Test Time Test Comments Results Result Sourc e Comments ENDOCRINOLOGY 2019-04-17 Negative [facility] 04:19:00 *NA*(04/16/19 [place] 10:19 PM) CHEM PANEL 2018-08-01 134 [facility] 12:51:00 [place] CHEM PANEL 2018-08-01 0.2 [facility] 12:51:00 [place] CHEM PANEL 2018-08-01 64 [facility] 12:51:00 [place] CHEM PANEL 2018-08-01 12:51:00 Test Item Value Reference Range Interpretation Comme nts A/G Ratio (test code = A/G Ratio) 0.8 1 0.7-1.6 [facility] [id number] 12:51:0023[facility]annCHEM PANEL 2018-08-01 12:51:15592Cbatqznt HermannCHEM CDLRO7584-22-55 12:51:004.1[facility]annCHEM YCXKF2003-73-24 12:51:98050Uetwkazo HermannCHEM LCBPZ0273-52-62 12:51:0011.1[facility]annCHE[facility] HAEIV4292-33-38 12:51:000.56[facility] CHEM JUTKR9304-72-56 12:51:0013[facility]annCHEM IJPKU5372-30-73 12:51:003.8 [facility] GUOED1492-18-97 12:51:0026[facility]annCHEM PANEL 2018-08-01 12:51:19061Ojemmujv HermannCHEM CUBXZ1522-35-23 12:51:008.2[facility]annCHEM ESQQD7369-54-98 12:51:0010[facility]annCHEM JMSFO9852-19-31 12:51:003.1[facility]annCHEM KWEPP8969-54-26 12:51:006.9[facility]annCHEM TQUDP0071-11-33 12:51:00 Test Item Value Reference Range Interpretation Comments B/C Ratio (test code = B/C Ratio) 23 1 6-25 [facility]ann[facility] PHBWH2526-54-43 12:51:002.2[facility]annHEMATOLOGY 2018-08-01 12:51:008.2[facility] FtstszkVFZZYZAQQF6752-40-67 12:51:59369Obiwvhjr QvrgnshTAVXGZJFZK9725-09-79 12:51:0014.5[facility] YezbebbMEIQUSFHJE6965-84-27 12:51:0033.6[facility] DrkesqqNSZMEIBEEI1059-61-09 12:51:00 Test Item Value Reference Range Interpretation Comments MCH (test code = MCH) 26.6 pg 27.0-31.0 [facility] CjiwdavAYXDZHVTZP7121-65-01 12:51:0011.9[facility] HermannHEMATOLOGY 2018-08-01 12:51:0079.1[facility] GvglqmkXRHWISOAHL2683-28-80 12:51:0035.3[facility] LtrwxohBKUVEURBUX5887-16-90 12:51:004.46[facility] XqxhtddKUGPMEYKRR7593-82-47 12:51:008.0[facility] UpmynxiQVMNQHHYCS3900-14-42 12:51:00 Test Item Value Reference Range Interpretation Comments PTT (test code = PTT) 30.7 s 22.9-35.8 [facility] UnbjvfvYMGZMGZOZS8489-67-92 12:51:00 Test Item Value Reference Range Interpretation Comments PT (test code = PT) 13.7 s 12.0-14.7 [facility] HdnokkdIMTDBBQMSK1593-35-84 12:51:00 Test Item Value Reference Range Interpretation Comments INR (test code = INR) 1.07 1 0.85-1.17 [facility] BbmlbrwJZGRYQGGQV9825-05-33 12:51:007.9[facility] HermannHEMATOLOGY 2018-08-01 12:51:000.2[facility] NqzmnjbLPLWOBGHLM8386-35-71 12:51:000.7[facility] FgvzfjdDHMRWGOOOB0868-24-74 12:51:005.0[facility] FahygugLYYWWOHZYB3769-34-21 12:51:002.0[facility] FlofimlTZOCHQOOOG4699-23-24 12:51:002.2[facility] RDWLQJJUAK4080-48-57 12:51:0062.1[facility] QaocfltPYNDOTWUDA5783-16-16 12:51:00 27.3[facility] WoflxmkXEOESPSMOA1638-00-05 12:51:000.1[facility] HermannHEMATOLOGY 2018-08-01 12:51:000.6[facility] ZoupyhpLEJZWLMLJHUVU3022-33-82 07:30:00Negative *NA*(08/01/18 1:30 AM)[facility]annCHEM FFELJ4930-58-19 06:28:000.2[facility]annCHEM AUATP0657-91-56 06:28:18976Nouzksil HermannCHEM CIWHP9142-24-72 06:28:003.6[facility]annCHEM IYUPJ1298-20-02 06:28:0076[facility]annCHEM VFMVQ5655-88-93 06:28:0037[facility]annCHE[facility] LCSJW5475-38-07 06:28:0028 [facility]annCHE[facility] QHMCO2660-06-20 06:28:008.5[facility]annCHEM PANEL 2018-08-01 06:28:0012[facility]annCHEM PQCDF8785-83-41 06:28:008.9[facility]annCHEM XRZKB6807-34-53 06:28:09405Mhsacppg HermannCHEM HYHEV7663-25-33 06:28:003.5[facility]annCHEM FDNVJ8395-50-36 06:28:15382Mebzpwjh HermannCHEM HBEKZ8531-97-86 06:28:0013[facility]annCHEM GEAYH5771-47-91 06:28:000.71 [facility]annCHE[facility] HFUAP8199-90-46 06:28:39627Moyxpqvu HermannCHEM PANEL 2018-08-01 06:28:005.3[facility] HermannCHEM GRKXJ2368-12-12 06:28:00 Test Item Value Reference Range Interpretation Comments A/G Ratio (test code = A/G Ratio) 0.7 1 0.7-1.6 [facility] QZWWE1736-96-27 06:28:0010.5[facility] HermannCHEM PANEL 2018-08-01 06:28:00 Test Item Value Reference Range Interpretation Comments B/C Ratio (test code = B/C Ratio) 18 1 6-25 [facility]DR[facility] OEVQXD0970-05-04 06:28:00Negative *NA*(08/01/18 12:28 AM) [facility] EPDNSA8180-91-72 06:28:00Negative *NA*(08/01/18 12:28 AM) [facility] SYSEWO7387-73-67 06:28:00Negative *NA*(08/01/18 12:28 AM) [facility] LCCLPY9451-28-56 06:28:00See Note *NA*(08/01/18 12:28 AM) [facility] EVFKAH8930-84-77 06:28:00Negative *NA*(08/01/18 12:28 AM) [facility] GNBNEB9673-28-56 06:28:00Negative *NA*(08/01/18 12:28 AM) [facility] OLNZGA4975-84-86 06:28:00Negative *NA*(08/01/18 12:28 AM) [facility] CUWOTT3199-07-12 06:28:00Negative *NA*(08/01/18 12:28 AM) [facility] CkranchNTHYSIVQVG1494-30-15 06:28:0079.0[facility] HermannHEMATOLOGY 2018-08-01 06:28:0038.8[facility] TvxzbxuQRVURLIGKP2687-69-66 06:28:008.6[facility] IaoypuvMIYTCWNWNF0866-86-80 06:28:18921Pasagnky XetzqvdLDIKDZJJTH6136-87-47 06:28:0012.9[facility] KhvdatcRHSJWVOXOK7702-64-62 06:28:004.91[facility] TBRCZUYWFD7170-72-50 06:28:0010.0[facility] SfrogqzFFHKVHQCHA5569-64-11 06:28:00 33.2[facility] GnkjhgaSFDHMLTTTL1444-45-13 06:28:0015.1[facility] HermannHEMATOLOGY 2018-08-01 06:28:00 Test Item Value Reference Range Interpretation Comments MCH (test code = MCH) 26.2 pg 27.0-31.0 [facility] NboodgoCNABQCXGCG7081-91-34 06:28:005.8[facility] HermannHEMATOLOGY 2018-08-01 06:28:003.0[facility] JiutyvcBLGTXEHZJY6474-02-40 06:28:000.2[facility] JjdkfuqGMOAUVSOZH4188-22-23 06:28:000.9[facility] HyophwzHNFRCTDCUO6771-74-18 06:28:000.1[facility] MuwvqoePQYJDBTXNK7858-60-18 06:28:000.8[facility] OYXXIYHRSY9664-51-50 06:28:002.0[facility] XwzgmziEKUWYTHRHJ2256-15-94 06:28:00 58.2[facility] TzsmgvfSGLQEUNCJN4727-09-14 06:28:0030.3[facility] HermannHEMATOLOGY 2018-08-01 06:28:008.7[facility] FabgofpXKFJTUJCRC2584-32-55 06:28:000.09[facility] PfwtyzzLYVCWCXUUB8179-90-31 06:28:001.4[facility]annURINE AND STEPH2947-18-99 06:28:005[facility]annUR[facility] AND EIJIO7578-77-79 06:28:001[facility] URINE AND MPKYS7618-53-49 06:28:00Marked *ABN*(08/01/18 12:28 AM)[facility] URINE AND BMJSS0238-23-51 06:28:00Yellow *NA*(08/01/18 12:28 AM)[facility] URINE AND UPBGB0967-55-69 06:28:00Negative (08/01/18 12:28 AM)[facility] URINE AND QNXRH8738-77-95 06:28:00Negative (08/01/18 12:28 AM)[facility] URINE AND NXDNO3413-54-95 06:28:00Negative *NA*(08/01/18 12:28 AM)[facility] AND QJVBH3571-38-99 06:28:00Small *ABN*(08/01/18 12:28 AM)[facility] DWDBC7244-53-47 06:28:00Negative (08/01/18 12:28 AM)[facility] UBLTT0993-93-07 06:28:00Negative *NA*(08/01/18 12:28 AM)[facility] QNBZZ5717-59-54 06:28:00Negative *NA*(08/01/18 12:28 AM)[facility] PORFG3707-73-70 06:28:00 Test Item Value Reference Range Interpretation Comments UA pH (test code = UA pH) 5.0 1 5.0-8.0 [facility] AND DLSHA8403-49-13 06:28:00 Test Item Value Reference Range Interpretation Comments UA Spec Grav (test code = UA Spec 1.029 1 Grav) [facility] FEM[facility] 2 VWS LEFT [id number] 12:59:00Images acquired, not reported on this accession number.[facility] [U] XRAY KNEE 1 OR 2 VWS LEFT [id number] 12:59:00Images acquired, not reported on this accession number.[facility][U] XRAY KNEE 1 OR 2 VWS LEFT [id number] 11:16:00Images acquired, not reported on this accession number.[facility][U] XRAY FEMUR 2 VWS LEFT [id number] 2017-11-19 11:16:00Images acquired, not reported on this accession number. [facility] BsbhfkrifhQYSTLJGZMA4316-13-17 11:51:0016.5[facility] TREPPSETKS9617-85-98 11:51:77672Zpfpzvwv SkkfuwjTCKHQONSAJ5829-38-23 11:51:00 4.94[facility] SoenltfXFVKMXDRVG7361-24-28 11:51:009.5[facility] HermannHEMATOLOGY 2017-10-27 11:51:00 Test Item Value Reference Range Interpretation Comments MCH (test code = MCH) 24.1 pg 27.0-31.0 [facility] RpbmepnDVHPUPFIFC0352-69-38 11:51:0011.9[facility] HermannHEMATOLOGY 2017-10-27 11:51:0075.0[facility] EestrmjDRLNRVNDPV3144-29-31 11:51:0032.2[facility] PbdsdisNEZLVNSICI3412-86-28 11:51:0037.0[facility] OfolteaALDEVRVNZK4256-60-22 11:51:008.4[facility] HyddyyqLAPHCNEJQN5103-65-22 11:51:0057.1[facility] QYJCKHXYDN2326-60-08 11:51:0033.5[facility] IjljnhjMXLFWCNIBL7953-02-39 11:51:00 3.2[facility] SzndbnhDEMRJRXBRP6390-65-80 11:51:005.4[facility] HermannHEMATOLOGY 2017-10-27 11:51:006.4[facility] HdvvygzWYLTGUVZKQ0006-10-83 11:51:000.7[facility] VepjtvcUYABUJIHBZ8424-30-94 11:51:002.3[facility] OlbqrtsYPVHKBUTLZ7567-53-73 11:51:000.2[facility] ZduqinkJRZKYRDUYK5563-13-44 11:51:001+ *ABN*(10/27/17 6:51 AM) [facility] SjswjikPRMKUSXDCU1311-57-82 11:51:000.6[facility] 2017-10-27 11:51:000.1[facility][U] XRAY FEMUR 2 VWS LEFT [id number] 07:47:00Images acquired, not reported on this accession number.[facility][U] XRAY KNEE 1 OR 2 VWS LEFT [id number] 07:47:00Images acquired, not reported on this accession number.[facility] [U] XRAY FEMUR 2 VWS LEFT [id number] 07:53:00Images acquired, not reported on this accession number.[facility][U] XRAY KNEE 1 OR 2 VWS LEFT [id number] 07:53:00Images acquired, not reported on this accession number.[facility][U] XRAY FEMUR 2 VWS LEFT [id number] 13:33:00Images acquired, not reported on this accession number.[facility][U] XRAY KNEE 1 OR 2 VWS LEFT [id number] 13:33:00Images acquired, not reported on this accession number.[facility] PDJCCKDTLCXT6376-73-70 10:13:0015.1[facility] HcnnadiJDKGGKIOFDBR8145-61-78 10:13:42260Sbgrlxnc VwppbooRLVJLBUPQNVN5523-96-53 10:13:000.53[facility] NHVAEALHQGQA9446-43-34 10:13:0024[facility] OblpsglRRYSYSXFFMGQ2538-63-60 10:13:00 14[facility] NrmvjgwBUTJJEYORZIV4296-85-31 10:13:0097[facility]annELECTROLYTES 2017-08-07 10:13:60172Iqdgyzrt MyjfokbJGMEMGPLIDXX6900-68-76 10:13:008.7[facility] HmcxvacNLHAQDGCRDNH8067-78-00 10:13:32612Hzrurdro HaiynvwPVZVDNUIOOJG7462-69-78 10:13:004.1[facility] DfmvtqpEABCAQUANY5422-62-76 10:13:003.2[facility] IJQRYNTPEK1657-11-29 10:13:000.9[facility] RulkvviHTGOWNDPAQ4551-65-19 10:13:002.8 [facility] MpgiybdLCJKKVTFOG9460-54-34 10:13:000.3[facility]annHEMATOLOGY 2017-08-07 10:13:0060.6[facility] KbqnhduVIRDPZQEUA3267-12-67 10:13:0027.2[facility] ZopwgyhDIROODTCJS7287-92-38 10:13:008.7[facility] YyxytrtLFVHWWCJMD0019-53-20 10:13:006.2[facility] CaetfraQSFYTZYNLR5167-82-64 10:13:000.3[facility] CUZGGIRHJB6349-89-45 10:13:0027.7[facility] SqbhumeVEDKFAUNTQ6299-10-00 10:13:00 82.9[facility] RskuuhjVVSDRXVISW3157-01-07 10:13:00 Test Item Value Reference Range Interpretation Comments MCH (test code = MCH) 27.5 pg 27.0-31.0 [facility] CmdpacfKCHFTNTJVF0639-01-47 10:13:0033.1[facility]annHEMATOLOGY 2017-08-07 10:13:0015.7[facility] NgnvledZLHJTQDKRD2537-28-24 10:13:95471Aunsbsbw GpkanfbEGLNGMPDDS9225-68-38 10:13:003.34[facility] ViowuxcSMSACVZUOH3220-68-33 10:13:009.2[facility] HuzsstrGHAEWESATA6115-35-61 10:13:009.7[facility] AEZEGPVLOL2654-44-24 10:13:008.0[facility] PtukiddHCIMHNYMUD9614-39-09 10:13:00 61.1[facility] XcgwydvHVSWLNYTCM9186-82-63 10:13:002.7[facility]annHEMATOLOGY 2017-08-07 10:13:000.7[facility] GemaeawGIMMHXYNIF9291-59-13 10:13:000.3[facility] XinscycGGAUNPIBLD8479-63-15 10:13:003.6[facility] XqwbvqhGQPGXYTSTX1042-01-48 10:13:000.4[facility] OiybbkfXEPUILFEEY7852-61-75 10:13:006.0[facility] JCNCXQDUOR8824-09-31 10:13:0027.3[facility] BlewksnMBENZYELPT0732-84-15 10:13:00 7.6[facility] UczknjbPMIZUNAKTC0734-04-11 10:13:0015.9[facility]annHEMATOLOGY 2017-08-07 10:13:85995Ceqxtbin MzmorgaDQPUUBIBZU4890-59-25 10:13:008.0[facility] JnwjryaKNOPQVAHTV2514-24-55 10:13:0084.8[facility] PolexkaLIYYIOLSTV5826-76-14 10:13:00 Test Item Value Reference Range Interpretation Comments MCH (test code = MCH) 27.8 pg 27.0-31.0 [facility] SbkacxxZTEJPBWPOO7792-64-86 10:13:0032.8[facility]annHEMATOLOGY 2017-08-07 10:13:009.0[facility] MzjhtqoGOFIBBJRII7230-18-16 10:13:0027.3[facility] RscflrzLSEGBLKERN5502-19-29 10:13:003.22[facility] WlypaqsCUUFUPJQKW1392-55-57 10:13:0010.1[facility]annBL[facility]OD BANK YDLBGGR1209-68-07 19:43:00Negative (08/06/17 2:43 PM)[facility] NJSCLMW0695-28-57 17:46:00Product available (08/06/17 12:46 PM)[facility]annCHEM MSUAZ3338-91-36 14:55:73488 [facility]annCHE[facility] VTSCD8675-64-07 14:55:000.56[facility]annCHEM PANEL 2017-08-06 14:55:0011[facility]annCHEM AKXRC1528-85-80 14:55:003.9[facility]annCHEM XXYSM6263-30-18 14:55:0025[facility]annCHEM ELPEZ5381-13-86 14:55:008.3[facility]annCHEM MEJHL0786-92-40 14:55:50564Akijxvwe HermannCHEM ZZSHS6092-19-68 14:55:89081Olmuecls HermannCHEM RNJRQ3462-84-77 14:55:0013.9 [facility]annCHE[facility] YPLCR2823-47-42 14:55:41525Wwgvjiju HermannHEMATOLOGY 2017-08-06 14:55:52057Qzirsafc FpmglibINHSOPZBXH5965-29-81 14:55:007.8[facility] LfaxdoeOGUFOMKJVO2030-10-43 14:55:009.0[facility] MwlsmroTATEVUFDCJ9535-14-46 14:55:002.64[facility] IewjqefVCZXZAFZRO6666-94-64 14:55:00 Test Item Value Reference Range Interpretation Comments MCH (test code = MCH) 27.1 pg 27.0-31.0 [facility] EitsnqgCBKSXDFREC1331-17-11 14:55:0016.3[facility]annHEMATOLOGY 2017-08-06 14:55:0032.2[facility] HxkxwlgJFIPTLPQAC1122-05-16 14:55:007.2[facility] ZdggkziRCJHJAHTRD3749-21-56 14:55:0022.2[facility] TtbbxerKQLIBCOJFJ1019-00-15 14:55:0084.0[facility] BnoamxlOZTLPZSSPB2923-35-01 14:55:000.7[facility] IDVVIQTWEU4321-51-64 14:55:000.3[facility] EcijdkzHHQOLVQQUN4004-85-02 14:55:008.1 [facility] YhgyhzdDTJIKGGUPA6862-64-08 14:55:003.5[facility]annHEMATOLOGY 2017-08-06 14:55:002.3[facility] GitzsgwEYWGUYUCRO8447-40-90 14:55:000.5[facility] QtlrmylZZDUOJMNOG4464-98-81 14:55:005.6[facility] GibznqtRXJMTPLRVT8995-44-23 14:55:0062.6[facility] YhmjijeDKODAOCBXY7444-46-87 14:55:0025.3[facility] CHEM TBJRH0569-06-12 20:11:07613Oyvnovzg HermannCHEM NTNZK5117-24-89 20:11:004.0 [facility]annCHEM NZJZA7745-99-59 20:11:008.1[facility]annCHEM PANEL 2017-08-04 20:11:0027[facility]annCHEM USMLI0505-66-33 20:11:0013.0[facility]annCHEM XYQZA9688-67-14 20:11:87079Zyqxehof HermannCHEM GKBUX1655-43-39 20:11:52273Zqnbbgyf HermannCHEM GZCVP6169-63-97 20:11:000.80[facility]annCHEM TBSVL9453-59-42 20:11:0014[facility]annCHEM UTNDZ0608-99-41 20:11:06671 [facility]annCHE[facility] YDQMZ8251-57-45 10:24:002.4[facility]annCHEM PANEL 2017-08-03 10:24:004.6[facility] IwtuzecIUXJWLCRLE4166-42-79 10:24:00 Test Item Value Reference Range Interpretation Comments PTT (test code = PTT) 28.0 s 22.9-35.8 [facility] CenterCohrxvrBOELRYFLTG5389-04-43 10:24:00 Test Item Value Reference Range Interpretation Comments PT (test code = PT) 13.0 s 12.0-14.7 [facility] ZcfsaioEBYIGREGIR4933-26-77 10:24:00 Test Item Value Reference Range Interpretation Comments INR (test code = INR) 0.98 1 0.85-1.17 [facility] ZqaktwlVPDKCEVGWA8655-27-90 10:24:000.1[facility] HermannPARATHYROID KWNSYAJ7711-66-00 10:24:001.12[facility] HermannPARATHYROID UQBKIPA4128-03-96 10:24:001.15[facility]BL[facility] HXHJYEH8547-90-21 16:52:00Negative (08/02/17 11:52 AM)[facility] AOVHINB8225-27-27 15:03:00Product available (08/02/17 10:03 AM)[facility] JAZUKAA3312-15-24 14:07:00Product available (08/02/17 9:07 AM)[facility]annCHEM ZUAME6670-74-94 06:25:001.8[facility] HermannDRUG LZEWHC2801-99-44 12:00:00Negative *NA*(07/29/17 6:00 AM)[facility]annDR[facility] AYRXHH7381-23-80 12:00:00See Note (07/29/17 6:00 AM) [facility] RTFUQI7870-73-54 12:00:00Positive *ABN*(07/29/17 6:00 AM) [facility] JINJSF7775-46-82 12:00:00Negative *NA*(07/29/17 6:00 AM) [facility] LXAQIH1132-69-80 12:00:00Negative *NA*(07/29/17 6:00 AM) [facility] TQTHNF0206-44-57 12:00:00Negative *NA*(07/29/17 6:00 AM) [facility] CCNXGR8855-73-43 12:00:00Negative *NA*(07/29/17 6:00 AM) [facility] QLBVRH7496-83-27 12:00:00Negative *NA*(07/29/17 6:00 AM) [facility] LHVUC9798-25-21 12:00:00>=1.050 *ABN*(07/29/17 6:00 AM)[facility] VUNOQ4731-52-47 12:00:00Negative (07/29/17 6:00 AM) [facility] UEHXK7539-28-03 12:00:0011[facility] SOIYD5383-38-86 12:00:00Moderate *ABN*(07/29/17 6:00 AM)[facility] DNTDD4920-62-56 12:00:00Negative (07/29/17 6:00 AM)[facility] STOOL 2017-07-29 12:00:00Negative *NA*(07/29/17 6:00 AM)[facility] STOOL 2017-07-29 12:00:00 Test Item Value Reference Range Interpretation Comments UA pH (test code = UA pH) 6.5 1 5.0-8.0 [facility] JNKDW6939-87-49 12:00:00Yellow *NA*(07/29/17 6:00 AM) [facility] NQSMD5192-29-47 12:00:00Clear (07/29/17 6:00 AM)[facility] CfspjlxSQJTEIFRPK4073-91-21 05:40:00Negative *NA*(07/28/17 11:40 PM)[facility] CenterannBL[facility] B[facility] TBQBGDG4683-79-73 02:57:00Negative (07/28/17 8:57 PM)[facility] CenterannCHEM CFQLU4865-99-12 02:30:002.0[facility] AxyasmrAFTFKMDVFTPKS3147-97-03 02:30:00Negative *NA*(07/28/17 8:30 PM)[facility] HcrppgfYLDNDHVHLO2050-15-75 02:30:00 Test Item Value Reference Range Interpretation Comments K-time Rapid (test code = K-time 0.8 min 0.6-2.3 Rapid) [facility] CenterXrhilpfRHBQHLDYQJ1198-67-53 02:30:00 Test Item Value Reference Range Interpretation Comments Angle Rapid (test code = Angle 79 degrees 64-80 Rapid) [facility] CenterNgnyrpqCSSLISPKBO0888-71-03 02:30:00 Test Item Value Reference Range Interpretation Comments R-time Rapid (test code = R-time 0.5 min 0.4-0.7 Rapid) [facility] CenterDetsxbfCUKLPRMDBM0923-34-54 02:30:00 Test Item Value Reference Range Interpretation Comments Split Point Rapid (test code = Split 0.4 min Point Rapid) [facility] CenterRmbomxiOFWLEOZFQS4426-85-28 02:30:0015.0[facility] HermannHEMATOLOGY 2017-07-29 02:30:00 Test Item Value Reference Range Interpretation Comments Max Amplitude Rapid (test code = Max 75 mm 52-71 Amplitude Rapid) [facility] CenterEmoccqnWKSHJNNKBK7875-54-38 02:30:00 Test Item Value Reference Range Interpretation Comments ACT (TEG) Rapid (test code = ACT (TEG) 97 s 86-118 Rapid) [facility] CenterIdtbkvmEZKKZHHJCE1932-44-59 02:30:002.2[facility]annHEMATOLOGY 2017-07-29 02:30:000.1[facility] DfuzqceQQJRWAHUMU4605-57-26 02:30:00<3[facility] HnqckwvDYJDENSEQG0127-32-81 02:30:00<0.003[facility]
--- OUTSIDE RECORDS SUMMARY | 2020-05-14 23:24 | XMS REPORT | Summary of Care ---
:1995 Author Organization [facility] Address [address] [place] [address] Care Team Providers Name Role Phone Mariannealbert Myra R Medicaid Hmo Raghav Mandujano [facility] Primary Care Provider Roz Donaldson Insurance Hmo Reason for Referral Radiology Services (STAT) Status Reason Specialty Diagnoses / Referred By Referred To Procedures Contact Contact New Request Diagnostic Diagnoses Low back pain, unspecified back pain laterality, unspecified chronicity, unspecified whether sciatica present Kaela Hernadez Radiology Procedures XR LUMBAR SPINE 2 VW G, TILE CLASSIFIER [address] [place] [address] Reason for Visit Reason Comments Back Pain Auth/Cert Status Reason Specialty Diagnoses / Referred By Referred To Procedures Contact Contact Emergency Medicine Ad[facility] Em ergency Dept [address] [place] [address] Fax: Encounter Details Date Type Department Care Team Description 04/06/2020 - Emergency ADC-Emergency Kaela Hernadez G, Low back pain, unspecified back pain laterality, unspecified chronicity, unspecified whether sciatica present (Primary Dx); 04/07/2020 Department TILE CLASSIFIER Sacroiliitis [address] [phone] [facility] [phone] Allergies Active Allergy Reactions Severity Noted Date Comments Latex Other - See comments 08/31/2014 Rai s kin with results of redness and nilesh n. documented as of this encounter (statuses as of 04/07/2020) Medications Medication Sig Dispensed Refills Start Date [...] as of this encounter (statuses as of 04/07/2020) Active Problems Problem Noted Date Well woman exam 03/07/2019 Other general counseling and advice for contraceptive management 03/07/2019 History of seizure 03/07/2019 Overview: On keppra, reports last appointment was 10/2018 BMI 37.0-37.9, adult 03/07/2019 Right hip pain 09/03/2014 Convulsions 02/15/2014 Overview: Last one unknown. 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 documented as of this encounter Last Filed Vital Signs Vital Sign Reading Time Taken Comments Blood Pressure 133/74 04/06/2020 11:49 PM COLD MOLDING PRESS OPERATOR Pulse 82 04/06/2020 11:49 PM COLD MOLDING PRESS OPERATOR Temperature 36.7 C (98.1 F) 04/06/2020 11:49 PM COLD MOLDING PRESS OPERATOR Respiratory Rate 20 04/06/2020 11:49 PM COLD MOLDING PRESS OPERATOR Oxygen Saturation 99% 04/06/2020 11:49 PM COLD MOLDING PRESS OPERATOR Inhaled Oxygen Concentration - - Weight 95.3 kg (210 lb) 04/06/2020 11:49 PM COLD MOLDING PRESS OPERATOR Height - - Body Mass Index 37.2 03/22/2020 1:46 PM CDT documented in this encounter Discharge Instructions Kaela Torres NP - 04/07/2020Diagnosis: Low back pain, sacroiliac joint dysfunction Prescriptions for naprosyn, medrol dose pack, robaxin and evelio sent to your [facility] pharmacy Use cold therapy Start graduated stretching Follow up with ortho spine as needed Back rest for 7 days documented in this encounter ED Notes Zunilda Londono RN - 04/06/2020 11:48 PM CSTCC: Lower back pain x 1 wk, denies heavy lifting ,injury, or changes. PMHx: Epilipesy, anxiety, narcolepsy MEDS:none daily LMP: Started Thu. Tetanus: Over 5 yrs Awake, alert, oriented, resp reg unlabored, skin warm, color appropriate for race, moves all ext without difficulty, amb with slow gait, reports pain with every step Appears in no distress documented in this encounter Miscellaneous Notes ED Nurse Note - Thu Mejia RN - 04/07/2020 1:35 AM CSTPt given printed and verbal discharge instructions regarding low back pain, sacroiliitis, encouragedhydration, Prescriptions provided:naprosyn, medrol dose pack, robaxin and evelio Discussed ibuprofen and to take with food to avoid GI distress. Pt verbalized understanding of instructions, pt awake alert oriented, resp reg unlabored, skin w/d, color appropriate for race, moves all ext well,pt encouraged to follow up with PCP. Advised to seek medical attention for new/prolonged/worsening of symptoms, Symptoms improved No adverse reaction to meds given in ER noted upon discharge Awake, alert oriented, resp reg unlabored, skin w/d, pt leaving amb with steady gait, in no apparent distress, MOLDING PRESS OPERATOR documented in this encounter Plan of Treatment Date Type Specialty Care Team Description 06/07/2020 Office Visit OB Satellites Debbie Coley, SUPERVISOR ASSEMBLY AND PACKING [address] [place], [place] [address] [phone] Name Type Priority Associated Diagnoses Date/Ti me XR LUMBAR SPINE 2 VW IMAGING STAT Low back pain, 04/07 12:22 AM COLD MOLDING PRESS OPERATOR unspecified back pain laterality, unspecified chronicity, unspecified whether sciatica present Health Maintenance Due Date Last Done Comments [...] Name Priority Date/Time Associated Diagnosis Comme nts XR LUMBAR SPINE 2 VW STAT 04/07/2020 12:22 AM Low back pain , COLD MOLDING PRESS OPERATOR unspecified back pain laterality, unspecified chronicity, unspecified whether sciatica present Procedure Note - [facility], Radia nt Results Inft User - 04/07/2020 12:34 AM COLD MOLDING PRESS OPERATOR XR LUMBAR SPINE 2 VW HISTORY: 24 years-old Female low back pain COMPARISON: None FINDINGS: There are five nonrib-bearin g lumbar-type vertebral bodies which are normal in height and alignment. No fracture or subluxation is seen. The intervertebral disc spaces a re preserved. The prevertebral soft tissues are unremarkable. IMPRESSION No lumbar spine fracture or subluxation. Preliminary Report Dictated by Resident: Robin Chiu POCT TEST RALPH 04/06/2020 11:56 PM Low back pain, Results for this COLD MOLDING PRESS OPERATOR unspecified back pain proced ure are in laterality, the results unspecified section. chronicity, unspecified whether sciatica present URINALYSIS STAT 04/06/2020 11:56 PM Low back pain, Result s for this COLD MOLDING PRESS OPERATOR unspecified back pain proced ure are in laterality, the results unspecified section. chronicity, unspecified whether sciatica present documented in this encounter Results POCT TEST (04/06/2020 11:56 PM COLD MOLDING PRESS OPERATOR) Pathologist Sig nature POCT PREG negative On board controls acceptable present with C Line POCT PREG LOT # [id number] POCT PREG TEST DATE 09/21/21 Specimen Urine - URINE, CLEAN CATCH URINALYSIS (04/06/2020 11:56 PM COLD MOLDING PRESS OPERATOR) Pathologist Sig nature APPEARANCE Hazy (A) Clear [facility] COLOR Yellow Yellow [facility] PH 5.0 4.8 - 8.0 [facility] SP GRAVITY 1.032 (H) 1.003 - 1.030 [facility] GLU U QUAL Normal Normal [facility] BLOOD 1+ (A) Negative [facility] KETONES 5 mg/dL (A) Negative [facility] PROTEIN Negative Negative [facility] UROBILIN Normal Normal [facility] BILIRUBIN Negative Negative [facility] NITRITE Negative Negative [facility] LEUK ALEXIA 25/uL (A) Negative [facility] RBC/HPF 1 0 - 3 HPF [facility] WBC/HPF 1 0 - 5 HPF [facility] BACTERIA Few (A) Negative [facility] MUCOUS Marked (A) Negative LPF [facility] SQ EPITH 6 HPF [facility] Specimen Urine - URINE, CLEAN CATCH Performing Organization Address City/State/Zipcode Phone Number [facility] CLIA: [id number] [place] [address] documented in this encounter Visit Diagnoses Diagnosis Low back pain, unspecified back pain lat erality, unspecified chronicity, unspecified whether sciatica present - Primary Sacroiliitis Sacroiliitis, not elsewhere classified documented in this encounter Administered Medications Medication Order MAR Action Action Date Dose Rate Site dexamethasone (DECADRON Given 04/07/2020 12:13 AM 10 mg Left PHOSPHATE) injection 10 mg COLD MOLDING PRESS OPERATOR Dorsogluteal-IM 10 mg, Intramuscular, ONCE, 1 dose, 04/07/20 at 0115, Routine HYDROcodone-acetaminophen (NORCO) 10-325 Given 04/07/2020 12 :12 AM COLD MOLDING PRESS OPERATOR 1 tablet mg tablet 1 tablet 1 tablet, Oral, ONCE, 1 dose, 04/07/20 at 0115, Routine ketorolac (TORADOL) Given 04/07/2020 12:13 AM 30 mg Right Dorsogluteal-IM injection 30 mg COLD MOLDING PRESS OPERATOR 30 mg, Intramuscular, ONCE, 1 dose, 04/07/20 at 0115, RALPH, city council member approving Restricted medication: KAELA HERNADEZ methocarbamoL (ROBAXIN) tablet 1,500 mg Given 04/07/2020 12:12 AM COLD MOLDING PRESS OPERATOR 1,500 mg 1,500 mg, Oral, ONCE, 1 dose, 04/07/20 at 0115, Routine documented in this encounter Insurance Payer Benefit Plan / Subscriber ID Effective Phone Address [facility] [id number] 2020-Pres [address] Medic aid HEALTH CHOICE - HEALTH CHOICE ent [id number] 1 MANAGED MEDICAID [place], [place]ID [id number] documented as of this encounter Advance Directives Type Date Recorded Patient Industrial Hygiene Manager Explanati on Advance Directives and Living Will Power of Field Mechanic/Site Lead
--- OUTSIDE RECORDS SUMMARY | 2020-05-14 23:24 | XMS REPORT | Summary of Care ---
:1995 Author Organization [facility] Address [address] [place] [address] Care Team Providers Name Role Phone MarianneosMyra Rashad Medicaid Hmo Raghav Mandujano [facility] Primary Care Provider Roz Donaldson Insurance Hmo Reason for Visit Reason Comments Refill Request Encounter Details Date Type Department Care Team Description 03/22/2020 Refill [facility]- A Debbie Taylor, MEDICAL LAB TECHNOLOGIST Refill Request [address] [facility] [address] [place] [address]55 [facility] [phone] [place], [place] [address] [phone] Allergies Active Allergy Reactions Severity Noted Date Comments Latex Other - See comments 08/31/2014 Rai s kin with results of redness and nilesh n. documented as of this encounter (statuses as of 03/22/2020) Medications Medication Sig Dispensed Refills Start End Date Status Date levETIRAcetam (KEPPRA) Take 1,000 mg 0 Active 1,000 mg tablet by mouth 2 (two) times daily. medroxyPROGESTERone Take 1 tablet 10 tablet 0 Active (PROVERA) 10 mg by mouth 0 20 tabletIndications: daily for 10 Irregular menstrual days. cycle norethindrone-e.estradio START ON 84 tablet 0 Active L-iron (MICROGESTIN FE) FIRST DAY OF 0 1.5 mg-30 mcg (21)/75 mg NEXT MENSES, (7) per TAKE 1 TABLET tabletIndications: BY MOUTH Encounter for initial DAILY. prescription of contraceptive pills norethindrone-e.estradio Starting on 2 Package 0 Discontinued L-iron (MICROGESTIN FE) first day of 0 20 1.5 mg-30 mcg (21)/75 mg next menses, (7) per take 1 tablet tabletIndications: by mouth Encounter for initial daily prescription of contraceptive pills documented as of this encounter (statuses as of 03/22/2020) Active Problems Problem Noted Date Well woman exam 03/07/2019 Other general counseling and advice for contraceptive management 03/07/2019 History of seizure 03/07/2019 Overview: On bianca magana last appointment was 10/2018 BMI 37.0-37.9, adult 03/07/2019 Right hip pain 09/03/2014 Convulsions 02/15/2014 Overview: Last one unknown. 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 Rectification Printer Utility Dysmenorrhea 02/15/2014 Menorrhagia 02/15/2014 documented as [...] filedocumented in this encounter Plan of Treatment Date Type Specialty Care Team Description 06/07/2020 Office Visit OB Satellites Debbie Coley, MEDICAL LAB TECHNOLOGIST [address] [place], [place] [address] [phone] Health Maintenance Due Date Last Done Comments [...] VACCINES Discontinued documented as of this encounter Results Not on filedocumented in this encounter Visit Diagnoses Diagnosis Encounter for initial prescription of co ntraceptive pills General counseling for prescription of o ral contraceptives documented in this encounter Insurance Payer Benefit Plan / Subscriber ID Effective Phone Address T e Group Dates [facility] [id number] 2020-Pres 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
--- OUTSIDE RECORDS SUMMARY | 2020-05-14 23:24 | XMS REPORT | Summary of Care ---
:1995 Author Name Skylar Garcia M.A. 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: Active Medications Name Dates Details Acetaminophen-Codeine [...] Details [U] XRAY FEMUR 2 VWS LEFT 20102 Date: 28-Feb-2020 [U] XRAY KNEE 4 OR MORE VWS LEFT 82850 Date: 29-Feb-2020 CT Knee without contrast 55911 Date: 29-Feb-2020 Immunization Name Dates Details Immunizations not documented Social History Name Dates Details Tobacco smoking consumption unknown (finding) Vital Signs Date Test Result Details No Known Vitals to report Results Date Description Value Details Results not documented Plan of Care Name Dates Details Planned Observations Planned Goals not documented Interventions Provided Medication ChangesMeloxicam 7.5 MG Oral Tablet - StartVoltaren 1 % Transdermal Gel - StartLabs/Procedures/Imaging[U] XRAY KNEE 4 OR MORE VWS LEFT 36067; To Be Done: 29 Feb 2020 Instructions [...]
--- OUTSIDE RECORDS SUMMARY | 2020-05-14 23:24 | XMS REPORT | Summary of Care ---
:1995 Author Organization [facility] Address [address] [place] [address] Care Team Providers Name Role Phone Mariannealbert Myra R Medicaid Hmo Raghav Mandujano [facility] Primary Care Provider Roz Donaldson Insurance Hmo Reason for Visit Reason Comments CONTROL Encounter Details Date Type Department Care Team Description 03/22/2020 Office Visit [facility] RMP- Debbie Coley Enc ounter for initial prescription of contraceptive pills (Primary Dx); [facility] Irregular menstrual cycle; [address] Screen for STD (sexually transmitted dis ease) [place], [place] [id number] Allergies Active Allergy Reactions Severity Noted Date [...] unknown. 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 Master Pilot Utility Dysmenorrhea 02/15/2014 Menorrhagia 02/15/2014 documented [...] 04/2016 Under medical supervision-Neurologist Dr. Medley in [facility] Family History Problem Relation Age [...] file Gets together: Not on file Attends hoahaoism service: Not on file Active member of [...] Office Visit OB Satellites Debbie Coley FNP [address] [address] 15 Name Type Priority Associated Diagnoses Order [...] Pathologist Sig nature POCT PREG Negative [facility] [place] On board controls acceptable Yes [facility] [place] ON with C Line POCT PREG LOT # [id number] [place] POCT PREG TEST DATE [facility] Specimen Urine - URINE, CLEAN CATCH Performing Organization Address City/State/Zipcode Phone Number TERRANCECHMadhavi FORBES CLIA: [id number] [place] [address] [address] [facility] documented in this encounter Visit Diagnoses Diagnosis Encounter for initial prescription of co ntraceptive pills - Primary General counseling for prescription of o ral contraceptives Irregular menstrual cycle Screen for STD (sexually transmitted dis ease) Screening examination for venereal disea se documented in this encounter Insurance Payer Benefit Plan / Subscriber ID Effective Phone Address [facility] [id number] 2020-Pres [address]OX Medic aid HEALTH CHOICE - HEALTH CHOICE ent [id number] 1 MANAGED MEDICAID [place], [place] [phone] documented as of this encounter Advance Directives Type Date Recorded Patient French Drawer Explanati on Advance Directives and Living Will Power of Sweeper Driver
--- OUTSIDE RECORDS SUMMARY | 2020-05-14 23:24 | XMS REPORT | Summary of Care ---
:1995 Author Name Hector Miranda Address Unavailable Unavailable , Care Team Providers Name Role Phone RASHAD DANIELS APRN Unavailable Unavailable SUNI Hoffman, ANGELES Unavailable Unavailable DEANA Hoffman, SAMMY Unavailable Unavailable DEANA YOUNGER MN, SAMMY VEE Unavailable Unavailable SUNI YOUNGER MN, ANGELES Espino Unavailable Unavailable Unavailable Unavailable Unavailable [...] TIMES DAILY. Quantity: 90 Refills: 0 RASHAD DANIESL APRN Start : 13-Aug-2017 Active Ibuprofen 800 [...] Details [U] XRAY FEMUR 2 VWS LEFT [id number] Date: 28-Feb-2020 [U] XRAY KNEE 4 OR MORE VWS LEFT 24002 Date: 29-Feb-2020 CT Knee without contrast 22163 Date: 29-Feb-2020 Immunization Name Dates Details Immunizations not documented Social History Name Dates Details Tobacco smoking consumption unknown (finding) Vital Signs Date Test Result Details No Known Vitals to report Results Date Description Value Details Results not documented Plan of Care Name Dates Details Planned Observations CT Knee without contrast [id number] On: 29-Feb-2020 Intent Planned Goals not documented Interventions Provided Medication ChangesMeloxicam 7.5 MG Oral Tablet - StartVoltaren 1 % Transdermal Gel - StartLabs/Procedures/Imaging[U] XRAY KNEE 4 OR MORE VWS LEFT 25000; To Be Done: 29 Feb 2020 Instructions [...]
--- OUTSIDE RECORDS SUMMARY | 2020-05-14 23:24 | XMS REPORT | Summary of Care ---
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 Encounter Details Date Type Department Care Team Description 04/26/2020 Office Visit [facility]- Nadine Mandujano Ot er general counseling and advice for contraceptive management (Primary Dx); Juan David Avilez JAVY Irregular menstrual cycle; [address] Well woman exam; Street JACK A Obesity (BMI 30-39.9); [place], [place] [address] History of seizure; [address] Encounter for initial prescription of co ntraceptive pills [phone] Allergies Active Allergy Reactions Severity Noted Date Comments Latex Other - See comments 08/31/2014 Rai s kin with results of redness and nilesh n. documented as of this encounter (statuses as of 04/26/2020) Medications Medication Sig Dispensed Refills Start End Status Date Date levETIRAcetam (KEPPRA) Take 1,000 mg 0 Active 1,000 mg tablet by mouth 2 (two) times daily. methylPREDNISolone 4 Take by mouth 21 Each 0 Active mg tabletsIndications: SEE-INSTRUCTIO 0 Sacroiliitis NS. follow package directions pregabalin (LYRICA) 25 Take 1 capsule 8 capsule 0 Active mg capsuleIndications: by mouth 2 0 Sacroiliitis (two) times daily as needed for Pain (scale 7-10). norethindrone-e.estrad START ON FIRST 1 Package 2 Active ioL-iron (MICROGESTIN DAY OF NEXT 0 FE) 1.5 mg-30 mcg MENSES, TAKE 1 (21)/75 mg (7) per TABLET BY tabletIndications: MOUTH DAILY. Encounter for initial prescription of contraceptive pills norethindrone-e.estrad START ON FIRST 84 tablet 0 Discontinued ioL-iron (MICROGESTIN DAY OF NEXT 0 020 (Reorder) FE) 1.5 mg-30 mcg MENSES, TAKE 1 (21)/75 mg (7) per TABLET BY tabletIndications: MOUTH DAILY. Encounter for initial prescription of contraceptive pills documented as of this encounter (statuses as of 04/26/2020) Active Problems Problem Noted Date Irregular menstrual cycle 04/26/2020 Well woman exam 03/07/2019 Other general counseling and advice for contraceptive management 03/07/2019 History of seizure 03/07/2019 Overview: On chino, bianca last appointment was 10/2018 Obesity (BMI 30-39.9) 03/07/2019 Right hip pain 09/03/2014 Convulsions 02/15/2014 Overview: Last one unknown. 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 documented as of this encounter Last Filed Vital Signs Vital Sign Reading Time Taken Comments Blood Pressure 131/73 04/26/2020 9:54 AM BELL NECK HAMMERER Pulse 83 04/26/2020 9:54 AM BELL NECK HAMMERER Temperature 36.2 C (97.2 F) 04/26/2020 9:54 AM BELL NECK HAMMERER Respiratory Rate 16 04/26/2020 9:54 AM BELL NECK HAMMERER Oxygen Saturation - - Inhaled Oxygen Concentration - - Weight 96.6 kg (213 lb 1 oz) 04/26/2020 9:54 AM BELL NECK HAMMERER Height 160 cm (5' 3") 04/26/2020 9:54 AM BELL NECK HAMMERER Body Mass Index 37.74 04/26/2020 9:54 AM BELL NECK HAMMERER documented in this encounter Progress Notes Nadine Mandujano, CNP - 04/26/2020 9:15 AM CST Chief complaint: Chief Complaint 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 She reports that she recentlystarted ocp about 1 month ago, she states that since starting the ocp she had multiple menses the month of March. She does however report a history of irregular cycles. She reports her menses datingback since prior to her miscarriage has been irregular. She reports a menses from 11/04- , no menses the month of November, 01/01-, no menses the month of February, then the month of March she reports having 2 cycles, 04/04- and again 04/22 to currently on her menses. She reports that she desires and states that she will only take the ocp this month and try again for next month, despite her cycles not being regular. She reports her desires and will not be satisfied if she is on the ocp any longer. Histories OB History Para Term AB Living [...] under medical supervision- managing on her own Irregular menstrual cycle 04/26/2020 Menstrual disorder Seizures 04/2016 Under medical supervision-Neurologist Dr. Medley in [place]- on [facility] Family History Problem Relation Age [...] file Gets together: Not on file Attends jain service: Not on file Active member of [...] Condom Comment: last sexual intercourse 03/06/2019 Labs No new labs and Admission on 04/08/2020, Discharged on 04/08/2020 Component Date Value APPEARANCE 04/08/2020 Hazy* COLOR 04/08/2020 Yellow PH 04/08/2020 6.0 SP GRAVITY 04/08/2020 1.024 GLU U QUAL 04/08/2020 Normal BLOOD 04/08/2020 Negative KETONES 04/08/2020 Negative PROTEIN 04/08/2020 Negative UROBILIN 04/08/2020 2.0 mg/dL* BILIRUBIN 04/08/2020 Negative NITRITE 04/08/2020 Negative LEUK ALEXIA 04/08/2020 25/uL* RBC/HPF 04/08/2020 3 WBC/HPF 04/08/2020 3 BACTERIA 04/08/2020 Negative MUCOUS 04/08/2020 Slight* SQ EPITH 04/08/2020 2 URINE CULTURE 04/08/2020 > 100,000 CFU/mL mixed aerobic organisms - suggests endogenous microbial contamination Admission on 04/06/2020, Discharged on 04/07/2020 Component Date Value APPEARANCE 04/06/2020 Hazy* COLOR 04/06/2020 Yellow PH 04/06/2020 5.0 SP GRAVITY 04/06/2020 1.032* GLU U QUAL 04/06/2020 Normal BLOOD 04/06/2020 1+* KETONES 04/06/2020 5 mg/dL* PROTEIN 04/06/2020 Negative UROBILIN 04/06/2020 Normal BILIRUBIN 04/06/2020 Negative NITRITE 04/06/2020 Negative LEUK ALEXAI 04/06/2020 25/uL* RBC/HPF 04/06/2020 1 WBC/HPF 04/06/2020 1 BACTERIA 04/06/2020 Few* MUCOUS 04/06/2020 Marked* SQ EPITH 04/06/2020 6 POCT PREG 04/06/2020 negative On board controls accept* 04/06/2020 present POCT PREG LOT # 04/06/2020 [id number] POCT PREG TEST DA* 04/06/2020 09/21/21 Office Visit on 03/22/2020 Component Date Value POCT PREG 03/22/2020 Negative On board controls accept* 03/22/2020 Yes Office Visit on 03/08/2020 Component Date Value POCT PREG 03/08/2020 Negative On board controls accept* 03/08/2020 Yes C. trachomatis Nucleic A* 03/08/2020 Negative N. gonorrhoeae Nucleic A* 03/08/2020 Negative Radiology No new radiology. Allergies Temo is allergic to latex. Medications Temo has a current medication list which includes the following prescription(s): norethindrone-e.estradiol-iron, methylprednisolone, pregabalin, and levetiracetam. Review of Systems Constitutional: Negative. HENT: Negative. Eyes: Negative. Respiratory: Negative. Breasts: Negative. Cardiovascular: Negative. Gastrointestinal: Negative. Genitourinary: Negative. Musculoskeletal: Negative. Skin: Negative. Neurological: Negative. Psychiatric/Behavioral: Negative. Endocrine: Endocrine negative BP 131/73 (BP Location: Right arm, Patient Position: Sitting, BP CUFF SIZE: Adult Medium) | Pulse 83 | Temp 36.2 C (97.2 F) (Oral) | Resp 16 | Ht 5' 3" (1.6 m) | Wt 213 lb 1 oz (96.6 kg) | LMP 04/22/2020 (Approximate) | BMI 37.74 kg/m Pregravid BMI: Could not be calculated [...] ulceration present. Assessment/Plan Return to clinic in 12 weeks. for follow up on ocp and menses Other general counseling and advice for contraceptive management (primary encounter diagnosis) Irregular menstrual cycle Encounter for initial prescription of contraceptive pills Comment: reports irregular menses, after discussing with patient about the use of ocp to try and regulate her menses, she verbalized understanding. Patient advised to follow up in 3 months to see if her cycle her cycle has regulaterd Plan: norethindrone-e.estradioL-iron (MICROGESTIN FE) 1.5 mg-30 mcg (21)/75 mg (7) per tablet This visit did not involve counseling and coordination that comprised more than 50% of the visit time. BRENTON Chapa 04/26/2020 4:30 PM NECK HAMMERER documented in this encounter Plan of Treatment Date Type Specialty Care Team Description 07/25/2020 Office Visit OB Satellites Tegan Manduj[facility] nabor Avilez, [facility] [address] [place], [place] [address] [phone] Health Maintenance Due Date Last Done Comments [...] filedocumented in this encounter Visit Diagnoses Diagnosis Other general counseling and advice for contraceptive management - Primary Irregular menstrual cycle Well woman exam Routine general medical examination at a health care facility Obesity (BMI 30-39.9) Obesity, unspecified History of seizure Encounter for initial prescription of co ntraceptive pills General counseling for prescription of o ral contraceptives documented in this encounter Insurance Payer Benefit Plan / Subscriber ID Effective Phone Address [facility] [id number] 2020-Pres 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
--- OUTSIDE RECORDS SUMMARY | 2020-05-14 23:25 | XMS REPORT | Summary of Care ---
:1995 Author Organization [facility] Address [address] [place] [address] Care Team Providers Name Role Phone MarianneosLaurendharmesh Solorzano Medicaid Hmo Raghav Mandujano [facility] Primary Care Provider Roz Donaldson Insurance Hmo Reason for Visit Reason Comments Other Encounter Details Date Type Department Care Team Description [facility]/04[facility] [facility], Other [address] [facility] [place] [address] [address] [facility] [phone] [facility] [place], [place] [address] Allergies Active Allergy Reactions Severity Noted Date Comments Latex Other - See comments 08/31/2014 Rai s kin with results of redness and nilesh n. documented as of this encounter (statuses as of 05/04/2020) Medications Medication Sig Dispensed Refills Start Date End Date Status levETIRAcetam (KEPPRA) Take 1,000 mg by 0 Active 1,000 mg tablet mouth 2 (two) times daily. methylPREDNISolone 4 mg Take by mouth 21 Each 0 04/07/2020 Active tabletsIndications: SEE-INSTRUCTIONS Sacroiliitis . follow package directions pregabalin (LYRICA) 25 Take 1 capsule 8 capsule 0 04/07/2020 Active mg capsuleIndications: by mouth 2 (two) Sacroiliitis times daily as needed for Pain (scale 7-10). norethindrone-e.estradio START ON FIRST 1 Package 2 04/26/2020 Active L-iron (MICROGESTIN FE) DAY OF NEXT 1.5 mg-30 mcg (21)/75 mg MENSES, TAKE 1 (7) per TABLET BY MOUTH tabletIndications: DAILY. Encounter for initial prescription of contraceptive pills documented as of this encounter (statuses as of 05/04/2020) Active Problems Problem Noted Date Irregular menstrual cycle 04/26/2020 Well woman exam 03/07/2019 Other general counseling and advice for contraceptive management 03/07/2019 History of seizure 03/07/2019 Overview: On keppra, reports last appointment was 10/2018 Obesity (BMI 30-39.9) 03/07/2019 Right hip pain 09/03/2014 Convulsions 02/15/2014 Overview: Last one unknown. 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 documented as of this encounter Last Filed Vital Signs Not on filedocumented in this encounter Miscellaneous Notes Telephone Encounter - Jodie Roa LVN - 05/04/2020 2:55 PM CSTNoted. HOUSE DELIVERY MANAGER Telephone Encounter - Lindsey Barry - 05/04/2020 1:24 PM CSTPharm sent fax as they dispensed day supply of aurovela fe to patient on 05/03 documented in this encounter Plan of Treatment Date Type Specialty Care Team Description 07/25/2020 Office Visit OB Satellites Tegan Mandujano, [facility] [address] [place], [place] [address] [phone] Health Maintenance Due Date Last Done Comments [...] / Subscriber ID Effective Phone Address [facility] [id number] 2020-Pres 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
--- OUTSIDE RECORDS SUMMARY | 2020-05-14 23:25 | XMS REPORT | Summary of Care ---
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 Kiln Burner Utility Dysmenorrhea 02/15/2014 Menorrhagia 02/15/2014 documented as [...] with No / Unsure 04/26/2020 9:32 AM COGNOS BI DEVELOPER someone who was confirmed or suspected to have Coronavirus / COVID-19? documented as of this encounter Last Filed Vital Signs Vital Sign Reading Time Taken Comments Blood Pressure 131/73 04/26/2020 9:54 AM COGNOS BI DEVELOPER Pulse 83 04/26/2020 9:54 AM COGNOS BI DEVELOPER Temperature 36.2 C (97.2 F) 04/26/2020 9:54 AM COGNOS BI DEVELOPER Respiratory Rate 16 04/26/2020 9:54 AM COGNOS BI DEVELOPER Oxygen Saturation - - Inhaled Oxygen Concentration - - Weight 96.6 kg (213 lb 1 oz) 04/26/2020 9:54 AM COGNOS BI DEVELOPER Height 160 cm (5' 3") 04/26/2020 9:54 AM COGNOS BI DEVELOPER Body Mass Index 37.74 04/26/2020 9:54 AM COGNOS BI DEVELOPER documented in this encounter Progress Notes Nadine Mandujano, CNP - 04/26/2020 9:15 AM CST Chief complaint: Chief Complaint 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 Medley in [place]- on [facility] Family History Problem Relation Age of Onset [...] file Gets together: Not on file Attends congregation service: Not on file Active member of [...] BILIRUBIN 04/06/2020 Negative NITRITE 04/06/2020 Negative LEUK ALEXIA 04/06/2020 25/uL* RBC/HPF 04/06/2020 1 WBC/HPF 04/06/2020 1 BACTERIA 04/06/2020 Few* MUCOUS 04/06/2020 Marked* SQ EPITH 04/06/2020 6 POCT PREG 04/06/2020 negative On board controls accept* 04/06/2020 present POCT PREG LOT # 04/06/2020 [id number] POCT PREG TEST DA* 04/06/2020 09/21/21 Office [...] visit time. BRENTON Chapa 04/26/2020 4:30 PM OS BI DEVELOPER documented in this encounter Plan of Treatment Date Type Specialty Care Team Description 07/25/2020 Office Visit OB Satellites Tegan Mandujano nabor Avilez, [facility] [address] [place], [place] [address] [phone] Health Maintenance Due Date Last Done Comments [...] Plan / Subscriber ID Effective Phone Address [facility] [id number] 2020-Pres 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
[2020-05-15] MEDS ORDERED: KETOROLAC 30 MG/ML INJ ONE (00:16)
[2020-05-15 02:28] LABS: Urine Blood 1+ (NEG); Urine Glucose NEGATIVE (NEG); Urine Protein NEGATIVE (NEG); Urine Specific Gravity >1.030 (1.005-1.030); Urine pH 5.5 (5.0-7.0)
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
--- NOTE | 2020-05-15 08:07 | RAD REPORT ---
EXAM DESCRIPTION: RAD - Femur Right - 05/15/2020 12:47 am CLINICAL HISTORY: Leg pain status post fall FINDINGS: No fracture is seen.
[2020-05-16 04:29] VITALS: BP 124/90; TEMP 98.9; O2SAT 99
== END 2020-05-15 02:42 | disposition home or self-care (01) ==
LOC: ER 23:18
DX: M54.31 Sciatica, right side (principal); W01.0XXA Fall on same level from slipping, tripping and stumbling without subsequent striking against object, initial encounter; Y93.01 Activity, walking, marching and hiking; Y92.89 Other specified places as the place of occurrence of the external cause; Y99.8 Other external cause status; Z88.0 Allergy status to penicillin; Z88.5 Allergy status to narcotic agent; Z91.040 Latex allergy status; Z91.048 Other nonmedicinal substance allergy status
CPT/HCPCS: 81003; 81025; 96372; 99284

== ENCOUNTER 2020-07-30 20:18 | Emergency (ER) | payer OTHER ==
--- OUTSIDE RECORDS SUMMARY | 2020-07-30 20:23 | XMS REPORT | Continuity of Care Document ---
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 Respitory Rate 2017-10-27 16:15:00 [facility] Systolic (mm Hg) 2017-10-27 16:15:00 [facility] Diastolic (mm Hg) 2017-10-27 16:15:00 [facility] Respitory Rate 2017-10-27 16:00:00 [facility] Systolic (mm Hg) 2017-10-27 16:00:00 [facility] Diastolic (mm Hg) 2017-10-27 16:00:00 [facility] Heart Rate 2017-10-27 11:31:00 [facility] BMI Calculated 2017-10-27 11:31:00 [facility] Weight 2017-10-27 11:31:00 [facility] Height 2017-10-27 11:31:00 162.56 cm [facility] Height 2017-10-23 16:12:00 160.02 cm [facility] BMI Calculated 2017-10-23 16:12:00 [facility] Weight 2017-10-23 16:12:00 [facility] Systolic (mm Hg) 2017-08-07 13:00:00 [facility] Diastolic (mm Hg) 2017-08-07 13:00:00 [facility] Respitory Rate 2017-08-07 13:00:00 [facility] Heart Rate 2017-08-07 13:00:00 [facility] Temperature Oral (F) 2017-08-07 13:00:00 98.8 F [facility] Systolic (mm Hg) 2017-08-07 08:46:00 [facility] Diastolic (mm Hg) 2017-08-07 08:46:00 [facility] Respitory Rate 2017-08-07 08:46:00 [facility] Heart Rate 2017-08-07 08:46:00 [facility] Temperature Oral (F) 2017-08-07 08:46:00 99 F [facility] Temperature Oral (F) 2017-08-07 05:24:00 99 F [facility] Respitory Rate 2017-08-07 05:24:00 [facility] Heart Rate 2017-08-07 05:24:00 [facility] Systolic (mm Hg) 2017-08-07 05:24:00 [facility] Diastolic (mm Hg) 2017-08-07 05:24:00 [facility] Height 2017-07-29 10:32:00 162.56 cm [facility] BMI Calculated 2017-07-29 10:32:00 [facility] Weight 2017-07-29 10:32:00 [facility] BMI Calculated 2017-07-29 02:33:00 [facility] Weight 2017-07-29 02:33:00 [facility] Height 2017-07-29 02:33:00 129.54 cm [facility] Procedures Procedure Date / Time Performed Performing Clinician [facility] e [U] XRAY KNEE 4 OR 2020-02-29 00:00:00 [facility] [place] MORE VWS LEFT [id number] Knee without 2020-02-29 00:00:00 [facility] [place] contrast 24970 Physicians [U] XRAY FEMUR 2 S 2020-02-28 00:00:00 [facility] [place] LEFT 01604 Physicians [U] XRAY KNEE 1 OR 2 2019-05-09 00:00:00 [facility] [place] S LEFT 23112 Physicians [U] XRAY FEMUR 2 S 2019-05-09 00:00:00 [facility] [place] LEFT 87021 Physicians [U] XRAY FEMUR 2 VWS 2018-10-01 00:00:00 [facility] [place] LEFT 14473 Physicians [U] XRAY KNEE 1 OR 2 2018-10-01 00:00:00 [facility] [place] [facility] LEFT 77396 Physicians [U] XRAY FEMUR 2 S 2018-07-08 00:00:00 [facility] [place] LEFT 42091 Physicians [U] XRAY KNEE 1 OR 2 2018-07-08 00:00:00 [facility] [place] [facility] LEFT 58178 Physicians [U] XRAY FEMUR 2 S 2018-06-17 00:00:00 [facility] [place] LEFT 59125 Physicians [U] XRAY KNEE 1 OR 2 2018-06-17 00:00:00 [facility] [place] [facility] LEFT 66513 Physicians [U] XRAY FEMUR 2 S 2018-03-19 00:00:00 [facility] [place] LEFT 74155 Physicians [U] XRAY KNEE 1 OR 2 2018-03-19 00:00:00 [facility] [place] [facility] LEFT 87122 Physicians [U] XRAY FEMUR 2 S 2018-02-04 00:00:00 [facility] [place] LEFT 75776 Physicians [U] XRAY KNEE 1 OR 2 2018-02-04 00:00:00 [facility] [place] [facility] LEFT 83718 Physicians [U] XRAY FEMUR 2 S 2018-01-18 00:00:00 [facility] [place] LEFT 17366 Physicians [U] XRAY KNEE 1 OR 2 2018-01-18 00:00:00 [facility] [place] [facility] LEFT 01918 Physicians [U] XRAY FEMUR 2 VWS 2017-12-17 00:00:00 [facility] [place] LEFT 88028 Physicians [U] XRAY KNEE 1 OR 2 2017-12-17 00:00:00 [facility] [place] [facility] LEFT 48555 Physicians [U] XRAY FEMUR 2 S 2017-11-17 00:00:00 [facility] [place] LEFT 77522 Physicians [U] XRAY KNEE 1 OR 2 2017-11-17 00:00:00 [facility] [place] [facility] LEFT 93171 Physicians [U] XRAY FEMUR 2 S 2017-11-02 00:00:00 [facility] [place] LEFT 75422 Physicians [U] XRAY KNEE 1 OR 2 2017-11-02 00:00:00 [facility] [place] [facility] LEFT 73986 Physicians [U] XRAY FEMUR 2 [facility] 2017-10-13 00:00:00 [facility] [place] LEFT 09716 Physicians [U] XRAY KNEE 1 OR 2 2017-10-13 00:00:00 [facility] [place] [facility] LEFT 40771 Physicians [U] XRAY KNEE 1 OR 2 2017-09-10 00:00:00 [facility] [place] [facility] LEFT 76617 Physicians [U] XRAY FEMUR 2 S 2017-09-10 00:00:00 [facility] [place] LEFT 67090 Physicians Procedure<sup>1</sup> [facility] Plan of Care Planned Activity Planned Date Details Comments Source Future Scheduled Test 2020-02-29 [U] XRAY FEMUR 2 [facility] [place] [facility] LEFT 26921 Physicians [code = 34868] Diagnostic Test 2020-02-29 CT Knee without [facility] [place] Pending 00:00:00 contrast 35473 Physicians [code = 46317] Encounters Start End Encounter Admission Attending Care Care Encounter Source Date/Time Date/Time Type Type Clinicians Facility Department ID 2020-07-25 2020-07-25 [id number] 09:19:53 10:09:42 Visit Nadine Avilez [employer] [id number] [facility] [id number] MATERNAL [id number] & CHILD [address] [place] [address] 2020-07-17 2020-07-17 Outpatient [facility] 0d4 [id number] 00:00:00 00:00:00 , Christy [id number] Myranda [id number] 2020-02-29 2020-02-29 AppointKYLIE [facility] [id number] Univers 09:30:00 09:30:00 t; ANGELES CULP M.D. [facility] Garima REYNOSO M.D. Physici ans 2019-05-12 2019-05-12 [facility] [id number] Univers 09:30:00 09:30:00 t; ROBBIN LEBLANC [facility] [place], M.[facility]. [facility] Garima Hoffman [facility] 2019-04-16 2019-04-17 Outpatient Rex Angulo MHSE MHSE [id number] 21:12:55 00:15:00 Rafat 03 2019-04-16 2019-04-16 Emergency E MHSE MHSE [id number] 21:12:00 21:12:00 [facility] 2018-10-07 2018-10-07 [facility] [id number] Univers 12:15:00 12:15:00 t; ROBBIN LEBLANC [facility] [place], M.D. [place] [facility] 2018-07-31 2018-08-02 Outpatient Jennifer MHPL MHPL [id number] 22:33:00 17:55:00 Alena Royaler Jared 2018-07-15 2018-07-15 [facility] [id number] Univers 13:45:00 13:45:00 t; ROBBIN LEBLANC [facility] [place] M[facility]. [facility] 2018-06-24 2018-06-24 [facility] [id number] Univers 12:45:00 12:45:00 t; ROBBIN LEBLANC [facility] [place], M[place]. [place] [facility] 2018-03-25 2018-03-25 [facility] [id number] Univers 12:45:00 12:45:00 t; LEBLANCROBBIN VILLAREAL it [facility] [place], M.D. [place] M[facility] 2018-02-11 2018-02-11 Appointmen [facility] [id number] Univers 12:45:00 12:45:00 t; ROBBIN LEBLANC [facility] [place], M[place]. [place] [facility] 2018-01-28 2018-01-28 Appointmen [facility] [id number] Univers 09:15:00 09:15:00 t; ROBBIN LEBLANC [facility] [place] M[place] [facility] 2017-12-17 2017-12-17 Appointmen [facility] [id number] Univers 13:15:00 13:15:00 t; ROBBIN LEBLANC [facility] [place] M[place]. [place] [facility] 2017-11-19 2017-11-19 Appointmen [facility] [id number] Univers 11:00:00 11:00:00 t; ROBBIN LEBLANC [facility] [place] M[place] [facility] 2017-11-05 2017-11-[facility] [id number] Univers 13:30:00 13:30:00 t; ROBBIN LEBLANC [facility] [place] M[place]. [place] M[facility]. Physici ans 2017-10-28 2017-10-29 Outpatient Patel Reji [facility] [id number] 21:16:00 14:27:00 Eb 2017-10-27 2017-10-27 Outpatient Deana [facility] [id number] 05:29:00 23:59:00 Robbin 2017-10-27 2017-10-27 [facility] KYLIE LEBL[facility] [id number] Univers 07:30:00 07:30:00 t; ROBBIN LEBLANC [facility] [place] M[place] M[facility]. Physici ans 2017-10-15 2017-10-15 Appointmen [facility] [id number] Univers 08:00:00 08:00:00 t; ROBBIN LEBLANC [facility] [place] M[place]. [place] M[facility]. [facility] ans 2017-09-17 2017-09-17 Appointmen [facility] [id number] Univers 08:00:00 08:00:00 t; ROBBIN LEBLANC [facility] [place], M[place]D. [place] Yasmin Physici ans 2017-09-17 2017-09-17 [id number] Univers 08:00:00 08:00:00 t; [facility] SOL[facility] [place] [place] [facility] SOL[facility] Physici ans 2017-08-27 2017-08-27 [facility] [phone] Univers 08:00:00 08:00:00 t; ROBBIN LEBLANC [facility] [place], M[place]. [place] Yasmin Physici ans 2017-08-13 2017-08-13 [facility] [id number] Univers 13:15:00 13:15:00 t; ROBBIN LEBLANC [facility] [place] 2017-07-28 2017-08-07 Outpatient Odalys, [facility] [id number] 20:32:00 15:00:00 Dipak 67 2017-07-28 2017-07-28 Outpatient [facility] MARY KAY 9370 [facility] 21:02:00 21:02:00 Results Test Description Test Time Test Comments Results Result [facility] e Comments ENDOCRINOLOGY 2019-04-17 Negative [facility] 04:19:00 *NA*(04/16/19 [place] 10:19 PM) CHEM PANEL 2018-08-01 134 [facility] 12:51:00 [facility] CHEM PANEL 2018-08-01 0.2 [facility] 12:51:00 [facility] CHEM PANEL 2018-08-01 64 [facility] 12:51:00 [facility] CHEM PANEL 2018-08-01 12:51:00 Test Item Value Reference Range Interpretation Comme nts A/G Ratio (test code = A/G Ratio) 0.8 1 0.7-1.6 [facility] HermannCHEM IEHJP7045-66-57 12:51:0023[facility] HermannCHEM PANEL 2018-08-01 12:51:21273Elntctfn HermannCHEM NFTSK3841-62-58 12:51:004.1[facility] HermannCHEM IKVYR5322-75-76 12:51:74634Eymxwuzb HermannCHEM JGVLI0138-13-12 12:51:0011.1[facility] HermannCHEM NMHHL9857-47-41 12:51:000.56[facility] CHEM MUTJU7742-50-70 12:51:0013[facility] HermannCHEM QCPZO1072-72-71 12:51:003.8 [facility]annCHE[facility] XPYES1317-27-15 12:51:0026[facility] HermannCHEM PANEL 2018-08-01 12:51:38299Eefgevrj HermannCHEM YKMNC6646-58-95 12:51:008.2[facility] HermannCHEM YOTYV7776-65-84 12:51:0010[facility] HermannCHEM WLTLV4695-13-11 12:51:003.1[facility] HermannCHEM TXXXT7501-26-44 12:51:006.9[facility]annCHEM YDPGA2877-52-16 12:51:00 Test Item Value Reference Range Interpretation Comments B/C Ratio (test code = B/C Ratio) 23 1 6-25 [facility] HermannCHEM XNYFT1780-14-98 12:51:002.2[facility] HermannHEMATOLOGY 2018-08-01 12:51:008.2[facility] HpcfzgxSXKYKIBIIC0543-70-51 12:51:60715Jgchcajy ItfakfuRIHMYRCDDS9186-87-91 12:51:0014.5[facility] LjfwlgsVFMOMJUUKB0298-16-63 12:51:0033.6[facility] JanoexiELYVVTROEH2738-29-21 12:51:00 Test Item Value Reference Range Interpretation Comments MCH (test code = MCH) 26.6 pg 27.0-31.0 [facility] MnncgaiWTBYQAGQLA5456-93-41 12:51:0011.9[facility] HermannHEMATOLOGY 2018-08-01 12:51:0079.1[facility] ShfkdoxAEFMNNJADN9651-51-46 12:51:0035.3[facility] IadhcfaEBGLWAXKKK6463-55-80 12:51:004.46[facility] WqffxwjIYSYQXSCVA3193-06-34 12:51:008.0[facility] WwcqfzrPEWALZINGL9093-84-83 12:51:00 Test Item Value Reference Range Interpretation Comments PTT (test code = PTT) 30.7 s 22.9-35.8 [facility] CclamtdPOQQKBAJGZ0173-56-01 12:51:00 Test Item Value Reference Range Interpretation Comments PT (test code = PT) 13.7 s 12.0-14.7 [facility] DinxyidPQWVRKPNJG8705-36-82 12:51:00 Test Item Value Reference Range Interpretation Comments INR (test code = INR) 1.07 1 0.85-1.17 [facility] VercuodPXJTETWSEK8190-92-01 12:51:007.9[facility] HermannHEMATOLOGY 2018-08-01 12:51:000.2[facility] IqxbrcbDQKBLNTOKO6639-74-50 12:51:000.7[facility] PtcolprLNCBRVVXWE6299-11-18 12:51:005.0[facility] UkhclkdNKFQIQAMZD4731-00-28 12:51:002.0[facility] KjnghbcTMXFIUEXQE1409-83-01 12:51:002.2[facility] YNUPUPGNMT5118-41-35 12:51:0062.1[facility] WxmhvwrDZQUCGMPJF3810-18-34 12:51:00 27.3[facility] ExbciqqVYSNUFHITV9281-18-53 12:51:000.1[facility] HermannHEMATOLOGY 2018-08-01 12:51:000.6[facility] GuybtcmFHBZORFAANXLG0214-88-75 07:30:00Negative *NA*(08/01/18 1:30 AM)[facility] HermannCHEM NHRRP0162-87-15 06:28:000.2[facility] HermannCHEM LOGQO1114-26-58 06:28:18341Iscrjhrk HermannCHEM XDPSF4375-20-80 06:28:003.6[facility] HermannCHEM SVFFM8492-61-74 06:28:0076[facility] HermannCHEM MQLIE7196-69-45 06:28:0037[facility] HermannCHEM CXFUT1944-94-09 06:28:0028 [facility]annCHEM GNVRD8450-37-97 06:28:008.5[facility] HermannCHEM PANEL 2018-08-01 06:28:0012[facility] HermannCHEM SRNSX7553-80-93 06:28:008.9[facility] HermannCHEM VPRVL3571-54-63 06:28:17824Dxfolcqp HermannCHEM BRWIF4789-85-07 06:28:003.5[facility] HermannCHEM KDHFY5810-95-85 06:28:18320Zpfrliha HermannCHEM LXLVC6762-93-93 06:28:0013[facility] HermannCHEM HFBSD0410-57-18 06:28:000.71 [facility]annCHE[facility] KTCTP2490-86-99 06:28:38886Myqjovwq HermannCHEM PANEL 2018-08-01 06:28:005.3[facility] HermannCHEM KPZPG2810-58-09 06:28:00 Test Item Value Reference Range Interpretation Comments A/G Ratio (test code = A/G Ratio) 0.7 1 0.7-1.6 [facility]annCHE[facility] FDAAU2274-36-70 06:28:0010.5[facility] HermannCHEM PANEL 2018-08-01 06:28:00 Test Item Value Reference Range Interpretation Comments B/C Ratio (test code = B/C Ratio) 18 1 6-25 [facility]annDR[facility] BRGYJX5890-18-42 06:28:00Negative *NA*(08/01/18 12:28 AM) [facility] MDBXHU0116-92-76 06:28:00Negative *NA*(08/01/18 12:28 AM) [facility] GQJKUE1415-96-08 06:28:00Negative *NA*(08/01/18 12:28 AM) [facility] SGPDFO2808-58-13 06:28:00See Note *NA*(08/01/18 12:28 AM) [facility] LXSISR0495-30-97 06:28:00Negative *NA*(08/01/18 12:28 AM) [facility] HIFFSJ3696-89-26 06:28:00Negative *NA*(08/01/18 12:28 AM) [facility] FLEEXQ9697-05-93 06:28:00Negative *NA*(08/01/18 12:28 AM) [facility] PZFIWC1508-01-17 06:28:00Negative *NA*(08/01/18 12:28 AM) [facility] FfgzivqMBJLBYLJCU5108-16-51 06:28:0079.0[facility] HermannHEMATOLOGY 2018-08-01 06:28:0038.8[facility] MftricwPDFAVYJEUY1302-50-00 06:28:008.6[facility] CdkxccvVATAMXJNQF6124-65-12 06:28:89711Daingsbj HbgehvtXYGKBRSZGK0119-62-20 06:28:0012.9[facility] DozjweyFTALIJRJPO2327-27-52 06:28:004.91[facility] RLHICARGOA2310-40-81 06:28:0010.0[facility] RpwinfpRZYTKZFGZT6902-57-20 06:28:00 33.2[facility] IlqpvisYCSNZPXCUB5096-22-98 06:28:0015.1[facility] HermannHEMATOLOGY 2018-08-01 06:28:00 Test Item Value Reference Range Interpretation Comments MCH (test code = MCH) 26.2 pg 27.0-31.0 [facility] OexaqcxXBVTKGWGIM8739-21-95 06:28:005.8[facility] HermannHEMATOLOGY 2018-08-01 06:28:003.0[facility] BizmvxfTBGHJUOCMJ2683-84-75 06:28:000.2[facility] KkblgbxEQCYLEAUHX5260-38-58 06:28:000.9[facility] OusiqxxFTFHLFZYED8904-42-06 06:28:000.1[facility] WzjgzkyLUDENKQGGQ5072-58-92 06:28:000.8[facility] BOARQWVEDL9929-60-83 06:28:002.0[facility] RuliqmmQFVVGQHLRT0505-20-28 06:28:00 58.2[facility] EszxargNMPKVVBVCY1245-84-61 06:28:0030.3[facility] HermannHEMATOLOGY 2018-08-01 06:28:008.7[facility] WrgatioSDZGAZXGQY1986-17-70 06:28:000.09[facility] TclogstNLNRUKKYWC0937-70-94 06:28:001.4[facility] HermannURINE AND HLYUT9994-45-93 06:28:005[facility]annURINE AND MBIRU2766-83-55 06:28:001[facility] URINE AND IJAML5672-25-24 06:28:00Marked *ABN*(08/01/18 12:28 AM)[facility] URINE AND EPSEU8862-31-46 06:28:00Yellow *NA*(08/01/18 12:28 AM)[facility] URINE AND SDYBT8725-87-36 06:28:00Negative (08/01/18 12:28 AM)[facility] URINE AND IJCAU8031-65-72 06:28:00Negative (08/01/18 12:28 AM)[facility] URINE AND DXGXM1170-18-56 06:28:00Negative *NA*(08/01/18 12:28 AM)[facility]ann[facility] AND ZYMVA1006-19-46 06:28:00Small *ABN*(08/01/18 12:28 AM)[facility] AND CTLUZ8401-82-43 06:28:00Negative (08/01/18 12:28 AM)[facility] AND SXGCX3789-96-99 06:28:00Negative *NA*(08/01/18 12:28 AM)[facility] AND MSXOJ2026-68-31 06:28:00Negative *NA*(08/01/18 12:28 AM)[facility] AND TJNKV8461-23-38 06:28:00 Test Item Value Reference Range Interpretation Comments UA pH (test code = UA pH) 5.0 1 5.0-8.0 [facility] AND WALFD7786-58-69 06:28:00 Test Item Value Reference Range Interpretation Comments UA Spec Grav (test code = UA Spec 1.029 1 Grav) [facility][U] XRAY FEMUR 2 VWS LEFT [id number] 12:59:00Images acquired, not reported on this accession number.[facility] [U] XRAY KNEE 1 OR 2 VWS LEFT [id number] 12:59:00Images acquired, not reported on this accession number.[facility][U] XRAY KNEE 1 OR 2 VWS LEFT [id number] 11:16:00Images acquired, not reported on this accession number.[facility][U] XRAY FEMUR 2 VWS LEFT [id number] 2017-11-19 11:16:00Images acquired, not reported on this accession number. [facility] XzmllbqpioXXZDJTQJBB0162-35-84 11:51:0016.5[facility] SILEWUSEOU4400-21-20 11:51:64821Hfqsyege KyaybvoLRUWKZUTIL7273-06-41 11:51:00 4.94[facility] ZqxdetuLBYDUKJTOY5000-15-63 11:51:009.5[facility] HermannHEMATOLOGY 2017-10-27 11:51:00 Test Item Value Reference Range Interpretation Comments MCH (test code = MCH) 24.1 pg 27.0-31.0 [facility] CyctcyqTCWQGDCUPS1599-53-34 11:51:0011.9[facility] HermannHEMATOLOGY 2017-10-27 11:51:0075.0[facility] WbmzmlqTHQAJVYULM1326-46-33 11:51:0032.2[facility] PxqjnvoHCHZOMGMMZ6863-96-92 11:51:0037.0[facility] KeypzshLFUMYWVTOZ2440-84-42 11:51:008.4[facility] TyadzyuDAGRPBDYNQ1727-59-93 11:51:0057.1[facility] NDGVZZTDCF9015-61-62 11:51:0033.5[facility] GeaxghlJENRNHXYMV1369-98-49 11:51:00 3.2[facility] OdjnwwmMIDLXGTTPO8100-48-32 11:51:005.4[facility] HermannHEMATOLOGY 2017-10-27 11:51:006.4[facility] WxnvkdwEAYMOHDZXA5756-55-23 11:51:000.7[facility] CcmaqhzBTSFPILQFG7958-45-98 11:51:002.3[facility] GmwhlqzWPKHMQFBMO3728-19-10 11:51:000.2[facility] EcmpjspUXKIBKWLXH4624-11-46 11:51:001+ *ABN*(10/27/17 6:51 AM) [facility] LffkluwWOEJFNPZRH1055-84-06 11:51:000.6[facility] HermannHEMATOLOGY 2017-10-27 11:51:000.1[facility][U] XRAY FEMUR 2 VWS LEFT [id number] 07:47:00Images acquired, not reported on this accession number.[facility][U] XRAY KNEE 1 OR 2 VWS LEFT [id number] 07:47:00Images acquired, not reported on this accession number.[facility] [U] XRAY FEMUR 2 VWS LEFT [id number] 07:53:00Images acquired, not reported on this accession number.[facility][U] XRAY KNEE 1 OR 2 VWS LEFT [id number] 07:53:00Images acquired, not reported on this accession number.[facility][U] XRAY FEMUR 2 VWS LEFT [id number] 13:33:00Images acquired, not reported on this accession number.[facility][U] XRAY KNEE 1 OR 2 VWS LEFT [id number] 13:33:00Images acquired, not reported on this accession number.[facility] JCKVAHUKWKRF9251-80-72 10:13:0015.1[facility] CwgdctaXZVXFWQYINHB2806-52-89 10:13:01065Pwvowddn RhlrssnTEYOZQBUJODP7816-48-52 10:13:000.53[facility] WFEEAZITBUIU1744-65-25 10:13:0024[facility] OgdcqzySJXBNQULEEVY6419-33-53 10:13:00 14[facility] NiavauxYQMDNJCXTTBD2967-42-52 10:13:0097[facility] HermannELECTROLYTES 2017-08-07 10:13:25615Fkfywyhs CkgmdvsDAENXOAMVOHB7288-34-93 10:13:008.7[facility] KsmwmvqEUZUFWOIIHDR5058-39-84 10:13:19268Bpllxpib WkuelryNENPJXIIBWZA3006-22-78 10:13:004.1[facility] CppwojtFLMUTWIXKS0639-77-57 10:13:003.2[facility] EXLPEHRYBC0688-68-10 10:13:000.9[facility] HbwvwqaLHUTMOOJAC1398-59-68 10:13:002.8 [facility] QdtimirGGUGMCCEMO7314-44-53 10:13:000.3[facility] HermannHEMATOLOGY 2017-08-07 10:13:0060.6[facility] NfkqwwvUAQAOSBCYH1075-32-64 10:13:0027.2[facility] WiwqsjiWVJQRIALSE9736-94-73 10:13:008.7[facility] YetdrxcUGCCDEBWKR3426-53-72 10:13:006.2[facility] UwtsyibVAHBQXZFYJ8791-60-72 10:13:000.3[facility] FKBTALMEHJ6041-70-16 10:13:0027.7[facility] WmbfvstRIINAURYMH1347-48-39 10:13:00 82.9[facility] HkkjwxvJONZNYFFFW9786-30-46 10:13:00 Test Item Value Reference Range Interpretation Comments MCH (test code = MCH) 27.5 pg 27.0-31.0 [facility] UmzqtyuHFIDAFRAYC8210-87-41 10:13:0033.1[facility] 2017-08-07 10:13:0015.7[facility] BsnkfryWIUXZYVDOW4042-77-79 10:13:75552Rgweygqk OnpacoyWFACJWZGTG6750-61-27 10:13:003.34[facility] LqaacfxZTTNTYWVXR2027-81-99 10:13:009.2[facility] RlcgoffERZAIOIRGN6702-75-82 10:13:009.7[facility] UVHMAWLEAI2346-67-56 10:13:008.0[facility] XxonghiDJSTQAKGDV0667-97-19 10:13:00 61.1[facility] BlomousUYYJMMXTHX1578-44-61 10:13:002.7[facility]annHEMATOLOGY 2017-08-07 10:13:000.7[facility] TdcvfstAMXQUNPQJS8348-97-30 10:13:000.3[facility] WxuwamkLIYBILKLWT8956-20-81 10:13:003.6[facility] IgjsfytWUAOMVBPPX6314-40-58 10:13:000.4[facility] CgkgunoWLWIPUWYIQ3643-59-41 10:13:006.0[facility] JPKMVGYXCW0294-62-81 10:13:0027.3[facility] KupfjpsZCNFJGZVLB0724-44-97 10:13:00 7.6[facility] FyxfrzwNBGOCYFMBX7173-05-88 10:13:0015.9[facility]annHE[facility]OLOGY 2017-08-07 10:13:11670Hcrqaqkl OjnrpebWDYWRLKLIY8244-93-47 10:13:008.0[facility] WxjrcimLROXRRXLWI9340-48-63 10:13:0084.8[facility] AplbkbaZFLJQXBTST4418-43-99 10:13:00 Test Item Value Reference Range Interpretation Comments MCH (test code = MCH) 27.8 pg 27.0-31.0 [facility] WwsopnjIYTXEQZRLT6686-74-10 10:13:0032.8[facility]annHEMATOLOGY 2017-08-07 10:13:009.0[facility] TrjfphbXWUDLZNWWZ0339-51-20 10:13:0027.3[facility] HichjrsAPSERLRJLE4550-45-22 10:13:003.22[facility] XqaffbnCVRDRZMZAJ6527-10-99 10:13:0010.1[facility] KXIKWFW6382-10-37 19:43:00Negative (08/06/17 2:43 PM)[facility] ZFQPENL0009-12-97 17:46:00Product available (08/06/17 12:46 PM)[facility]annCHEM KOUPV2887-25-33 14:55:54755 [facility]annCHE[facility] DCPLN0989-00-12 14:55:000.56[facility]annCHEM PANEL 2017-08-06 14:55:0011[facility]annCHE[facility] RRIBF5799-79-20 14:55:003.9[facility]annCHE[facility] EXRLF7432-88-96 14:55:0025[facility]annCHEM OWRNF7181-07-44 14:55:008.3[facility]annCHEM PBSCN8663-76-85 14:55:93229Lqrppwvp HermannCHEM DRRER0535-37-27 14:55:57891Vhhrxfyc HermannCHEM HQSZR3327-31-19 14:55:0013.9 [facility]annCHE[facility] TQQTE4141-44-00 14:55:54159Loyjwciq HermannHEMATOLOGY 2017-08-06 14:55:28161Hnigimav QmcvpjeQZUYRNKKSX5471-42-26 14:55:007.8[facility] ZvwwqmaWKURTHTNWJ1990-76-13 14:55:009.0[facility] UrsinepPSVUFAGTLQ9526-45-92 14:55:002.64[facility] ZsoalmoUXYURBAYPM6323-97-70 14:55:00 Test Item Value Reference Range Interpretation Comments MCH (test code = MCH) 27.1 pg 27.0-31.0 [facility] RfcyzqbBEPUCNQEFR8786-64-87 14:55:0016.3[facility]annHEMATOLOGY 2017-08-06 14:55:0032.2[facility] HxpfrolKCNLAOKZQP6879-75-87 14:55:007.2[facility] JzqcvgxHSNWJEEWBD6352-76-86 14:55:0022.2[facility] QotrdejHDCAFWAEAD4079-33-12 14:55:0084.0[facility] XegnmcvUAMOLOWRSA6639-78-59 14:55:000.7[facility] IIWUBFMPYH5315-11-35 14:55:000.3[facility] IjujgpnJVLUHTUHYO4187-55-44 14:55:008.1 [facility] QjnbwvcIGSCFOKHHH0129-96-22 14:55:003.5[facility]annHEMATOLOGY 2017-08-06 14:55:002.3[facility] HahxaunWQDAKKUCHV5042-68-81 14:55:000.5[facility] IkjhtdoUEOKUJDVQS6604-84-24 14:55:005.6[facility] WlluxofAFQTNRMMKU8282-83-96 14:55:0062.6[facility] WtvkttjQFETOXVVUQ6308-57-89 14:55:0025.3[facility] CHEM LGINF4535-39-42 20:11:95651Cbfuvjjt HermannCHEM HWMFM5983-98-68 20:11:004.0 [facility]annCHE[facility] FAGTU1656-03-82 20:11:008.1[facility]annCHEM PANEL 2017-08-04 20:11:0027[facility]annCHEM STGIM6607-40-12 20:11:0013.0[facility]annCHEM MAXAK8698-78-36 20:11:63521Ckoxvurs HermannCHEM OEUYE8068-15-38 20:11:05481Enuzqaoz HermannCHEM OARFL8564-67-07 20:11:000.80[facility]annCHEM CTGZD5045-66-73 20:11:0014[facility]annCHEM EJTPP1457-43-73 20:11:90453 [facility]annCHEM NYUFP3242-28-33 10:24:002.4[facility]annCHEM PANEL 2017-08-03 10:24:004.6[facility] [id number] 10:24:00 Test Item Value Reference Range Interpretation Comments PTT (test code = PTT) 28.[address] [facility]3045[facility]32-74 10:24:00 Test Item Value Reference Range Interpretation Comments PT (test code = PT) 13.0 s 12.0-14.7 [facility] [id number] 10:24:00 Test Item Value Reference Range Interpretation Comments INR (test code = INR) 0.98 1 0[address]85-1.[address] [id number] 10:24:000.1[facility]annPARATHYROID [id number] 10:24:001.12[facility]PAR[facility]YROID [id number] 10:24:001.15[facility] [id number] 16:52:00Negative (08/02/17 11:52 AM)[facility] [id number] 15:03:00Product available (08/02/17 10:03 AM)[facility] [id number] 14:07:00Product available (08/02/17 9:07 AM)[facility]annCHEM [id number] 06:25:001.8[facility]annDR[facility] [id number] 12:00:00Negative *NA*(07/29/17 6:00 AM)[facility] [id number] 12:00:00See Note (07/29/17 6:00 AM) [facility] [id number] 12:00:00Positive *ABN*(07/29/17 6:00 AM) [facility] [id number] 12:00:00Negative *NA*(07/29/17 6:00 AM) [facility] [id number] 12:00:00Negative *NA*(07/29/17 6:00 AM) [facility] [id number] 12:00:00Negative *NA*(07/29/17 6:00 AM) [facility] [id number] 12:00:00Negative *NA*(07/29/17 6:00 AM) [facility] [id number] 12:00:00Negative *NA*(07/29/17 6:00 AM) [facility] [id number] 12:00:00>=1.050 *ABN*(07/29/17 6:00 AM)[facility] [id number] 12:00:00Negative (07/29/17 6:00 AM) [facility] [id number] 12:00:0011[facility] [id number] 12:00:00Moderate *ABN*(07/29/17 6:00 AM)[facility] [id number] 12:00:00Negative (07/29/17 6:00 AM)[facility] STOOL 2017-07-29 12:00:00Negative *NA*(07/29/17 6:00 AM)[facility] STOOL 2017-07-29 12:00:00 Test Item Value Reference Range Interpretation Comments UA pH (test code = UA pH) 6.5 1 5.0-8.0 [facility] [id number] 12:00:00Yellow *NA*(07/29/17 6:00 AM) [facility] [id number] 12:00:00Clear (07/29/17 6:00 AM)[facility] IvektquLXGHFSAYDU1273-37-26 05:40:00Negative *NA*(07/28/17 11:40 PM)[facility] [id number] 02:57:00Negative (07/28/17 8:57 PM)[facility]annCHE[facility] [id number] 02:30:002.0[facility] [id number] 02:30:00Negative *NA*(07/28/17 8:30 PM)[facility] [id number] 02:30:00 Test Item Value Reference Range Interpretation Comments K-time Rapid (test code = K-time 0.8 min 0.6-2.3 Rapid) [facility] HospitalUbuqztjXGIILUMMPN2179-41-31 02:30:00 Test Item Value Reference Range Interpretation Comments Angle Rapid (test code = Angle 79 degrees 64-80 Rapid) [facility] [address] [facility] HospitalTxwmoecZGWUFJRDGL8128-23-30 02:30:00 Test Item Value Reference Range Interpretation Comments R-time Rapid (test code = R-time 0.5 min 0.4-0.7 Rapid) [facility] HospitalGejxoezQWCHOCMPAB7986-06-63 02:30:00 Test Item Value Reference Range Interpretation Comments Split Point Rapid (test code = Split 0.4 min Point Rapid) [facility] HospitalTgrihgnAKKZLDWPWM5370-17-22 02:30:0015.0[facility]annHEMATOLOGY 2017-07-29 02:30:00 Test Item Value Reference Range Interpretation Comments Max Amplitude Rapid (test code = Max 75 mm 52-71 Amplitude Rapid) [facility] HospitalNvvxebuLXNAAITBWQ8843-97-38 02:30:00 Test Item Value Reference Range Interpretation Comments ACT (TEG) Rapid (test code = ACT (TEG) 97 s 86-118 Rapid) [facility] [address] [facility] HospitalXgqbgsxRPACQRHGRR4193-13-78 02:30:002.2[facility]annHEMATOLOGY 2017-07-29 02:30:000.1[facility] [id number] 02:30:00<3[facility] CqsgmqlZVPSGDUVMP2286-07-29 02:30:00<0.003Maricarmen Mercer
[2020-07-30] MEDS ORDERED: ACETAMINOPHEN 500 MG TAB ONE (21:04)
[2020-07-30 22:39] LABS: Absolute Lymphocytes (CBC) 1.1 K/uL (0.7-4.9); Basophils % 0.5 % (0-1.3); Hematocrit 39.6 % (36.0-45.0); Lymphocytes % 15.8 % (15.3-44.8); MPV 9.3 fL (7.6-11.3); RBC Red Blood Cell Count 4.81 M/uL (3.86-4.86)
[2020-07-30 22:48] LABS: ALT/SGPT 69 U/L (12-78); AST/SGOT 27 U/L (15-37); Albumin 3.7 g/dL (3.4-5.0); Alkaline Phosphatase 63 U/L (45-117); BUN Blood Urea Nitrogen 9 mg/dL (7-18); Bicarbonate 27 mmol/L (21-32); Bilirubin Total 0.4 mg/dL (0.2-1.0); Glucose Level 107 mg/dL (74-106); Potassium 3.8 mmol/L (3.5-5.1); Protein, Total 8.6 g/dL (6.4-8.2); Sodium Level 137 mmol/L (136-145)
[2020-07-30] MEDS ORDERED: IBUPROFEN 400 MG TAB ONE (23:01)
[2020-07-30] MEDS ORDERED: NA CHLORIDE 0.9% 3,000 ML ONE (23:01)
[2020-07-30] MEDS ORDERED: LIDOCAINE 1% 20 ML MDV ONE (23:40)
[2020-07-30 23:44] LABS: Barbiturates NEGATIVE (NEGATIVE); Benzodiazepines NEGATIVE (NEGATIVE); Cocaine NEGATIVE (NEGATIVE); METHAMPHETAM NEGATIVE (NEGATIVE); Methadone NEGATIVE (NEGATIVE); Opiates NEGATIVE (NEGATIVE); Phencyclidine NEGATIVE (NEGATIVE); THC Cannibis NEGATIVE (NEGATIVE)
[2020-07-31] MEDS ORDERED: ONDANSETRON 4 MG/2 ML VIAL ONE (00:16)
[2020-07-31] MEDS ORDERED: FENTANYL CITR 100 MCG/2 ML ONE (00:16)
[2020-07-31 00:45] LABS: Fluid Total Volume 4 ml
[2020-07-31 00:46] LABS: Appearance CLEAR (CLEAR); Body Fluid Source CSF; Color of fluid Colorless (COLORLESS)
[2020-07-31] MEDS ORDERED: CEFTRIAXONE/SWI 1gm 2 GM/20 ML SYR ONE (00:46)
[2020-07-31 00:49] LABS: SARS-COV-2 RT PCR NEGATIVE (NEGATIVE)
[2020-07-31 00:54] LABS: Body Fluid WBC 2 /mm^3
[2020-07-31 01:04] LABS: CSF Glucose 63 mg/dL (40-70)
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
[2020-07-31] MEDS ORDERED: AZITHROMYCIN 250 MG TAB ONE (01:47)
[2020-07-31 01:48] LABS: Appearance CLEAR (CLEAR); Body Fluid Source CSF; Body Fluid WBC 2 /mm^3; Color of fluid Colorless (COLORLESS)
[2020-07-31 02:47] VITALS: TEMP 98.3
[2020-07-31 02:48] VITALS: BP 101/62; O2SAT 96
--- NOTE | 2020-07-31 07:48 | RAD REPORT ---
EXAM DESCRIPTION: [facility] Single View07/30/2020 10:30 pm CLINICAL HISTORY: Cough COMPARISON: none FINDINGS: The patient is in a poor degree of inspiration. The lungs appear grossly clear. Heart is normal size
--- NOTE | 2020-07-31 11:41 | RAD REPORT ---
EXAM DESCRIPTION: CT - Head Brain Wo Cont - 07/31/2020 6:54 am CLINICAL HISTORY: The patient is 24 years old and is Female; Fever;Confused;Headache TECHNIQUE: Axial computed tomography images of the head/brain without intravenous contrast. Sagitt al and coronal reformatted images were created and reviewed. This CT exam was performed using one o r more of the following dose reduction techniques: automated exposure control, adjustment of the mA and/or kV according to patient size, and/or use of iterative reconstruction technique. COMPARISON: CT of the head December 28, 2018 FINDINGS: BRAIN: Unremarkable. The mallory-white matter differentiation is preserved . No hemorrhag e. No significant white matter disease. No edema. No extra-axial fluid collections. VENTRICLES: Unremarkable. No ventriculomegaly. BONES/JOINTS: No acute fracture. SOFT TISSUES: Unrema rkable. SINUSES: Unremarkable as visualized. No acute sinusitis. MASTOID AIR CELLS: Unremar kable as visualized. No mastoid effusion. ORBITS: Unremarkable as visualized. IMPRESSION: No acute intracranial findings. Electronically signed by: Gloria Church MD 07/30/2020 10:55 PM [employer] [facility] Due to temporary technical issues with the PACS/Fluency reporting system, reports are being signed by the in house radiologist without review as a courtesy to ensure prompt reporting. The interpreting r adiologist is fully responsible for the content of the report.
== END 2020-07-31 02:15 | disposition home or self-care (01) ==
LOC: ER 20:18
PROC: 009U3ZX Drainage of Spinal Canal, Percutaneous Approach, Diagnostic (ICD-10-PCS; principal; 2020-07-31)
DX: R51.9 Headache, unspecified (principal); R53.81 Other malaise; R53.83 Other fatigue; G40.909 Epilepsy, unspecified, not intractable, without status epilepticus; Z88.0 Allergy status to penicillin; Z88.5 Allergy status to narcotic agent; Z88.8 Allergy status to other drugs, medicaments and biological substances; Z91.040 Latex allergy status; Z91.048 Other nonmedicinal substance allergy status
CPT/HCPCS: 96365; 87040 ×2; 87088; 87070; 85025; 87086; 36415 ×2; 89050 ×2; 80329 ×2; 84157; 82945; 86403 ×6; 80307 ×8; 83605; 80053; 0240U; 70450; 71045; 62270; 96375; 99285; 96366; J0696; J7030

== ENCOUNTER 2023-10-03 11:09 | Emergency (ER) | payer OTHER ==
--- OUTSIDE RECORDS SUMMARY | 2023-10-03 11:18 | XMS REPORT | Continuity of Care Document ---
Author Name Unknown Address [address] [facility] [place] [address] [facility] thconnect Address [address] [facility] [place] [address] Care Team Providers Care Food Safety Director Name Role Phone Simon Milligan Primary Care Physician [phone] HILARY HARO Attending Clinician Unavailable SOPHY ROA Attending Clinician Unavailable Liliana Lau CNM Attending Clinician [phone] LILIANA LAU Attending Clinician Unavaila ble Lab, Ang - Db Attending Clinician Unavailable Renetta Hunt Attending Clinician [phone] RENETTA JAMES Attending Clinician Unavailable SIMON STACK Attending Clinician Unavailable Catrachito [facility] aRdha Attending Clinician Unavailable Vtc-Lab Attending Clinician Unavailable Hilary Haro MD Attending Clinician [phone] MARIUSZ EL Attending Clinician [place] Doctor Unassigned, [place] Attending Clinician U navailable NIK_L Attending Clinician Unavailable UNKNOWN, ATTENDING Attending Clinician Unavailab ANTIONE Ibrahim Attending Clinician Unavailable Nurse, [facility] Attending Clinician Un available Unknown, Attending Attending Clinician Unavailab Antione Ibrahim PA-C Attending Clinician [phone] ERIKA SHELLEY Attending Clinician Unavailable Daphney BLENDING TANK TENDERErika Hendrickson Attending Clinician [phone] Simon Milligan Attending Clinician [phone] ALEXANDRA MENON Attending Clinician Unavailable Alexandra De La Torre Attending Clinician [phone] ANDREW SANTO Attending Clinician Unavail able ANDREW SANTO Attending Clinician Unavail able Andrew Santo MD Attending Clinician [phone] MIKAELA MANDUJANO Attending Clinician Unavail able MARBELLA MATT Attending Clinician Unavailable MARBELLA MATT Attending Clinician Unavailable Provider, [facility] Temp Attending Clinician Michelle vailable LAURA BINGHAM Attending Clinician Unavailable LAURA BINGHAM Attending Clinician Unavailable FREDDY FRASER Attending Clinician Unavailab VILMA Kendall Attending Clinician Unavail able [facility] Hendrickson Attending Clinician + Danny Andrews Attending Clinician Nazia [facility]ael[facility] Hendrickson Attending Clinician + Gala Lopez Attending Clinician UnavailKyle Monroy MD Attending Clinician [phone] KYLE MORENO Attending Clinician Unavailable Visit, [facility] Nurse Attending Clinician Unava ilChyna Greer Attending Clinician [phone] CHYNA ROJAS Attending Clinician Unavailabl e MAYELA NOLAN, CHRISTA Attending Clinician Sachin Brothers MD Attending Clinician + Jesusita Miller MD Attending Clinician + [phone] Mayela Nolan MD, Christa Attending Clinician + CHER MONTANEZ Attending Clinician Unavailable Clinic, [facility] Neurology Continuity Attending Clini renée Unavailable Risk, Rrq-Zsbos-Vg/High Attending Clinician Unav Ibis Connolly MD Attending Clinician [phone] GEOVANNY BERGER Attending Clinician Unavailable Geovanny Berger MD Attending Clinician [phone] Nadia Dali PALAFOX Attending Clinician [phone] DALI ZUNIGA Attending Clinician UnavailCHRISTOPHER Kruse Attending Clinician Unavail able [facility]opher Hendrickson Attending Clinician + WOLF FOSTER Attending Clinician Unavailable Danny Lino Attending Clinician [phone] Ultrasound, [facility] Attending Clinician Unavaila Tara Jorge Attending Clinician + [phone] Rafal Alvarenga MD Attending Clinician [phone] Cher Montanez MD Attending Clinician [phone] SACHIN MARIE Attending Clinician Unavailable Alessandro Cuellar MD Attending Clinician [phone] Freddy Ruiz Attending Clinician + [phone] Lab, Ang-Rmchp Attending Clinician Unavailable 2, [facility] Attending Clinician Unavailable [facility]-Lab Attending Clinician Unavailable Raquel Olguin MD Attending Clinician [phone] 2, [facility] Us Room Attending Clinician Unavaila Bita Helm MD Attending Clinician + [phone] Nate Spring MD Attending Clinician + [phone] Shine Johnson MD Attending Clinician + [phone], [facility] Room Attending Clinician UnavailHOMA Beck Attending Clinician UnavailChristy Becerra Attending Clinician [phone] Homa Burns MD Attending Clinician + [phone] Wesly Pineda Attending Clinician [phone] Maricarmen TATUM, Mi Mccartney Attending Clinician [phone] ANGELES CULP M.D. Attending Clinician UnavailSAMMY [place] M.D. Attending Clinician RASHAD Hdz NP Attending Clinician Unavailab WOLF Daniel Admitting Clinician Unavailable BABATUNDE Admitting Clinician Unavailable RENETTA JAMES Admitting Clinician Unavailable CHRISTA IBARRA Admitting Clinician Unav ailable Mayela Nolan MD, Christa Admitting Clinician + GEOVANNY BERGER Admitting Clinician Unavailable Magdi YOUNGER, Geovanny Hines Admitting Clinician [phone] Sachin Marie MD Admitting Clinician [phone] SACHIN MARIE Admitting Clinician Unavailable CHER MONTANEZ Admitting Clinician Unavailable Raquel Olguin MD Admitting Clinician [phone] Payers Payer Name Policy Type Policy Number Effective Date Expirati on Date Source [facility] [place] [id number] 2021 00:00:00 2024 00:00:00 [facility] [id number] 00:00:00 [facility] MEDICAID [id number] 2020 00:00:00 [place] [id number] 2023 00:00:00 [facility] (MEDICAID REPLACEMENT - HMO) [id number] Problems Condition Name Condition Details Condition Category Status Onset Date Resolution Date Last Treatment Date Treating Clinician Comments Source Anxiety and depression Anxiety and depression Disease Active 01-24 00:00: 00 [facility] Patient is a currently breast-fee ding mother Patient is a currently breast-fee ding mother Disease Active 01-24 00:00: 00 [facility] Excess body and facial hair Excess body and facial hair Disease Active 01-24 00:00: 00 [facility] History of epilepsy History of epilepsy Disease Active 05-31 00:00: 00 [facility] Anemia, Anemia, Disease Active 05-31 00:00: 00 [facility] S/P section S/P section Disease Active 05-31 00:00: 00 [facility] POST OP COMPLICATI ONS POST OP COMPLICATI ONS Active 05/16/2021 [facility] Diagnosis Active 2020-05 00:00: 00 2021-05-16 15:19:00 [facility] GDM, class A2 GDM, class A2 Disease Active 2020-05 00:00: 00 [facility] 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 retained hardware-l eft leg Disease Active 2020-05 00:00: 00 [facility] ABDOMINAL PAIN ABDOMINAL PAIN Active 03/24/2021 [facility] Active 2020-05 00:00: 00 2021-03-24 23:21:00 [facility] Family history of breast cancer-mot her with breast cancer Family history of breast cancer-mot her with breast cancer Disease Active 2020-05 00:00: 00 [facility] Obesity (BMI 30-39.9) Obesity (BMI 30-39.9) Disease Active 12-11 00:00: 00 [facility] Chronic eczema Chronic eczema Disease Active 11-27 00:00: 00 [facility] Narcolepsy Narcolepsy Problem Active 2018-05 00:00: 00 [facility] Seizure Seizure Problem Active 2018-05 00:00: 00 [facility] Displaced supracondy lar fracture with intracondy lar extension of lower end of left femur, initial encounter for open fracture type IIIA, IIIB, or IIIC Displaced supracondy lar fracture with intracondy lar extension of lower end of left femur, initial encounter for open fracture type IIIA, IIIB, or IIIC Problem [facility] Foot pain Foot pain Problem Active [facility] Loose body of left knee Loose body of left knee Problem Active [facility] Arthrofibr osis of total knee replacemen t, initial encounter Arthrofibr osis of total knee replacemen t, initial encounter Problem Active [facility] Epilepsy (disorder) Epilepsy (disorder) Active Problem 05/18/2021 [facility] Problem Active 2021-05-18 23:10:32 [facility] Patient currently (finding) Patient currently (finding) Resolved 02/01/2016 Problem 05/18/2021 [facility] Problem Resolve d 01-31 00:00: 00 2021-05-18 23:10:32 2021-05-18 23:10:32 [facility] History of Past Illness Condition Name Condition Details Condition Category Status Onset Date Resolution Date Last Treatment Date Treating Clinician Comments Source Disruption of external operation (surgical) wound, not elsewhere classified , initial encounter Disruption of external operation (surgical) wound, not elsewhere classified , initial encounter 05/16/2021 05/18/2021 [facility] Problem 2020-05 2-23 18:00: 00 2021-05-18 23:10:32 2021-05-18 23:10:32 [facility] Unspecifie d condition associated with female genital organs and menstrual cycle Unspecifie d condition associated with female genital organs and menstrual cycle 03/24/2021 [facility] Problem 2020-05 0-31 17:00: 00 2021-03-26 22:04:38 2021-03-26 22:04:38 [facility] Allergies, Adverse Reactions, Alerts Allergy Name Allergy Type Status Severity Reaction(s) Onset Date Inactive Date Treating Clinician Comments Source Penicill ins Drug Allergy Active Rash 01-24 00:00: 00 [facility] PENICILL INS Drug Class Active High Rash 01-24 00:00: 00 [facility] Oxycodon e Drug Allergy Active Hallucinatio ns 6- 00:00: 00 [facility] OXYCODON E DRUG INGREDI Active High Hallucinates 6 00:00: 00 [facility] Penicill in Propensi ty to adverse reaction s Active Rash 10-10 00:00: 00 [facility] PENICILL IN DRUG INGREDI Active Rash 10-10 00:00: 00 [facility] Latex Drug Allergy Active Rash 08-31 00:00: 00 Rai skin with results of redness and pain. [facility] LATEX DRUG INGREDI Active High Other-Cmnt 08-31 00:00: 00 [facility] penicill ins penicill ins Active [facility] Zofran Zofran Active [facility] [place] OxyCONTI N OxyCONTI N Active [facility] Reglan Reglan Active [facility] Latex Latex Active [facility] [place] Latex Allergy to substanc e Active Moderate to severe Rash [facility] Oxyconti n Allergy to substanc e Active Moderate to severe Hallucinatio ns [facility] Social History Social Habit Start Date Stop Date Quantity Comments Source History of tobacco use Cigarette Smoker [facility] Alcohol intake 2023-09-25 00:00:00 2023-09-25 00:00:00 Current drinker of alcohol (finding) [facility] Alcoholic beverage intake 2023-09-25 00:00:00 2023-09-25 00:00:00 Current drinker of alcohol (finding) [facility] History of Social function 2023-03-31 00:00:00 2023-03-31 00:00:00 [facility] Exposure to SARS-CoV-2 (event) 2022-10-04 00:00:00 2022-10-14 14:42:00 Not sure [facility] Tobacco use and exposure 2022-04-10 00:00:00 2022-04-10 00:00:00 Smokeless tobacco non-user [facility] Alcohol Comment 2022-04-10 00:00:00 2022-04-10 00:00:00 social [facility] Social History 2017-10-23 15:44:40 2017-10-23 15:44:40 [facility] Sex assigned at 1995 00:00:00 1995 00:00:00 [facility] Smoking Status Start Date Stop Date Source Ex-smoker 2022-04-10 00:00:00 2022-04-10 [facility]00[facility]00 [facility] Medications Ordered Medication Name Filled Medication Name Start Date Stop Date Current Medication? Ordering Clinician Indication Dosage Frequency Signature (SIG) Comments Components Source methocarbam oL 500 mg tablet 09-24 00:00: 00 Yes [id number] 500mg Take 1 tablet by mouth in the morning and 1 tablet in the evening. [facility] adalimumab (HUMIRA,CF, PEN) 40 mg/0.4 mL injection 16 00:00: 00 Yes [id number] 40mg inject 1 Pen under the skin every 2 (two) weeks. [facility] propranoloL 10 mg tablet 07-26 00:00: 00 Yes [id number] 10mg Take 1 tablet by mouth in the morning and 1 tablet in the evening. [facility] topiramate 50 mg tablet - 00:00: 00 07-26 00:00 :00 No [id number] 4102 25mg Take 0.5 tablets by mouth in the morning and 0.5 tablets in the evening. [facility] Norethindro ne Acet-Ethiny l Est (JUNEL ,) 1.5-30 mg-mcg per tablet 07-01 00:00: 00 Yes [id number] 1{tbl} Take 1 tablet by mouth in the morning. [facility] levonorgest rel-ethinyl estradiol 0.1-20 mg-mcg per tablet 2022-05- 00:00: 00 07-01 00:00 :00 No [id number] 1{tbl} Take 1 tablet by mouth in the morning. [facility] clotrimazol e-betametha sone (LOTRISONE) cream 10-14 00:00: 00 03-31 00:00 :00 No [id number] Apply to area(s) 2 (two) times daily. [facility] rizatriptan (MAXALT) 10 mg tablet 10-14 00:00: 00 03-31 00:00 :00 No [id number] 10mg Take 1 tablet by mouth as needed for Migraine. May repeat in 2 hours if needed [facility] IBUPROFEN 600 mg tablet 2021-05 00:00: 00 03-31 00:00 :00 No [id number] 600mg TAKE 1 TABLET BY MOUTH EVERY 6 (SIX) HOURS NEEDED (PAIN). TAKE WITH FOOD OR MILK. [facility] norethindro ne 0.35 mg tablet 2021-05 00:00: 00 03-31 00:00 :00 No [id number] 1{tbl} Take 1 tablet by mouth in the morning. [facility] ketorolac (TORADOL) injection 30 mg 2021-05 22:45: 00 03-21 21:58 :00 No [id number] 30mg [facility] escitalopra m oxalate (LEXAPRO) 10 mg tablet 02-21 00:00: 00 03-31 00:00 :00 No [id number] 10mg Take 1 tablet by mouth in the morning. [facility] ibuprofen 600 mg tablet 02-21 00:00: 00 05-21 00:00 :00 No [id number] 600mg Take 1 tablet by mouth every 6 (six) hours as needed (Pain). Take with food or milk. [facility] escitalopra m oxalate (LEXAPRO) 10 mg tablet 01-24 00:00: 00 02-21 00:00 :00 No [id number] 10mg Take 1 tablet by mouth in the morning. [facility] clotrimazol e 1 % topical cream 05-31 00:00: 04-10 00:00 :00 No [id number] Apply to area(s) at bedtime. [facility] SERTraline (ZOLOFT) 50 mg tablet 05-31 00:00: 00 01-24 00:00 :00 No [id number] 50mg Take 1 tablet by mouth daily. [facility] ojh967-xsmn fum-folic () 27 mg iron- 1 mg Tab 2020-05 00:00: 00 04-10 00:00 :00 No [id number] 1{tbl} Take 1 tablet by mouth daily. [facility] docusate calcium 240 mg capsule 2020-05 00:00: 00 04-10 00:00 :00 No [id number] 240mg Take 1 capsule by mouth once daily as needed for Constipati on. [facility] ferrous sulfate 325 mg (65 mg iron) tablet 2020-05 00:00: 00 04-10 00:00 :00 No [id number] 325mg Take 1 tablet by mouth 2 (two) times daily. [facility] ibuprofen 600 mg tablet 2020-05 00:00: 00 02-21 00:00 :00 No [id number] 600mg Take 1 tablet by mouth every 6 (six) hours as needed (Pain). Take with food or milk. [facility] Levetiracet am 500 MG Oral Tablet [Keppra] 2020-05 03:59: 00 Yes 500 mg = 1 tab, PO, Daily, 0 Refill(s) [facility] magnesium oxide 400 mg oral tablet 2020-05 03:58: 00 Yes 400 mg = 1 tab, PO, Daily, 0 Refill(s) [facility] Folic Acid 2020-05 03:57: 00 Yes Daily, 0 Refill(s) [facility] 1 oral capsule 2020-05 03:56: 00 Yes 1 cap, PO, Daily, 0 Refill(s) [facility] levETIRAcet am (KEPPRA XR) 500 mg 24 hr tablet 2020-05 00:00: 00 03-31 00:00 :00 No [id number] 500mg Take 1 tablet by mouth daily. [facility] levETIRAcet am (KEPPRA) 1,000 mg tablet 01-25 09:01: 26 01-25 00:00 :00 No 1000mg Take 1,000 mg by mouth 2 (two) times daily. [facility] PNV 67-iron ps-folate no.1-dha (VITAFOL ULTRA) 29 mg iron- 1 mg-200 mg Cap 10-25 00:00: 00 04-25 00:00 :00 No [id number] 1{tbl} Take 1 tablet by mouth daily. [facility] Meloxicam 7.5 MG Oral Tablet Meloxicam 7.5 MG Oral Tablet 2019-05 00:00: 00 Yes ANGELES CULP M.D. TAKE 1 TABLET BY MOUTH EVERY DAY [facility] Voltaren 1 % Transdermal Gel Voltaren 1 % Transdermal Gel 2019-05 00:00: 00 Yes ANGELES CULP M.D. QD APPLY TO UPPER EXTREMITIE S, 2 GM OF GEL TO AFFECTED AREA 4 TIMES DAILY. DO NOT APPLY MORE THAN 8 GM DAILY TO ANY ONE AFFECTED JOINT. [facility] Ibuprofen 800 MG Oral Tablet Ibuprofen 800 MG Oral Tablet 10-15 00:00: 00 Yes SAMMY LEBLANC M.D. Q0.3333D TAKE 1 TABLET 3 TIMES DAILY WITH FOOD NEEDED. [facility] Acetaminoph en-Codeine #3 300-30 MG Oral Tablet Acetaminoph en-Codeine #3 300-30 MG Oral Tablet 08-13 00:00: 00 Yes RASHAD DANIELS APRN TAKE 1 TO 2 TABLETS EVERY 6 HOURS NEEDED FOR PAIN. [facility] Gabapentin 300 MG Oral Capsule Gabapentin 300 MG Oral Capsule 08-13 00:00: 00 Yes RASHAD DANIELS APRN Q0.3333D TAKE 1 CAPSULE 3 TIMES DAILY. [facility] Aurovela Fe 1.5/30 (28) 1.5 mg-30 mcg (21)/75 mg (7) tablet Aurovela Fe 1.5/30 (28) 1.5 mg-30 mcg (21)/75 mg (7) tablet No Aurovela Fe 1.5/30 (28) 1.5 mg-30 mcg (21)/75 mg (7) tablet [facility] Keppra 250 mg tablet Take 1 tablet twice a day by oral route as directed for 30 days. Keppra 250 mg tablet Take 1 tablet twice a day by oral route as directed for 30 days. No 1 BID Keppra 250 mg tablet Take 1 tablet twice a day by oral route as directed for 30 days. [facility] ondansetron 4 mg disintegrat ing tablet Place 1 tablet every 6 hours by translingua l route as needed for 7 days. ondansetron 4 mg disintegrat ing tablet Place 1 tablet every 6 hours by translingua l route as needed for 7 days. No 1 Q6H ondansetro n 4 mg disintegra ting tablet Place 1 tablet every 6 hours by translingu al route as needed for 7 days. [facility] cefdinir 300 mg capsule TAKE 1 CAPSULE BY MOUTH TWICE DAILY FOR 10 DAYS cefdinir 300 mg capsule TAKE 1 CAPSULE BY MOUTH TWICE DAILY FOR 10 DAYS No cefdinir 300 mg capsule TAKE 1 CAPSULE BY MOUTH TWICE DAILY FOR 10 DAYS [facility] IBU 800 mg tablet Take 1 tablet 3 times a day by oral route. IBU 800 mg tablet Take 1 tablet 3 times a day by oral route. No 1 TID IBU 800 mg tablet Take 1 tablet 3 times a day by oral route. [facility] levetiracet am 250 mg tablet TAKE 1 TABLET BY MOUTH TWICE DAILY DIRECTED levetiracet am 250 mg tablet TAKE 1 TABLET BY MOUTH TWICE DAILY DIRECTED No levetirace arias 250 mg tablet TAKE 1 TABLET BY MOUTH TWICE DAILY DIRECTED [facility] mupirocin 2 % topical ointment APPLY A SMALL AMOUNT TO THE AFFECTED AREA BY TOPICAL ROUTE 3 TIMES PER DAY mupirocin 2 % topical ointment APPLY A SMALL AMOUNT TO THE AFFECTED AREA BY TOPICAL ROUTE 3 TIMES PER DAY No mupirocin 2 % topical ointment APPLY A SMALL AMOUNT TO THE AFFECTED AREA BY TOPICAL ROUTE 3 TIMES PER DAY [facility] Immunizations Ordered Immunization Name Filled Immunization Name Date Status Comments Source TDAP 2021-02-28 00:00:00 Completed [facility] TDAP 2021-02-28 00:00:00 Completed [facility] TDAP 2021-02-28 00:00:00 Completed [facility] TDAP 2021-02-28 00:00:00 Completed [facility] TDAP 2021-02-28 00:00:00 Completed [facility] TDAP 2021-02-28 00:00:00 Completed [facility] TDAP 2021-02-28 00:00:00 Completed [facility] TDAP 2021-02-28 00:00:00 Completed [facility] TDAP 2021-02-28 00:00:00 Completed [facility] TDAP 2021-02-28 00:00:00 Completed [facility] TDAP 2021-02-28 00:00:00 Completed [facility] TDAP 2021-02-28 00:00:00 Completed [facility] TDAP 2021-02-28 00:00:00 Completed [facility] TDAP 2021-02-28 00:00:00 Completed [facility] TDAP 2021-02-28 00:00:00 Completed [facility] TDAP 2021-02-28 00:00:00 Completed [facility] TDAP 2021-02-28 00:00:00 Completed [facility] TDAP 2021-02-28 00:00:00 Completed [facility] TDAP 2021-02-28 00:00:00 Completed [facility] TDAP 2021-02-28 00:00:00 Completed [facility] TDAP 2021-02-28 00:00:00 Completed [facility] TDAP 2021-02-28 00:00:00 Completed [facility] TDAP 2021-02-28 00:00:00 Completed [facility] TDAP 2021-02-28 00:00:00 Completed [facility] TDAP 2021-02-28 00:00:00 Completed [facility] TDAP 2021-02-28 00:00:00 Completed [facility] SARS-COV-2 COVID-19 PFIZER VACCINE 2021-01-16 00:00:00 Completed [facility] SARS-COV-2 COVID-19 PFIZER VACCINE 2021-01-16 00:00:00 Completed [facility] SARS-COV-2 COVID-19 PFIZER VACCINE 2021-01-16 00:00:00 Completed [facility] SARS-COV-2 COVID-19 PFIZER VACCINE 2021-01-16 00:00:00 Completed [facility] SARS-COV-2 COVID-19 PFIZER VACCINE 2021-01-16 00:00:00 Completed [facility] SARS-COV-2 COVID-19 PFIZER VACCINE 2021-01-16 00:00:00 Completed [facility] SARS-COV-2 COVID-19 PFIZER VACCINE 2021-01-16 00:00:00 Completed [facility] SARS-COV-2 COVID-19 PFIZER VACCINE 2021-01-16 00:00:00 Completed [facility] SARS-COV-2 COVID-19 PFIZER VACCINE 2021-01-16 00:00:00 Completed [facility] SARS-COV-2 COVID-19 PFIZER VACCINE 2021-01-16 00:00:00 Completed [facility] SARS-COV-2 COVID-19 PFIZER VACCINE 2021-01-16 00:00:00 Completed [facility] SARS-COV-2 COVID-19 PFIZER VACCINE 2021-01-16 00:00:00 Completed [facility] SARS-COV-2 COVID-19 PFIZER VACCINE 2021-01-16 00:00:00 Completed [facility] SARS-COV-2 COVID-19 PFIZER VACCINE 2021-01-16 00:00:00 Completed [facility] SARS-COV-2 COVID-19 PFIZER VACCINE 2021-01-16 00:00:00 Completed [facility] SARS-COV-2 COVID-19 PFIZER VACCINE 2021-01-16 00:00:00 Completed [facility] SARS-COV-2 COVID-19 PFIZER VACCINE 2021-01-16 00:00:00 Completed [facility] SARS-COV-2 COVID-19 PFIZER VACCINE 2021-01-16 00:00:00 Completed [facility] SARS-COV-2 COVID-19 PFIZER VACCINE 2021-01-16 00:00:00 Completed [facility] SARS-COV-2 COVID-19 PFIZER VACCINE 2021-01-16 00:00:00 Completed [facility] SARS-COV-2 COVID-19 PFIZER VACCINE 2021-01-16 00:00:00 Completed [facility] SARS-COV-2 COVID-19 PFIZER VACCINE 2021-01-16 00:00:00 Completed [facility] SARS-COV-2 COVID-19 PFIZER VACCINE 2021-01-16 00:00:00 Completed [facility] SARS-COV-2 COVID-19 PFIZER VACCINE 2021-01-16 00:00:00 Completed [facility] SARS-COV-2 COVID-19 PFIZER VACCINE 2021-01-16 00:00:00 Completed [facility] SARS-COV-2 COVID-19 PFIZER VACCINE 2021-01-16 00:00:00 Completed [facility] Influenza Virus Vaccine Quad .5 mL IM 6+ MO 2020-03-08 00:00:00 Completed [facility] Influenza Virus Vaccine Quad .5 mL IM 6+ MO 2020-03-08 00:00:00 Completed [facility] Influenza Virus Vaccine Quad .5 mL IM 6+ MO 2020-03-08 00:00:00 Completed [facility] Influenza Virus Vaccine Quad .5 mL IM 6+ MO 2020-03-08 00:00:00 Completed [facility] Influenza Virus Vaccine Quad .5 mL IM 6+ MO 2020-03-08 00:00:00 Completed [facility] Influenza Virus Vaccine Quad .5 mL IM 6+ MO 2020-03-08 00:00:00 Completed [facility] Influenza Virus Vaccine Quad .5 mL IM 6+ MO 2020-03-08 00:00:00 Completed [facility] Influenza Virus Vaccine Quad .5 mL IM 6+ MO 2020-03-08 00:00:00 Completed [facility] Influenza Virus Vaccine Quad .5 mL IM 6+ MO 2020-03-08 00:00:00 Completed [facility] Influenza Virus Vaccine Quad .5 mL IM 6+ MO 2020-03-08 00:00:00 Completed [facility] Influenza Virus Vaccine Quad .5 mL IM 6+ MO 2020-03-08 00:00:00 Completed [facility] Influenza Virus Vaccine Quad .5 mL IM 6+ MO 2020-03-08 00:00:00 Completed [facility] Influenza Virus Vaccine Quad .5 mL IM 6+ MO 2020-03-08 00:00:00 Completed [facility] Influenza Virus Vaccine Quad .5 mL IM 6+ MO 2020-03-08 00:00:00 Completed [facility] Influenza Virus Vaccine Quad .5 mL IM 6+ MO 2020-03-08 00:00:00 Completed [facility] Influenza Virus Vaccine Quad .5 mL IM 6+ MO 2020-03-08 00:00:00 Completed [facility] Influenza Virus Vaccine Quad .5 mL IM 6+ MO 2020-03-08 00:00:00 Completed [facility] Influenza Virus Vaccine Quad .5 mL IM 6+ MO 2020-03-08 00:00:00 Completed [facility] Influenza Virus Vaccine Quad .5 mL IM 6+ MO 2020-03-08 00:00:00 Completed [facility] Influenza Virus Vaccine Quad .5 mL IM 6+ MO 2020-03-08 00:00:00 Completed [facility] Influenza Virus Vaccine Quad .5 mL IM 6+ MO 2020-03-08 00:00:00 Completed [facility] Influenza Virus Vaccine Quad .5 mL IM 6+ MO 2020-03-08 00:00:00 Completed [facility] Influenza Virus Vaccine Quad .5 mL IM 6+ MO 2020-03-08 00:00:00 Completed [facility] Influenza Virus Vaccine Quad .5 mL IM 6+ MO 2020-03-08 00:00:00 Completed [facility] Influenza Virus Vaccine Quad .5 mL IM 6+ MO 2020-03-08 00:00:00 Completed [facility] Influenza Virus Vaccine Quad .5 mL IM 6+ MO 2020-03-08 00:00:00 Completed [facility] influenza, injectable, quadrivalent, preservative free influenza, injectable, quadrivalent, preservative free 2019-05-26 10:30:00 Completed [facility] influenza, injectable, quadrivalent, preservative free influenza, injectable, quadrivalent, preservative free 2019-05-26 10:30:00 Completed [facility] influenza, injectable, quadrivalent, preservative free influenza, injectable, quadrivalent, preservative free 2019-05-26 10:30:00 Completed [facility] Influenza Virus Vaccine Quad IM 3+ YRS 2019-05-26 00:00:00 Completed [facility] Influenza Virus Vaccine Quad IM 3+ YRS 2019-05-26 00:00:00 Completed [facility] Influenza Virus Vaccine Quad IM 3+ YRS 2019-05-26 00:00:00 Completed [facility] Influenza Virus Vaccine Quad IM 3+ YRS 2019-05-26 00:00:00 Completed [facility] Influenza Virus Vaccine Quad IM 3+ YRS 2019-05-26 00:00:00 Completed [facility] Influenza Virus Vaccine Quad IM 3+ YRS 2019-05-26 00:00:00 Completed [facility] Influenza Virus Vaccine Quad IM 3+ YRS 2019-05-26 00:00:00 Completed [facility] Influenza Virus Vaccine Quad IM 3+ YRS 2019-05-26 00:00:00 Completed [facility] Influenza Virus Vaccine Quad IM 3+ YRS 2019-05-26 00:00:00 Completed [facility] Influenza Virus Vaccine Quad IM 3+ YRS 2019-05-26 00:00:00 Completed [facility] Influenza Virus Vaccine Quad IM 3+ YRS 2019-05-26 00:00:00 Completed [facility] Influenza Virus Vaccine Quad IM 3+ YRS 2019-05-26 00:00:00 Completed [facility] Influenza Virus Vaccine Quad IM 3+ YRS 2019-05-26 00:00:00 Completed [facility] Influenza Virus Vaccine Quad IM 3+ YRS 2019-05-26 00:00:00 Completed [facility] Influenza Virus Vaccine Quad IM 3+ YRS 2019-05-26 00:00:00 Completed [facility] Influenza Virus Vaccine Quad IM 3+ YRS 2019-05-26 00:00:00 Completed [facility] Influenza Virus Vaccine Quad IM 3+ YRS 2019-05-26 00:00:00 Completed [facility] Influenza Virus Vaccine Quad IM 3+ YRS 2019-05-26 00:00:00 Completed [facility] Influenza Virus Vaccine Quad IM 3+ YRS 2019-05-26 00:00:00 Completed [facility] Influenza Virus Vaccine Quad IM 3+ YRS 2019-05-26 00:00:00 Completed [facility] TDAP 2003-10-04 00:00:00 Completed [facility] TDAP 2003-10-04 00:00:00 Completed [facility] TDAP 2003-10-04 00:00:00 Completed [facility] TDAP 2003-10-04 00:00:00 Completed [facility] TDAP 2003-10-04 00:00:00 Completed [facility] TDAP 2003-10-04 00:00:00 Completed [facility] TDAP 2003-10-04 00:00:00 Completed [facility] TDAP 2003-10-04 00:00:00 Completed [facility] TDAP 2003-10-04 00:00:00 Completed [facility] TDAP 2003-10-04 00:00:00 Completed [facility] TDAP 2003-10-04 00:00:00 Completed [facility] TDAP 2003-10-04 00:00:00 Completed [facility] TDAP 2003-10-04 00:00:00 Completed [facility] TDAP 2003-10-04 00:00:00 Completed [facility] TDAP 2003-10-04 00:00:00 Completed [facility] TDAP 2003-10-04 00:00:00 Completed [facility] TDAP 2003-10-04 00:00:00 Completed [facility] TDAP 2003-10-04 00:00:00 Completed [facility] TDAP 2003-10-04 00:00:00 Completed [facility] TDAP 2003-10-04 00:00:00 Completed [facility] TDAP 2003-10-04 00:00:00 Completed [facility] TDAP 2003-10-04 00:00:00 Completed [facility] TDAP 2003-10-04 00:00:00 Completed [facility] TDAP 2003-10-04 00:00:00 Completed [facility] TDAP 2003-10-04 00:00:00 Completed [facility] TDAP 2003-10-04 00:00:00 Completed [facility] TDAP Unknown Completed [facility] Influenza Virus Vaccine Quad .5 mL IM 6+ MO (FLUZONE/FLULAVAL/FL UARIX) Unknown Completed [facility] SARS-COV-2 COVID-19 PFIZER VACCINE Unknown Completed [facility] TDAP Unknown Completed [facility] Influenza Virus Vaccine Quad IM 3+ YRS Unknown Completed [facility] TDAP Unknown Completed [facility] Influenza Virus Vaccine Quad .5 mL IM 6+ MO (FLUZONE/FLULAVAL/FL UARIX) Unknown Completed [facility] SARS-COV-2 COVID-19 PFIZER VACCINE Unknown Completed [facility] TDAP Unknown Completed [facility] Influenza Virus Vaccine Quad IM 3+ YRS Unknown Completed [facility] TDAP Unknown Completed [facility] Influenza Virus Vaccine Quad .5 mL IM 6+ MO (FLUZONE/FLULAVAL/FL UARIX) Unknown Completed [facility] Influenza Virus Vaccine Quad IM 3+ YRS Unknown Completed [facility] TDAP Unknown Completed [facility] Influenza Virus Vaccine Quad .5 mL IM 6+ MO (FLUZONE/FLULAVAL/FL UARIX) Unknown Completed [facility] Influenza Virus Vaccine Quad IM 3+ YRS Unknown Completed [facility] TDAP Unknown Completed [facility] Influenza Virus Vaccine Quad .5 mL IM 6+ MO (FLUZONE/FLULAVAL/FL UARIX) Unknown Completed [facility] Influenza Virus Vaccine Quad IM 3+ YRS Unknown Completed [facility] TDAP Unknown Completed [facility] Influenza Virus Vaccine Quad .5 mL IM 6+ MO (FLUZONE/FLULAVAL/FL UARIX) Unknown Completed [facility] SARS-COV-2 COVID-19 PFIZER VACCINE Unknown Completed [facility] TDAP Unknown Completed [facility] Influenza Virus Vaccine Quad IM 3+ YRS Unknown Completed [facility] HPV Unknown Completed [facility] HPV Unknown Completed [facility] HPV Unknown Completed [facility] SARS-COV-2 COVID-19 PFIZER VACCINE Unknown Completed [facility] DTaP, Unspecified Formulation Unknown Completed [facility] DTaP, Unspecified Formulation Unknown Completed [facility] DTaP, Unspecified Formulation Unknown Completed [facility] DTaP, Unspecified Formulation Unknown Completed [facility] DPT/HIB Unknown Completed [facility] Flu Trivalent Unknown Completed [facility] Flu Trivalent Unknown Completed [facility] Influenza Virus Vaccine Nasal Unknown Completed [facility] HEPATITIS A Unknown Completed [facility] HEPATITIS A Unknown Completed [facility] HEPATITIS A Unknown Completed [facility] Hep B, Adol or Pedi Dosage Unknown Completed [facility] Hep B, Adol or Pedi Dosage Unknown Completed [facility] Hep B, Adol or Pedi Dosage Unknown Completed [facility] Haemophilus influenzae type b vaccine, conjugate unspecified formulation Unknown Completed [facility] Haemophilus influenzae type b vaccine, conjugate unspecified formulation Unknown Completed [facility] Haemophilus influenzae type b vaccine, conjugate unspecified formulation Unknown Completed [facility] Meningococcal Polysaccharide (groups A, C, Y and W-135) conjugate vaccine (MCV4P) Unknown Completed [facility] MMR Unknown Completed [facility] MMR Unknown Completed [facility] IPV Unknown Completed [facility] IPV Unknown Completed [facility] IPV Unknown Completed [facility] Poliovirus, Live, Oral, Trivalent Unknown Completed [facility] Poliovirus, Live, Oral, Trivalent Unknown Completed [facility] TDAP Unknown Completed [facility] Varicella (varivax)(chicken pox) Unknown Completed [facility] Varicella (varivax)(chicken pox) Unknown Completed [facility] Influenza Virus Vaccine Quad .5 mL IM 6+ MO (FLUZONE/FLULAVAL/FL UARIX) Unknown Completed [facility] TDAP Unknown Completed [facility] Influenza Virus Vaccine Quad .5 mL IM 6+ MO (FLUZONE/FLULAVAL/FL UARIX) Unknown Completed [facility] SARS-COV-2 COVID-19 PFIZER VACCINE Unknown Completed [facility] TDAP Unknown Completed [facility] Influenza Virus Vaccine Quad IM 3+ YRS Unknown Completed [facility] HPV Unknown Completed [facility] HPV Unknown Completed [facility] HPV Unknown Completed [facility] SARS-COV-2 COVID-19 PFIZER VACCINE Unknown Completed [facility] DTaP, Unspecified Formulation Unknown Completed [facility] DTaP, Unspecified Formulation Unknown Completed [facility] DTaP, Unspecified Formulation Unknown Completed [facility] DTaP, Unspecified Formulation Unknown Completed [facility] DPT/HIB Unknown Completed [facility] Flu Trivalent Unknown Completed [facility] Flu Trivalent Unknown Completed [facility] Influenza Virus Vaccine Nasal Unknown Completed [facility] HEPATITIS A Unknown Completed [facility] HEPATITIS A Unknown Completed [facility] HEPATITIS A Unknown Completed [facility] Hep B, Adol or Pedi Dosage Unknown Completed [facility] Hep B, Adol or Pedi Dosage Unknown Completed [facility] Hep B, Adol or Pedi Dosage Unknown Completed [facility] Haemophilus influenzae type b vaccine, conjugate unspecified formulation Unknown Completed [facility] Haemophilus influenzae type b vaccine, conjugate unspecified formulation Unknown Completed [facility] Haemophilus influenzae type b vaccine, conjugate unspecified formulation Unknown Completed [facility] Meningococcal Polysaccharide (groups A, C, Y and W-135) conjugate vaccine (MCV4P) Unknown Completed [facility] MMR Unknown Completed [facility] MMR Unknown Completed [facility] IPV Unknown Completed [facility] IPV Unknown Completed [facility] IPV Unknown Completed [facility] Poliovirus, Live, Oral, Trivalent Unknown Completed [facility] Poliovirus, Live, Oral, Trivalent Unknown Completed [facility] TDAP Unknown Completed [facility] Varicella (varivax)(chicken pox) Unknown Completed [facility] Varicella (varivax)(chicken pox) Unknown Completed [facility] Influenza Virus Vaccine Quad .5 mL IM 6+ MO (FLUZONE/FLULAVAL/FL UARIX) Unknown Completed [facility] TDAP Unknown Completed [facility] Influenza Virus Vaccine Quad .5 mL IM 6+ MO (FLUZONE/FLULAVAL/FL UARIX) Unknown Completed [facility] SARS-COV-2 COVID-19 PFIZER VACCINE Unknown Completed [facility] TDAP Unknown Completed [facility] Influenza Virus Vaccine Quad IM 3+ YRS Unknown Completed [facility] HPV Unknown Completed [facility] HPV Unknown Completed [facility] HPV Unknown Completed [facility] SARS-COV-2 COVID-19 PFIZER VACCINE Unknown Completed [facility] DTaP, Unspecified Formulation Unknown Completed [facility] DTaP, Unspecified Formulation Unknown Completed [facility] DTaP, Unspecified Formulation Unknown Completed [facility] DTaP, Unspecified Formulation Unknown Completed [facility] DPT/HIB Unknown Completed [facility] Flu Trivalent Unknown Completed [facility] Flu Trivalent Unknown Completed [facility] Influenza Virus Vaccine Nasal Unknown Completed [facility] HEPATITIS A Unknown Completed [facility] HEPATITIS A Unknown Completed [facility] HEPATITIS A Unknown Completed [facility] Hep B, Adol or Pedi Dosage Unknown Completed [facility] Hep B, Adol or Pedi Dosage Unknown Completed [facility] Hep B, Adol or Pedi Dosage Unknown Completed [facility] Haemophilus influenzae type b vaccine, conjugate unspecified formulation Unknown Completed [facility] Haemophilus influenzae type b vaccine, conjugate unspecified formulation Unknown Completed [facility] Haemophilus influenzae type b vaccine, conjugate unspecified formulation Unknown Completed [facility] Meningococcal Polysaccharide (groups A, C, Y and W-135) conjugate vaccine (MCV4P) Unknown Completed [facility] MMR Unknown Completed [facility] MMR Unknown Completed [facility] IPV Unknown Completed [facility] IPV Unknown Completed [facility] IPV Unknown Completed [facility] Poliovirus, Live, Oral, Trivalent Unknown Completed [facility] Poliovirus, Live, Oral, Trivalent Unknown Completed [facility] TDAP Unknown Completed [facility] Varicella (varivax)(chicken pox) Unknown Completed [facility] Varicella (varivax)(chicken pox) Unknown Completed [facility] Influenza Virus Vaccine Quad .5 mL IM 6+ MO (FLUZONE/FLULAVAL/FL UARIX) Unknown Completed [facility] TDAP Unknown Completed [facility] Influenza Virus Vaccine Quad .5 mL IM 6+ MO (FLUZONE/FLULAVAL/FL UARIX) Unknown Completed [facility] SARS-COV-2 COVID-19 PFIZER VACCINE Unknown Completed [facility] TDAP Unknown Completed [facility] Influenza Virus Vaccine Quad IM 3+ YRS Unknown Completed [facility] HPV Unknown Completed [facility] HPV Unknown Completed [facility] HPV Unknown Completed [facility] SARS-COV-2 COVID-19 PFIZER VACCINE Unknown Completed [facility] DTaP, Unspecified Formulation Unknown Completed [facility] DTaP, Unspecified Formulation Unknown Completed [facility] DTaP, Unspecified Formulation Unknown Completed [facility] DTaP, Unspecified Formulation Unknown Completed [facility] DPT/HIB Unknown Completed [facility] Flu Trivalent Unknown Completed [facility] Flu Trivalent Unknown Completed [facility] Influenza Virus Vaccine Nasal Unknown Completed [facility] HEPATITIS A Unknown Completed [facility] HEPATITIS A Unknown Completed [facility] HEPATITIS A Unknown Completed [facility] Hep B, Adol or Pedi Dosage Unknown Completed [facility] Hep B, Adol or Pedi Dosage Unknown Completed [facility] Hep B, Adol or Pedi Dosage Unknown Completed [facility] Haemophilus influenzae type b vaccine, conjugate unspecified formulation Unknown Completed [facility] Haemophilus influenzae type b vaccine, conjugate unspecified formulation Unknown Completed [facility] Haemophilus influenzae type b vaccine, conjugate unspecified formulation Unknown Completed [facility] Meningococcal Polysaccharide (groups A, C, Y and W-135) conjugate vaccine (MCV4P) Unknown Completed [facility] MMR Unknown Completed [facility] MMR Unknown Completed [facility] IPV Unknown Completed [facility] IPV Unknown Completed [facility] IPV Unknown Completed [facility] Poliovirus, Live, Oral, Trivalent Unknown Completed [facility] Poliovirus, Live, Oral, Trivalent Unknown Completed [facility] TDAP Unknown Completed [facility] Varicella (varivax)(chicken pox) Unknown Completed [facility] Varicella (varivax)(chicken pox) Unknown Completed [facility] Influenza Virus Vaccine Quad .5 mL IM 6+ MO (FLUZONE/FLULAVAL/FL UARIX) Unknown Completed [facility] TDAP Unknown Completed [facility] Influenza Virus Vaccine Quad .5 mL IM 6+ MO (FLUZONE/FLULAVAL/FL UARIX) Unknown Completed [facility] SARS-COV-2 COVID-19 PFIZER VACCINE Unknown Completed [facility] TDAP Unknown Completed [facility] Influenza Virus Vaccine Quad IM 3+ YRS Unknown Completed [facility] HPV Unknown Completed [facility] HPV Unknown Completed [facility] HPV Unknown Completed [facility] SARS-COV-2 COVID-19 PFIZER VACCINE Unknown Completed [facility] DTaP, Unspecified Formulation Unknown Completed [facility] DTaP, Unspecified Formulation Unknown Completed [facility] DTaP, Unspecified Formulation Unknown Completed [facility] DTaP, Unspecified Formulation Unknown Completed [facility] DPT/HIB Unknown Completed [facility] Flu Trivalent Unknown Completed [facility] Flu Trivalent Unknown Completed [facility] Influenza Virus Vaccine Nasal Unknown Completed [facility] HEPATITIS A Unknown Completed [facility] HEPATITIS A Unknown Completed [facility] HEPATITIS A Unknown Completed [facility] Hep B, Adol or Pedi Dosage Unknown Completed [facility] Hep B, Adol or Pedi Dosage Unknown Completed [facility] Hep B, Adol or Pedi Dosage Unknown Completed [facility] Haemophilus influenzae type b vaccine, conjugate unspecified formulation Unknown Completed [facility] Haemophilus influenzae type b vaccine, conjugate unspecified formulation Unknown Completed [facility] Haemophilus influenzae type b vaccine, conjugate unspecified formulation Unknown Completed [facility] Meningococcal Polysaccharide (groups A, C, Y and W-135) conjugate vaccine (MCV4P) Unknown Completed [facility] MMR Unknown Completed [facility] MMR Unknown Completed [facility] IPV Unknown Completed [facility] IPV Unknown Completed [facility] IPV Unknown Completed [facility] Poliovirus, Live, Oral, Trivalent Unknown Completed [facility] Poliovirus, Live, Oral, Trivalent Unknown Completed [facility] TDAP Unknown Completed [facility] Varicella (varivax)(chicken pox) Unknown Completed [facility] Varicella (varivax)(chicken pox) Unknown Completed [facility] Influenza Virus Vaccine Quad .5 mL IM 6+ MO (FLUZONE/FLULAVAL/FL UARIX) Unknown Completed [facility] TDAP Unknown Completed [facility] Influenza Virus Vaccine Quad .5 mL IM 6+ MO (FLUZONE/FLULAVAL/FL UARIX) Unknown Completed [facility] SARS-COV-2 COVID-19 PFIZER VACCINE Unknown Completed [facility] TDAP Unknown Completed [facility] Influenza Virus Vaccine Quad IM 3+ YRS Unknown Completed [facility] HPV Unknown Completed [facility] HPV Unknown Completed [facility] HPV Unknown Completed [facility] SARS-COV-2 COVID-19 PFIZER VACCINE Unknown Completed [facility] DTaP, Unspecified Formulation Unknown Completed [facility] DTaP, Unspecified Formulation Unknown Completed [facility] DTaP, Unspecified Formulation Unknown Completed [facility] DTaP, Unspecified Formulation Unknown Completed [facility] DPT/HIB Unknown Completed [facility] Flu Trivalent Unknown Completed [facility] Flu Trivalent Unknown Completed [facility] Influenza Virus Vaccine Nasal Unknown Completed [facility] HEPATITIS A Unknown Completed [facility] HEPATITIS A Unknown Completed [facility] HEPATITIS A Unknown Completed [facility] Hep B, Adol or Pedi Dosage Unknown Completed [facility] Hep B, Adol or Pedi Dosage Unknown Completed [facility] Hep B, Adol or Pedi Dosage Unknown Completed [facility] Haemophilus influenzae type b vaccine, conjugate unspecified formulation Unknown Completed [facility] Haemophilus influenzae type b vaccine, conjugate unspecified formulation Unknown Completed [facility] Haemophilus influenzae type b vaccine, conjugate unspecified formulation Unknown Completed [facility] Meningococcal Polysaccharide (groups A, C, Y and W-135) conjugate vaccine (MCV4P) Unknown Completed [facility] MMR Unknown Completed [facility] MMR Unknown Completed [facility] IPV Unknown Completed [facility] IPV Unknown Completed [facility] IPV Unknown Completed [facility] Poliovirus, Live, Oral, Trivalent Unknown Completed [facility] Poliovirus, Live, Oral, Trivalent Unknown Completed [facility] TDAP Unknown Completed [facility] Varicella (varivax)(chicken pox) Unknown Completed [facility] Varicella (varivax)(chicken pox) Unknown Completed [facility] Influenza Virus Vaccine Quad .5 mL IM 6+ MO (FLUZONE/FLULAVAL/FL UARIX) Unknown Completed [facility] TDAP Unknown Completed [facility] Influenza Virus Vaccine Quad .5 mL IM 6+ MO (FLUZONE/FLULAVAL/FL UARIX) Unknown Completed [facility] SARS-COV-2 COVID-19 PFIZER VACCINE Unknown Completed [facility] TDAP Unknown Completed [facility] Influenza Virus Vaccine Quad IM 3+ YRS Unknown Completed [facility] HPV Unknown Completed [facility] HPV Unknown Completed [facility] HPV Unknown Completed [facility] SARS-COV-2 COVID-19 PFIZER VACCINE Unknown Completed [facility] DTaP, Unspecified Formulation Unknown Completed [facility] DTaP, Unspecified Formulation Unknown Completed [facility] DTaP, Unspecified Formulation Unknown Completed [facility] DTaP, Unspecified Formulation Unknown Completed [facility] DPT/HIB Unknown Completed [facility] Flu Trivalent Unknown Completed [facility] Flu Trivalent Unknown Completed [facility] Influenza Virus Vaccine Nasal Unknown Completed [facility] HEPATITIS A Unknown Completed [facility] HEPATITIS A Unknown Completed [facility] HEPATITIS A Unknown Completed [facility] Hep B, Adol or Pedi Dosage Unknown Completed [facility] Hep B, Adol or Pedi Dosage Unknown Completed [facility] Hep B, Adol or Pedi Dosage Unknown Completed [facility] Haemophilus influenzae type b vaccine, conjugate unspecified formulation Unknown Completed [facility] Haemophilus influenzae type b vaccine, conjugate unspecified formulation Unknown Completed [facility] Haemophilus influenzae type b vaccine, conjugate unspecified formulation Unknown Completed [facility] Meningococcal Polysaccharide (groups A, C, Y and W-135) conjugate vaccine (MCV4P) Unknown Completed [facility] MMR Unknown Completed [facility] MMR Unknown Completed [facility] IPV Unknown Completed [facility] IPV Unknown Completed [facility] IPV Unknown Completed [facility] Poliovirus, Live, Oral, Trivalent Unknown Completed [facility] Poliovirus, Live, Oral, Trivalent Unknown Completed [facility] TDAP Unknown Completed [facility] Varicella (varivax)(chicken pox) Unknown Completed [facility] Varicella (varivax)(chicken pox) Unknown Completed [facility] Influenza Virus Vaccine Quad .5 mL IM 6+ MO (FLUZONE/FLULAVAL/FL UARIX) Unknown Completed [facility] TDAP Unknown Completed [facility] Influenza Virus Vaccine Quad .5 mL IM 6+ MO (FLUZONE/FLULAVAL/FL UARIX) Unknown Completed [facility] SARS-COV-2 COVID-19 PFIZER VACCINE Unknown Completed [facility] TDAP Unknown Completed [facility] Influenza Virus Vaccine Quad IM 3+ YRS Unknown Completed [facility] HPV Unknown Completed [facility] HPV Unknown Completed [facility] HPV Unknown Completed [facility] SARS-COV-2 COVID-19 PFIZER VACCINE Unknown Completed [facility] DTaP, Unspecified Formulation Unknown Completed [facility] DTaP, Unspecified Formulation Unknown Completed [facility] DTaP, Unspecified Formulation Unknown Completed [facility] DTaP, Unspecified Formulation Unknown Completed [facility] DPT/HIB Unknown Completed [facility] Flu Trivalent Unknown Completed [facility] Flu Trivalent Unknown Completed [facility] Influenza Virus Vaccine Nasal Unknown Completed [facility] HEPATITIS A Unknown Completed [facility] HEPATITIS A Unknown Completed [facility] HEPATITIS A Unknown Completed [facility] Hep B, Adol or Pedi Dosage Unknown Completed [facility] Hep B, Adol or Pedi Dosage Unknown Completed [facility] Hep B, Adol or Pedi Dosage Unknown Completed [facility] Haemophilus influenzae type b vaccine, conjugate unspecified formulation Unknown Completed [facility] Haemophilus influenzae type b vaccine, conjugate unspecified formulation Unknown Completed [facility] Haemophilus influenzae type b vaccine, conjugate unspecified formulation Unknown Completed [facility] Meningococcal Polysaccharide (groups A, C, Y and W-135) conjugate vaccine (MCV4P) Unknown Completed [facility] MMR Unknown Completed [facility] MMR Unknown Completed [facility] IPV Unknown Completed [facility] IPV Unknown Completed [facility] IPV Unknown Completed [facility] Poliovirus, Live, Oral, Trivalent Unknown Completed [facility] Poliovirus, Live, Oral, Trivalent Unknown Completed [facility] TDAP Unknown Completed [facility] Varicella (varivax)(chicken pox) Unknown Completed [facility] Varicella (varivax)(chicken pox) Unknown Completed [facility] Influenza Virus Vaccine Quad .5 mL IM 6+ MO (FLUZONE/FLULAVAL/FL UARIX) Unknown Completed [facility] TDAP Unknown Completed [facility] Influenza Virus Vaccine Quad .5 mL IM 6+ MO (FLUZONE/FLULAVAL/FL UARIX) Unknown Completed [facility] SARS-COV-2 COVID-19 PFIZER VACCINE Unknown Completed [facility] TDAP Unknown Completed [facility] Influenza Virus Vaccine Quad IM 3+ YRS Unknown Completed [facility] HPV Unknown Completed [facility] HPV Unknown Completed [facility] HPV Unknown Completed [facility] SARS-COV-2 COVID-19 PFIZER VACCINE Unknown Completed [facility] DTaP, Unspecified Formulation Unknown Completed [facility] DTaP, Unspecified Formulation Unknown Completed [facility] DTaP, Unspecified Formulation Unknown Completed [facility] DTaP, Unspecified Formulation Unknown Completed [facility] DPT/HIB Unknown Completed [facility] Flu Trivalent Unknown Completed [facility] Flu Trivalent Unknown Completed [facility] Influenza Virus Vaccine Nasal Unknown Completed [facility] HEPATITIS A Unknown [facility] Com[facility] Hep B, Adol or Pedi Dosage Unknown Completed [facility] Hep B, Adol or Pedi Dosage Unknown Completed [facility] Hep B, Adol or Pedi Dosage Unknown Completed [facility] Haemophilus influenzae type b vaccine, conjugate unspecified formulation Unknown Completed [facility] Haemophilus influenzae type b vaccine, conjugate unspecified formulation Unknown Completed [facility] Haemophilus influenzae type b vaccine, conjugate unspecified formulation Unknown Completed [facility] Meningococcal Polysaccharide (groups A, C, Y and W-135) conjugate vaccine (MCV4P) Unknown Completed [facility] MMR Unknown Completed [facility] MMR Unknown Completed [facility] IPV Unknown Completed [facility] IPV Unknown Completed [facility] IPV Unknown Completed [facility] Poliovirus, Live, Oral, Trivalent Unknown Completed [facility] Poliovirus, Live, Oral, Trivalent Unknown Completed [facility] TDAP Unknown Completed [facility] Varicella (varivax)(chicken pox) Unknown Completed [facility] Varicella (varivax)(chicken pox) Unknown Completed [facility] Influenza Virus Vaccine Quad .5 mL IM 6+ MO (FLUZONE/FLULAVAL/FL UARIX) Unknown Completed [facility] TDAP Unknown Completed [facility] Influenza Virus Vaccine Quad .5 mL IM 6+ MO (FLUZONE/FLULAVAL/FL UARIX) Unknown Completed [facility] SARS-COV-2 COVID-19 PFIZER VACCINE Unknown Completed [facility] TDAP Unknown Completed [facility] Influenza Virus Vaccine Quad IM 3+ YRS Unknown Completed [facility] HPV Unknown Completed [facility] HPV Unknown Completed [facility] HPV Unknown Completed [facility] SARS-COV-2 COVID-19 PFIZER VACCINE Unknown Completed [facility] DTaP, Unspecified Formulation Unknown Completed [facility] DTaP, Unspecified Formulation Unknown Completed [facility] DTaP, Unspecified Formulation Unknown Completed [facility] DTaP, Unspecified Formulation Unknown Completed [facility] DPT/HIB Unknown Completed [facility] Flu Trivalent Unknown Completed [facility] Flu Trivalent Unknown Completed [facility] Influenza Virus Vaccine Nasal Unknown Completed [facility] HEPATITIS A Unknown [facility] HEPATITIS A Unknown Completed [facility] HEPATITIS A Unknown Completed [facility] Hep B, Adol or Pedi Dosage Unknown Completed [facility] Hep B, Adol or Pedi Dosage Unknown Completed [facility] Hep B, Adol or Pedi Dosage Unknown Completed [facility] Haemophilus influenzae type b vaccine, conjugate unspecified formulation Unknown Completed [facility] Haemophilus influenzae type b vaccine, conjugate unspecified formulation Unknown Completed [facility] Haemophilus influenzae type b vaccine, conjugate unspecified formulation Unknown Completed [facility] Meningococcal Polysaccharide (groups A, C, Y and W-135) conjugate vaccine (MCV4P) Unknown Completed [facility] MMR Unknown Completed [facility] MMR Unknown Completed [facility] IPV Unknown Completed [facility] IPV Unknown Completed [facility] IPV Unknown Completed [facility] Poliovirus, Live, Oral, Trivalent Unknown Completed [facility] Poliovirus, Live, Oral, Trivalent Unknown Completed [facility] TDAP Unknown Completed [facility] Varicella (varivax)(chicken pox) Unknown Completed [facility] Varicella (varivax)(chicken pox) Unknown Completed [facility] Influenza Virus Vaccine Quad .5 mL IM 6+ MO (FLUZONE/FLULAVAL/FL UARIX) Unknown Completed [facility] TDAP Unknown Completed [facility] Influenza Virus Vaccine Quad .5 mL IM 6+ MO (FLUZONE/FLULAVAL/FL UARIX) Unknown Completed [facility] SARS-COV-2 COVID-19 PFIZER VACCINE Unknown Completed [facility] TDAP Unknown Completed [facility] Influenza Virus Vaccine Quad IM 3+ YRS Unknown Completed [facility] HPV Unknown Completed [facility] HPV Unknown Completed [facility] HPV Unknown Completed [facility] SARS-COV-2 COVID-19 PFIZER VACCINE Unknown Completed [facility] DTaP, Unspecified Formulation Unknown Completed [facility] DTaP, Unspecified Formulation Unknown Completed [facility] DTaP, Unspecified Formulation Unknown Completed [facility] DTaP, Unspecified Formulation Unknown Completed [facility] DPT/HIB Unknown Completed [facility] Flu Trivalent Unknown Completed [facility] Flu Trivalent Unknown Completed [facility] Influenza Virus Vaccine Nasal Unknown Completed [facility] HEPATITIS A Unknown Com[facility] HEPATITIS A Unknown Com[facility] HEPATITIS A Unknown Completed [facility] Hep B, Adol or Pedi Dosage Unknown Completed [facility] Hep B, Adol or Pedi Dosage Unknown Completed [facility] Hep B, Adol or Pedi Dosage Unknown Completed [facility] Haemophilus influenzae type b vaccine, conjugate unspecified formulation Unknown Completed [facility] Haemophilus influenzae type b vaccine, conjugate unspecified formulation Unknown Completed [facility] Haemophilus influenzae type b vaccine, conjugate unspecified formulation Unknown Completed [facility] Meningococcal Polysaccharide (groups A, C, Y and W-135) conjugate vaccine (MCV4P) Unknown Completed [facility] MMR Unknown Completed [facility] MMR Unknown Completed [facility] IPV Unknown Completed [facility] IPV Unknown Completed [facility] IPV Unknown Completed [facility] Poliovirus, Live, Oral, Trivalent Unknown Completed [facility] Poliovirus, Live, Oral, Trivalent Unknown Completed [facility] TDAP Unknown Completed [facility] Varicella (varivax)(chicken pox) Unknown Completed [facility] Varicella (varivax)(chicken pox) Unknown Completed [facility] Influenza Virus Vaccine Quad .5 mL IM 6+ MO (FLUZONE/FLULAVAL/FL UARIX) Unknown Completed [facility] TDAP Unknown Completed [facility] Influenza Virus Vaccine Quad .5 mL IM 6+ MO (FLUZONE/FLULAVAL/FL UARIX) Unknown Completed [facility] SARS-COV-2 COVID-19 PFIZER VACCINE Unknown Completed [facility] TDAP Unknown Completed [facility] Influenza Virus Vaccine Quad IM 3+ YRS Unknown Completed [facility] HPV Unknown Completed [facility] HPV Unknown Completed [facility] HPV Unknown Completed [facility] SARS-COV-2 COVID-19 PFIZER VACCINE Unknown Completed [facility] DTaP, Unspecified Formulation Unknown Completed [facility] DTaP, Unspecified Formulation Unknown Completed [facility] DTaP, Unspecified Formulation Unknown Completed [facility] DTaP, Unspecified Formulation Unknown Completed [facility] DPT/HIB Unknown Completed [facility] Flu Trivalent Unknown Completed [facility] Flu Trivalent Unknown Completed [facility] Influenza Virus Vaccine Nasal Unknown Completed [facility] HEPATITIS A Unknown Completed [facility] HEPATITIS A Unknown Completed [facility] HEPATITIS A Unknown Completed [facility] Hep B, Adol or Pedi Dosage Unknown Completed [facility] Hep B, Adol or Pedi Dosage Unknown Completed [facility] Hep B, Adol or Pedi Dosage Unknown Completed [facility] Haemophilus influenzae type b vaccine, conjugate unspecified formulation Unknown Completed [facility] Haemophilus influenzae type b vaccine, conjugate unspecified formulation Unknown Completed [facility] Haemophilus influenzae type b vaccine, conjugate unspecified formulation Unknown Completed [facility] Meningococcal Polysaccharide (groups A, C, Y and W-135) conjugate vaccine (MCV4P) Unknown Completed [facility] MMR Unknown Completed [facility] MMR Unknown Completed [facility] IPV Unknown Completed [facility] IPV Unknown Completed [facility] IPV Unknown Completed [facility] Poliovirus, Live, Oral, Trivalent Unknown Completed [facility] Poliovirus, Live, Oral, Trivalent Unknown Completed [facility] TDAP Unknown Completed [facility] Varicella (varivax)(chicken pox) Unknown Completed [facility] Varicella (varivax)(chicken pox) Unknown Completed [facility] Influenza Virus Vaccine Quad .5 mL IM 6+ MO (FLUZONE/FLULAVAL/FL UARIX) Unknown Completed [facility] TDAP Unknown Completed [facility] Influenza Virus Vaccine Quad .5 mL IM 6+ MO (FLUZONE/FLULAVAL/FL UARIX) Unknown Completed [facility] SARS-COV-2 COVID-19 PFIZER VACCINE Unknown Completed [facility] TDAP Unknown Completed [facility] Influenza Virus Vaccine Quad IM 3+ YRS Unknown Completed [facility] HPV Unknown Completed [facility] HPV Unknown Completed [facility] HPV Unknown Completed [facility] SARS-COV-2 COVID-19 PFIZER VACCINE Unknown Completed [facility] DTaP, Unspecified Formulation Unknown Completed [facility] DTaP, Unspecified Formulation Unknown Completed [facility] DTaP, Unspecified Formulation Unknown Completed [facility] DTaP, Unspecified Formulation Unknown Completed [facility] DPT/HIB Unknown Completed [facility] Flu Trivalent Unknown Completed [facility] Flu Trivalent Unknown Completed [facility] Influenza Virus Vaccine Nasal Unknown Completed [facility] HEPATITIS A Unknown Completed [facility] HEPATITIS A Unknown Completed [facility] HEPATITIS A Unknown Completed [facility] Hep B, Adol or Pedi Dosage Unknown Completed [facility] Hep B, Adol or Pedi Dosage Unknown Completed [facility] Hep B, Adol or Pedi Dosage Unknown Completed [facility] Haemophilus influenzae type b vaccine, conjugate unspecified formulation Unknown Completed [facility] Haemophilus influenzae type b vaccine, conjugate unspecified formulation Unknown Completed [facility] Haemophilus influenzae type b vaccine, conjugate unspecified formulation Unknown Completed [facility] Meningococcal Polysaccharide (groups A, C, Y and W-135) conjugate vaccine (MCV4P) Unknown Completed [facility] MMR Unknown Completed [facility] MMR Unknown Completed [facility] IPV Unknown Completed [facility] IPV Unknown Completed [facility] IPV Unknown Completed [facility] Poliovirus, Live, Oral, Trivalent Unknown Completed [facility] Poliovirus, Live, Oral, Trivalent Unknown Completed [facility] TDAP Unknown Completed [facility] Varicella (varivax)(chicken pox) Unknown Completed [facility] Varicella (varivax)(chicken pox) Unknown Completed [facility] Influenza Virus Vaccine Quad .5 mL IM 6+ MO (FLUZONE/FLULAVAL/FL UARIX) Unknown Completed [facility] TDAP Unknown Completed [facility] Influenza Virus Vaccine Quad .5 mL IM 6+ MO (FLUZONE/FLULAVAL/FL UARIX) Unknown Completed [facility] SARS-COV-2 COVID-19 PFIZER VACCINE Unknown Completed [facility] TDAP Unknown Completed [facility] Influenza Virus Vaccine Quad IM 3+ YRS Unknown Completed [facility] HPV Unknown Completed [facility] HPV Unknown Completed [facility] HPV Unknown Completed [facility] SARS-COV-2 COVID-19 PFIZER VACCINE Unknown Completed [facility] DTaP, Unspecified Formulation Unknown Completed [facility] DTaP, Unspecified Formulation Unknown Completed [facility] DTaP, Unspecified Formulation Unknown Completed [facility] DTaP, Unspecified Formulation Unknown Completed [facility] DPT/HIB Unknown Completed [facility] Flu Trivalent Unknown Completed [facility] Flu Trivalent Unknown Completed [facility] Influenza Virus Vaccine Nasal Unknown Completed [facility] HEPATITIS A Unknown Completed [facility] HEPATITIS A Unknown Completed [facility] HEPATITIS A Unknown Completed [facility] Hep B, Adol or Pedi Dosage Unknown Completed [facility] Hep B, Adol or Pedi Dosage Unknown Completed [facility] Hep B, Adol or Pedi Dosage Unknown Completed [facility] Haemophilus influenzae type b vaccine, conjugate unspecified formulation Unknown Completed [facility] Haemophilus influenzae type b vaccine, conjugate unspecified formulation Unknown Completed [facility] Haemophilus influenzae type b vaccine, conjugate unspecified formulation Unknown Completed [facility] Meningococcal Polysaccharide (groups A, C, Y and W-135) conjugate vaccine (MCV4P) Unknown Completed [facility] MMR Unknown Completed [facility] MMR Unknown Completed [facility] IPV Unknown Completed [facility] IPV Unknown Completed [facility] IPV Unknown Completed [facility] Poliovirus, Live, Oral, Trivalent Unknown Completed [facility] Poliovirus, Live, Oral, Trivalent Unknown Completed [facility] TDAP Unknown Completed [facility] Varicella (varivax)(chicken pox) Unknown Completed [facility] Varicella (varivax)(chicken pox) Unknown Completed [facility] Influenza Virus Vaccine Quad .5 mL IM 6+ MO (FLUZONE/FLULAVAL/FL UARIX) Unknown Completed [facility] TDAP Unknown Completed [facility] Influenza Virus Vaccine Quad .5 mL IM 6+ MO (FLUZONE/FLULAVAL/FL UARIX) Unknown Completed [facility] SARS-COV-2 COVID-19 PFIZER VACCINE Unknown Completed [facility] TDAP Unknown Completed [facility] Influenza Virus Vaccine Quad IM 3+ YRS Unknown Completed [facility] HPV Unknown Completed [facility] HPV Unknown Completed [facility] HPV Unknown Completed [facility] SARS-COV-2 COVID-19 PFIZER VACCINE Unknown Completed [facility] DTaP, Unspecified Formulation Unknown Completed [facility] DTaP, Unspecified Formulation Unknown Completed [facility] DTaP, Unspecified Formulation Unknown Completed [facility] DTaP, Unspecified Formulation Unknown Completed [facility] DPT/HIB Unknown Completed [facility] Flu Trivalent Unknown Completed [facility] Flu Trivalent Unknown Completed [facility] Influenza Virus Vaccine Nasal Unknown Completed [facility] HEPATITIS A Unknown Completed [facility] HEPATITIS A Unknown Completed [facility] HEPATITIS A Unknown Completed [facility] Hep B, Adol or Pedi Dosage Unknown Completed [facility] Hep B, Adol or Pedi Dosage Unknown Completed [facility] Hep B, Adol or Pedi Dosage Unknown Completed [facility] Haemophilus influenzae type b vaccine, conjugate unspecified formulation Unknown Completed [facility] Haemophilus influenzae type b vaccine, conjugate unspecified formulation Unknown Completed [facility] Haemophilus influenzae type b vaccine, conjugate unspecified formulation Unknown Completed [facility] Meningococcal Polysaccharide (groups A, C, Y and W-135) conjugate vaccine (MCV4P) Unknown Completed [facility] MMR Unknown Completed [facility] MMR Unknown Completed [facility] IPV Unknown Completed [facility] IPV Unknown Completed [facility] IPV Unknown Completed [facility] Poliovirus, Live, Oral, Trivalent Unknown Completed [facility] Poliovirus, Live, Oral, Trivalent Unknown Completed [facility] TDAP Unknown Completed [facility] Varicella (varivax)(chicken pox) Unknown Completed [facility] Varicella (varivax)(chicken pox) Unknown Completed [facility] Influenza Virus Vaccine Quad .5 mL IM 6+ MO (FLUZONE/FLULAVAL/FL UARIX) Unknown Completed [facility] TDAP Unknown Completed [facility] Influenza Virus Vaccine Quad .5 mL IM 6+ MO (FLUZONE/FLULAVAL/FL UARIX) Unknown Completed [facility] SARS-COV-2 COVID-19 PFIZER VACCINE Unknown Completed [facility] TDAP Unknown Completed [facility] Influenza Virus Vaccine Quad IM 3+ YRS Unknown Completed [facility] HPV Unknown Completed [facility] HPV Unknown Completed [facility] HPV Unknown Completed [facility] SARS-COV-2 COVID-19 PFIZER VACCINE Unknown Completed [facility] DTaP, Unspecified Formulation Unknown Completed [facility] DTaP, Unspecified Formulation Unknown Completed [facility] DTaP, Unspecified Formulation Unknown Completed [facility] DTaP, Unspecified Formulation Unknown Completed [facility] DPT/HIB Unknown Completed [facility] Flu Trivalent Unknown Completed [facility] Flu Trivalent Unknown Completed [facility] Influenza Virus Vaccine Nasal Unknown Completed [facility] HEPATITIS A Unknown Completed [facility] HEPATITIS A Unknown Completed [facility] HEPATITIS A Unknown Completed [facility] Hep B, Adol or Pedi Dosage Unknown Completed [facility] Hep B, Adol or Pedi Dosage Unknown Completed [facility] Hep B, Adol or Pedi Dosage Unknown Completed [facility] Haemophilus influenzae type b vaccine, conjugate unspecified formulation Unknown Completed [facility] Haemophilus influenzae type b vaccine, conjugate unspecified formulation Unknown Completed [facility] Haemophilus influenzae type b vaccine, conjugate unspecified formulation Unknown Completed [facility] Meningococcal Polysaccharide (groups A, C, Y and W-135) conjugate vaccine (MCV4P) Unknown Completed [facility] MMR Unknown Completed [facility] MMR Unknown Completed [facility] IPV Unknown Completed [facility] IPV Unknown Completed [facility] IPV Unknown Completed [facility] Poliovirus, Live, Oral, Trivalent Unknown Completed [facility] Poliovirus, Live, Oral, Trivalent Unknown Completed [facility] TDAP Unknown Completed [facility] Varicella (varivax)(chicken pox) Unknown Completed [facility] Varicella (varivax)(chicken pox) Unknown Completed [facility] Influenza Virus Vaccine Quad .5 mL IM 6+ MO (FLUZONE/FLULAVAL/FL UARIX) Unknown Completed [facility] TDAP Unknown Completed [facility] Influenza Virus Vaccine Quad .5 mL IM 6+ MO (FLUZONE/FLULAVAL/FL UARIX) Unknown Completed [facility] SARS-COV-2 COVID-19 PFIZER VACCINE Unknown Completed [facility] TDAP Unknown Completed [facility] Influenza Virus Vaccine Quad IM 3+ YRS Unknown Completed [facility] HPV Unknown Completed [facility] HPV Unknown Completed [facility] HPV Unknown Completed [facility] SARS-COV-2 COVID-19 PFIZER VACCINE Unknown Completed [facility] DTaP, Unspecified Formulation Unknown Completed [facility] DTaP, Unspecified Formulation Unknown Completed [facility] DTaP, Unspecified Formulation Unknown Completed [facility] DTaP, Unspecified Formulation Unknown Completed [facility] DPT/HIB Unknown Completed [facility] Flu Trivalent Unknown Completed [facility] Flu Trivalent Unknown Completed [facility] Influenza Virus Vaccine Nasal Unknown Completed [facility] HEPATITIS A Unknown Completed [facility] HEPATITIS A Unknown Completed [facility] HEPATITIS A Unknown Completed [facility] Hep B, Adol or Pedi Dosage Unknown Completed [facility] Hep B, Adol or Pedi Dosage Unknown Completed [facility] Hep B, Adol or Pedi Dosage Unknown Completed [facility] Haemophilus influenzae type b vaccine, conjugate unspecified formulation Unknown Completed [facility] Haemophilus influenzae type b vaccine, conjugate unspecified formulation Unknown Completed [facility] Haemophilus influenzae type b vaccine, conjugate unspecified formulation Unknown Completed [facility] Meningococcal Polysaccharide (groups A, C, Y and W-135) conjugate vaccine (MCV4P) Unknown Completed [facility] MMR Unknown Completed [facility] MMR Unknown Completed [facility] IPV Unknown Completed [facility] IPV Unknown Completed [facility] IPV Unknown Completed [facility] Poliovirus, Live, Oral, Trivalent Unknown Completed [facility] Poliovirus, Live, Oral, Trivalent Unknown Completed [facility] TDAP Unknown Completed [facility] Varicella (varivax)(chicken pox) Unknown Completed [facility] Varicella (varivax)(chicken pox) Unknown Completed [facility] Influenza Virus Vaccine Quad .5 mL IM 6+ MO (FLUZONE/FLULAVAL/FL UARIX) Unknown Completed [facility] TDAP Unknown Completed [facility] Influenza Virus Vaccine Quad .5 mL IM 6+ MO (FLUZONE/FLULAVAL/FL UARIX) Unknown Completed [facility] SARS-COV-2 COVID-19 PFIZER VACCINE Unknown Completed [facility] TDAP Unknown Completed [facility] Influenza Virus Vaccine Quad IM 3+ YRS Unknown Completed [facility] HPV Unknown Completed [facility] HPV Unknown Completed [facility] HPV Unknown Completed [facility] SARS-COV-2 COVID-19 PFIZER VACCINE Unknown Completed [facility] DTaP, Unspecified Formulation Unknown Completed [facility] DTaP, Unspecified Formulation Unknown Completed [facility] DTaP, Unspecified Formulation Unknown Completed [facility] DTaP, Unspecified Formulation Unknown Completed [facility] DPT/HIB Unknown Completed [facility] Flu Trivalent Unknown Completed [facility] Flu Trivalent Unknown Completed [facility] Influenza Virus Vaccine Nasal Unknown Completed [facility] HEPATITIS A Unknown Completed [facility] HEPATITIS A Unknown Completed [facility] HEPATITIS A Unknown Completed [facility] Hep B, Adol or Pedi Dosage Unknown Completed [facility] Hep B, Adol or Pedi Dosage Unknown Completed [facility] Hep B, Adol or Pedi Dosage Unknown Completed [facility] Haemophilus influenzae type b vaccine, conjugate unspecified formulation Unknown Completed [facility] Haemophilus influenzae type b vaccine, conjugate unspecified formulation Unknown Completed [facility] Haemophilus influenzae type b vaccine, conjugate unspecified formulation Unknown Completed [facility] Meningococcal Polysaccharide (groups A, C, Y and W-135) conjugate vaccine (MCV4P) Unknown Completed [facility] MMR Unknown Completed [facility] MMR Unknown Completed [facility] IPV Unknown Completed [facility] IPV Unknown Completed [facility] IPV Unknown Completed [facility] Poliovirus, Live, Oral, Trivalent Unknown Completed [facility] Poliovirus, Live, Oral, Trivalent Unknown Completed [facility] TDAP Unknown Completed [facility] Varicella (varivax)(chicken pox) Unknown Completed [facility] Varicella (varivax)(chicken pox) Unknown Completed [facility] Influenza Virus Vaccine Quad .5 mL IM 6+ MO (FLUZONE/FLULAVAL/FL UARIX) Unknown Completed [facility] TDAP Unknown Completed [facility] Influenza Virus Vaccine Quad .5 mL IM 6+ MO (FLUZONE/FLULAVAL/FL UARIX) Unknown Completed [facility] SARS-COV-2 COVID-19 PFIZER VACCINE Unknown Completed [facility] TDAP Unknown Completed [facility] Influenza Virus Vaccine Quad IM 3+ YRS Unknown Completed [facility] HPV Unknown Completed [facility] HPV Unknown Completed [facility] HPV Unknown Completed [facility] SARS-COV-2 COVID-19 PFIZER VACCINE Unknown Completed [facility] DTaP, Unspecified Formulation Unknown Completed [facility] DTaP, Unspecified Formulation Unknown Completed [facility] DTaP, Unspecified Formulation Unknown Completed [facility] DTaP, Unspecified Formulation Unknown Completed [facility] DPT/HIB Unknown Completed [facility] Flu Trivalent Unknown Completed [facility] Flu Trivalent Unknown Completed [facility] Influenza Virus Vaccine Nasal Unknown Completed [facility] HEPATITIS A Unknown Completed [facility] HEPATITIS A Unknown Completed [facility] HEPATITIS A Unknown Completed [facility] Hep B, Adol or Pedi Dosage Unknown Completed [facility] Hep B, Adol or Pedi Dosage Unknown Completed [facility] Hep B, Adol or Pedi Dosage Unknown Completed [facility] Haemophilus influenzae type b vaccine, conjugate unspecified formulation Unknown Completed [facility] Haemophilus influenzae type b vaccine, conjugate unspecified formulation Unknown Completed [facility] Haemophilus influenzae type b vaccine, conjugate unspecified formulation Unknown Completed [facility] Meningococcal Polysaccharide (groups A, C, Y and W-135) conjugate vaccine (MCV4P) Unknown Completed [facility] MMR Unknown Completed [facility] MMR Unknown Completed [facility] IPV Unknown Completed [facility] IPV Unknown Completed [facility] IPV Unknown Completed [facility] Poliovirus, Live, Oral, Trivalent Unknown Completed [facility] Poliovirus, Live, Oral, Trivalent Unknown Completed [facility] TDAP Unknown Completed [facility] Varicella (varivax)(chicken pox) Unknown Completed [facility] Varicella (varivax)(chicken pox) Unknown Completed [facility] Influenza Virus Vaccine Quad .5 mL IM 6+ MO (FLUZONE/FLULAVAL/FL UARIX) Unknown Completed [facility] TDAP Unknown Completed [facility] Influenza Virus Vaccine Quad .5 mL IM 6+ MO (FLUZONE/FLULAVAL/FL UARIX) Unknown Completed [facility] SARS-COV-2 COVID-19 PFIZER VACCINE Unknown Completed [facility] TDAP Unknown Completed [facility] Influenza Virus Vaccine Quad IM 3+ YRS Unknown Completed [facility] HPV Unknown Completed [facility] HPV Unknown Completed [facility] HPV Unknown Completed [facility] SARS-COV-2 COVID-19 PFIZER VACCINE Unknown Completed [facility] DTaP, Unspecified Formulation Unknown Completed [facility] DTaP, Unspecified Formulation Unknown Completed [facility] DTaP, Unspecified Formulation Unknown Completed [facility] DTaP, Unspecified Formulation Unknown Completed [facility] DPT/HIB Unknown Completed [facility] Flu Trivalent Unknown Completed [facility] Flu Trivalent Unknown Completed [facility] Influenza Virus Vaccine Nasal Unknown Completed [facility] HEPATITIS A Unknown Completed [facility] HEPATITIS A Unknown Completed [facility] HEPATITIS A Unknown Completed [facility] Hep B, Adol or Pedi Dosage Unknown Completed [facility] Hep B, Adol or Pedi Dosage Unknown Completed [facility] Hep B, Adol or Pedi Dosage Unknown Completed [facility] Haemophilus influenzae type b vaccine, conjugate unspecified formulation Unknown Completed [facility] Haemophilus influenzae type b vaccine, conjugate unspecified formulation Unknown Completed [facility] Haemophilus influenzae type b vaccine, conjugate unspecified formulation Unknown Completed [facility] Meningococcal Polysaccharide (groups A, C, Y and W-135) conjugate vaccine (MCV4P) Unknown Completed [facility] MMR Unknown Completed [facility] MMR Unknown Completed [facility] IPV Unknown Completed [facility] IPV Unknown Completed [facility] IPV Unknown Completed [facility] Poliovirus, Live, Oral, Trivalent Unknown Completed [facility] Poliovirus, Live, Oral, Trivalent Unknown Completed [facility] TDAP Unknown Completed [facility] Varicella (varivax)(chicken pox) Unknown Completed [facility] Varicella (varivax)(chicken pox) Unknown Completed [facility] Influenza Virus Vaccine Quad .5 mL IM 6+ MO (FLUZONE/FLULAVAL/FL UARIX) Unknown Completed [facility] TDAP Unknown Completed [facility] Influenza Virus Vaccine Quad .5 mL IM 6+ MO (FLUZONE/FLULAVAL/FL UARIX) Unknown Completed [facility] SARS-COV-2 COVID-19 PFIZER VACCINE Unknown Completed [facility] TDAP Unknown Completed [facility] Influenza Virus Vaccine Quad IM 3+ YRS Unknown Completed [facility] HPV Unknown Completed [facility] HPV Unknown Completed [facility] HPV Unknown Completed [facility] SARS-COV-2 COVID-19 PFIZER VACCINE Unknown Completed [facility] DTaP, Unspecified Formulation Unknown Completed [facility] DTaP, Unspecified Formulation Unknown Completed [facility] DTaP, Unspecified Formulation Unknown Completed [facility] DTaP, Unspecified Formulation Unknown Completed [facility] DPT/HIB Unknown Completed [facility] Flu Trivalent Unknown Completed [facility] Flu Trivalent Unknown Completed [facility] Influenza Virus Vaccine Nasal Unknown Completed [facility] HEPATITIS A Unknown [facility] Com[facility] Hep B, Adol or Pedi Dosage Unknown Completed [facility] Hep B, Adol or Pedi Dosage Unknown Completed [facility] Hep B, Adol or Pedi Dosage Unknown Completed [facility] Haemophilus influenzae type b vaccine, conjugate unspecified formulation Unknown Completed [facility] Haemophilus influenzae type b vaccine, conjugate unspecified formulation Unknown Completed [facility] Haemophilus influenzae type b vaccine, conjugate unspecified formulation Unknown Completed [facility] Meningococcal Polysaccharide (groups A, C, Y and W-135) conjugate vaccine (MCV4P) Unknown Completed [facility] MMR Unknown Completed [facility] MMR Unknown Completed [facility] IPV Unknown Completed [facility] IPV Unknown Completed [facility] IPV Unknown Completed [facility] Poliovirus, Live, Oral, Trivalent Unknown Completed [facility] Poliovirus, Live, Oral, Trivalent Unknown Completed [facility] TDAP Unknown Completed [facility] Varicella (varivax)(chicken pox) Unknown Completed [facility] Varicella (varivax)(chicken pox) Unknown Completed [facility] Influenza Virus Vaccine Quad .5 mL IM 6+ MO (FLUZONE/FLULAVAL/FL UARIX) Unknown Completed [facility] [id number] Unknown Completed Erum Mercer [id number] Unknown Completed Erum Mercer diphtheria/pertussis , acel/tetanus adult Unknown Completed Erum Mercer Vital Signs Vital Name Observation Time Observation Value Comments S ource Systolic blood pressure 2023-09-25 17:06:00 118 mm[Hg] [facility] Diastolic blood pressure 2023-09-25 17:06:00 70 mm[Hg] [facility] Heart rate 2023-09-25 17:06:00 81 /min [facility] Body temperature 2023-09-25 17:06:00 36.72 Clari [facility] Respiratory rate 2023-09-25 17:06:00 18 /min [facility] Body height 2023-09-25 17:06:00 160 cm [facility] Body weight 2023-09-25 17:06:00 93.895 kg [facility] BMI 2023-09-25 17:06:00 36.67 kg/m2 [facility] Oxygen saturation in Arterial blood by Pulse oximetry 2023-09-25 17:06:00 98 /min [facility] Systolic blood pressure 2023-07-27 20:45:00 125 mm[Hg] [facility] Diastolic blood pressure 2023-07-27 20:45:00 78 mm[Hg] [facility] Heart rate 2023-07-27 20:45:00 71 /min [facility] Respiratory rate 2023-07-27 20:45:00 19 /min [facility] Body height 2023-07-27 20:45:00 160 cm [facility] Body weight 2023-07-27 20:45:00 94.212 kg [facility] BMI 2023-07-27 20:45:00 36.79 kg/m2 [facility] Oxygen saturation in Arterial blood by Pulse oximetry 2023-07-27 20:45:00 99 /min [facility] Systolic blood pressure 2023-07-07 21:06:00 112 mm[Hg] [facility] Diastolic blood pressure 2023-07-07 21:06:00 68 mm[Hg] [facility] Heart rate 2023-07-07 21:06:00 87 /min [facility] Body height 2023-07-07 21:06:00 160 cm [facility] Body weight 2023-07-07 21:06:00 93.985 kg [facility] BMI 2023-07-07 21:06:00 36.70 kg/m2 [facility] Oxygen saturation in Arterial blood by Pulse oximetry 2023-07-07 21:06:00 96 /min [facility] Systolic blood pressure 2023-07-01 19:30:00 117 mm[Hg] [facility] Diastolic blood pressure 2023-07-01 19:30:00 71 mm[Hg] [facility] Heart rate 2023-07-01 19:30:00 78 /min [facility] Body temperature 2023-07-01 19:30:00 36.39 Clari [facility] Respiratory rate 2023-07-01 19:30:00 16 /min [facility] Body height 2023-07-01 19:30:00 160 cm [facility] Body weight 2023-07-01 19:30:00 94.065 kg [facility] BMI 2023-07-01 19:30:00 36.73 kg/m2 [facility] Systolic blood pressure 2023-03-31 19:28:00 121 mm[Hg] [facility] Diastolic blood pressure 2023-03-31 19:28:00 77 mm[Hg] [facility] Heart rate 2023-03-31 19:28:00 80 /min [facility] Body temperature 2023-03-31 19:28:00 36.28 Clari [facility] Respiratory rate 2023-03-31 19:28:00 18 /min [facility] Body height 2023-03-31 19:28:00 160 cm [facility] Body weight 2023-03-31 19:28:00 92.806 kg [facility] BMI 2023-03-31 19:28:00 36.24 kg/m2 [facility] Systolic blood pressure 2022-12-05 23:44:00 121 mm[Hg] [facility] Diastolic blood pressure 2022-12-05 23:44:00 83 mm[Hg] [facility] Heart rate 2022-12-05 23:44:00 89 /min [facility] Body temperature 2022-12-05 23:44:00 36.78 Clari [facility] Body weight 2022-12-05 23:44:00 95.255 kg pt reports [facility] BMI 2022-12-05 23:44:00 37.20 kg/m2 [facility] Systolic blood pressure 2022-10-14 20:26:00 107 mm[Hg] [facility] Diastolic blood pressure 2022-10-14 20:26:00 72 mm[Hg] [facility] Heart rate 2022-10-14 20:26:00 85 /min [facility] Respiratory rate 2022-10-14 20:26:00 20 /min [facility] Body height 2022-10-14 20:26:00 160 cm [facility] Body weight 2022-10-14 20:26:00 96.934 kg [facility] BMI 2022-10-14 20:26:00 37.86 kg/m2 [facility] Oxygen saturation in Arterial blood by Pulse oximetry 2022-10-14 20:26:00 97 /min [facility] Systolic blood pressure 2022-08-22 16:34:00 112 mm[Hg] [place] [facility] Diastolic blood pressure 2022-08-22 16:34:00 67 mm[Hg] [facility] Heart rate 2022-08-22 16:34:00 77 /min [facility] Body temperature 2022-08-22 16:34:00 36.72 Clari [facility] Respiratory rate 2022-08-22 16:34:00 18 /min [facility] Body height 2022-08-22 16:34:00 160 cm [facility] Body weight 2022-08-22 16:34:00 9.843 kg [facility] BMI 2022-08-22 16:34:00 3.84 kg/m2 [facility] Oxygen saturation in Arterial blood by Pulse oximetry 2022-08-22 16:34:00 96 /min [facility] Systolic blood pressure 2022-07-22 14:28:00 117 mm[Hg] [facility] Diastolic blood pressure 2022-07-22 14:28:00 75 mm[Hg] [facility] Heart rate 2022-07-22 14:28:00 75 /min [facility] Body height 2022-07-22 14:28:00 160 cm [facility] Body weight 2022-07-22 14:28:00 98.385 kg [facility] BMI 2022-07-22 14:28:00 38.42 kg/m2 [facility] Heart rate 2022-04-10 19:49:00 90 /min [facility] Body temperature 2022-04-10 19:49:00 36.5 Clari [facility] Body height 2022-04-10 19:49:00 160 cm [facility] Body weight 2022-04-10 19:49:00 97.16 kg [facility] BMI 2022-04-10 19:49:00 37.94 kg/m2 [facility] Oxygen saturation in Arterial blood by Pulse oximetry 2022-04-10 19:49:00 97 /min [facility] Systolic blood pressure 2022-04-10 19:49:00 118 mm[Hg] [facility] Diastolic blood pressure 2022-04-10 19:49:00 77 mm[Hg] [facility] Systolic blood pressure 2022-03-21 21:32:00 111 mm[Hg] [facility] Diastolic blood pressure 2022-03-21 21:32:00 78 mm[Hg] [facility] Heart rate 2022-03-21 21:32:00 83 /min [facility] Body height 2022-03-21 21:32:00 160 cm [facility] Body weight 2022-03-21 21:32:00 95.119 kg [facility] BMI 2022-03-21 21:32:00 37.15 kg/m2 [facility] Oxygen saturation in Arterial blood by Pulse oximetry 2022-03-21 21:32:00 96 /min [facility] Systolic blood pressure 2022-02-25 13:36:00 103 mm[Hg] [facility] Diastolic blood pressure 2022-02-25 13:36:00 68 mm[Hg] [facility] Heart rate 2022-02-25 13:36:00 73 /min [facility] Body height 2022-02-25 13:36:00 160 cm [facility] Body weight 2022-02-25 13:36:00 95.255 kg [facility] BMI 2022-02-25 13:36:00 37.20 kg/m2 [facility] Oxygen saturation in Arterial blood by Pulse oximetry 2022-02-25 13:36:00 98 /min [facility] Systolic blood pressure 2022-02-21 19:51:00 115 mm[Hg] [facility] Diastolic blood pressure 2022-02-21 19:51:00 69 mm[Hg] [facility] Heart rate 2022-02-21 19:51:00 71 [facility] 2022-02-21 19:51:00 160 cm [facility] Body weight 2022-02-21 19:51:00 95.528 kg [facility] BMI 2022-02-21 19:51:00 37.31 kg/m2 [facility] Oxygen saturation in Arterial blood by Pulse oximetry 2022-02-21 19:51:00 97 /min [facility] Systolic blood pressure 2022-01-24 18:33:00 120 mm[Hg] [facility] Diastolic blood pressure 2022-01-24 18:33:00 69 mm[Hg] [facility] Heart rate 2022-01-24 18:33:00 77 /min [facility] Body height 2022-01-24 18:33:00 161.3 cm [facility] Body weight 2022-01-24 18:33:00 93.441 kg [facility] BMI 2022-01-24 18:33:00 35.92 kg/m2 [facility] Oxygen saturation in Arterial blood by Pulse oximetry 2022-01-24 18:33:00 98 /min [facility] BP Diastolic 2020-10-08 00:00:00 69 mm[Hg] [facility] Height 2020-10-08 00:00:00 63 [in_i] [facility] BMI (Body Mass Index) 2020-10-08 00:00:00 36.2 kg/m2 [facility] BP Systolic 2020-10-08 00:00:00 118 mm[Hg] [facility] Body Weight 2020-10-08 00:00:00 3267.2 [oz_av] [facility] BP Diastolic 2020-08-17 00:00:00 72 mm[Hg] [facility] Height 2020-08-17 00:00:00 63 [in_i] [facility] BMI (Body Mass Index) 2020-08-17 00:00:00 36.1 kg/m2 [facility] BP Systolic 2020-08-17 00:00:00 118 mm[Hg] [facility] Body Weight 2020-08-17 00:00:00 3264 [oz_av] [facility] BP Diastolic 2020-07-17 00:00:00 84 mm[Hg] [facility] Height 2020-07-17 00:00:00 63 [in_i] [facility] BMI (Body Mass Index) 2020-07-17 00:00:00 37.4 kg/m2 [facility] BP Systolic 2020-07-17 00:00:00 118 mm[Hg] [facility] Body Weight 2020-07-17 00:00:00 3376 [oz_av] [facility] Height 2021-05-16 20:36:00 160.02 cm [facility] BMI Calculated 2021-05-16 20:36:00 [facility] Weight 2021-05-16 20:36:00 [facility] [place] [facility] Systolic (mm Hg) 2021-05-16 20:36:00 [facility] Diastolic (mm Hg) 2021-05-16 20:36:00 [facility] [place] [facility] Heart Rate 2021-05-16 20:36:00 [facility] Respitory Rate 2021-05-16 20:36:00 [facility] Temperature Oral (F) 2021-05-16 20:36:00 98.2 F [facility] Systolic (mm Hg) 2021-03-25 03:05:00 [facility] Diastolic (mm Hg) 2021-03-25 03:05:00 [facility] Height 2021-03-25 02:52:00 160.02 cm [facility] BMI Calculated 2021-03-25 02:52:00 [facility] Weight 2021-03-25 02:52:00 [facility] Systolic (mm Hg) 2021-03-25 02:52:00 [facility] [place] Diastolic (mm Hg) 2021-03-25 02:52:00 [facility] [place] [facility] Heart Rate 2021-03-25 02:52:00 David Mercer Respitory Rate 2021-03-25 02:52:00 [facility] Temperature Oral (F) 2021-03-25 02:52:00 98 F Maricarmen bustos Systolic (mm Hg) 2021-03-25 02:40:00 [facility] [place] Diastolic (mm Hg) 2021-03-25 02:40:00 [facility] Procedures Procedure Date / Time Performed Performing Clinician Source POCT TEST 2023-09-25 00:00:00 Renetta James [facility] POCT TEST 2023-07-01 19:32:00 Candida Lau [facility] POCT TEST 2023-03-31 20:13:00 Candida Lau [facility] "RWSP REGINE ONLY" FLU VACC(), 6+ MONTHS, IM, QUAD (FLUZONE/FLULAVAL/FLUAR IX) 2023-03-31 19:58:18 Liliana Lau [facility] ASSIGNMENT OF BENEFITS 2022-08-22 16:19:33 Docto r Unassigned, [place] [facility] CBC WITH DIFF 2022-04-10 20:52:00 Liliana Lau [facility] GLYCOSYLATED HEMOGLOBIN (A1C) 2022-04-10 20:52:00 Liliana Lau [facility] HIV 1/2 AG-AB WITH REFLEX 2022-04-10 20:52:00 Liliana Lau [facility] PAP SMEAR-LIQUID BASED-CP 2022-04-10 20:52:00 Liliana Lau [facility] GALV ONLY - SYPHILIS IGG/IGM 2022-04-10 20:52:00 Liliana Lau [facility] ASSIGNMENT OF BENEFITS 2022-04-10 19:21:20 Docto r Unassigned, [place] [facility] POCT TEST 2022-03-21 00:00:00 Renetta James [facility] [U] XRAY KNEE 4 OR MORE VWS LEFT [id number] 2020-02-29 00:00:[address] [facility] [address] Knee without contrast 52422 2020-02-29 00:00:00 [facility] [U] XRAY FEMUR 2 VWS LEFT [id number] 2020-02-28 00:00:00 [facility] [U] XRAY KNEE 1 OR 2 VWS LEFT [id number] 2019-05-09 00:00:00 [facility] [U] XRAY FEMUR 2 VWS LEFT [id number] 2019-05-09 00:00:00 [facility] [U] XRAY FEMUR 2 VWS LEFT [id number] 2018-10-01 00:00:00 [facility] [U] XRAY KNEE 1 OR 2 VWS LEFT [id number] 2018-10-01 00:00:00 [facility] [U] XRAY FEMUR 2 VWS LEFT [id number] 2018-07-08 00:00:00 [facility] [U] XRAY KNEE 1 OR 2 VWS LEFT [id number] 2018-07-08 00:00:00 [facility] [U] XRAY FEMUR 2 VWS LEFT [id number] 2018-06-17 00:00:00 [facility] [U] XRAY KNEE 1 OR 2 VWS LEFT [id number] 2018-06-17 00:00:00 [facility] [U] XRAY FEMUR 2 VWS LEFT [id number] 2018-03-19 00:00:00 [facility] [U] XRAY KNEE 1 OR 2 VWS LEFT [id number] 2018-03-19 00:00:00 [facility] [U] XRAY FEMUR 2 VWS LEFT [id number] 2018-02-04 00:00:00 [facility] [U] XRAY KNEE 1 OR 2 VWS LEFT [id number] 2018-02-04 00:00:00 [facility] [U] XRAY FEMUR 2 VWS LEFT [id number] 2018-01-18 00:00:00 [facility] [U] XRAY KNEE 1 OR 2 VWS LEFT [id number] 2018-01-18 00:00:00 [facility] [U] XRAY FEMUR 2 VWS LEFT [id number] 2017-12-17 00:00:00 [facility] [U] XRAY KNEE 1 OR 2 VWS LEFT [id number] 2017-12-17 00:00:00 [facility] [U] XRAY FEMUR 2 VWS LEFT [id number] 2017-11-17 00:00:00 [facility] [U] XRAY KNEE 1 OR 2 VWS LEFT [id number] 2017-11-17 00:00:00 [facility] [U] XRAY FEMUR 2 VWS LEFT [id number] 2017-11-02 00:00:00 [facility] [U] XRAY KNEE 1 OR 2 VWS LEFT [id number] 2017-11-02 00:00:00 [facility] [U] XRAY FEMUR 2 VWS LEFT [id number] 2017-10-13 00:00:00 [facility] [U] XRAY KNEE 1 OR 2 VWS LEFT [id number] 2017-10-13 00:00:00 [facility] [U] XRAY KNEE 1 OR 2 VWS LEFT [id number] 2017-09-10 00:00:00 [facility] [U] XRAY FEMUR 2 VWS LEFT [id number] 2017-09-10 00:00:00 [facility] Procedure<sup>1</sup> Edelmira Ballesteros Plan of Care Planned Activity Planned Date Details Comments Source Future Scheduled Test 2020-02-29 00:00:00 [U] XRAY FEMUR 2 VWS LEFT 17538 [code = 84401] [facility] Diagnostic Test Pending 2020-02-29 00:00:00 CT Knee without contrast 18066 [code = 08739] [facility] Instructions [facility] Encounters Start Date/Time End Date/Time Encounter Type Admission Type Attending Clinicians Care Facility Care Department Encounter ID Source 2022-05-09 13:07:01 Outpatient [facility] [id number] [facility] 2021-03-25 21:27:19 Outpatient P [facility] [id number] [facility] 2021-03-25 13:16:50 Emergency [facility] [id number] [facility] 2021-03-25 09:18:37 Emergency [facility] [id number] [facility] 2021-03-25 04:11:09 Emergency [facility] [id number] [facility] 2021-03-23 05:37:46 Emergency [facility] [id number] [facility] 2021-03-23 05:32:18 Emergency [facility] [id number] [facility] 2023-09-25 00:00:00 2023-09-30 08:20:24 Liliana Correa [facility] [id number] 350.1.13.10 4.2.7.2.686 [id number] [facility] 2023-09-25 13:00:00 2023-09-25 13:15:00 Employee Counselor Visit Lab, Renetta Garcia [facility] [id number] 350.1.13.10 4.2.7.2.686 [id number] [facility] 2023-09-25 12:30:00 2023-09-25 13:00:07 Outpatient RENETTA KNIGHT [facility] [id number] [facility] 2023-09-25 12:30:00 2023-09-25 13:00:07 Office Visit Renetta James [facility] [id number] 350.1.13.10 4.2.7.2.686 [id number] [facility] 2023-09-24 14:30:00 2023-09-24 14:30:00 Outpatient R SIMON STACK [facility] [id number] [facility] 2023-09-24 07:30:00 2023-09-24 07:30:00 Outpatient R RENETTA JAMES [facility] [id number] [facility] 2023-09-14 00:00:00 2023-09-14 00:00:00 Telephone Radha Winston [facility] [id number] 350.1.13.10 4.2.7.2.686 [id number] [facility] 2023-09-08 14:45:00 2023-09-08 15:00:00 Employee Counselor Visit Vtc-Lab Hilary Haro [facility] 1.114 350.1.13.10 4.2.7.2.686 [id number] [facility] 2023-09-08 13:45:00 2023-09-08 14:37:16 Outpatient R HILARY HARO [facility] [id number] [facility] 2023-09-08 13:45:00 2023-09-08 14:37:16 Office Visit Hilary Haro [facility] 1.114 350.1.13.10 4.2.7.2.686 [id number] [facility] 2023-08-13 15:30:00 2023-08-13 15:30:00 Outpatient R SIMON STACK [facility] [id number] [facility] 2023-07-27 14:30:00 2023-07-27 15:12:42 Outpatient R [facility] [id number] [facility] 2023-07-27 14:30:00 2023-07-27 15:12:42 Office Visit Janina [facility] 1.84.114 350.1.13.10 4.2.7.2.686 [id number] [facility] 2023-07-16 14:15:00 2023-07-16 14:15:00 Outpatient R [facility] [id number] [facility] 2023-07-16 00:00:00 2023-07-16 00:00:00 [facility] 1.84.114 350.1.13.10 4.2.7.2.686 [id number] [facility] 2023-07-10 00:00:00 2023-07-10 00:00:00 Telephone Atif Roassica [facility] 1.2.840.114 350.1.13.10 4.2.7.2.686 [id number] [facility] 2023-07-09 09:45:00 2023-07-09 09:45:00 Outpatient R HILARY HARO [facility] [id number] [facility] 2023-07-08 00:00:00 2023-07-08 00:00:00 Patient Secure Msg Doctor Unassigned, [place] [facility] 1.2.840.114 350.1.13.10 4.2.7.2.686 [id number] [facility] 2023-07-07 15:00:00 2023-07-07 15:24:20 Outpatient R SOPHY ROA [facility] [id number] [facility] 2023-07-07 15:00:00 2023-07-07 15:24:20 Office Visit [facility] 1.2.840.114 350.1.13.10 4.2.7.2.686 [id number] [facility] 2023-07-01 13:30:00 2023-07-01 14:12:44 Outpatient R LILIANA LAU [facility] [id number] [facility] 2023-07-01 13:30:00 2023-07-01 14:12:44 Office Visit Liliana Lau [facility] 1..840.114 350.1.13.10 4.2.7.2.686 [id number] [facility] 2023-06-05 00:00:00 2023-06-05 00:00:00 Outpatient SCHAUBROECK _L [facility] [id number] 2023-03-31 13:15:00 2023-03-31 14:43:29 Outpatient R LILIANA LAU [facility] [id number] [facility] 2023-03-31 13:15:00 2023-03-31 14:43:29 Office Visit Liliana Lau [facility] 1..840.114 350.1.13.10 4.2.7.2.686 [id number] [facility] 2023-02-27 14:00:00 2023-02-27 14:00:00 Outpatient SOPHY HESTER [facility] [id number] [facility] 2023-02-22 16:00:00 2023-02-22 16:00:00 Outpatient R LILIAN, ATTENDING [facility] [id number] [facility] 2022-12-05 18:20:00 2022-12-05 18:46:37 Outpatient R ANTIONE RICKS [facility] [id number] [facility] 2022-12-05 18:20:00 2022-12-05 18:46:37 Nurse Visit Nurse, Krishna [facility] Unknown, Attending [facility] ..840.114 350.1.13.10 4.2.7.2.686 [id number] [facility] 2022-10-17 14:00:00 2022-10-17 14:00:00 Outpatient SOPHY HESTER [facility] [id number] [facility] 2022-10-15 00:00:00 2022-10-15 00:00:00 Telephone Erika Shelley [facility] 1..840.114 350.1.13.10 4.2.7.2.686 [id number] [facility] 2022-10-14 16:00:00 2022-10-14 16:15:00 Employee Counselor Visit Lab, Krishna Rahmanjoselito Count includes the [facility] 1.84114 350.1.13.10 4.2.7.2.686 [id number] [facility] 2022-10-14 14:30:00 2022-10-14 15:57:04 [id number] 2022-10-14 14:30:00 2022-10-14 15:57:04 Office [facility] 1.114 350.1.13.10 4.2.7.2.686 [id number] [facility] 2022-08-22 15:30:00 2022-08-22 15:30:00 Outpatient R ERIKA SHELLEY [facility] [id number] [facility] 2022-08-22 11:20:00 2022-08-22 11:59:43 Outpatient R ALEXANDRA MENON [facility] [id number] [facility] 2022-08-22 11:20:00 2022-08-22 11:59:43 Urgent Care Alexandra Menon Unknown, Attending [facility] 1.114 350.1.13.10 4.2.7.2.686 [id number] [facility] 2022-08-22 00:00:00 2022-08-22 00:00:00 Orders Only Doctor Unassigned, [place] [facility] 1.114 350.1.13.10 4.2.7.2.686 [id number] [facility] 2022-08-22 00:00:00 2022-08-22 00:00:00 Letter (Out) [facility] 1.2.840.114 350.1.13.10 4.2.7.2.686 [id number] [facility] 2022-08-06 12:30:00 2022-08-06 12:30:00 Outpatient RENETTA KNIGHT [facility] [id number] [facility] 2022-07-31 09:30:00 2022-07-31 09:30:00 Outpatient RENETTA KNIGHT [facility] [id number] [facility] 2022-07-22 08:20:00 2022-07-22 09:20:48 Outpatient ANDREW ORELLANA HOWARD [facility] [id number] [facility] 2022-07-22 08:20:00 2022-07-22 09:20:48 Office Visit [facility] 1.2.840.114 350.1.13.10 4.2.7.2.686 [id number] [facility] 2022-07-18 10:00:00 2022-07-18 10:00:00 Outpatient ANDREW ORELLANA HOWARD [facility] [id number] [facility] 2022-07-14 00:00:00 2022-07-14 00:00:00 Erika Alanis [facility] 1.2.840.114 350.1.13.10 4.2.7.2.686 [id number] [facility] 2022-07-10 12:45:00 2022-07-10 12:45:00 Outpatient R MIKAELA MANDUJANO [facility] [id number] [facility] 2022-06-30 13:15:00 2022-06-30 13:15:00 Outpatient MARBELLA PARIKH JORDYN [facility] [id number] [facility] 2022-05-17 00:00:00 2022-05-17 00:00:00 Erika Alanis [facility] [place] 1.840.114 350.1.13.10 4.2.7.2.686 [id number] [facility] 2022-05-14 00:00:00 2022-05-14 00:00:00 Patient Secure Msg Doctor Unassigned, [place] [facility] SUPER[facility]OR [facility] .840.114 350.1.13.10 4.2.7.2.686 [id number] [facility] 2022-05-09 00:00:00 2022-05-09 00:00:00 Liliana Correa [facility] SUPERVISOR INCISING [facility] CHILD [facility] .840.114 350.1.13.10 4.2.7.2.686 [id number] [facility] 2022-04-23 09:00:00 2022-04-23 09:00:00 Outpatient ANDREW ORELLANA HOWARD [facility] [id number] [facility] 2022-04-10 13:00:00 2022-04-10 14:54:09 Outpatient LILIANA MOISE [facility] [id number] [facility] 2022-04-10 13:00:00 2022-04-10 14:54:09 Office Visit Provider, StephenRmchLiliana Mayen [facility] SUPER[facility]OR INC[facility] & CHILD [facility] .840.114 350.1.13.10 4.2.7.2.686 [id number] [facility] 2022-04-10 00:00:00 2022-04-10 00:00:00 Orders Only Doctor Unassigned, [place] [facility] 1.840.114 350.1.13.10 4.2.7.2.686 [id number] [facility] 2022-04-02 00:00:00 2022-04-02 00:00:00 Telephone Renetta James [facility] 1..840.114 350.1.13.10 4.2.7.2.686 [id number] [facility] 2022-03-30 00:00:00 2022-03-30 00:00:00 Refill Erika Shel[facility] 1..840.114 350.1.13.10 4.2.7.2.686 [id number] [facility] 2022-03-28 08:30:00 2022-03-28 08:30:00 Outpatient R SOPHY ROA [facility] [id number] [facility] 2022-03-24 09:35:27 2022-03-24 23:59:00 Outpatient R RENETTA JAEMS [facility] [id number] [facility] 2022-03-21 16:30:00 2022-03-21 17:02:05 Outpatient R RENETTA JAMES [facility] [id number] [facility] 2022-03-21 16:30:00 2022-03-21 17:02:05 Office Visit Renetta [facility] 1..840.114 350.1.13.10 4.2.7.2.686 [id number] [facility] 2022-02-25 08:40:00 2022-02-25 10:03:41 Outpatient ANDREW ORELLANA HOWARD [facility] [id number] [facility] 2022-02-25 08:40:00 2022-02-25 10:03:41 Office Visit Chad, Andrew Cartagena [facility] 1.2.840.114 350.1.13.10 4.2.7.2.686 [id number] [facility] 2022-02-24 16:00:00 2022-02-24 16:00:00 Outpatient ANDREW ORELLANA HOWARD [facility] [id number] [facility] 2022-02-21 14:30:00 2022-02-21 15:26:33 Outpatient ERIKA MO [facility] [id number] [facility] 2022-02-21 14:30:00 2022-02-21 15:26:33 Office Visit E[facility] Shel[facility] T[facility] 1.2.840.114 350.1.13.10 4.2.7.2.686 [id number] [facility] 2022-02-21 14:30:00 2022-02-21 14:30:00 Outpatient ERIKA MO [facility] [id number] [facility] 2022-02-11 15:00:00 2022-02-11 15:00:00 Outpatient ANDREW ORELLANA HOWARD [facility] [id number] [facility] 2022-01-29 00:00:00 2022-01-29 00:00:00 Patient Secure Msg Doctor Unassigned, [place] [facility] 1.2.840.114 350.1.13.10 4.2.7.2.686 [id number] [facility] 2022-01-24 14:15:00 2022-01-24 14:15:00 Employee Counselor Visit Lab, Erika Henson [facility] 1.2.840.114 350.1.13.10 4.2.7.2.686 [id number] [facility] 2022-01-24 13:00:00 2022-01-24 13:52:38 Outpatient R ERIKA SHELLEY [facility] [id number] [facility] 2022-01-24 13:00:00 2022-01-24 13:52:38 Office Visit Erika Shelley [facility] 1.2.840.114 350.1.13.10 4.2.7.2.686 [id number] [facility] 2022-01-24 00:00:00 2022-01-24 00:00:00 [facility] 1.2.840.114 350.1.13.10 4.2.7.2.686 [id number] [facility] 2022-01-22 09:00:00 2022-01-22 09:00:00 Outpatient R ERIKA SHELLEY [facility] [id number] [facility] 2021-10-28 15:15:00 2021-10-28 15:15:00 Outpatient R LAURA BINGHAM BRENT [facility] [id number] [facility] 2021-08-08 15:15:00 2021-08-08 15:15:00 Outpatient R FREDDY FRASER [facility] [id number] [facility] 2021-07-04 09:45:00 2021-07-04 09:45:00 Outpatient R MIKAELA MANDUJANO [facility] [id number] [facility] 2021-06-28 09:15:00 2021-06-28 09:15:00 Outpatient R FREDDY FRASER [facility] [id number] [facility] 2021-06-27 08:45:00 2021-06-27 08:45:00 Outpatient R FREDDY FRASER [facility] [id number] [facility] 2021-06-27 08:30:00 2021-06-27 08:30:00 Outpatient R VILMA KRUEGER [facility] [id number] [facility] 2021-05-31 11:00:00 2021-05-31 11:50:03 Outpatient R VILMA KRUEGER [facility] [id number] [facility] 2021-05-31 11:00:00 2021-05-31 11:50:03 Routine Visit Vilma Krueegr [facility] SUPER[facility]OR [facility] MAT[facility] & CHILD [facility]ALTH [facility] 05.26.840.114 350.1.13.10 4.2.7.2.686 [id number] [facility] 2021-05-31 11:00:00 2021-05-31 11:50:03 Outpatient R VILMA KRUEGER [facility] [id number] [facility] 2021-05-30 08:30:00 2021-05-30 08:30:00 Outpatient R VILMA KRUEGER [facility] [id number] [facility] 2021-05-30 08:30:00 2021-05-30 08:30:00 Outpatient R VILMA KRUEGER [facility] [id number] [facility] 2021-05-16 14:30:25 2021-05-16 15:11:00 Outpatient Danny Andrews [facility]SE [id number] 2021-05-13 00:00:00 2021-05-13 00:00:00 Telephone Mikaela Mandujano [facility] SUPER[facility] & CHILD [facility] 05.26.840.114 350.1.13.10 4.2.7.2.686 [id number] [facility] 2021-05-08 13:00:00 2021-05-08 14:00:00 Telemedici ne Visit Gala LopezKyle Maria Luz [facility] 1..840.114 350.1.13.10 4.2.7.2.686 [id number] [facility] 2021-05-08 13:00:00 2021-05-08 13:00:00 Outpatient KYLE ELLISON [facility] [id number] [facility] 2021-05-02 13:12:40 2021-05-02 13:49:35 Nurse Visit Visit, Ang-Rmchp Nurse Chyna Rojas [facility] SUPER[facility] 1..840.114 350.1.13.10 4.2.7.2.686 [id number] [facility] 2021-05-02 13:00:00 2021-05-02 13:49:35 Outpatient CHYNA ROWAN [facility] [id number] [facility] 2021-05-01 08:30:00 2021-05-01 08:30:00 Outpatient CHYNA ROWAN [facility] [id number] [facility] 2021-04-22 17:34:00 2021-04-25 16:10:00 Inpatient P MAYELA Izquierdo [facility] [id number] [facility] 2021-04-22 17:34:00 2021-04-25 16:10:00 Hospital Encounter Sachin Marie, Jesusita izquierdo [facility] 1..840.114 350.1.13.10 4.2.7.2.686 [id number] [facility] 2021-04-25 15:00:00 2021-04-25 15:00:00 Outpatient CHER BETHEA [facility] [id number] [facility] 2021-04-24 00:00:00 2021-04-24 00:00:00 Telephone Clinic, [facility] Neurology Continuity [facility] 1..114 350.1.13.10 4.2.7.2.686 [id number] [facility] 2021-04-24 00:00:00 2021-04-24 00:00:00 Patient Secure Msg Doctor Unassigned, [place] [facility] 1..114 350.1.13.10 4.2.7.2.686 [id number] [facility] 2021-04-23 11:01:00 2021-04-23 12:42:00 Surgery Mayela izquierdo [facility] 1..114 350.1.13.10 4.2.7.2.686 [id number] [facility] 2021-04-22 15:30:00 2021-04-22 15:30:00 Outpatient P [facility] [id number] [facility] 2021-04-22 15:30:00 2021-04-22 15:30:00 Outpatient P [facility] [id number] [facility] 2021-04-22 00:00:00 2021-04-22 00:00:00 Telephone Eric KebedechpAlexei p/ [facility] SUPER[facility] & CHILD [facility] 1..114 350.1.13.10 4.2.7.2.686 [id number] [facility] 2021-04-22 00:00:00 2021-04-22 00:00:00 Telephone Ibis Hargrove [facility] SUPERVISOR INCISING [facility] CHILD [facility] 1..114 350.1.13.10 4.2.7.2.686 [id number] [facility] 2021-04-22 00:00:00 2021-04-22 00:00:00 Orders Only Doctor Unassigned, [place] [facility] 1..114 350.1.13.10 4.2.7.2.686 [id number] [facility] 2021-04-18 23:24:00 2021-04-19 02:27:00 Outpatient P GEOVANNY BERGER [facility] [id number] [facility] 2021-04-18 23:24:00 2021-04-19 02:27:00 Hospital Encounter Geovanny Berger [facility] 1..114 350.1.13.10 4.2.7.2.686 [id number] [facility] 2021-04-12 00:00:00 2021-04-12 00:00:00 Telephone Dali Zuniga [facility] SUPER[facility] MAT[facility] & CHILD [facility] 1.840.114 350.1.13.10 4.2.7.2.686 [id number] [facility] 2021-04-11 10:00:00 2021-04-11 10:00:00 Outpatient R DALI ZUNIGA [facility] [id number] [facility] 2021-04-11 09:30:00 2021-04-11 09:30:00 Outpatient R [facility] [id number] [facility] 2021-04-09 10:00:00 2021-04-09 11:03:24 Outpatient R CHRISTOPHER ZAPATA [facility] [id number] [facility] 2021-04-09 09:47:54 2021-04-09 11:03:24 Routine Visit Provider, Christopher Nichols [facility] SUPER[facility] & CHILD [facility] 1.840.114 350.1.13.10 4.2.7.2.686 [id number] [facility] 2021-04-04 09:38:07 2021-04-04 10:42:02 Routine Visit Risk, Ang-Rmchp-N p/High Dali Zuniga [facility] SUPER[facility]OR [facility] 1.840.114 350.1.13.10 4.2.7.2.686 [id number] [facility] 2021-04-04 09:30:00 2021-04-04 10:42:02 Outpatient R DALI ZUNIGA [facility] [id number] [facility] 2021-04-04 09:30:00 2021-04-04 09:30:00 Outpatient R [facility] [id number] [facility] 2021-04-04 00:00:00 2021-04-04 00:00:00 Orders Only Doctor Unassigned, [place] [facility] 1.84.114 350.1.13.10 4.2.7.2.686 [id number] [facility] 2021-04-03 00:00:00 2021-04-03 00:00:00 Telephone Dali Zuniga [facility] SUPER[facility] & CHILD [facility] 1.84.114 350.1.13.10 4.2.7.2.686 [id number] [facility] 2021-03-26 15:01:39 2021-03-26 15:16:39 Office Visit Hilary Haro [facility] 1.114 350.1.13.10 4.2.7.2.686 [id number] [facility] 2021-03-26 14:45:00 2021-03-26 14:45:00 Outpatient HILARY BENNETT [facility] [id number] [facility] 2021-03-25 16:03:00 2021-03-25 21:27:00 Outpatient WOLF WELLS [facility] [id number] [facility] 2021-03-25 16:03:00 2021-03-25 21:27:00 Hospital Encounter Wolf Foster [facility] 1..840.114 350.1.13.10 4.2.7.2.686 [id number] [facility] 2021-03-25 16:03:00 2021-03-25 21:27:00 Outpatient P WOLF FOSTER [facility] [id number] [facility] 2021-03-25 00:00:00 2021-03-25 00:00:00 Telephone Risk, Ang-Rmchp-N p/High [facility] SUPER[facility] & CHILD [facility] 1..840.114 350.1.13.10 4.2.7.2.686 [id number] [facility] 2021-03-25 00:00:00 2021-03-25 00:00:00 Orders Only Doctor Unassigned, [place] [facility] 1..840.114 350.1.13.10 4.2.7.2.686 [id number] [facility] 2021-03-24 21:47:32 2021-03-24 23:14:00 Outpatient Danny Lino [facility] [id number] 2021-03-19 15:00:00 2021-03-19 15:00:00 Outpatient R [facility] [id number] [facility] 2021-03-19 14:09:53 2021-03-19 14:39:53 Employee Counselor Visit Ultrasound, Adc Wolf Cortez Anne M Pacheco, Luis Diego [facility] 1..840.114 350.1.13.10 4.2.7.2.686 [id number] [facility] 2021-03-19 14:00:00 2021-03-19 14:00:00 Outpatient P [facility] [id number] [facility] 2021-03-19 10:00:00 2021-03-19 10:00:00 Outpatient R CHER MONTANEZ [facility] [id number] [facility] 2021-03-14 16:04:23 2021-03-14 16:35:21 Routine Visit Risk, Ang-Rmchp-N p/High Dali Zuniga [facility] SUPER[facility]OR [facility] & CHILD [facility] 1.2840.114 350.1.13.10 4.2.7.2.686 [id number] [facility] 2021-03-14 16:00:00 2021-03-14 16:35:21 Outpatient R DALI ZUNIGA [facility] [id number] [facility] 2021-03-14 16:00:00 2021-03-14 16:00:00 Outpatient R [facility] [id number] [facility] 2021-03-06 00:00:00 2021-03-06 00:00:00 Telephone Dali Zuniga [facility] SUPER[facility] & CHILD [facility] 1.840.114 350.1.13.10 4.2.7.2.686 [id number] [facility] 2021-03-02 09:53:07 2021-03-02 23:59:00 Hospital Encounter Cher Montanez [facility] 1.284.114 350.1.13.10 4.2.7.2.686 [id number] [facility] 2021-03-02 09:52:56 2021-03-02 09:52:56 Hospital Encounter Cher Montanez [facility] 1.284.114 350.1.13.10 4.2.7.2.686 [id number] [facility] 2021-03-02 09:51:13 2021-03-02 09:51:13 Hospital Encounter Cher Montanez [facility] 1.20.114 350.1.13.10 4.2.7.2.686 [id number] [facility] 2021-03-02 00:00:00 2021-03-02 00:00:00 Outpatient R CHER MONTANEZ [facility] [id number] [facility] 2021-03-01 00:00:00 2021-03-01 00:00:00 Telephone Cher Montanez [facility] 1.840.114 350.1.13.10 4.2.7.2.686 [id number] [facility] 2021-02-28 15:53:00 2021-02-28 22:41:00 Hospital Encounter CynthiaSachin raymond [facility] 1.0.114 350.1.13.10 4.2.7.2.686 [id number] [facility] 2021-02-28 15:53:00 2021-02-28 22:41:00 Outpatient P CYNTHIA, SACHIN [facility] [id number] [facility] 2021-02-28 13:35:14 2021-02-28 14:05:14 Office Visit Clinic, [facility] Neurology Continuity Alessandro Cuellar [facility] 1..114 350.1.13.10 4.2.7.2.686 [id number] [facility] 2021-02-28 09:25:34 2021-02-28 10:38:08 Routine Visit Risk, Ang-Rmchp-N p/High Dali Zuniga [facility] SUPER[facility] & [facility] 1.840.114 350.1.13.10 4.2.7.2.686 [id number] [facility] 2021-02-28 00:00:00 2021-02-28 00:00:00 Outpatient R GERTRUDECHER [facility] [id number] [facility] 2021-02-20 00:00:00 2021-02-20 00:00:00 Telephone Freddy Fraser [facility] CHILD [facility] 1.840.114 350.1.13.10 4.2.7.2.686 [id number] 107 [id number] [facility] 2021-02-15 13:45:00 2021-02-15 13:45:00 Outpatient R [facility] [id number] [facility] 2021-02-15 00:00:00 2021-02-15 00:00:00 Telephone Freddy Fraser [facility] [employer] [facility] 1.840.114 350.1.13.10 4.2.7.2.686 [id number] 107 [id number] [facility] 2021-02-14 10:30:00 2021-02-14 10:30:00 Outpatient R JEFFREY RICKSCY [facility] [id number] [facility] 2021-02-14 08:54:10 2021-02-14 09:01:42 Employee Counselor Visit Lab, Ang-Rmchp Dali Zuniga [facility] ..840.114 350.1.13.10 4.2.7.2.686 [id number] 107 [id number] [facility] 2021-02-14 07:45:00 2021-02-14 07:45:00 Outpatient R DALI ZUNIGA [facility] [id number] [facility] 2021-02-12 00:00:00 2021-02-12 00:00:00 Telephone Freddy Fraser [facility] .840.114 350.1.13.10 4.2.7.2.686 [id number] 107 [id number] [facility] 2021-02-11 12:55:12 2021-02-11 13:50:54 Routine Visit Freddy Fraser [facility] 1..840.114 350.1.13.10 4.2.7.2.686 [id number] 107 [id number] [facility] 2021-02-11 12:55:12 2021-02-11 13:50:54 Routine Visit Freddy Fraser [facility] 1.840.114 350.1.13.10 4.2.7.2.686 [id number] 107 [id number] [facility] 2021-02-11 12:45:00 2021-02-11 12:45:00 Outpatient Rashad FREDDY FRASER [facility] [id number] [facility] 2021-02-11 00:00:00 2021-02-11 00:00:00 Telephone Freddy Fraser [facility] [employer] [facility] 1..840.114 350.1.13.10 4.2.7.2.686 [id number] 107 [id number] [facility] 2021-02-11 00:00:00 2021-02-11 00:00:00 Telephone Freddy Fraser [facility] [facility] 1.2.840.114 350.1.13.10 4.2.7.2.686 [id number] 107 [id number] [facility] 2021-01-29 11:45:00 2021-01-29 11:45:00 Outpatient ANTIONE WEBSTER [facility] [id number] [facility] 2021-01-29 10:18:38 2021-01-29 10:33:38 Employee Counselor Visit 2, [facility] Antione Ricks [facility] 1.840.114 350.1.13.10 4.2.7.2.686 [id number] [facility] 2021-01-29 10:18:38 2021-01-29 10:33:38 Employee Counselor Visit 2, [facility] Antione Ricks [facility] 1.2840.114 350.1.13.10 4.2.7.2.686 [id number] [facility] 2021-01-25 00:00:00 2021-01-25 00:00:00 Telephone [facility] 1.2840.114 350.1.13.10 4.2.7.2.686 [id number] [facility] 2021-01-25 00:00:00 2021-01-25 00:00:00 Telephone Berger Geovanny [facility] 1.2840.114 350.1.13.10 4.2.7.2.686 [id number] [facility] 2021-01-25 00:00:00 2021-01-25 00:00:00 [facility] 1.2840.114 350.1.13.10 4.2.7.2.686 [id number] [facility] 2021-01-25 00:00:00 2021-01-25 00:00:00 Telephone Geovanny Berger [facility] 1.2840.114 350.1.13.10 4.2.7.2.686 [id number] [facility] 2021-01-24 16:44:03 2021-01-24 16:46:02 Employee Counselor Visit [facility] 1.2840.114 350.1.13.10 4.2.7.2.686 [id number] [facility] 2021-01-24 16:44:03 2021-01-24 16:46:02 Employee Counselor Visit [facility] 1.2840.114 350.1.13.10 4.2.7.2.686 [id number] [facility] 2021-01-24 15:06:07 2021-01-24 16:06:07 Office Visit Clinic, [facility] Neurology Continuity [facility] 1.20.114 350.1.13.10 4.2.7.2.686 [id number] [facility] 2021-01-24 15:06:07 2021-01-24 16:06:07 Office Visit Clinic, [facility] Neurology Continuity [facility] 1.2.114 350.1.13.10 4.2.7.2.686 [id number] [facility] 2021-01-24 15:00:00 2021-01-24 15:00:00 Outpatient R [facility] [id number] [facility] 2021-01-17 16:17:29 2021-01-17 16:58:54 Routine Visit Geovanny Berger [facility] 1.2840.114 350.1.13.10 4.2.7.2.686 [id number] [facility] 2021-01-17 16:17:29 2021-01-17 16:58:54 Routine Visit Geovanny Berger [facility] 1.2840.114 350.1.13.10 4.2.7.2.686 [id number] [facility] 2021-01-17 16:00:00 2021-01-17 16:00:00 Outpatient R BERGER, [facility] [id number] [facility] 2021-01-08 13:15:00 2021-01-08 13:15:00 Outpatient R TAHIR HILARY [facility] [id number] [facility] 2021-01-07 00:00:00 2021-01-07 00:00:00 Telephone Geovanny Berger [facility] Professio nal Building 1.2.840.114 350.1.13.10 4.2.7.2.686 [id number] [facility] 2020-12-27 02:15:00 2020-12-27 04:32:00 Emergency AdRaquel ramon [facility] 1.2.840.114 350.1.13.10 4.2.7.2.686 [id number] [facility] 2020-12-27 00:00:00 2020-12-27 00:00:00 Case Management [facility] 1.2.840.114 350.1.13.10 4.2.7.2.686 [id number] [facility] 2020-12-26 17:30:00 2020-12-26 17:30:00 Outpatient R [facility] [id number] [facility] 2020-12-20 14:37:31 2020-12-20 16:03:43 Initial [facility] 1.2.840.114 350.1.13.10 4.2.7.2.686 [id number] [facility] 2020-12-20 14:30:00 2020-12-20 14:30:00 Outpatient R GEOVANNY BERGER [facility] [id number] [facility] 2020-12-18 11:03:47 2020-12-18 13:09:19 Employee Counselor Visit 2, [facility] Room Bita Alexis [facility] 1..114 350.1.13.10 4.2.7.2.686 [id number] [facility] 2020-12-18 10:45:00 2020-12-18 10:45:00 Outpatient P [facility] [id number] [facility] 2020-12-18 00:00:00 2020-12-18 00:00:00 Abstract Freddy Farser Rashad [facility] MAT[facility]NAL & CHILD [facility] 1.840.114 350.1.13.10 4.2.7.2.686 [id number] [facility] 2020-12-11 07:50:00 2020-12-11 14:20:00 Hospital Encounter Geovanny Berger Donny [facility] 1.0.114 350.1.13.10 4.2.7.2.686 [id number] [facility] 2020-12-07 00:00:00 2020-12-07 00:00:00 Patient Secure Msg Spring Nate [facility] 1.2.114 350.1.13.10 4.2.7.2.686 [id number] [facility] 2020-12-05 17:41:26 2020-12-05 18:19:58 Routine Visit Risk, Ang-Rmchp-N p/High AkinsiMikaela loving Karen L [facility] SUPER[facility] MATERNAL & CHILD [facility] 1.0.114 350.1.13.10 4.2.7.2.686 [id number] [facility] 2020-12-05 17:41:26 2020-12-05 18:19:58 Routine Visit Risk, Ang-Rmchp-N p/High AkinMikaela minor Karen L [facility] MATERNAL & CHILD [facility] 1.114 350.1.13.10 4.2.7.2.686 [id number] [facility] 2020-12-05 13:30:00 2020-12-05 13:30:00 Outpatient R [facility] [id number] [facility] 2020-11-29 00:00:00 2020-11-29 00:00:00 Patient Secure Nate Cm [facility] 1.114 350.1.13.10 4.2.7.2.686 [id number] [facility] 2020-11-27 17:00:27 2020-11-27 17:40:19 Routine Visit Freddy Fraser [facility] SU[facility] CHILD [facility] 1.114 350.1.13.10 4.2.7.2.686 [id number] 107 [id number] [facility] 2020-11-27 16:30:00 2020-11-27 16:30:00 Outpatient R FREDDY FRASER [facility] [id number] [facility] 2020-11-27 00:00:00 2020-11-27 00:00:00 Telephone Risk, Ang-Rmchp-N p/High [facility] MAT[facility]NAL & CHILD [facility] 1.114 350.1.13.10 4.2.7.2.686 [id number] 107 [id number] [facility] 2020-11-22 13:30:00 2020-11-22 13:30:00 Outpatient R [facility] [id number] [facility] 2020-11-20 00:00:00 2020-11-20 00:00:00 Patient Secure Msg [place] Nate [facility] .114 350.1.13.10 4.2.7.2.686 [id number] [facility] 2020-11-19 04:29:00 2020-11-19 05:39:00 Emergency Shine Johnson [facility] 1.2.840.114 350.1.13.10 4.2.7.2.686 [id number] [facility] 2020-11-15 13:41:05 2020-11-15 14:53:16 Routine Visit Risk, Ang-Rmchp-N p/High Dali Zuniga [facility] MATERNAL & CHILD [facility] 1.840.114 350.1.13.10 4.2.7.2.686 [id number] [facility] 2020-11-15 14:00:00 2020-11-15 14:00:00 Outpatient R [facility] [id number] [facility] 2020-11-08 11:34:34 2020-11-08 12:16:56 Office Visit Hilary Haro [facility] 1.84.114 350.1.13.10 4.2.7.2.686 [id number] [facility] 2020-11-08 11:30:00 2020-11-08 11:30:00 Outpatient HILARY BENNETT [facility] [id number] [facility] 2020-11-07 15:00:00 2020-11-07 15:00:00 Outpatient FREDDY AGUSTIN [facility] [id number] [facility] 2020-11-05 00:00:00 2020-11-05 00:00:00 Abstract Freddy Fraser [facility] MATERNAL & CHILD [facility] 1.2.840.114 350.1.13.10 4.2.7.2.686 [id number] [facility] 2020-11-02 14:03:12 2020-11-02 14:48:12 Employee Counselor Visit 1, Addy Room Rafal Alvarenga [facility] MATERNAL & CHILD [facility] 1.2.840.114 350.1.13.10 4.2.7.2.686 [id number] [facility] 2020-11-02 14:15:00 2020-11-02 14:15:00 Outpatient P [facility] [id number] [facility] 2020-10-27 00:00:00 2020-10-27 00:00:00 Patient Secure Msg Doctor Unassigned, [place] [facility] 1.2.840.114 350.1.13.10 4.2.7.2.686 [id number] [facility] 2020-10-25 13:45:19 2020-10-25 14:39:38 Routine Visit Risk, Ang-Rmchp-N p/High Dali Zuniga [facility] MATERNAL & CHILD [facility] 1..840.114 350.1.13.10 4.2.7.2.686 [id number] [facility] 2020-10-25 13:30:00 2020-10-25 13:30:00 Outpatient R [facility] [id number] [facility] 2020-10-17 16:00:00 2020-10-17 16:00:00 Outpatient R HOMA BURNS [facility] [id number] [facility] 2020-10-10 13:02:04 2020-10-10 14:25:07 Initial Visit Freddy Fraser [facility] CHILD [facility] 1.2.840.114 350.1.13.10 4.2.7.2.686 [id number] [facility] 2020-10-10 12:45:00 2020-10-10 12:45:00 Outpatient Rashad WEINSTEINFREDDY Patel [facility] [id number] [facility] 2020-10-10 00:00:00 2020-10-10 00:00:00 Orders Only Doctor Unassigned, [place] [facility] ..840.114 350.1.13.10 4.2.7.2.686 [id number] [facility] 2020-10-08 02:15:00 2020-10-08 02:15:00 Outpatient SCHAUBROECK _L [facility] [id number] 2020-10-08 00:00:00 2020-10-08 00:00:00 Outpatient SCHAUBROECK _L [facility] [id number] 2020-10-08 00:00:00 2020-10-08 00:00:00 Outpatient Christy Donaldson [facility] [id number] 2020-10-08 00:00:00 2020-10-08 00:00:00 Christy ga, [facility]-: [address] [place] [address], [address], [place] [address] , Ph. [facility] [id number] [facility] 2020-09-19 16:00:00 2020-09-19 16:00:00 Outpatient HOMA CAICEDO [facility] [id number] [facility] 2020-09-19 00:00:00 2020-09-19 00:00:00 Telephone [facility] 1..840.114 350.1.13.10 4.2.7.2.686 [id number] [facility] 2020-09-13 00:00:00 2020-09-13 00:00:00 Telephone Homa Burns [facility] 1.2.840.114 350.1.13.10 4.2.7.2.686 [id number] [facility] 2020-08-29 14:08:22 2020-08-29 15:10:44 Office Visit Homa BurnsSrinivasParisa [facility] 1.2.840.114 350.1.13.10 4.2.7.2.686 [id number] [facility] 2020-08-29 14:00:00 2020-08-29 14:00:00 Outpatient HOMA CAICEDO [facility] [id number] [facility] 2020-08-17 10:56:00 2020-08-17 10:56:00 Outpatient JUANUBROECK _L [facility] [id number] 2020-08-17 10:56:00 2020-08-17 10:56:00 Outpatient GITAROCALEB _L [facility] [id number] 2020-08-17 00:00:00 2020-08-17 00:00:00 Outpatient Christy Donaldson [facility] [id number] 2020-08-17 00:00:00 2020-08-17 00:00:00 EULALIA Arredondo-C: [address] [place] [address], [address], [place] [address] , Ph. [facility] [id number] [facility] 2020-07-25 09:19:53 2020-07-25 10:09:42 Office Visit Mikaela Mandujano [facility] MATERNAL & CHILD [facility] 1.2.840.114 350.1.13.10 4.2.7.2.686 [id number] 2020-07-25 09:19:53 2020-07-25 10:09:42 Office Visit Mikaela Mandujano [facility] CHILD [facility] 1.2.840.114 350.1.13.10 4.2.7.2.686 [id number] [facility] 2020-07-25 09:30:00 2020-07-25 09:30:00 Outpatient MIKAELA TOLENTINO [facility] [id number] [facility] 2020-07-23 00:00:00 2020-07-23 00:00:00 Refill Mikaela Mandujano [facility] 1.2.840.114 350.1.13.10 4.2.7.2.686 [id number] 107 [id number] [facility] 2020-07-17 02:29:00 2020-07-17 02:29:00 Outpatient NIK Salazar [facility] [id number] [facility] 2020-07-17 00:00:00 2020-07-17 00:00:00 Outpatient Christy Donaldson [facility] [id number] 2020-07-17 00:00:00 2020-07-17 00:00:00 EULALIA Arredondo-C: [address] [place] [address], [address], [place] [address] , Ph. [facility] [id number] [facility] 2020-06-07 08:00:00 2020-06-07 08:00:00 Outpatient CHYNA ROWAN [facility] [id number] [facility] 2020-05-04 00:00:00 2020-05-04 00:00:00 Telephone Mikaela Mandujano [facility] 1.2.840.114 350.1.13.10 4.2.7.2.686 [id number] [facility] 2020-05-03 04:16:00 2020-05-03 04:16:00 Outpatient SCHAUBROECK _L [facility] [id number] 2020-05-03 04:16:00 2020-05-03 04:16:00 Outpatient SCHAUBROECK _L [facility] [id number] 2020-04-26 09:33:02 2020-04-26 10:49:10 Office Visit Mikaela Mandujano [facility] 1..840.114 350.1.13.10 4.2.7.2.686 [id number] 107 [id number] [facility] 2020-04-26 09:15:00 2020-04-26 09:15:00 Outpatient R MIKAELA MANDUJANO [facility] [id number] [facility] 2020-04-08 15:53:00 2020-04-08 18:57:00 Emergency Wesly Barajas F [facility] 1.2.840.114 350.1.13.10 4.2.7.2.686 [id number] [facility] 2020-04-06 23:45:00 2020-04-07 01:38:00 Emergency Mi Hernadez [facility] 1.2.840.114 350.1.13.10 4.2.7.2.686 [id number] [facility] 2020-03-22 13:30:40 2020-03-22 14:16:49 Office Visit Chyna Rojas [facility] CHILD [facility] 1.2.840.114 350.1.13.10 4.2.7.2.686 [id number] [facility] 2020-03-22 13:30:00 2020-03-22 13:30:00 Outpatient CHYNA ROWAN [facility] [id number] [facility] 2020-03-22 00:00:00 2020-03-22 00:00:00 Refill Brijesh Chyna [facility] SUPERVISOR [facility] CHILD [facility] 1.2840.114 350.1.13.10 4.2.7.2.686 [id number] 107 [id number] [facility] 2020-03-08 16:10:07 2020-03-08 16:43:14 Office Visit Chyna Rojas [facility] 1.2840.114 350.1.13.10 4.2.7.2.686 [id number] [facility] 2020-03-08 16:00:00 2020-03-08 16:00:00 Outpatient CHYNA ROWAN [facility] [id number] [facility] 2020-03-08 00:00:00 2020-03-08 00:00:00 Orders Only Doctor Unassigned, [place] [facility] 1.2840.114 350.1.13.10 4.2.7.2.686 [id number] [facility] 2020-02-29 09:30:00 2020-02-29 09:30:00 Appointcourtney sandoval; ANGELES CULP M.D. ANGELES CULP M.D. [facility] [id number] [facility] 2019-11-14 14:00:00 2019-11-14 14:00:00 Outpatient CHYNA ROWAN [facility] [id number] [facility] 2019-11-08 00:00:00 2019-11-08 00:00:00 Telephone Mikaela Mandujano Raghav CAROLYN SUPER[facility]OR [facility] & CHILD [facility] 1.2.840.114 350.1.13.10 4.2.7.2.686 [id number] [facility] 2019-07-14 00:00:00 2019-07-14 00:00:00 Telephone Mikaela Mandujano [facility] 1.2.840.114 350.1.13.10 4.2.7.2.686 [id number] [facility] 2019-06-14 00:00:00 2019-06-14 00:00:00 Telephone Mikaela Mandujano [facility] 1.2.840.114 350.1.13.10 4.2.7.2.686 [id number] 107 [id number] [facility] 2019-06-14 00:00:00 2019-06-14 00:00:00 Telephone Mikaela Mandujano [facility] 1.2.840.114 350.1.13.10 4.2.7.2.686 [id number] 107 [id number] [facility] 2019-06-10 00:00:00 2019-06-10 00:00:00 Telephone Mikaela Mandujano Raghav [facility] 1.2.840.114 350.1.13.10 4.2.7.2.686 [id number] 107 [id number] [facility] 2019-06-08 13:13:20 2019-06-09 10:02:01 Office Visit Mikaela Mandujano Raghav [facility] & CHILD [facility] 1.2.840.114 350.1.13.10 4.2.7.2.686 [id number] 107 [id number] [facility] 2019-05-12 09:30:00 2019-05-12 09:30:00 Appointmen t; SAMMY LEBLANC M.D. WARNER, STEPHEN, M.D. [facility] [id number] [place] [facility] 2019-03-14 08:30:00 2019-03-14 08:50:05 Outpatient R MIKAELA MANDUJANO [facility] [id number] [facility] 2019-03-07 15:00:00 2019-03-07 15:15:35 Outpatient R MIKAELA MANDUJANO [facility] [id number] [facility] 2018-10-07 12:15:00 2018-10-07 12:15:00 Appointmen t; SAMMY LEBLANC M.D. WARNER, STEPHEN, M.D. [facility]oped[facility] [id number] [place] [facility] 2018-07-15 13:45:00 2018-07-15 13:45:00 Appointmen t; SAMMY LEBLANC M.D. WARNER, STEPHEN, M.D. [facility]oped[facility] [id number] [place] [facility] 2018-06-24 12:45:00 2018-06-24 12:45:00 Appointmen t; SAMMY LEBLANC M.D. WARNER, STEPHEN, M.D. [facility] [id number] [place] [facility] 2018-03-25 12:45:00 2018-03-25 12:45:00 Appointmen t; SAMMY LEBLANC M.D. WARNER, STEPHEN, M.D. [facility] [id number] [place] [facility] 2018-02-11 12:45:00 2018-02-11 12:45:00 Appointmen t; SAMMY LEBLANC M.D. WARNER, STEPHEN, M.D. [facility] [id number] [place] [facility] 2018-01-28 09:15:00 2018-01-28 09:15:00 Appointmen t; SAMMY LEBLANC M.D. WARNER, STEPHEN, M.D. [facility] [id number] [place] [facility] 2017-12-17 13:15:00 2017-12-17 13:15:00 Appointmen t; SAMMY LEBLANC M.D. WARNER, STEPHEN, M.D. [facility] [id number] [place] [facility] 2017-11-19 11:00:00 2017-11-19 11:00:00 Appointmen t; SAMMY LEBLANC M.D. WARNER, STEPHEN, M.D. [facility] [id number] [place] [facility] 2017-11-05 13:30:00 2017-11-05 13:30:00 Appointmen t; SAMMY LEBLANC M.D. WARNER, STEPHEN, M.D. [facility] [place] [id number] [place] [facility] 2017-10-27 07:30:00 2017-10-27 07:30:00 Appointmen t; SAMMY LEBLANC M.D. WARNER, STEPHEN, M.D. [facility] [id number] [place] [facility] 2017-10-15 08:00:00 2017-10-15 08:00:00 Appointmen t; SAMMY LEBLANC M.D. WARNER, STEPHEN, M.D. [facility] [place] [id number] [place] [facility] 2017-09-17 08:00:00 2017-09-17 08:00:00 Appointmen t; SAMMY LEBLANC M.D. WARNER, STEPHEN, M.D. [facility] [id number] [place] [facility] [place] 2017-09-17 08:00:00 2017-09-17 08:00:00 Appointmen t; RASHAD DANIELS, RASHAD [place], [employer] [facility] [id number] [place] [facility] 2017-08-27 08:00:2017-08-27 08:00:00 Appointmen t; SAMMY LEBLANC M.D. WARNER, STEPHEN, M.D. [facility] [id number] [place] [facility] [place] 2017-08-13 13:15:00 2017-08-13 13:15:00 Appointmen t; SAMMY LEBLANC M.D. WARNER, STEPHEN, M.D. [facility] [id number] [place] [facility] ans Results Test Description Test Time Test Comments Results Result Co mments [id number]:22:00* Test Item Value Reference Range Interpretation Comme nts POCT PREG (test code = 1605) Negative On board controls acceptable with C Line (test code = 3574) Yes POCT PREG LOT # (test code = 3575) POCT PREG TEST DATE ( test code = 3576) [facility] [id number] 19:32:00* Test Item Value Reference Range Interpretation Comme nts POCT PREG (test code = 1605) Negative On board controls acceptable with C Line (test code = 3574) Yes POCT PREG LOT # (test code = 3575) POCT PREG TEST DATE ( test code = 3576) [facility] [id number] 19:32:00* Test Item Value Reference Range Interpretation Comme nts POCT PREG (test code = 1605) Negative On board controls acceptable with C Line (test code = 3574) Yes POCT PREG LOT # (test code = 3575) POCT PREG TEST DATE ( test code = 3576) [facility] [id number] 20:15:00* Test Item Value Reference Range Interpretation Comme nts POCT PREG (test code = 1605) Negative On board controls acceptable with C Line (test code = 3574) Yes POCT PREG LOT # (test code = 3575) POCT PREG TEST DATE ( test code = 3576) [facility] [id number] 20:15:00* Test Item Value Reference Range Interpretation Comme nts POCT PREG (test code = 1605) Negative On board controls acceptable with C Line (test code = 3574) Yes POCT PREG LOT # (test code = 3575) POCT PREG TEST DATE ( test code = 3576) [facility]2022-04-12 08:48:35* Test Item Value Reference Range Interpretation Comme nts HGB A1C (test code = 4548-4) 5.7 % 4.0-5.7 MADONNA (test code = MADONNA) Reference RangesNormal: <5.7%Prediabetes: 5.7 - 6.4%Diabetes: > 6.5% Lab Interpretation (test code = 14359-5) Normal [facility]2022-04-12 08:48:35* Test Item Value Reference Range Interpretation Comme nts HGB A1C (test code = 4548-4) 5.7 % 4.0-5.7 MADONNA (test code = MADONNA) Reference RangesNormal: <5.7%Prediabetes: 5.7 - 6.4%Diabetes: > 6.5% Lab Interpretation (test code = 45140-3) Normal [facility] ONLY - SYPHILIS IGG/[id number] 16:38:59* Test Item Value Reference Range Interpretation Comme [facility] Syphilis IgG/IgM (test code = 82377-5) Non-reactive Non-reactive MADONNA (test code = MADONNA) Non-reactive - No serologic evidence of T. pallidum infection. Cannot exclude incubating or early syphilis. Submit a second specimen in 2-4 weeks if syphilis is clinically suspected. Equivocal - Further testing to follow. Reactive - Further testing to follow. Lab Interpretation (test code = 87949-8) Normal [facility] ONLY - SYPHILIS IGG/PTA4675-34-10 16:38:59* Test Item Value Reference Range Interpretation Comme [facility] Syphilis IgG/IgM (test code = 17793-5) Non-reactive Non-reactive MADONNA (test code = MADONNA) Non-reactive - No serologic evidence of T. pallidum infection. Cannot exclude incubating or early syphilis. Submit a second specimen in 2-4 weeks if syphilis is clinically suspected. Equivocal - Further testing to follow. Reactive - Further testing to follow. Lab Interpretation (test code = 45474-8) Normal [facility] 1/2 AG-AB WITH LBNQCI4413-94-31 09:06:23* Test Item Value Reference Range Interpretation Comme [facility] HIV Semi-quantitative (test code = 38517-9) Negative Negative MADONNA (test code = MADONNA) Non-reactive for HIV-1 antigen and HIV-1/HIV-2 antibodies. ?No laboratory evidence of HIV infection. ?Repeat in 2-4 weeks if acute HIV infection is suspected. [facility] 1/2 AG-AB WITH JSISFN8002-31-10 09:06:23* Test Item Value Reference Range Interpretation Comme [facility] HIV Semi-quantitative (test code = 87937-0) Negative Negative MADONNA (test code = MADONNA) Non-reactive for HIV-1 antigen and HIV-1/HIV-2 antibodies. ?No laboratory evidence of HIV infection. ?Repeat in 2-4 weeks if acute HIV infection is suspected. [facility] WITH SKWZ7322-02-75 07:30:28* Test Item Value Reference Range Interpretation Comme nts WBC (test code = 6690-2) See_Comment [Automated messa ge] The system which generated this result transmitted reference range: 4.30 - 11.10 10*3/?L. The reference range was not used to interpret this result as normal/abnormal. RBC (test code = 789-8) See_Comment [Automated messa ge] The system which generated this result transmitted reference range: 3.93 - 5.25 10*6/?L. The reference range was not used to interpret this result as normal/abnormal. HGB (test code = 718-7) 13.1 g/dL 11.6-15.0 HCT (test code = 4544-3) 42.2 % 35.7-45.2 MCV (test code = 787-2) 83.6 fL 80.6-95.5 MCH (test code = 785-6) 25.9 pg 25.9-32.8 MCHC (test code = 786-4) 31.0 g/dL 31.6-35.1 L RDW-SD (test code = 18357-0) 40.8 fL 39.0-49.9 RDW-CV (test code = 788-0) 13.3 % 12.0-15.5 PLT (test code = 777-3) See_Comment [Automated messa ge] The system which generated this result transmitted reference range: 166 - 358 10*3/?L. The reference range was not used to interpret this result as normal/abnormal. MPV (test code = 35907-4) 11.3 fL 9.5-12.9 NRBC/100 WBC (test code = 6995803469) See_Comment [Automated AppThwack ssage] The system which generated this result transmitted reference range: 0.0 - 10.0 /100 WBCs. The reference range was not used to interpret this result as normal/abnormal. NRBC x10^3 (test code = 2336161969) See_Comment [Automated messa ge] The system which generated this result transmitted reference range: 10*3/?L. The reference range was not used to interpret this result as normal/abnormal. GRAN MAT (NEUT) % (test code = 770-8) 57.0 % IMM GRAN % (test code = 5381904420) 0.30 % LYMPH % (test code = 736-9) 32.2 % MONO % (test code = 5905-5) 7.2 % EOS % (test code = 713-8) 2.5 % BASO % (test code = 706-2) 0.8 % GRAN MAT x10^3(ANC) (test code = 4843455259) 5.16 10*3/uL 1.88-7.09 IMM GRAN x10^3 (test code = 9950504676) 0.03 10*3/uL 0.00-0.06 LYMPH x10^3 (test code = 731-0) 2.92 10*3/uL 1.32-3.29 MONO x10^3 (test code = 742-7) 0.65 10*3/uL 0.33-0.92 EOS x10^3 (test code = 711-2) 0.23 10*3/uL 0.03-0.39 BASO x10^3 (test code = 704-7) 0.07 10*3/uL 0.01-0.07 Lab Interpretation (test code = 53166-5) Abnormal [facility] WITH ZNMC4684-20-06 07:30:28* Test Item Value Reference Range Interpretation Comme nts WBC (test code = 6690-2) See_Comment [Automated messa ge] The system which generated this result transmitted reference range: 4.30 - 11.10 10*3/?L. The reference range was not used to interpret this result as normal/abnormal. RBC (test code = 789-8) See_Comment [Automated messa ge] The system which generated this result transmitted reference range: 3.93 - 5.25 10*6/?L. The reference range was not used to interpret this result as normal/abnormal. HGB (test code = 718-7) 13.1 g/dL 11.6-15.0 HCT (test code = 4544-3) 42.2 % 35.7-45.2 MCV (test code = 787-2) 83.6 fL 80.6-95.5 MCH (test code = 785-6) 25.9 pg 25.9-32.8 MCHC (test code = 786-4) 31.0 g/dL 31.6-35.1 L RDW-SD (test code = 01727-4) 40.8 fL 39.0-49.9 RDW-CV (test code = 788-0) 13.3 % 12.0-15.5 PLT (test code = 777-3) See_Comment [Automated messa ge] The system which generated this result transmitted reference range: 166 - 358 10*3/?L. The reference range was not used to interpret this result as normal/abnormal. MPV (test code = 45821-7) 11.3 fL 9.5-12.9 NRBC/100 WBC (test code = 4291323549) See_Comment [Automated AppThw[employer] ssage] The system which generated this result transmitted reference range: 0.0 - 10.0 /100 WBCs. The reference range was not used to interpret this result as normal/abnormal. NRBC x10^3 (test code = 7473700583) See_Comment [Automated BrightDoor Systemsa ge] The system which generated this result transmitted reference range: 10*3/?L. The reference range was not used to interpret this result as normal/abnormal. GRAN MAT (NEUT) % (test code = 770-8) 57.0 % IMM GRAN % (test code = 3240091570) 0.30 % LYMPH % (test code = 736-9) 32.2 % MONO % (test code = 5905-5) 7.2 % EOS % (test code = 713-8) 2.5 % BASO % (test code = 706-2) 0.8 % GRAN MAT x10^3(ANC) (test code = 7326621413) 5.16 10*3/uL 1.88-7.09 IMM GRAN x10^3 (test code = 5551870263) 0.03 10*3/uL 0.00-0.06 LYMPH x10^3 (test code = 731-0) 2.92 10*3/uL 1.32-3.29 MONO x10^3 (test code = 742-7) 0.65 10*3/uL 0.33-0.92 EOS x10^3 (test code = 711-2) 0.23 10*3/uL 0.03-0.39 BASO x10^3 (test code = 704-7) 0.07 10*3/uL 0.01-0.07 Lab Interpretation (test code = 80833-0) [facility]* Test Item Value Reference Range Interpretation Comme nts POCT PREG (test code = 1605) Negative On board controls acceptable with C Line (test code = 3574) Yes POCT PREG LOT # (test code = 3575) POCT PREG TEST DATE ( test code = 3576) [facility] DADP3506-25-72 22:00:00* Test Item Value Reference Range Interpretation Comme nts POCT PREG (test code = 1605) Negative On board controls acceptable with C Line (test code = 3574) Yes POCT PREG LOT # (test code = 3575) POCT PREG TEST DATE ( test code = 3576) [facility][U] XRAY FEMUR 2 VWS LEFT [id number] 12:59:00Images acquired, not reported on this accession number.[facility][U] XRAY KNEE 1 OR 2 VWS LEFT [id number] 12:59:00Images acquired, not reported on this accession number[facility]U] XRAY KNEE 1 OR 2 VWS LEFT [id number] 2017-11-19 11:16:00Images acquired, not reported on this accession number[facility][U] XRAY FEMUR 2 VWS LEFT [id number] 11:16:00Images acquired, not reported on this accession number[facility][U] XRAY FEMUR 2 VWS LEFT [id number] 2017-10-15 07:47:00Images acquired, not reported on this accession number[facility][U] XRAY KNEE 1 OR 2 VWS LEFT [id number] 07:47:00Images acquired, not reported on this accession number[facility][U] XRAY FEMUR 2 VWS LEFT [id number] 07:53:00Images acquired, not reported on this accession number. [facility][U] XRAY KNEE 1 OR 2 VWS LEFT [id number] 07:53:00Images acquired, not reported on this accession number.[facility][U] XRAY FEMUR 2 VWS LEFT [id number] 13:33:00Images acquired, not reported on this accession number.[facility][U] XRAY KNEE 1 OR 2 VWS LEFT [id number] 13:33:00 Images acquired, not reported on this accession number.[facility] Notes Date/Time Note Provider Source 2023-09-25 13:00:00 UtMtAC/atfEgWEQUL4Hf IYvFl/PsiC1f3z WLi31krvtwdc9dbcw8V3uGvT2oWBYC9373 -05-03T13:00:00 Images from the original note were not included.Venipuncture collection performed by clean technique on the right anticubitus. Total of 1 attempts were made. Slight pressure and a bandage/dressing were applied to the site(s). The patient experienced no complications. The following specimens were processed according to instructions and sent to [facility] laboratories per lab order on 09/25/2023 :LT BLUESST 2REDLAV 2PPTDK GREEN (LiHep)DK GREEN (SodH)GRAYDK BLUE (K2)DK BLUE (S)ACDBlood CultureNIPT/NTD 03444-4Qgzwm LfzhHT7678-50-49I26:07:16Nurse NoteTXT1.2.840.517604.1.13.104.2.7 .2.883909|[id number] for patient hnqq14631-7Zqyob NoteLNNARRATIVEFormatted C-CDA narrative textUTMBLOVELACE REHABILITATION HOSPITAL - [address] Wl[id number] 42IYYQQNVRHPEDCVCEEHEBGP9933-74-43 T13:07:161.2.840.303898.1.72.3.15| 1.2.840.750753.1.13.104.2.7.2.7278 [id number] [facility] 2023-09-14 10:07:48 0iegi3SIfPcwdHXAs2kB ZVBDUpSV+Lzxon X1P9Aw0wI69WexZlHtiCkbKbSs6wLi8911 -04-22T10:07:48Summary: [facility] Specialty PharmacyTherapy Morena Martell is a 27 year old y/o /White female patient referred to the [facility] Specialty Pharmacy for management of Humira and appropriateness of therapy which is being used to treat the diagnosis of plaque psoriasis.I spoke to the patient and provided education and counseling on administering Humira CF Pens.Temo Martell is Na?e to therapy.The stage of Temo Martell active disease is Chronic, not at treatment goal.The current specialty medication regimen is: Humira CF Initial: SUBQ: 80 mg as a single dose on day 1, then Maintenance: SUBQ: 40 mg every other week beginning 1 week after initial dose will be started on: 4Concurrent medications used to treat plaque psoriasis:OTC ShampooPreviously trialed medications:Topical steroids - TriamcinoloneWhile speaking with the patient, the Specialty Pharmacist has reviewed and updated the:medication list and allergy list, patient aware, counseled of the needle sleeve might contain latex.Patient's most recent discharge from a hospital admission related to their specialty condition: The patient has not had a recent hospitalization related to their specialty condition.The [facility] Specialty Pharmacist has reviewed:The H&P, treatment recommendations, and all provider encounters relevant to the management of plaque psoriasis: No contraindication to therapyComorbid conditions: No contraindication to therapyRisk factors identified related to specialty medication therapy and condition: None identifiedPertinent labs reviewed: CBC with differential, Complete metabolic panel, HIV screening , and Tuberculosis (TB) screeningAfter review, the prescribed medication is clinically appropriate.Specific requirements for the management of plaque psoriasis:Recommended vaccinations: Hepatitis B, Influenza, and Tetanus, diphtheria, pertusisGoals of therapy based on therapy plan:Manage symptoms, Achieve remission, and Improve QOLPatient self-reported goals of therapy:Manage symptoms, Achieve remission, and Improve QOLBased on current therapy, patient progress towards established goals include:New to therapyEducation and counseling performed during this encounter:Purpose: Explained that the medication blocks certain cells that play a role in the condition and reduce inflammation and flareups associated with those cells.Expected benefit: Explained that the patient will see improvement between 2 to 4 weeks depending on the condition. Maximum efficacy will take 12 weeks.Storage: The medication will be stored in its original container in the refrigerator. Advise the patient to take it out and leave it at room temperature for 30 to 45 minutes to prevent pain and discomfort with cold injections.Preparation: Injection site selection: outer arms, upper thighs, and stomach area. Stomach has the best absorption (1 thumb away from the belly button on the left, right, or top, but never below). Wash hands and clean the area with an alcohol swab. Discussed the product anatomy and instructions. Advised patient to check for clarity of drug concentration prior to injecting by assessing if CLEAR or CLOUDY.Disposal: Advised the patient to dispose pen and needles in a sharps container as they are not reusable. An alternate to the red sharps container is a hard-shell plastic that cannot be punctured through, such as an empty detergent bottle.Common side effects: Signs and symptoms of an infection (upper respiratory infection; cold, fever, chills); If it does not improve, then reach out to HCP.Infection Prevention: Stay updated with inactivated vaccinations - avoid live vaccines. Contact clinic during significant illness (fever, antibiotic use).After counseling and education, utilized teach-back method to ensure patient comprehension on injection technique.Home Delivery Process: If the patient chooses to have the medications delivered home, someone needs to be at home to receive the packaged medication. The medication can only sit in the ice box for 6 to 8 hours, and then it needs to be refrigerated.[facility] will dispense and mail out Humira CF Pen on 09/15/2023, patient will administer on 09/16/2023.The shipping address confirmed was [address] [place] [address].Thank you,[facility] 84106-8Spiucgezd encounter JimhCZ4692-69-62T01:00:02Telephone encounter NoteTXT1.2.840.632961.1.13.104.2.7 .2.544951|[id number] for patient vjos81123-8PivtVZTVMGPDDOXFpsvmtvz d C-CDA narrative jtvh719747402Zdzqd Kumar [address] Oe[id number] 06BSETAKMZXDXGYIBUODUIVE6834-95-44 T11:00:021.2.840.919087.1.72.3.15| 1.2.840.697646.1.13.104.2.7.2.7278 [id number] Radha Winston [facility] 2023-09-08 14:45:00 ZC9L0mflB9XQTsffdWiD jldt6eh6F7zASp KqCU/QbFaZqKeC2SwKRejG4vhT18141601 -04-16T14:45:00 Images from the original note were not included.Venipuncture collection performed by clean technique on the right anticubitus. Total of 1 attempts were made. Slight pressure and a bandage/dressing were applied to the site(s). The patient experienced no complications. The following specimens were processed according to instructions and sent to [facility] laboratories per lab order on 09/08/2023:LT BLUESST 1REDLAV 1PPTDK GREEN (LiHep) 1DK GREEN (SodH)GRAYDK BLUE (K2)DK BLUE (S)ACDBlood CultureNIPT/NTD 11220-1Zbpfv NzsaKS6715-80-25F21:53:25Nurse NoteTXT1.2.840.271636.1.13.104.2.7 .2.554839|[id number] for patient ogda65939-9Cagar NoteLNNARRATIVEFormatted C-CDA narrative text[id number] 60UMOCIZTKKJBPFSWCHUGEPH7068-73-51 T14:53:251.2.840.594893.1.72.3.15| 1.2.840.520826.1.13.104.2.7.2.7278 [id number] [facility] 2023-07-21 15:11:45 NtCcVVgJtFlX3r3Y/ZJt M730AWNP9ZGNxZ 5tVOktPZFhdHmBqR7qNsigXp/yN9y059672023T15:11:45 Spoke with pt who stated if she misses a dose she has fatigue and the tingling in her hands return. Pt stated she self tapered off of it due to "not being a fan of it." Pt is wanting to discuss other options at NOV with provider. No other complaints voiced at this time. 60070-2Ceojneaoi encounter CsidFY6457-73-20O46:17:13Telephone encounter NoteTXT1.2.840.745520.1.13.104.2.7 .2.340344|[id number] for patient snnr12672-5WhigHHIHHFCPXDCRwpyvksp d C-CDA narrative lkpl790575293Wehrkp Phillips [id number] 15XTVFWEJGWKEJTXBRUIPDUB1997-42-55 T15:17:131.2.840.652994.1.72.3.15| 1.2.840.008489.1.13.104.2.7.2.7278 [id number] Sheila Jolly LVN [facility] 2023-07-21 13:38:19 pDvMDk51hXPZItW59WKV EQtV1791tqZSLR ZgG7n5RvTQkHWYR5+kFWYate2mkQXM8967 -02-27T13:38:19 Did her sxs resolve when she took her next dose?We can have her start a different medication if she would like. Please schedule a follow up if she would like to d/c and try something else. 27386-0Pomtmdyha encounter QhaaDE3309-75-72I15:39:06Telephone encounter NoteTXT1.2.840.626674.1.13.104.2.7 .2.246180|[id number] for patient vkez91610-4JxixWEUTJJOEILGDunnfumn d C-CDA narrative text[id number] 00MPDNYSPAUWZTFDDJMAFPAZ0121-67-93 T13:39:061.2.840.809420.1.72.3.15| 1.2.840.605947.1.13.104.2.7.2.7278 [id number] [facility] 2023-07-16 15:26:25 LclQZtgE7er2lAr91nxN fD3+xRv28DJ3tG sczn0u1/bD8KzGW1b1GiSDZ7drfZsA7331 -02-22T15:26:25 Please review and advise. 69016-6Xbieqrrhj encounter UrzhQZ3364-29-46X08:26:46Telephone encounter NoteTXT1.2.840.127633.1.13.104.2.7 .2.023450|[id number] for patient olco66606-5FkyqRBWBNKEDGORDtndiohh d C-CDA narrative [id number] [place] RNUT[address]GalvestonGalvestonTXTX[address] 23DLFCFAOXUIHYOBPENSBFHU1582-87-05 T15:26:461.2.840.616920.1.72.3.15| 1.2.840.368696.1.13.104.2.7.2.7278 [id number] Abbey Licona ANABEL [facility] 2023-07-16 12:41:44 jKgvaqs3rt43DJNZ7IV/ s8bFEdLZ8lKDcD ADtRStgG1YywA2gcqlcgG5RZXxujW06182 -02-22T12:41:44 Temo Martell is a 27 year old femalePt is calling in regards to her topiramate 50 mg tablet .Pt had forgotten to take her medication one evening and she had horrible side affects .Pt is asking should she stop taking this medication.Please call Pt at work [phone] advise 00411-6Pcjcmnjxv encounter NqbgNQ8733-53-01Z47:48:18Telephone encounter NoteTXT1.2.840.811958.1.13.104.2.7 .2.251028|[id number] for patient vaxs24272-9AbxkZEYYZIVBLCDKcefiaoq d C-CDA narrative [id number] D [address] FlkrEbeyoucclEdcbjcpflREAL75783845 32XYVDFKGBGWAPQOBDJJZEHY0392-04-36 T12:48:181.2.840.203090.1.72.3.15| 1.2.840.133348.1.13.104.2.7.2.7278 [id number] Iveth Bhatia [facility] 2023-07-10 14:56:49 9jbib2VzRdKalxtYG7wL Ehwy5VNGeV3wk1 1QqErKpG6ZOdfYlXFBPCj0egZ+/mmo00792023T14:56:49 Spoke with pt and let her know per SHO Wilson the symptoms often resolve in about a week. Asked pt if she would like to see if the numbness resolves or if she would like to have an alternative medication prescribed. Pt stated she will give it a week to if it resolves. Advised pt to give us a call back if it doesn't and we can f/u with provider on alternative medication. Pt verbalized understanding and no other concerns or questions voiced. 99021-0Hluiarjfa encounter HnarJY6374-70-41O44:58:37Telephone encounter NoteTXT1.2.840.483694.1.13.104.2.7 .2.167622|[id number] for patient vuej71505-5BvgwSBTHOTQIDHFEzuhwjci d C-CDA narrative trwz106437834Adveuw Phillips [address] KqfyBxpokgyerGfaqzdeubLCKA23896881 07SDKUSWKCRAGENNTLKMBKVU8372-91-61 T14:58:371.2.840.821315.1.72.3.15| 1.2.840.250776.1.13.104.2.7.2.7278 [id number] Sheila Jolly Count includes the [facility] 2023-07-10 11:00:24 7xnp+ekIpp16NLf89zAq NG/TeNB/JPKr9s Ura86/NkC1Qu9KA7/VuLFCLIB0T5j57260 -02-16T11:00:24 Left VM that I would send Alawar Entertainmenthart message.Pat, please review and advise on if alternative medication can be prescribed and if pt should d/c Topiramate. 21080-2Lloczyivz encounter DipnFH3014-98-93W04:03:11Telephone encounter NoteTXT1.2.840.660854.1.13.104.2.7 .2.405483|[id number] for patient lsru07911-5JbrcBWOBYSSRNUNMfbhgcof d C-CDA narrative pump120085356Sxasyx Phillips [address]TXTX[address] 10GTQTLFGUHMTAMPZUYRGPMP7776-26-58 T11:03:111.2.840.882878.1.72.3.15| 1.2.840.127234.1.13.104.2.7.2.7278 [id number] Sheila Jolly Count includes the [facility] 2023-07-10 10:22:13 9klRgN76W/DSCoOx3iqV 0Grjx/LNnaKzrM zpbi23dPWseQ1vKS4e8n88NGichG856564 -02-16T10:22:13 numbness on both hands x 2 daystopiramate 50 mg tablet prescribed new medications 07/07/23She is asking to speak with a nurse. Please advise 14867-6Jtrgusizf encounter UpbfYK6112-23-79E84:22:45Telephone encounter NoteTXT1.2.840.684932.1.13.104.2.7 .2.009080|0560620907NHLwteybtoc for patient tane03807-7DzirJAKXXWAHCCWEedncmji d C-CDA narrative yhzl835008659Krwle [id number] 24MFZBDXQYWFWTQWVBFRHSAK6621-75-13 T10:22:451.2.840.255973.1.72.3.15| 1.2.840.469340.1.13.104.2.7.2.7278 [id number] Vanessa Tripathi [facility]
--- NOTE | 2023-10-03 11:57 | RAD REPORT ---
EXAM DESCRIPTION: RAD - Lumbar Spine 3 Views - 10/03/2023 11:51 am CLINICAL HISTORY: Pain;Radiculopathy Radiculopathy COMPARISON: No comparisons FINDINGS: Vertebral body heights appear maintained. No compression fracture noted. Mild disc thinnin g at L5-S1. No spondylolysis or spondylolisthesis. IMPRESSION: Negative study.
[2023-10-03] MEDS ORDERED: ACETAMINOPHEN 500 MG TAB ONE (12:21)
[2023-10-03] MEDS ORDERED: dexAMETHasone 10 MG/ML VIAL ONE (12:21)
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
[2023-10-03 13:15] VITALS: BP 124/82; TEMP 97.2; O2SAT 100
== END 2023-10-03 13:02 | disposition home or self-care (01) ==
LOC: ER 11:09
DX: M54.50 Low back pain, unspecified (principal); Z88.0 Allergy status to penicillin; Z88.5 Allergy status to narcotic agent; Z88.8 Allergy status to other drugs, medicaments and biological substances; Z91.040 Latex allergy status
CPT/HCPCS: 72100; 96372; 99284; J1100